=== PATIENT | female | born 1945 | race Caucasian/White ===

== ENCOUNTER → 2017-01-30 | Outpatient (CLI) | payer OTHER ==
[~2017-01-30] MED LIST: INDA1TAB3 PO; LORA-741 PO; NEBI10TA2 PO; OMEP40CA PO
[2017-01-30 12:04] LABS: BASO % 0.3 %; BASO ABS # 0.02 K/uL (0-0.2); COMPLETE YES; EOS % 1.8 %; HEMATOCRIT 43.8 % (37-47); IG% 0.2 %; LYMPH % 16.8 %; LYMPH ABS # 1.11 K/uL (1.2-3.4); MEAN CELL VOLUME 92.8 fL (80-100); MEAN CORPUSCULAR HEMOGLOBIN 29.2 pg (25-34); MEAN CORPUSCULAR HGB CONC 31.5 g/dl (32-36); MEAN PLATELET VOLUME 11.8 fL (7.4-10.4); MONO % 8.2 %; NEUT % 72.7 %; PLATELET COUNT 199 K/uL (130-400); RED BLOOD COUNT 4.72 M/uL (4.2-5.4); WHITE BLOOD COUNT 6.62 K/uL (4.8-10.8)
[2017-01-30 12:28] LABS: ALT/SGPT 25 U/L (12-78); AST/SGOT 22 U/L (15-37); BLOOD UREA NITROGEN 12 mg/dl (7-18); BUN/CREATININE RATIO 17.8 (10-20); CALCIUM 8.6 mg/dl (8.5-10.1); CARBON DIOXIDE 35 mmol/L (21-32); CHLORIDE 104 mmol/L (98-107); CREATININE 0.68 mg/dl (0.60-1.20); GLUCOSE 92 mg/dl (70-99); POTASSIUM 4.1 mmol/L (3.5-5.1); SODIUM 143 mmol/L (136-145)
[2017-01-30 12:39] LABS: ALB/GLOB RATIO 1.1 (0.9-2); ALKALINE PHOSPHATASE 61 U/L (45-117); CHOLESTEROL 151 mg/dl (0-200); HDL CHOLESTEROL 51 mg/dl; LDL CHOLESTEROL CALCULATED 85 mg/dl; TRIGLYCERIDES 74 mg/dl (0-150); VERY LOW DENSITY LIPOPROT CALC 15 mg/dl
== END | disposition home or self-care (01) ==
LOC: C.LABBFT 07:59
PROVIDERS: ATTEND Internal Medicine Pulmonary Disease
DX: I10 Essential (primary) hypertension (principal); M81.0 Age-related osteoporosis without current pathological fracture; R63.4 Abnormal weight loss

== ENCOUNTER → 2017-04-02 | Outpatient (CLI) | payer OTHER | END | disposition home or self-care (01) | LOC: C.PATHSPEC 12:55 | PROVIDERS: ATTEND Plastic Surgery | DX: L72.0 Epidermal cyst (principal) ==

== ENCOUNTER → 2017-08-10 | Outpatient (CLI) | payer OTHER ==
[2017-08-11 13:38] LABS: VARICELLA ZOS VIR IGG VALUE 262.8 INDEX
== END | disposition home or self-care (01) ==
LOC: C.LAB1850 11:20
PROVIDERS: ATTEND Internal Medicine Pulmonary Disease
DX: Z00.00 Encounter for general adult medical examination without abnormal findings (principal)

== ENCOUNTER → 2017-09-17 | Outpatient (CLI) | payer OTHER ==
--- NOTE | 2017-09-17 18:04 | DIAGNOSTIC IMAGING REPORT ---
R FOOT MIN 3 VIEWS ROUTINE CLINICAL HISTORY: 72 years-old Female presenting with FOOT/TOE INJURY, RIGHT. TECHNIQUE: Frontal, oblique, and lateral views the right foot were obtained. COMPARISON: None. FINDINGS: Minimal osteophytosis suggested at the first metatarsophalangeal joint. No joint space loss. No acute fracture or malalignment. Osteopenia suggested. No radiographic soft tissue abnormality. IMPRESSION: No acute osseous injury of the right foot. Please see separately dictated radiographs of the right toes. Electronically signed by: Brannon Mullins M.D. 09/17/2017 6:02 PM Dictated Date/Time: 09/17/2017 6:01 PM
--- NOTE | 2017-09-17 18:05 | DIAGNOSTIC IMAGING REPORT ---
R TOE(S) MIN 2 VIEWS CLINICAL HISTORY: 72 years-old Female presenting with TOE INJURY. TECHNIQUE: Frontal, oblique, and lateral views of the right fourth toe were obtained. COMPARISON: None. FINDINGS: Osteopenia may be present, which limits evaluation for nondisplaced fracture. Degenerative changes noted in the distal interphalangeal joint of the third toe and proximal interphalangeal joint of the fourth toe evidence by osteophytosis. No acute fracture or malalignment. No radiographic soft tissue abnormality. IMPRESSION: No acute osseous injury of the right fourth toe. Mild degenerative changes above. Electronically signed by: Brannon Mullins M.D. 09/17/2017 6:04 PM Dictated Date/Time: 09/17/2017 6:03 PM
== END | disposition home or self-care (01) ==
LOC: C.RAD 17:08
PROVIDERS: ATTEND Physician Assistant Surgical
DX: S99.921A Unspecified injury of right foot, initial encounter (principal); X58.XXXA Exposure to other specified factors, initial encounter; M79.671 Pain in right foot

== ENCOUNTER 2017-12-09 15:20 | Inpatient (IN) | payer OTHER ==
[~2017-12-09] VITALS: Ht 154.9 cm; Wt 42.8 kg
[~2017-12-09 15:20] MED LIST changes: -NEBI10TA2 PO
[2017-12-09] MEDS ORDERED: NEBI10TA2 PO (15:39)
[2017-12-09] MEDS ORDERED: ACETAMINOPHEN 500 MG TAB PO STA (15:46)
[2017-12-09] MEDS ORDERED: SODIUM CHLORIDE 0.9% 1000ML 1,000 ML IV STA (15:46)
[2017-12-09] MEDS ORDERED: ALBUT/IPRATROP 3MG/0.5MG NEB 3 ML VIAL INH ONE (16:00)
[2017-12-09 16:01] VITALS: PULSE 72; O2SAT 100
--- NOTE | 2017-12-09 16:24 | EMERGENCY ROOM VISIT NOTE ---
History First contact with patient: 15:37 Chief Complaint: FLU LIKE SX Stated Complaint: FLU History of Present Illness The patient is a 72 year old female who presents to the Emergency Room with complaints of flulike symptoms including cough, fevers/chills, body aches and headaches, and feeling very weak for the past 2 days. She has not taken any Tylenol or NSAIDs today for her symptoms. Patient went to see her primary care provider today, who sent her to the emergency department for further evaluation due to her oxygen level being 81% on room air. The patient does not use any oxygen at baseline. She denies any known lung disease and states she does not use any prescribed inhalers. She is an every day smoker. She denies any chest pain, shortness of breath, dizziness or syncope. She states that she has been having some loose stools, but denies any abdominal pain, nausea or vomiting, bloody or black stools, urinary symptoms. She denies any rash. Review of Systems A complete 10 point review of systems was reviewed with the patient with pertinent positives and negatives as per history of present illness. All else were negative. Past Medical/Surgical History Medical Problems: (1) Influenza A (2) PNA (pneumonia) Social History Smoking Status: Never Smoker Alcohol Use: none Drug Use: none Current/Historical Medications Scheduled Indapamide (Indapamide), 1.25 MG PO QAM Nebivolol Hcl (Bystolic), 20 MG PO QAM Omeprazole (Prilosec), 40 MG PO QAM Scheduled PRN Lorazepam (Lorazepam), 0.5 MG PO HS PRN for Sleep Omeprazole (Prilosec), 40 MG PO UD PRN for Acid Reflux Allergies Reviewed in chart Physical Exam Vital Signs Date Time Temp Pulse Resp B/P (MAP) Pulse Ox O2 Delivery O2 Flow Rate FiO2 12/09/17 16:32 87 12/09/17 16:22 80 26 121/68 100 Nebulizer 6.0 12/09/17 16:01 72 16 100 Nasal Cannula 2.0 12/09/17 15:59 100 Nasal Cannula 2.0 12/09/17 15:59 100 Nasal Cannula 2.0 12/09/17 15:31 38.3 74 20 164/46 87 Room Air Physical Exam CONSTITUTIONAL: Pleasant and cooperative. No acute distress, but appears uncomfortable and generally weak. Moderately dehydrated. HEENT: Normocephalic, atraumatic. PERRL, EOMI, normal conjunctiva bilaterally. TMs normal bilaterally. Pharynx with mild erythema, no edema or exudates. No uvular swelling or deviation, no trismus. Dry mucous membranes. NECK: Supple, full active range of motion without discomfort. No cervical adenopathy. RESPIRATORY: Diminished throughout with expiratory wheezes. No crackles, rhonchi or stridor. No accessory muscle use. Speaking in full sentences. Equal expansion bilaterally. CARDIOVASCULAR: Regular rate and rhythm, 3/6 systolic murmur, no rubs or gallops. Normal peripheral perfusion. No edema. GASTROINTESTINAL: Soft, nontender, nondistended. No palpable masses or HSM. Bowel sounds present in all quadrants. MUSCULOSKELETAL: Full range of motion of all joints without discomfort. INTEGUMENTARY: No rash or other significant dermatologic conditions noted. NEUROLOGIC: Alert and oriented X 4 with normal affect. Cranial nerves II-XII grossly intact. No focal neurologic deficits noted. Generalized weakness, equal strength and sensation in all 4 extremities. Normal speech. Normal gait observed. Medical Decision & Procedures ER Provider Diagnostic Interpretation: TWO VIEW CHEST CLINICAL HISTORY: Pneumonia. Cough. FINDINGS: PA and lateral chest radiographs are obtained. No prior studies are available for comparison at the time of dictation. The heart is enlarged and there is atherosclerotic calcification of the thoracic aorta. The pulmonary vasculature is noncongested. Emphysema is noted. Nonspecific interstitial thickening is observed. Airspace opacities are questioned at the posterior lung bases on the lateral projection. No pleural effusion is identified. There is no pneumothorax. The skeletal structures are osteopenic. Degenerative change and mild hyperkyphosis are noted in the thoracic spine. IMPRESSION: 1. Cardiomegaly and emphysema. 2. Airspace opacities are seen posteriorly at the lung bases on the lateral view. Correlate clinically for evidence of pneumonia/aspiration pneumonitis. Radiographic follow-up to resolution is recommended. Laboratory Results 12/09/17 16:15 Red Blood Count 4.43, Mean Corpuscular Volume 91.2, Mean Corpuscular Hemoglobin 29.6, Mean Corpuscular Hemoglobin Concent 32.4, Mean Platelet Volume 11.2, Neutrophils (%) (Auto) 79.1, Lymphocytes (%) (Auto) 10.0, Monocytes (%) (Auto) 10.5, Eosinophils (%) (Auto) 0.0, Basophils (%) (Auto) 0.2, Neutrophils # (Auto ) 4.83, Lymphocytes # (Auto) 0.61, Monocytes # (Auto) 0.64, Eosinophils # (Auto ) 0.00, Basophils # (Auto) 0.01 12/09/17 16:15 Test 12/09/17 15:57 12/09/17 16:15 Influenza Type A Antigen POS for Influ A (NEG) Influenza Type B Antigen Neg for Influ B (NEG) White Blood Count 6.10 K/uL (4.8-10.8) Red Blood Count 4.43 M/uL (4.2-5.4) Hemoglobin 13.1 g/dL (12.0-16.0) Hematocrit 40.4 % (37-47) Mean Corpuscular Volume 91.2 fL (80-100) Mean Corpuscular Hemoglobin 29.6 pg (25-34) Mean Corpuscular Hemoglobin Concent 32.4 g/dl (32-36) Platelet Count 102 K/uL (130-400) Mean Platelet Volume 11.2 fL (7.4-10.4) Neutrophils (%) (Auto) 79.1 % Lymphocytes (%) (Auto) 10.0 % Monocytes (%) (Auto) 10.5 % Eosinophils (%) (Auto) 0.0 % Basophils (%) (Auto) 0.2 % Neutrophils # (Auto) 4.83 K/uL (1.4-6.5) Lymphocytes # (Auto) 0.61 K/uL (1.2-3.4) Monocytes # (Auto) 0.64 K/uL (0.11-0.59) Eosinophils # (Auto) 0.00 K/uL (0-0.5) Basophils # (Auto) 0.01 K/uL (0-0.2) RDW Standard Deviation 49.8 fL (36.4-46.3) RDW Coefficient of Variation 14.8 % (11.5-14.5) Immature Granulocyte % (Auto) 0.2 % Immature Granulocyte # (Auto) 0.01 K/uL (0.00-0.02) Prothrombin Time 11.4 SECONDS (9.0-12.0) Prothromb Time International Ratio 1.1 (0.9-1.1) Activated Partial Thromboplast Time 34.1 SECONDS (21.0-31.0) Partial Thromboplastin Ratio 1.3 Anion Gap 8.0 mmol/L (3-11) Est Creatinine Clear Calc Drug Dose 50.1 ml/min Estimated GFR () 96.3 Estimated GFR (Non- 83.1 BUN/Creatinine Ratio 28.9 (10-20) Lactic Acid Level 1.0 mmol/L (0.4-2.0) Calcium Level 8.4 mg/dl (8.5-10.1) Total Bilirubin 0.5 mg/dl (0.2-1) Aspartate Amino Transf (AST/SGOT) 43 U/L (15-37) Alanine Aminotransferase (ALT/SGPT) 29 U/L (12-78) Alkaline Phosphatase 46 U/L (45-117) Total Protein 6.3 gm/dl (6.4-8.2) Albumin 3.1 gm/dl (3.4-5.0) Globulin 3.2 gm/dl (2.5-4.0) Albumin/Globulin Ratio 1.0 (0.9-2) Medications Administered Medications (Trade) Dose Ordered Sig/Nahomy Route Start Time Stop Time Status Last Admin Dose Admin Acetaminophen (Tylenol Tab) 1,000 mg NOW STAT PO 12/09/17 15:46 12/09/17 15:51 DC 12/09/17 16:00 1,000 MG Albuterol/ Ipratropium (Duoneb) 12 ml ONE ONCE INH 12/09/17 16:00 12/09/17 16:01 DC 12/09/17 16:01 12 ML Sodium Chloride 1,000 ml @ 999 mls/hr Q1H1M STAT IV 12/09/17 15:46 12/09/17 16:46 DC 12/09/17 16:26 999 MLS/HR Oseltamivir Phosphate (Tamiflu Cap) 75 mg NOW STAT PO 12/09/17 17:35 12/09/17 17:41 DC 12/09/17 18:10 75 MG Levofloxacin (Levaquin / D5W) 500 mg NOW ONCE IV 12/09/17 17:45 12/09/17 17:46 DC 12/09/17 18:10 500 MG ECG Indication: SOB/dyspnea Rate (beats per minute): 72 Rhythm: normal sinus Findings: ST depression (Infero-Lateral), no ectopy, other (LVH) Change: no significant change (when compared to EKG from 06/17/2016, ST abnormalities are unchanged.) Medical Decision CC: Patient presenting with complaint of flulike symptoms, hypoxia Interpretation of Labs: No leukocytosis, no anemia, no significant electrolyte abnormalities, normal renal function, normal liver enzymes. Lactic acid within normal limits. Coagulation factors within normal limits. Influenza A is POSITIVE. Blood cultures pending. UA appears consistent with contamination. Differential Diagnosis: Includes, but not limited to influenza, viral URI, bronchitis, pneumonia, dehydration, bacteremia/sepsis, ACS, CHF, COPD, among others. Medication Reconciliation: I attest that I have personally reviewed the patient' s current medication list. Initial vital signs review: I reviewed the patient's vital signs and interpret them as follows: T: Febrile; BP: Hypertensive; HR: Within normal limits; RR: Within normal limits; Pulse Ox: Hypoxic on room air, placed on nasal cannula. Blood pressure screening: The patient was found to have an elevated blood pressure, this was felt to be situational. Summary: Patient was evaluated at bedside, history and physical exam performed. Patient is alert and oriented, no acute distress but does appear uncomfortable and generally weak, sitting on the side of the stretcher. Patient's lungs are diminished throughout with expiratory wheezes. Patient was noted to be hypoxic at her doctor's office and again in triage, she is currently 97% on 4 L nasal cannula. Orders were placed at bedside for labs, UA, blood cultures 2, influenza test, IV fluids for hydration, Tylenol for fever, EKG, chest x-ray to evaluate for pneumonia. Patient discussed with Dr. Reyna, who agrees with my assessment and plan. Labs reviewed as above, positive for influenza type A. Labs otherwise appear unremarkable. EKG shows normal sinus rhythm, LVH and ST depression in the inferior and lateral leads, compared to previous this is unchanged by my interpretation. Chest x-ray concerning for possible basilar pneumonia. Patient did test positive for influenza type A. Tamiflu ordered, as well as IV Levaquin to cover for potential pneumonia. I spoke with Dr. Weinberg, hospitalist, who agrees to evaluate the patient for admission. Patient reassessed multiple times throughout ED stay, she reports mild improvement with the nebulizer treatments, and sats remain within normal limits on nasal cannula. The patient was updated on all results and plan for admission, she verbalized understanding and was agreeable to this plan. The patient was stable at time of admission. Impression Primary Impression: Influenza A Additional Impression: PNA (pneumonia) Departure Information Dispostion Admitted as an inpatient Condition FAIR Referrals Shadi Murrieta M.D. (PCP) Patient Instructions My [facility] Problem Qualifiers Additional Impression: PNA (pneumonia) Pneumonia type: due to unspecified organism Laterality: unspecified laterality Lung location: lower lobe of lung Qualified Codes: J18.1 - Lobar pneumonia, unspecified organism
[2017-12-09 16:39] LABS: BASO % 0.2 %; BASO ABS # 0.01 K/uL (0-0.2); HEMATOCRIT 40.4 % (37-47); HEMOGLOBIN 13.1 g/dL (12.0-16.0); IG# 0.01 K/uL (0.00-0.02); LYMPH ABS # 0.61 K/uL (1.2-3.4); MEAN CELL VOLUME 91.2 fL (80-100); MEAN CORPUSCULAR HEMOGLOBIN 29.6 pg (25-34); MEAN CORPUSCULAR HGB CONC 32.4 g/dl (32-36); MEAN PLATELET VOLUME 11.2 fL (7.4-10.4); MONO % 10.5 %; MONO ABS # 0.64 K/uL (0.11-0.59); NEUT % 79.1 %; NEUT ABS # 4.83 K/uL (1.4-6.5); PLATELET COUNT 102 K/uL (130-400); RED CELL DISTRIBUTION WIDTH CV 14.8 % (11.5-14.5); RED CELL DISTRIBUTION WIDTH SD 49.8 fL (36.4-46.3)
[2017-12-09 16:53] LABS: INFLUENZA B ANTIGEN Neg for Influ B (NEG)
[2017-12-09 16:56] LABS: ALBUMIN 3.1 gm/dl (3.4-5.0); CALCIUM 8.4 mg/dl (8.5-10.1); CREATININE 0.72 mg/dl (0.60-1.20); POTASSIUM 3.4 mmol/L (3.5-5.1)
[2017-12-09 16:59] LABS: TOTAL PROTEIN 6.3 gm/dl (6.4-8.2)
[2017-12-09] MEDS ORDERED: LZL125 PO (16:59)
[2017-12-09] MEDS ORDERED: OMEP40CA41 PO ×2 (16:59)
[2017-12-09] MEDS ORDERED: ATV5X PO (16:59)
--- NOTE | 2017-12-09 17:32 | DIAGNOSTIC IMAGING REPORT ---
TWO VIEW CHEST CLINICAL HISTORY: Pneumonia. Cough. FINDINGS: PA and lateral chest radiographs are obtained. No prior studies are available for comparison at the time of dictation. The heart is enlarged and there is atherosclerotic calcification of the thoracic aorta. The pulmonary vasculature is noncongested. Emphysema is noted. Nonspecific interstitial thickening is observed. Airspace opacities are questioned at the posterior lung bases on the lateral projection. No pleural effusion is identified. There is no pneumothorax. The skeletal structures are osteopenic. Degenerative change and mild hyperkyphosis are noted in the thoracic spine. IMPRESSION: 1. Cardiomegaly and emphysema. 2. Airspace opacities are seen posteriorly at the lung bases on the lateral view. Correlate clinically for evidence of pneumonia/aspiration pneumonitis. Radiographic follow-up to resolution is recommended. Electronically signed by: Fracisco Graham M.D. 12/09/2017 5:31 PM Dictated Date/Time: 12/09/2017 5:29 PM
[2017-12-09] MEDS ORDERED: OSELTAMIVIR PHOSPHATE 75 MG CAP PO STA (17:35)
[2017-12-09] MEDS ORDERED: LEVAQUIN 500MG / 100ML D5W IV ONE (17:45)
[2017-12-09] MEDS ORDERED: POLYETHYLENE (MIRALAX) 17 GM PACK PO PRN (18:15)
[2017-12-09] MEDS ORDERED: ACETAMINOPHEN 325 MG TAB PO PRN (18:15)
[2017-12-09] MEDS ORDERED: ONDANSETRON INJ 2 MG/ML 2 ML VIAL IV PRN (18:15)
[2017-12-09] MEDS ORDERED: MAGNESIUM HYDROXIDE SUSP 30 ML UDC PO PRN (18:15)
[2017-12-09] MEDS ORDERED: NITROGLYCERIN 0.4 MG SL PER TAB CHARGE SL PRN (18:15)
[2017-12-09] MEDS ORDERED: MoRPHine SULFATE 2 MG/ML CARP IV PRN (18:15)
[2017-12-09] MEDS ORDERED: ALBUT/IPRATROP 3MG/0.5MG NEB 3 ML VIAL INH PRN (18:15)
[2017-12-09] MEDS ORDERED: ALUMINUM/MAGNESIUM/SIMETH (MAALOX MAX) 30 ML UDC PO PRN (18:15)
--- NOTE | 2017-12-09 18:21 | History and Physical ---
History & Physical Date & Time of Service: Dec 09, 2017 at 18:09 Chief Complaint: FLU Primary Care Physician: Shadi Murrieta M.D. History of Present Illness Source: patient, family, clinic records, hospital records Patient is a pleasant 72 y/o female, with PMHx of anxiety, HTN, and GERD, who presented to the ED because of flu-like symptoms x3 days. Patient was seen by Dr. Murrieta today in the office for symptoms and was found to by hypoxic at 81% on RA. She does NOT have O2 supplement at home. She is an everyday smoker. Patient was found to be influenza A positive in ED. +fever/chills, body aches, loss of appetite. Patient also admits to productive cough w/ yellow sputum. CXR suggest bilateral lower lobe PNA. Patient did have a temp of 38.3 in ED. + diarrhea. Patient denies any sweats, lightheadedness, dizziness, vision changes , CP, palpitations, edema, SOB, wheezing, abdominal pain, nausea, vomiting, urinary symptoms, melena, numbness/tingling, weakness, muscle/joint pain, anxiety/depression, active bleeding, or new skin discoloration/changes. Past Medical/Surgical History Past Medical History: Anxiety HTN GERD tobacco abuse Family History Cancer, DM Social History Smoking Status: Current Every Day Smoker Marital Status: Housing status: lives with significant other Immunizations History of Influenza Vaccine: Yes History of Tetanus Vaccine?: Yes History of Pneumococcal: Yes History of Hepatitis B Vaccine: No Multi-Drug Resistant Organisms History of MDRO: No Allergies Coded Allergies: Prednisone (Verified Allergy, Unknown, MOOD CHANGES, 07/17/16) Sulfa Drugs (Verified Allergy, Unknown, Unknown Rxn, 07/17/16) Home Medications Scheduled Indapamide (Indapamide), 1.25 MG PO QAM Nebivolol Hcl (Bystolic), 20 MG PO QAM Omeprazole (Prilosec), 40 MG PO QAM Scheduled PRN Lorazepam (Lorazepam), 0.5 MG PO HS PRN for Sleep Omeprazole (Prilosec), 40 MG PO UD PRN for Acid Reflux Physical Exam Vital Signs Date Time Temp Pulse Resp B/P (MAP) Pulse Ox O2 Delivery O2 Flow Rate FiO2 12/09/17 16:32 87 1/31/18 16:22 80 26 121/68 100 Nebulizer 6.0 12/09/17 16:01 72 16 100 Nasal Cannula 2.0 12/09/17 15:59 100 Nasal Cannula 2.0 12/09/17 15:59 100 Nasal Cannula 2.0 12/09/17 15:31 38.3 74 20 164/46 87 Room Air General Appearance: no apparent distress, + thin Head: normocephalic, atraumatic Eyes: PERRL ENT: hearing grossly normal Neck: supple Respiratory/Chest: no respiratory distress, no accessory muscle use, + crackles (bilateral lung bases) Cardiovascular: + abnormal rhythm (irregular; rate controlled ) Abdomen/GI: normal bowel sounds, non tender, soft Back: normal inspection Extremities/Musculoskelatal: no calf tenderness, no pedal edema Neurologic/Psych: alert, normal mood/affect, oriented x 3 Skin: normal color, warm/dry, no rash Diagnostics Laboratory Results Results Past 24 Hours Test 12/09/17 15:57 12/09/17 16:15 Range/Units Influenza Type A Antigen POS for Influ A NEG Influenza Type B Antigen Neg for Influ B NEG White Blood Count 6.10 4.8-10.8 K/uL Red Blood Count 4.43 4.2-5.4 M/uL Hemoglobin 13.1 12.0-16.0 g/dL Hematocrit 40.4 37-47 % Mean Corpuscular Volume 91.2 80-100 fL Mean Corpuscular Hemoglobin 29.6 25-34 pg Mean Corpuscular Hemoglobin Concent 32.4 32-36 g/dl Platelet Count 102 130-400 K/uL Mean Platelet Volume 11.2 7.4-10.4 fL Neutrophils (%) (Auto) 79.1 % Lymphocytes (%) (Auto) 10.0 % Monocytes (%) (Auto) 10.5 % Eosinophils (%) (Auto) 0.0 % Basophils (%) (Auto) 0.2 % Neutrophils # (Auto) 4.83 1.4-6.5 K/uL Lymphocytes # (Auto) 0.61 1.2-3.4 K/uL Monocytes # (Auto) 0.64 0.11-0.59 K/uL Eosinophils # (Auto) 0.00 0-0.5 K/uL Basophils # (Auto) 0.01 0-0.2 K/uL RDW Standard Deviation 49.8 36.4-46.3 fL RDW Coefficient of Variation 14.8 11.5-14.5 % Immature Granulocyte % (Auto) 0.2 % Immature Granulocyte # (Auto) 0.01 0.00-0.02 K/uL Sodium Level 134 136-145 mmol/L Potassium Level 3.4 3.5-5.1 mmol/L Chloride Level 95 98-107 mmol/L Carbon Dioxide Level 31 21-32 mmol/L Anion Gap 8.0 3-11 mmol/L Blood Urea Nitrogen 21 7-18 mg/dl Creatinine 0.72 0.60-1.20 mg/dl Est Creatinine Clear Calc Drug Dose 50.1 ml/min Estimated GFR () 96.3 Estimated GFR (Non- 83.1 BUN/Creatinine Ratio 28.9 10-20 Random Glucose 98 70-99 mg/dl Lactic Acid Level 1.0 0.4-2.0 mmol/L Calcium Level 8.4 8.5-10.1 mg/dl Total Bilirubin 0.5 0.2-1 mg/dl Aspartate Amino Transf (AST/SGOT) 43 15-37 U/L Alanine Aminotransferase (ALT/SGPT) 29 12-78 U/L Alkaline Phosphatase 46 45-117 U/L Total Protein 6.3 6.4-8.2 gm/dl Albumin 3.1 3.4-5.0 gm/dl Globulin 3.2 2.5-4.0 gm/dl Albumin/Globulin Ratio 1.0 0.9-2 Microbiology Results 12/09/17 Blood Culture, Received Pending 12/09/17 Blood Culture, Received Pending Diagnostic Radiology TWO VIEW CHEST CLINICAL HISTORY: Pneumonia. Cough. FINDINGS: PA and lateral chest radiographs are obtained. No prior studies are available for comparison at the time of dictation. The heart is enlarged and there is atherosclerotic calcification of the thoracic aorta. The pulmonary vasculature is noncongested. Emphysema is noted. Nonspecific interstitial thickening is observed. Airspace opacities are questioned at the posterior lung bases on the lateral projection. No pleural effusion is identified. There is no pneumothorax. The skeletal structures are osteopenic. Degenerative change and mild hyperkyphosis are noted in the thoracic spine. IMPRESSION: 1. Cardiomegaly and emphysema. 2. Airspace opacities are seen posteriorly at the lung bases on the lateral view. Correlate clinically for evidence of pneumonia/aspiration pneumonitis. Radiographic follow-up to resolution is recommended. Electronically signed by: Fracisco Graham M.D. 12/09/2017 5:31 PM Dictated Date/Time: 12/09/2017 5:29 PM The status of this report is Signed. Draft = Not yet reviewed or approved by Radiologist. Signed = Reviewed and approved by Radiologist. EKG GRACIE LAW ID:[id number] 09-DEC-2017 15:55:16 [facility] Normal sinus rhythm Possible Left atrial enlargement Left ventricular hypertrophy Marked ST abnormality, possible inferolateral subendocardial injury Abnormal ECG When compared with ECG of 17-JUN-2016 07:31, No significant change was found 25mm/s 10mm/mV 150Hz 8.0 SP2 12SL 241 SHANE: 13 Referred by: Shadi Murrieta Unconfirmed Vent. rate 72 BPM FL interval 168 ms QRS duration 94 ms QT/QTc 416/455 ms P-R-T axes 76 76 5 1945 (72 yr) Female Room: Loc:15 [employer] Professional:LIZETT ULLOA Test ind: Impression Assessment and Plan Patient is a pleasant 72 y/o female, with PMHx of anxiety, HTN, and GERD, who presented to the ED because of flu-like symptoms x3 days. Acute hypoxic respiratory failure, +influenza A, PNA: - Admit to tele for cardiac monitoring - O2 protocol - Droplet precautions - Tamiflu BID x5 days - DuoNebs QID and PRN for SOB/wheezing - IV Levaquin - Sputum cultures, MRSA swab, and BCx pending - IVF + 20 mEq KCL supplement @ 100 ml/hr - Tylenol PRN for pain/fever Anxiety: Continue Ativan 0.5 mg HS PRN HTN- STABLE: Continue Indapamide 1.25 mg daily and Bystolic 20 mg daily Tobacco abuse: - Denies need for Nicotine patch - Smoking cessation counselling GERD: Protonix daily- resume Prilosec at discharge DVT prophylaxis: Heparin SQ BID Code status: LEVEL I, FULL Dispo: From home, lives w/ - PT/OT and CM consulted Level of Care Telemetry Resuscitation Status FULL RESUSCITATION VTE Prophylaxis VTE Risk Assessment Done? Y/N: Yes Risk Level: Moderate Given or contraindicated: Unfractionated heparin SQ, T.E.D. Stockings, SCD's Reviewed: Pt Seen/Exam by Me History Pt states she is feeling improved s/p IVF and abx. She has had no appetite the last few days and started to feel hungry. She did attempt PO but it was meatloaf which she does not care for so she did not eat much. She is tolerating what she did eat. No chest pain or SOB. Agree with HPI/ROS as noted by PA. General Appearance: no apparent distress, thin Eye Exam: bilateral eye normal inspection, bilateral eye other (normal sclera) Respiratory: normal breath sounds, no respiratory distress Cardiovascular: normal peripheral pulses, regular rate, rhythm Gastrointestinal: non tender, soft Extremities: non-tender, no pedal edema Neurologic/Psychiatric: alert, normal mood/affect, oriented x 3 Skin Characteristics: normal color, warm/dry Assessment/Plan Agree with plan as outlined above Flu like sx: Flu A + and possible PNA Tamiflu + levaquin Monitor with IVF
[2017-12-09] MEDS ORDERED: TAMIFLU PHARMACY CONSULT IN PROGRESS PRN (18:45)
[2017-12-09 19:44] LABS: INR 1.1 (0.9-1.1); PTT PATIENT 34.1 SECONDS (21.0-31.0)
[2017-12-09] MEDS: ALBUT/IPRATROP 3MG/0.5MG NEB 3 ML VIAL INH SCH (20:00)
[2017-12-09 20:25] VITALS: BP 115/51; PULSE 89; TEMP 36.8; O2SAT 92; Ht 154.9 cm; Wt 42.8 kg
[2017-12-09] MEDS: NSS + 20MEQ KCL 1000ML 1,000 ML IV SCH (21:27)
[2017-12-09] MEDS: HEPARIN SOD 5000 UNIT/0.5 ML CARP SQ SCH ×2 (21:31→21:37)
[2017-12-09 23:59] VITALS: BP 98/45; PULSE 66; TEMP 36.7; O2SAT 97
[2017-12-10] VITALS (11 sets, daily range): BP systolic 97–119; BP diastolic 51–73; PULSE 64–82; TEMP 36.6–37.2; O2SAT 91–98
[2017-12-10] MEDS: NSS + 20MEQ KCL 1000ML 1,000 ML IV SCH ×2 (06:00→19:07)
[2017-12-10] MEDS: OSELTAMIVIR PHOSPHATE SUSP 30 MG/5 ML UDP PO SCH ×2 (06:00→18:05)
[2017-12-10 06:23] LABS: HEMATOCRIT 37.7 % (37-47); HEMOGLOBIN 12.1 g/dL (12.0-16.0); MEAN CORPUSCULAR HEMOGLOBIN 29.5 pg (25-34); MEAN CORPUSCULAR HGB CONC 32.1 g/dl (32-36); RED CELL DISTRIBUTION WIDTH CV 14.7 % (11.5-14.5); RED CELL DISTRIBUTION WIDTH SD 49.4 fL (36.4-46.3); WHITE BLOOD COUNT 4.05 K/uL (4.8-10.8)
[2017-12-10 06:58] LABS: CALCIUM 7.5 mg/dl (8.5-10.1); CREATININE 0.62 mg/dl (0.60-1.20); POTASSIUM 3.7 mmol/L (3.5-5.1)
[2017-12-10] MEDS: ALBUT/IPRATROP 3MG/0.5MG NEB 3 ML VIAL INH SCH (07:05)
[2017-12-10] MEDS ORDERED: INFLUENZA VIRUS QUAD VACCINE 0.5 ML SYR IM. ONE (08:00)
[2017-12-10] MEDS ORDERED: INFLUENZA ADMINISTRATION CHARGE ONE (08:00)
[2017-12-10 08:06] LABS: MEAN PLATELET VOLUME 11.3 fL (7.4-10.4); PLATELET COUNT 87 K/uL (130-400)
[2017-12-10] MEDS: PANTOprazole SOD 40 MG TAB PO SCH (08:36)
[2017-12-10] MEDS: INDAPAMIDE 1.25 MG TAB PO SCH (08:36)
[2017-12-10] MEDS: NEBIVOLOL HCL 5 MG TAB PO SCH (08:36)
[2017-12-10] MEDS: HEPARIN SOD 5000 UNIT/0.5 ML CARP SQ SCH ×3 (08:37→20:06)
--- NOTE | 2017-12-10 14:15 | Hospitalist Progress Note ---
Hospitalist Progress Note Date of Service Dec 10, 2017. (Gabi Mendez, MARTHAC) Subjective Pt evaluation today including: conversation w/ patient, physical exam, chart review, lab review, review of studies, review of inpatient medication list Patient seen and evaluated. No acute events overnight. Still on supplemental O2 but ambulating in room. Feels a little bit better but continues to have a significant cough with intermittent thick yellow sputum. Does complain of fatigue. Tolerating diet without issue. Additional Comments: ROS: General/Constitutional: + fatigue; Denies fever/chills ENT: Denies nasal drainage, sore throat, trouble swallowing Cardiovascular: Denies chest pain, palpitations, edema Respiratory: + cough, + intermittent sputum, + CULLEN; Denies wheezing, orthopnea GI: Denies nausea, vomiting, abdominal pain, constipation, diarrhea : Denies dysuria Musculoskeletal: Denies joint/muscle aches, weakness, swelling Neurologic: Denies dizziness/lightheadedness, numbness/tingling Hematologic/Lymphatic: Denies bleeding/clotting abnormalities Skin: Denies rash (Gabi Mendez, MARTHAC) Medications Current Inpatient Medications Medications (Trade) Dose Ordered Sig/Nahomy Route Start Time Stop Time Status Last Admin Dose Admin Heparin Sodium (Porcine) (Heparin Sq 5000 Unit/0.5ml) 5,000 unit Q12 SQ 12/09/17 21:00 01/08/18 20:59 Potassium Chloride/Sodium Chloride 1,000 ml @ 100 mls/hr Q10H IV 12/09/17 21:00 01/08/18 20:59 12/10/17 06:00 100 MLS/HR Acetaminophen (Tylenol Tab) 650 mg Q4H PRN PO 12/09/17 18:15 01/08/18 18:14 Al Hydrox/Mg Hydrox/Simethicone (Maalox Max Susp) 15 ml Q4H PRN PO 12/09/17 18:15 01/08/18 18:14 Magnesium Hydroxide (Milk Of Magnesia Susp) 30 ml Q12H PRN PO 12/09/17 18:15 01/08/18 18:14 Ondansetron HCl (Zofran Inj) 4 mg Q6H PRN IV 12/09/17 18:15 01/08/18 18:14 Nitroglycerin (Nitrostat Tab) 0.4 mg UD PRN SL 12/09/17 18:15 01/08/18 18:14 Morphine Sulfate (MoRPHine SULFATE INJ) 2 mg Q30M PRN IV 12/09/17 18:15 12/23/17 18:14 Polyethylene (Miralax Powder Packet) 17 gm DAILY PRN PO 12/09/17 18:15 01/08/18 18:14 Oseltamivir Phosphate (Tamiflu Susp) 30 mg Q12H PO 12/10/17 06:00 12/14/17 06:01 12/10/17 06:00 30 MG Albuterol/ Ipratropium (Duoneb) 3 ml QIDR INH 12/09/17 20:00 01/08/18 19:59 12/10/17 07:05 3 ML Indapamide (Lozol Tab) 1.25 mg QAM PO 12/10/17 09:00 01/09/18 08:59 12/10/17 08:36 1.25 MG Lorazepam (Ativan Tab) 0.5 mg HS PRN PO 12/09/17 18:15 01/08/18 18:14 Nebivolol (Bystolic Tab) 20 mg QAM PO 12/10/17 09:00 01/09/18 08:59 12/10/17 08:36 20 MG Pantoprazole Sodium (Protonix Tab) 40 mg QAM PO 12/10/17 09:00 01/09/18 08:59 12/10/17 08:36 40 MG Levofloxacin 750 mg/Prmx 150 ml @ 100 mls/hr Q24H IV 12/10/17 18:00 12/16/17 17:59 Albuterol/ Ipratropium (Duoneb) 3 ml Q2H PRN INH 12/09/17 18:15 01/08/18 18:14 Miscellaneous Information 1 ea UD PRN N/A 12/09/17 18:45 01/08/18 18:44 (Gabi Mendez, MARTHAC) Objective Vital Signs Date Time Temp Pulse Resp B/P (MAP) Pulse Ox O2 Delivery O2 Flow Rate FiO2 12/10/17 12:00 91 Nasal Cannula 1.5 12/10/17 11:30 36.9 72 20 117/51 (73) 95 Room Air 12/10/17 08:00 92 Nasal Cannula 1.5 12/10/17 07:15 37.2 71 16 117/64 (81) 97 Nasal Cannula 1.5 12/10/17 07:05 67 16 97 Nasal Cannula 2.0 12/10/17 04:00 97 Nasal Cannula 1.5 12/10/17 03:29 36.8 71 15 119/56 (77) 98 Nasal Cannula 1.5 12/09/17 23:59 36.7 66 18 98/45 (62) 97 Nasal Cannula 1.5 12/09/17 23:59 97 Nasal Cannula 1.5 12/09/17 20:25 36.8 89 27 115/51 92 Nasal Cannula 1.5 12/09/17 20:09 88 24 98/40 93 12/09/17 18:57 88 24 98/40 93 Nasal Cannula 3.0 12/09/17 16:32 87 12/09/17 16:22 80 26 121/68 100 Nebulizer 6.0 12/09/17 16:01 72 16 100 Nasal Cannula 2.0 12/09/17 15:59 100 Nasal Cannula 2.0 12/09/17 15:59 100 Nasal Cannula 2.0 12/09/17 15:31 38.3 74 20 164/46 87 Room Air (Gabi Mendez PA-C) Physical Exam Notes: General Appearance: WDWN in NAD who is A&O x 3 HEENT: Head is normocephalic/atraumatic; Hearing grossly intact; Mucous membranes moist; Pharynx negative for exudate/lesions Neck: Supple; Trachea midline; Neg JVD Heart: RRR with III/ systolic murmur Lungs: Mostly CTA in all lung hdz bilaterally except for minimal crackles at bases b/l; Respirations unlabored; Neg accessory muscle use Abdomen: Soft, non-tender, non-distended; Positive BS x 4 quadrants Extremities: Neg cyanosis or edema Neurological: Speech clear; Neg focal neurologic deficits Psychiatric: Appropriate mood/affect Skin: Normal Color; Warm/Dry (Gabi Mendez PA-C) Laboratory Results Last 24 Hours Test 12/09/17 15:57 12/09/17 16:15 12/09/17 18:49 12/10/17 05:51 Influenza Type A Antigen POS for Influ A Influenza Type B Antigen Neg for Influ B White Blood Count 6.10 K/uL 4.05 K/uL Red Blood Count 4.43 M/uL 4.10 M/uL Hemoglobin 13.1 g/dL 12.1 g/dL Hematocrit 40.4 % 37.7 % Mean Corpuscular Volume 91.2 fL 92.0 fL Mean Corpuscular Hemoglobin 29.6 pg 29.5 pg Mean Corpuscular Hemoglobin Concent 32.4 g/dl 32.1 g/dl Platelet Count 102 K/uL 87 K/uL Mean Platelet Volume 11.2 fL 11.3 fL Neutrophils (%) (Auto) 79.1 % Lymphocytes (%) (Auto) 10.0 % Monocytes (%) (Auto) 10.5 % Eosinophils (%) (Auto) 0.0 % Basophils (%) (Auto) 0.2 % Neutrophils # (Auto) 4.83 K/uL Lymphocytes # (Auto) 0.61 K/uL Monocytes # (Auto) 0.64 K/uL Eosinophils # (Auto) 0.00 K/uL Basophils # (Auto) 0.01 K/uL RDW Standard Deviation 49.8 fL 49.4 fL RDW Coefficient of Variation 14.8 % 14.7 % Immature Granulocyte % (Auto) 0.2 % Immature Granulocyte # (Auto) 0.01 K/uL Prothrombin Time 11.4 SECONDS Prothromb Time International Ratio 1.1 Activated Partial Thromboplast Time 34.1 SECONDS Partial Thromboplastin Ratio 1.3 Sodium Level 134 mmol/L 138 mmol/L Potassium Level 3.4 mmol/L 3.7 mmol/L Chloride Level 95 mmol/L 103 mmol/L Carbon Dioxide Level 31 mmol/L 32 mmol/L Anion Gap 8.0 mmol/L 3.0 mmol/L Blood Urea Nitrogen 21 mg/dl 18 mg/dl Creatinine 0.72 mg/dl 0.62 mg/dl Est Creatinine Clear Calc Drug Dose 50.1 ml/min 55.8 ml/min Estimated GFR () 96.3 103.7 Estimated GFR (Non- 83.1 89.5 BUN/Creatinine Ratio 28.9 29.8 Random Glucose 98 mg/dl 83 mg/dl Lactic Acid Level 1.0 mmol/L Calcium Level 8.4 mg/dl 7.5 mg/dl Total Bilirubin 0.5 mg/dl Aspartate Amino Transf (AST/SGOT) 43 U/L Alanine Aminotransferase (ALT/SGPT) 29 U/L Alkaline Phosphatase 46 U/L Total Protein 6.3 gm/dl Albumin 3.1 gm/dl Globulin 3.2 gm/dl Albumin/Globulin Ratio 1.0 Urine Color YELLOW Urine Appearance CLOUDY Urine pH 5.0 Urine Specific [place] 1.022 Urine Protein 2+ Urine Glucose (UA) NEG Urine Ketones NEG Urine Occult Blood 1+ Urine Nitrite NEG Urine Bilirubin NEG Urine Urobilinogen NEG Urine Leukocyte Esterase TRACE Urine WBC (Auto) 10-30 /hpf Urine RBC (Auto) 0-4 /hpf Urine Hyaline Casts (Auto) >30 /lpf Urine Epithelial Cells (Auto) >30 /lpf Urine Bacteria (Auto) NEG Urine Renal Epithelial Cells /lpf Urine Pathogenic Casts See comments /lpf Urine Yeast (Auto) Platelet Estimate DECREASED (Gabi Mendez PA-C) Assessment and Plan Patient is a pleasant 72 y/o female, with PMHx of anxiety, HTN, and GERD, who presented to the ED because of flu-like symptoms x3 days. Acute Hypoxic Respiratory Failure 2/2 Influenza A and Community Acquired Pneumonia: IMPROVING - Still requiring supplemental O2 and wean as tolerated - Levaquin 750 mg daily and Tamiflu 30 mg BID - NSS + 20 mEq KCl at 100 mL/hr - Duonebs HTN: STABLE - Lozol 1.25 mg daily and Bystolic 20 mg daily Current Tobacco Use: - Continue Nicotine patch and encourage cessation DVT Prophylaxis: Heparin 5000 units Q12H Disposition: - Continue to wean O2 and possible D/C next 1-2 days Continued [facility] stay due to: multiple IV medications needed Discharge planning: home (Gabi Mendez PA-C) Reviewed: Pt Seen/Exam by Me (Nancy Weinberg DO) History Pt is still feeling under the weather, but better than yesterday. She was able to eat better today. Her breathing is better. She has been OOB walking and feels her strength is improving, but still weak. No chest pain or SOB. Agree with HPI/ROS as noted above. (Nancy Weinberg DO) All Other Systems: Reviewed and Negative (Nancy Weinberg DO) General Appearance: no apparent distress, thin Eye Exam: bilateral eye normal inspection, bilateral eye other (normal sclera) Respiratory: no respiratory distress, crackles (improving) Cardiovascular: normal peripheral pulses, regular rate, rhythm Gastrointestinal: non tender, soft Extremities: non-tender, no pedal edema Neurologic/Psychiatric: alert, normal mood/affect, oriented x 3 Skin Characteristics: normal color, warm/dry (Nancy Weinberg, DO) Assessment/Plan Agree with plan as outlined above Flu like sx: Flu A + and possible PNA Tamiflu + levaquin Monitor with IVF Stable for transfer to floor Wean O2 as able (Nancy Weinberg, DO)
[2017-12-10] MEDS ORDERED: LEVOFLOXACIN / D5W 750 MG in PREMIXED IN D5W 150 ML IV SCH (18:00)
[2017-12-10] MEDS: LORAZEPAM 0.5 MG TAB PO PRN (21:58)
[2017-12-11] VITALS (8 sets, daily range): BP systolic 144–186; BP diastolic 69–76; PULSE 68–91; TEMP 36.9; O2SAT 87–91
[2017-12-11] MEDS: NSS + 20MEQ KCL 1000ML 1,000 ML IV SCH ×2 (05:19→15:03)
[2017-12-11] MEDS: OSELTAMIVIR PHOSPHATE SUSP 30 MG/5 ML UDP PO SCH (05:40)
[2017-12-11 07:20] LABS: HEMATOCRIT 36.6 % (37-47); HEMOGLOBIN 11.9 g/dL (12.0-16.0); MEAN CORPUSCULAR HEMOGLOBIN 29.9 pg (25-34); MEAN CORPUSCULAR HGB CONC 32.5 g/dl (32-36); RED CELL DISTRIBUTION WIDTH CV 14.8 % (11.5-14.5); WHITE BLOOD COUNT 2.84 K/uL (4.8-10.8)
[2017-12-11 07:30] LABS: MEAN PLATELET VOLUME 10.8 fL (7.4-10.4); PLATELET COUNT 82 K/uL (130-400)
[2017-12-11] MEDS: HEPARIN SOD 5000 UNIT/0.5 ML CARP SQ SCH ×2 (07:34→20:16)
[2017-12-11] MEDS: ALBUT/IPRATROP 3MG/0.5MG NEB 3 ML VIAL INH SCH ×4 (07:34→19:29)
[2017-12-11] MEDS: PANTOprazole SOD 40 MG TAB PO SCH (07:35)
[2017-12-11] MEDS: NEBIVOLOL HCL 5 MG TAB PO SCH (07:36)
[2017-12-11] MEDS: INDAPAMIDE 1.25 MG TAB PO SCH ×2 (07:37→07:38)
[2017-12-11 07:43] LABS: CALCIUM 7.7 mg/dl (8.5-10.1); CREATININE 0.58 mg/dl (0.60-1.20); POTASSIUM 3.8 mmol/L (3.5-5.1)
--- NOTE | 2017-12-11 15:18 | Hospitalist Progress Note ---
Hospitalist Progress Note Date of Service Dec 11, 2017. (Gabi Mendez, PA-C) Subjective Pt evaluation today including: conversation w/ patient, conversation w/ family , physical exam, chart review, lab review, review of studies, review of inpatient medication list Patient seen and evaluated. No acute events overnight. Currently on RA. Reports feeling a little better today. Took a walk in the hallway and felt very fatigued and will keep another night. Appetite is improving and taking in fluids and will stop IVF. Continues to have a dry non-productive cough and will try Tessalon perles. She does not want anything with opiates in it. Encouraged her to continue to ambulate as tolerated but would keep her today and see if she feels more stronger tomorrow. Discussed with that he should call PCP and let them know that he has been exposed to the flu to see if they would want to give him Tamiflu. Additional Comments: General/Constitutional: + fatigue, + generalized weakness ENT: Denies nasal drainage, sore throat, trouble swallowing Cardiovascular: Denies chest pain, palpitations, edema Respiratory: + cough; Denies sputum, SOB, wheezing, orthopnea GI: Denies nausea, vomiting, abdominal pain, constipation, diarrhea, melena/ hematochezia : Denies dysuria Musculoskeletal: Denies joint/muscle aches Neurologic: Denies dizziness/lightheadedness Hematologic/Lymphatic: Denies bleeding/clotting abnormalities Skin: Denies rash (Gabi Mendez, PA-C) Medications Current Inpatient Medications Medications (Trade) Dose Ordered Sig/Nahomy Route Start Time Stop Time Status Last Admin Dose Admin Heparin Sodium (Porcine) (Heparin Sq 5000 Unit/0.5ml) 5,000 unit Q12 SQ 12/09/17 21:00 01/08/18 20:59 Potassium Chloride/Sodium Chloride 1,000 ml @ 100 mls/hr Q10H IV 12/09/17 21:00 01/08/18 20:59 12/11/17 15:03 100 MLS/HR Acetaminophen (Tylenol Tab) 650 mg Q4H PRN PO 12/09/17 18:15 01/08/18 18:14 Al Hydrox/Mg Hydrox/Simethicone (Maalox Max Susp) 15 ml Q4H PRN PO 12/09/17 18:15 01/08/18 18:14 Magnesium Hydroxide (Milk Of Magnesia Susp) 30 ml Q12H PRN PO 12/09/17 18:15 01/08/18 18:14 Ondansetron HCl (Zofran Inj) 4 mg Q6H PRN IV 12/09/17 18:15 01/08/18 18:14 Nitroglycerin (Nitrostat Tab) 0.4 mg UD PRN SL 12/09/17 18:15 01/08/18 18:14 Morphine Sulfate (MoRPHine SULFATE INJ) 2 mg Q30M PRN IV 12/09/17 18:15 12/23/17 18:14 Polyethylene (Miralax Powder Packet) 17 gm DAILY PRN PO 12/09/17 18:15 01/08/18 18:14 Albuterol/ Ipratropium (Duoneb) 3 ml QIDR INH 12/09/17 20:00 01/08/18 19:59 12/11/17 11:18 3 ML Indapamide (Lozol Tab) 1.25 mg QAM PO 12/10/17 09:00 01/09/18 08:59 12/10/17 08:36 1.25 MG Lorazepam (Ativan Tab) 0.5 mg HS PRN PO 12/09/17 18:15 01/08/18 18:14 12/10/17 21:58 0.5 MG Nebivolol (Bystolic Tab) 20 mg QAM PO 12/10/17 09:00 01/09/18 08:59 12/11/17 07:36 20 MG Pantoprazole Sodium (Protonix Tab) 40 mg QAM PO 12/10/17 09:00 01/09/18 08:59 12/11/17 07:35 40 MG Albuterol/ Ipratropium (Duoneb) 3 ml Q2H PRN INH 12/09/17 18:15 01/08/18 18:14 Miscellaneous Information 1 ea UD PRN N/A 12/09/17 18:45 01/08/18 18:44 Oseltamivir Phosphate (Tamiflu Cap) 75 mg BID PO 12/11/17 20:00 12/14/17 08:01 Levofloxacin (Levaquin Tab) 750 mg DAILY@1800 PO 12/11/17 18:00 12/16/17 17:59 (Gabi Mendez PA-C) Objective Vital Signs Date Time Temp Pulse Resp B/P (MAP) Pulse Ox O2 Delivery O2 Flow Rate FiO2 12/11/17 11:20 78 16 90 Room Air 12/11/17 07:40 78 16 87 Room Air 12/11/17 07:33 165/73 (103) 12/11/17 07:25 36.9 86 20 90 Room Air 12/11/17 00:00 Room Air 12/10/17 23:30 36.6 64 16 111/73 (86) 94 Room Air 12/10/17 19:36 70 16 92 Room Air 12/10/17 17:28 93 Room Air 12/10/17 16:28 36.8 82 16 97/55 (69) 93 Room Air (Gabi Mendez PA-C) Physical Exam Notes: General Appearance: WDWN in NAD who is alert; ill appearing but non-toxic HEENT: Head is normocephalic/atraumatic Neck: Supple; Trachea midline; Neg JVD Heart: RRR with systolic murmur Lungs: Rhonchi at L base otherwise clear; Respirations unlabored; Neg accessory muscle use Abdomen: Soft, non-tender, non-distended; Positive BS x 4 quadrants Neurological: Speech clear Psychiatric: Appropriate mood/affect Skin: Normal Color; Warm/Dry (Gabi Mendez PA-C) Laboratory Results Last 24 Hours Test 12/11/17 06:28 White Blood Count 2.84 K/uL Red Blood Count 3.98 M/uL Hemoglobin 11.9 g/dL Hematocrit 36.6 % Mean Corpuscular Volume 92.0 fL Mean Corpuscular Hemoglobin 29.9 pg Mean Corpuscular Hemoglobin Concent 32.5 g/dl RDW Standard Deviation 50.0 fL RDW Coefficient of Variation 14.8 % Platelet Count 82 K/uL Mean Platelet Volume 10.8 fL Sodium Level 139 mmol/L Potassium Level 3.8 mmol/L Chloride Level 105 mmol/L Carbon Dioxide Level 30 mmol/L Anion Gap 5.0 mmol/L Blood Urea Nitrogen 13 mg/dl Creatinine 0.58 mg/dl Est Creatinine Clear Calc Drug Dose 60.3 ml/min Estimated GFR () 106.0 Estimated GFR (Non- 91.4 BUN/Creatinine Ratio 22.8 Random Glucose 87 mg/dl Calcium Level 7.7 mg/dl (Gabi Mendez, PA-C) Assessment and Plan Patient is a pleasant 72 y/o female, with PMHx of anxiety, HTN, and GERD, who presented to the ED because of flu-like symptoms x3 days. Acute Hypoxic Respiratory Failure 2/2 Influenza A and Community Acquired Pneumonia: IMPROVING - Currently on room air - Levaquin 750 mg daily and Tamiflu 75 mg BID - Continue Duonebs HTN: STABLE - Lozol 1.25 mg daily and Bystolic 20 mg daily Current Tobacco Use: - Continue Nicotine patch and encourage cessation DVT Prophylaxis: Heparin 5000 units Q12H Disposition: - D/C based on clinical assessment; patient extremely fatigued with minimal ambulation but did encourage her to continue walking - Possible D/C tomorrow pending continued improvement Discharge planning: home (Gabi Mendez, BETTY-C) Reviewed: Pt Seen/Exam by Me (Nancy Weinberg DO) History Pt feels improved overall but still very fatigued with minimal exertion, which is not her usual. No SOB and tolerating off O2. Appetite is improving. No chest pain. Agree with HPI/ROS as noted by PA. (Nancy Weinberg DO) Comments General Appearance: no apparent distress, thin Eye Exam: bilateral eye normal inspection, bilateral eye other (normal sclera) Respiratory: no respiratory distress, crackles-resolved Cardiovascular: normal peripheral pulses, regular rate, rhythm Gastrointestinal: non tender, soft Extremities: non-tender, no pedal edema Neurologic/Psychiatric: alert, normal mood/affect, oriented x 3 Skin Characteristics: normal color, warm/dry (Nancy Weinberg DO) Assessment/Plan Agree with plan as outlined above Flu like sx: Flu A + and possible PNA Tamiflu + levaquin d/c IVF Wean O2 as able PT/OT recs for home (Nancy Weinberg DO)
[2017-12-11] MEDS: LEVOFLOXACIN 750 MG TAB PO SCH (18:07)
[2017-12-11] MEDS: OSELTAMIVIR PHOSPHATE 75 MG CAP PO SCH (20:16)
[2017-12-12] VITALS (9 sets, daily range): BP systolic 154–174; BP diastolic 74–77; PULSE 71–81; TEMP 36.7–36.8; O2SAT 90–94
[2017-12-12] MEDS: LORAZEPAM 0.5 MG TAB PO PRN ×2 (00:01→22:55)
[2017-12-12] MEDS ORDERED: SODIUM CHLORIDE 0.65% NA SOLN 45 ML (OCEAN) ONE (03:55)
[2017-12-12] MEDS ORDERED: NURSING DECISION MEDICATION ORDER SCH (04:00)
[2017-12-12] MEDS ORDERED: SODIUM CHLORIDE 0.65% NA SOLN 45 ML (OCEAN) PRN (05:00)
[2017-12-12 06:35] LABS: HEMOGLOBIN 11.5 g/dL (12.0-16.0); MEAN CORPUSCULAR HEMOGLOBIN 29.6 pg (25-34); MEAN CORPUSCULAR HGB CONC 32.9 g/dl (32-36); RED CELL DISTRIBUTION WIDTH CV 14.6 % (11.5-14.5); RED CELL DISTRIBUTION WIDTH SD 48.1 fL (36.4-46.3); WHITE BLOOD COUNT 3.25 K/uL (4.8-10.8)
[2017-12-12 06:37] LABS: MEAN PLATELET VOLUME 10.6 fL (7.4-10.4); PLATELET COUNT 84 K/uL (130-400)
[2017-12-12 07:07] LABS: CALCIUM 7.9 mg/dl (8.5-10.1); CREATININE 0.47 mg/dl (0.60-1.20); POTASSIUM 3.5 mmol/L (3.5-5.1)
[2017-12-12] MEDS: ALBUT/IPRATROP 3MG/0.5MG NEB 3 ML VIAL INH SCH ×4 (07:25→19:13)
[2017-12-12] MEDS: OSELTAMIVIR PHOSPHATE 75 MG CAP PO SCH ×2 (08:07→19:52)
[2017-12-12] MEDS: PANTOprazole SOD 40 MG TAB PO SCH (08:08)
[2017-12-12] MEDS: INDAPAMIDE 1.25 MG TAB PO SCH (08:08)
[2017-12-12] MEDS: NEBIVOLOL HCL 5 MG TAB PO SCH (08:08)
[2017-12-12] MEDS: HEPARIN SOD 5000 UNIT/0.5 ML CARP SQ SCH ×2 (08:09→19:53)
[2017-12-12] MEDS: LEVOFLOXACIN 750 MG TAB PO SCH (17:17)
--- NOTE | 2017-12-12 23:38 | Progress Note ---
Subjective Date of Service: Dec 12, 2017. Subjective Pt evaluation today including: conversation w/ patient, physical exam, chart review, review of studies Pain: no pain reported Voiding: no voiding problems Patient is seen and examined by me. Pt states he feels better but still some fatigue and weakness, but overall may require a day more to be ready for discharge. Pt denies cp, sob, dizziness, palpitation and LOC. Review of Systems General/Constitutional: + fatigue, + generalized weakness ENT: Denies nasal drainage, sore throat, trouble swallowing Cardiovascular: Denies chest pain, palpitations, edema Respiratory: + cough; Denies sputum, SOB, wheezing, orthopnea GI: Denies nausea, vomiting, abdominal pain, constipation, diarrhea, melena/ hematochezia : Denies dysuria Musculoskeletal: Denies joint/muscle aches Neurologic: Denies dizziness/lightheadedness Hematologic/Lymphatic: Denies bleeding/clotting abnormalities Skin: Denies rash Medications Medications (Trade) Dose Ordered Sig/Nahomy Route Start Time Stop Time Status Last Admin Dose Admin Sodium Chloride ([place] Nasal [place]) 225 sprays [employer] ONCE .ROUTE 12/12/17 03:55 12/12/17 03:56 DC 12/12/17 08:07 225 SPRAYS Objective Vital Signs Date Time Temp Pulse Resp B/P (MAP) Pulse Ox O2 Delivery O2 Flow Rate FiO2 12/12/17 19:15 76 20 90 Room Air 12/12/17 16:18 36.7 78 20 174/74 (107) 90 Room Air 12/12/17 16:00 93 Room Air 12/12/17 14:24 71 16 93 Room Air 12/12/17 11:28 77 16 94 Room Air 12/12/17 08:00 90 Room Air 12/12/17 07:25 81 16 90 Room Air 12/12/17 06:54 36.8 77 20 161/77 (105) 90 Room Air 12/12/17 00:01 80 154/74 (100) 90 Room Air 12/11/17 23:27 36.9 89 20 186/76 (112) 89 Room Air Physical Exam Comments: General Appearance: WD/WN in NAD who is alert; feeling much better HEENT: Head is normocephalic/atraumatic Neck: Supple; Trachea midline; Neg JVD Heart: RRR with systolic murmur Lungs: Rhonchi at L base otherwise clear; Respirations unlabored; Neg accessory muscle use Abdomen: Soft, non-tender, non-distended; Positive BS x 4 quadrants Neurological: Speech clear Psychiatric: Appropriate mood/affect Skin: Normal Color; Warm/Dry Laboratory Results Last 24 Hours Test 12/12/17 06:11 White Blood Count 3.25 K/uL Red Blood Count 3.89 M/uL Hemoglobin 11.5 g/dL Hematocrit 35.0 % Mean Corpuscular Volume 90.0 fL Mean Corpuscular Hemoglobin 29.6 pg Mean Corpuscular Hemoglobin Concent 32.9 g/dl RDW Standard Deviation 48.1 fL RDW Coefficient of Variation 14.6 % Platelet Count 84 K/uL Mean Platelet Volume 10.6 fL Sodium Level 136 mmol/L Potassium Level 3.5 mmol/L Chloride Level 101 mmol/L Carbon Dioxide Level 31 mmol/L Anion Gap 4.0 mmol/L Blood Urea Nitrogen 9 mg/dl Creatinine 0.47 mg/dl Est Creatinine Clear Calc Drug Dose 77.1 ml/min Estimated GFR () 113.6 Estimated GFR (Non- 98.0 BUN/Creatinine Ratio 18.4 Random Glucose 87 mg/dl Calcium Level 7.9 mg/dl Assessment and Plan Patient is a pleasant 72 y/o female, with PMHx of anxiety, HTN, and GERD, who presented to the ED because of flu-like symptoms x3 days. Acute Hypoxic Respiratory Failure 2/2 Influenza A and Community Acquired Pneumonia: IMPROVING - Currently on room air - Levaquin 750 mg daily and Tamiflu 75 mg BID - Continue Duonebs HTN: STABLE - Lozol 1.25 mg daily and Bystolic 20 mg daily Current Tobacco Use: - Continue Nicotine patch and encourage cessation DVT Prophylaxis: Heparin 5000 units Q12H Disposition: - D/C based on clinical assessment; patient extremely fatigued with minimal ambulation but did encourage her to continue walking - Possible D/C tomorrow pending continued improvement Discharge planning: home Continued [facility] stay due to: multiple IV medications needed Discharge planning: home
[2017-12-13] VITALS (13 sets, daily range): BP systolic 108–185; BP diastolic 60–79; PULSE 69–84; TEMP 36.5–36.7; O2SAT 85–98
[2017-12-13] MEDS: ALBUT/IPRATROP 3MG/0.5MG NEB 3 ML VIAL INH SCH ×4 (07:24→19:04)
[2017-12-13] MEDS: HEPARIN SOD 5000 UNIT/0.5 ML CARP SQ SCH ×2 (08:04→20:12)
[2017-12-13] MEDS: NEBIVOLOL HCL 5 MG TAB PO SCH (08:09)
[2017-12-13] MEDS: PANTOprazole SOD 40 MG TAB PO SCH (08:09)
[2017-12-13] MEDS: OSELTAMIVIR PHOSPHATE 75 MG CAP PO SCH ×2 (08:09→20:12)
[2017-12-13] MEDS: INDAPAMIDE 1.25 MG TAB PO SCH (08:09)
[2017-12-13] MEDS ORDERED: NURSING VERBAL MED ORDER ONE (11:30)
--- NOTE | 2017-12-13 11:39 | Progress Note ---
Subjective Date of Service: Dec 13, 2017. Subjective Pt evaluation today including: conversation w/ patient, conversation w/ family , physical exam, chart review, lab review Pain: none Voiding: no voiding problems, no incontinence Problem List Patient is seen and examined. Pt denies cp, dizziness, palpitation and loc. Pt denies nausea, vomiting and diarrhea. pt requiring o2 on Ra, wheezing is slightly worst. Review of Systems Constitutional: No fever, No sweats Respiratory: + cough, + wheezing, + problem reported (o2 desat to 86% on walkinging with in 1 min), No shortness of breath, No dyspnea on exertion Cardiac: No chest pain Abdomen: No pain, No nausea, No vomiting Neurologic: No memory loss, No weakness Endo: No fatigue Skin: No rash Objective Vital Signs Date Time Temp Pulse Resp B/P (MAP) Pulse Ox O2 Delivery O2 Flow Rate FiO2 12/13/17 08:10 91 Nasal Cannula 2.5 12/13/17 08:00 85 Room Air 12/13/17 07:46 36.7 71 20 174/72 (106) 94 Nasal Cannula 2.0 12/13/17 07:24 69 20 97 Nasal Cannula 2.0 12/13/17 01:05 72 169/79 (109) 94 Nasal Cannula 4.0 12/13/17 00:22 36.6 79 20 185/67 (106) 92 Nasal Cannula 2.0 12/13/17 00:00 Nasal Cannula 2.0 12/12/17 19:15 76 20 90 Room Air 12/12/17 16:18 36.7 78 20 174/74 (107) 90 Room Air 12/12/17 16:00 93 Room Air 12/12/17 14:24 71 16 93 Room Air Physical Exam General Appearance: no apparent distress Eyes: EOMI Neck: supple, no adenopathy Respiratory/Chest: lungs clear, no respiratory distress Cardiovascular: regular rate, rhythm, no edema, no gallop, no JVD Extremities: + pedal edema, + swelling Neurologic/Psychiatric: alert, normal mood/affect, oriented x 3 Skin: no rash Lymphatic: no adenopathy Assessment and Plan Patient is a pleasant 72 y/o female, with PMHx of anxiety, HTN, and GERD, who presented to the ED because of flu-like symptoms x3 days. Acute Hypoxic Respiratory Failure 2/2 Influenza A and Community Acquired Pneumonia: IMPROVING - Currently de saturate to 86% within 1 min of walking, b/l lower feet swelling , rule out fluid overload, chest exam is worst than yesterday - Levaquin 750 mg daily and Tamiflu 75 mg BID - Continue Duonebs - will do cxr - one time dose of lasix 40 mg iv HTN: STABLE - Lozol 1.25 mg daily and Bystolic 20 mg daily Current Tobacco Use: - Continue Nicotine patch and encourage cessation DVT Prophylaxis: Heparin 5000 units Q12H Disposition: - D/C based on clinical assessment; patient desat to 86%, may need home oxygen. - Possible D/C tomorrow pending continued improvement Discharge planning: home Continued [facility] stay due to: multiple IV medications needed Discharge planning: home
--- NOTE | 2017-12-13 11:51 | DIAGNOSTIC IMAGING REPORT ---
CHEST ONE VIEW PORTABLE CLINICAL HISTORY: 72 years-old Female presenting with PNA. TECHNIQUE: Portable upright AP view of the chest was obtained. COMPARISON: 12/09/2017. FINDINGS: Atherosclerosis of aortic arch. Cardiac silhouette enlarged. Retraction of the imtiaz superiorly. Suggestion of reticular opacities in the left comparison mediastinal upper lung, although there is an overlapping external tube in this region as well. Hyperinflation, unchanged. Heterogeneity of lung parenchyma unchanged. No large pleural effusion or pneumothorax. Osseous structures normal. Upper abdomen normal. IMPRESSION: 1. Mild cardiomegaly. 2. Emphysema suspected. 3. Possible reticular opacities in the paramediastinal left upper lung. Differential considerations include scarring, overlapping external tubing, or infiltrate. If there is clinical concern, PA and lateral radiographs could be obtained. Electronically signed by: Brannon Mullins M.D. 12/13/2017 11:49 AM Dictated Date/Time: 12/13/2017 11:47 AM
[2017-12-13] MEDS ORDERED: FUROSEMIDE INJ 40 MG in SYRINGE 0 ML IV ONE (12:00)
[2017-12-13] MEDS: LEVOFLOXACIN 750 MG TAB PO SCH (17:25)
[2017-12-13] MEDS: LORAZEPAM 0.5 MG TAB PO PRN (23:00)
[2017-12-14] VITALS (7 sets, daily range): BP systolic 130–146; BP diastolic 70–76; PULSE 79–93; TEMP 36.6–36.7; O2SAT 87–93
[2017-12-14] MEDS: ALBUT/IPRATROP 3MG/0.5MG NEB 3 ML VIAL INH SCH ×2 (06:55→11:07)
[2017-12-14] MEDS: PANTOprazole SOD 40 MG TAB PO SCH (08:29)
[2017-12-14] MEDS: INDAPAMIDE 1.25 MG TAB PO SCH (08:29)
[2017-12-14] MEDS: NEBIVOLOL HCL 5 MG TAB PO SCH (08:29)
[2017-12-14] MEDS: OSELTAMIVIR PHOSPHATE 75 MG CAP PO SCH (08:29)
[2017-12-14] MEDS: HEPARIN SOD 5000 UNIT/0.5 ML CARP SQ SCH (08:30)
[2017-12-14 10:19] LABS: BASO % 0.3 %; BASO ABS # 0.02 K/uL (0-0.2); EOS ABS # 0.06 K/uL (0-0.5); HEMOGLOBIN 12.9 g/dL (12.0-16.0); IG# 0.01 K/uL (0.00-0.02); LYMPH % 15.5 %; LYMPH ABS # 0.95 K/uL (1.2-3.4); MEAN CELL VOLUME 89.4 fL (80-100); MEAN CORPUSCULAR HEMOGLOBIN 29.6 pg (25-34); MEAN CORPUSCULAR HGB CONC 33.1 g/dl (32-36); MEAN PLATELET VOLUME 10.6 fL (7.4-10.4); MONO % 15.5 %; MONO ABS # 0.95 K/uL (0.11-0.59); NEUT % 67.5 %; NEUT ABS # 4.15 K/uL (1.4-6.5); PLATELET COUNT 119 K/uL (130-400); RED CELL DISTRIBUTION WIDTH CV 14.4 % (11.5-14.5); RED CELL DISTRIBUTION WIDTH SD 47.4 fL (36.4-46.3); WHITE BLOOD COUNT 6.14 K/uL (4.8-10.8)
[2017-12-14 10:59] LABS: CALCIUM 8.1 mg/dl (8.5-10.1); CREATININE 0.82 mg/dl (0.60-1.20); POTASSIUM 2.8 mmol/L (3.5-5.1)
[2017-12-14] MEDS ORDERED: POTASSIUM CHLORIDE 10 MEQ TABCR PO ONE ×2 (12:15→14:00)
[2017-12-14] MEDS ORDERED: PRVHFAIN INH (14:33)
[2017-12-14] MEDS ORDERED: LVQ750 PO (14:33)
--- NOTE | 2017-12-14 14:38 | Discharge Instructions ---
Discharge Instructions Date of Service Dec 14, 2017. Admission Reason for Admission: Influenza A; Pna (Pneumonia) Discharge Discharge Diagnosis / Problem: Influenza A, PNA Discharge Goals Goal(s): Improve disease control Activity Recommendations Activity Limitations: resume your previous activity Exercise/Sports Limitations: as tolerated . Instructions / Follow-Up Instructions / Follow-Up Please follow with Dr. Murrieta later this week. Please have your blood drawn tomorrow. Results will go to Dr. Murrieta Current Hospital Diet Patient's current hospital diet: Regular Diet Discharge Diet Recommended Diet: Regular Diet Procedures Procedures Performed: Chest Xray Pending Studies Studies pending at discharge: no Medical Emergencies . Who to Call and When: Medical Emergencies: If at any time you feel your situation is an emergency, please call 911 immediately. . Non-Emergent Contact Non-Emergency issues call your: Primary Care Provider Call Non-Emergent contact if: you have a fever, you have any medication questions . . "Provider Documentation" section prepared by Khushboo Carrington. . VTE Core Measure Inpt VTE Proph given/why not?: Unfractionated heparin DONTA, T.E.Luis. Chapo, SCD 's
--- NOTE | 2017-12-14 14:46 | Discharge Summary ---
Discharge Summary Date of Service Dec 14, 2017. Discharge Summary Admission Date: Dec 09, 2017 at 18:08 Discharge Date: Dec 14, 2017 Discharge Disposition: Home Principal Diagnosis: PNA, influenza A Problems/Secondary Diagnoses: current smoker Immunizations: Have You Had Influenza Vaccine: Yes History of Tetanus Vaccine?: Yes History of Pneumococcal: Yes History of Hepatitis B Vaccine: No Procedures: TWO VIEW CHEST CLINICAL HISTORY: Pneumonia. Cough. FINDINGS: PA and lateral chest radiographs are obtained. No prior studies are available for comparison at the time of dictation. The heart is enlarged and there is atherosclerotic calcification of the thoracic aorta. The pulmonary vasculature is noncongested. Emphysema is noted. Nonspecific interstitial thickening is observed. Airspace opacities are questioned at the posterior lung bases on the lateral projection. No pleural effusion is identified. There is no pneumothorax. The skeletal structures are osteopenic. Degenerative change and mild hyperkyphosis are noted in the thoracic spine. IMPRESSION: 1. Cardiomegaly and emphysema. 2. Airspace opacities are seen posteriorly at the lung bases on the lateral view. Correlate clinically for evidence of pneumonia/aspiration pneumonitis. Radiographic follow-up to resolution is recommended. CHEST ONE VIEW PORTABLE CLINICAL HISTORY: 72 years-old Female presenting with PNA. TECHNIQUE: Portable upright AP view of the chest was obtained. COMPARISON: 12/09/2017. FINDINGS: Atherosclerosis of aortic arch. Cardiac silhouette enlarged. Retraction of the imtiaz superiorly. Suggestion of reticular opacities in the left comparison mediastinal upper lung, although there is an overlapping external tube in this region as well. Hyperinflation, unchanged. Heterogeneity of lung parenchyma unchanged. No large pleural effusion or pneumothorax. Osseous structures normal. Upper abdomen normal. IMPRESSION: 1. Mild cardiomegaly. 2. Emphysema suspected. 3. Possible reticular opacities in the paramediastinal left upper lung. Differential considerations include scarring, overlapping external tubing, or infiltrate. If there is clinical concern, PA and lateral radiographs could be obtained. Electronically signed by: Brannon Mullins M.D. 12/13/2017 11:49 AM Dictated Date/Time: 12/13/2017 11:47 AM Medication Reconciliation New Medications: Albuterol (Ventolin Hfa) 60 Puffs/5400 Mcg Aers 2 PUFF INH Q4H for 14 Days, #1 INHALER Levofloxacin (Levofloxacin) 750 Mg Tab 750 MG PO DAILY@1800 for 3 Days, #3 TAB Continued Medications: Indapamide (Indapamide) 1.25 Mg Tab 1.25 MG PO QAM Lorazepam (Lorazepam) 0.5 Mg Tab 0.5 MG PO HS PRN for Sleep Nebivolol Hcl (Bystolic) 10 Mg Tab 20 MG PO QAM, TAB Omeprazole (Prilosec) 40 Mg Cap 40 MG PO QAM Omeprazole (Prilosec) 40 Mg Cap 40 MG PO UD PRN for Acid Reflux, CAP NEEDED IN ADDITION TO MORNING DOSE Discharge Exam ROS Constitutional: no chills, aches, sweats or fever Respiratory: some qiu, no cough, sputum, or wheezing Cardiac: no chest pain, palpitations, edema, orthopnea or lightheadedness GI: no abdominal pain, nausea, vomiting, diarrhea or constipation : no dysuria or hesitancy Extremities: no joint pain or weakness Skin: no rash All other systems reviewed and negative PE General: no distress Eyes: normal inspection, PERLL Respiratory: chest non tender, clear to auscultation, normal breath sounds, no respiratory distress, no accessory muscle use Cardiac: regular rate and rhythm, no rub or gallop, no murmur, no edema, no jvd GI/: active bowel sounds, no abd pain or tenderness, soft, non distended Extremities: normal range of motion, normal strength, non tender Neuro/Psych: alert and oriented x 3, normal mood and affect Skin: normal color, dry Hospital Course Patient is a pleasant 72 y/o female, with PMHx of anxiety, HTN, and GERD, who presented to the ED because of flu-like symptoms x3 days. Patient was seen by Dr. Murrieta day of admission in the office for symptoms and was found to by hypoxic at 81% on RA. She does NOT have O2 supplement at home. She is an everyday smoker. Patient was found to be influenza A positive in ED. +fever/ chills, body aches, loss of appetite. Patient also admitted to productive cough w/ yellow sputum. CXR suggested bilateral lower lobe PNA. Patient did have a temp of 38.3 in ED. +diarrhea. Acute Hypoxic Respiratory Failure 2/2 Influenza A and Community Acquired Pneumonia - Vital signs showed desaturations to 86% within 1 min of walking and patient did receive lasix x1. Sats today were difficult to read on fingers but per respiratory therapy, patient was sating 100% on after walking the halls and 2 step on Thursday did not demonstrate need for home O2 so she will be discharged with out it. - Levaquin 750 mg daily for 3 more days for a total fo 7 - Tamiflu 75 mg BID x 5 days finished 12/14 - Continue Duonebs - albuterol inhaler for home HTN: STABLE - Lozol 1.25 mg daily and Bystolic 20 mg daily Current Tobacco Use: - Given Nicotine patch and encourage cessation case d/w S Charissa CONTRERAS. chart reviewed. appearing stable for discharge as above. pt discharged prior to my seeing her, but agree w all of above Total Time Spent: Greater than 30 minutes This includes examination of the patient, discharge planning, medication reconciliation, and communication with other providers. Discharge Instructions Please refer to the electronic Patient Visit Report (Discharge Instructions) for additional information. Follow-Up Dr. Murrieta 12/18 Additional Copies To Shadi Murrieta M.D.
[2017-12-14] MEDS ORDERED: MAGNESIUM OXIDE 400 MG TAB PO SCH (20:00)
[2017-12-14] MEDS ORDERED: OSELTAMIVIR PHOSPHATE 75 MG CAP PO SCH (20:00)
== END 2017-12-14 15:32 | disposition home or self-care (01) | DRG 193 ==
LOC: C.EDB 15:21 → C.MSICU 18:08 → ENRESERV 19:46 → C.MS4W 12-10 16:18
PROVIDERS: ADMIT Family Medicine; ATTEND Family Medicine
DX: J10.00 Influenza due to other identified influenza virus with unspecified type of pneumonia (principal); J96.01 Acute respiratory failure with hypoxia; J18.9 Pneumonia, unspecified organism; Z88.2 Allergy status to sulfonamides; Z88.8 Allergy status to other drugs, medicaments and biological substances; I10 Essential (primary) hypertension; K21.9 Gastro-esophageal reflux disease without esophagitis; F17.200 Nicotine dependence, unspecified, uncomplicated

== ENCOUNTER → 2017-12-15 | Outpatient (CLI) | payer OTHER ==
[~2017-12-15] MED LIST changes: +ATV5X PO; -INDA1TAB3 PO; -LORA-741 PO; +LVQ750 PO; +LZL125 PO; +NEBI10TA2 PO; -OMEP40CA PO; +OMEP40CA41 PO; +PRVHFAIN INH
[2017-12-15 13:41] LABS: BLOOD UREA NITROGEN 13 mg/dl (7-18); CALCIUM 8.8 mg/dl (8.5-10.1); CARBON DIOXIDE 32 mmol/L (21-32); CREATININE 0.66 mg/dl (0.60-1.20); GLUCOSE 125 mg/dl (70-99); POTASSIUM 3.3 mmol/L (3.5-5.1); SODIUM 138 mmol/L (136-145)
== END | disposition home or self-care (01) ==
LOC: C.LAB1850 11:36
PROVIDERS: ATTEND Nurse Practitioner Family
DX: E87.6 Hypokalemia (principal); E83.42 Hypomagnesemia

== ENCOUNTER → 2017-12-24 | Outpatient (CLI) | payer OTHER ==
--- NOTE | 2017-12-24 09:54 | DIAGNOSTIC IMAGING REPORT ---
CHEST 2 VIEWS ROUTINE HISTORY: 72 years-old Female J18.9 [id number] COMPARISON: Chest radiograph 12/13/2017 and 12/09/2017 TECHNIQUE: PA and lateral views of the chest FINDINGS: Cardiac silhouette is again mildly enlarged. Lungs are hyperinflated and hyperlucent suggesting emphysema. Atherosclerosis of the aorta. Recent noted are mediastinal opacities have improved from prior study. Mild perihilar and medial upper lobe and to lesser extent left lower lobe reticular opacities are again seen suggesting areas of scarring/fibrosis. There is no pneumothorax, pleural effusion or focal airspace consolidation identified. The bones of the chest appear grossly intact. IMPRESSION: 1. Improved aeration of the left paramediastinal lung without evidence of focal airspace consolidation to suggest pneumonia. 2. Hyperinflation with probable emphysema. 3. Mild cardiomegaly. The above report was generated using voice recognition software. It may contain grammatical, syntax or spelling errors. Electronically signed by: Jadon Bryant M.D. 12/24/2017 9:53 AM Dictated Date/Time: 12/24/2017 9:50 AM
== END | disposition home or self-care (01) ==
LOC: C.RAD1850 09:37
PROVIDERS: ATTEND Nurse Practitioner
DX: J18.9 Pneumonia, unspecified organism (principal); R91.8 Other nonspecific abnormal finding of lung field

== ENCOUNTER → 2018-03-15 | Outpatient (CLI) | payer OTHER ==
--- NOTE | 2018-03-15 16:25 | DIAGNOSTIC IMAGING REPORT ---
CHEST 2 VIEWS ROUTINE HISTORY: 72 years-old Female R05 [id number] acute cough COMPARISON: Chest radiographs 12/24/2017, 12/13/2017 TECHNIQUE: PA and lateral views of the chest FINDINGS: 7 mm area of increased density about the lateral right midlung is noted. Cardiac silhouette is within normal limits. Atherosclerosis of the aorta. No pneumothorax, pleural effusion, overt pulmonary edema or lobar airspace consolidation. Hyperinflation with diaphragmatic flattening. Degenerative changes of the shoulders and spine. IMPRESSION: 1. Emphysema without acute process. 2. Ill-defined 7 mm nodular opacity of the lateral right midlung suggests area of scarring or pulmonary nodule. The above report was generated using voice recognition software. It may contain grammatical, syntax or spelling errors. Electronically signed by: Jadon Bryant M.D. 03/15/2018 4:24 PM Dictated Date/Time: 03/15/2018 4:21 PM
== END | disposition home or self-care (01) ==
LOC: C.RAD1850 16:09
PROVIDERS: ATTEND Physician Assistant Medical
DX: R05 Cough (principal); J43.9 Emphysema, unspecified; R91.1 Solitary pulmonary nodule

== ENCOUNTER 2025-08-23 11:00 | Observation (INO) ==
[2025-08-23] MEDS ORDERED: VANCOMYCIN CONSULT ACTIVE PRN (11:39)
--- NOTE | 2025-08-23 11:44 | Emergency Department Note ---
Impression & Plan Discitis, Back pain, Anemia ED Provider Note NAME: GRACIE LAW AGE: 80 SEX: F : 1945 ARRIVES VIA: Walk-In INFORMANT: Patient, the patient's family ED PROVIDER(S): Jose E Villanueva DO CHIEF COMPLAINT: Back infection HPI: The patient is an 80-year-old female who presented to the emergency department at the request of her orthopedic back specialist for an evaluation of back pain. The patient's had back pain for many weeks. She had an MRI done which reportedly showed an abnormality that was thought to be consistent with an infection. She was sent to the emergency department for admission and IV antibiotics. Patient states she has pain to go down her left leg. The patient did state that she had some sort of bug bite on her left ankle that lasted for a long period of time but this has since resolved. ROS: See above HPI for pertinent positives & negatives. A total of 10 systems reviewed and were otherwise negative. PAST MEDICAL HISTORY: See Below PAST SURGICAL HISTORY: See Below FAMILY HISTORY: See Below SOCIAL HISTORY: See Below HOME MEDICATIONS: See Below ALLERGIES: See Below VITALS: See Below PHYSICAL EXAMINATION: GENERAL: Patient is awake alert in no acute distress patient is resting comfortably and showing no signs of anxiety EYES: The conjunctivae are clear. The pupils are round and reactive. EARS, NOSE, MOUTH AND THROAT: The nose is without any evidence of any deformity. Mucous membranes are moist. Tongue is midline. NECK: The neck is nontender and supple. RESPIRATORY: Normal respiratory effort is noted there is no evidence of wheezing rhonchi or rales CARDIOVASCULAR: Regular rate and rhythm noted there no murmurs rubs or gallops normal S1 normal S2. GASTROINTESTINAL: The abdomen is soft. Abdomen is nontender. BACK: No midline back tenderness was noted. There is lower lumbar spine tenderness which was paravertebral bilaterally. Range of motion appears intact but painful. MUSCULOSKELETAL/EXTREMITIES: There is no evidence of gross deformity full range of motion is noted in the hips and shoulders. SKIN: There is no obvious evidence of any rash. There are no petechiae, pallor or cyanosis noted. NEUROLOGIC: Patient is awake alert and oriented x3 strength is symmetric patellar reflexes are 1+ bilaterally MEDICAL DECISION MAKING: The patient is an 80-year-old female who presented to the emergency department for back pain. The patient's history was initially somewhat confusing to me but after I talk to Dr. Christopher and got more history from the family it sounds that the patient's been having back pain for quite some time. She has had some radicular symptoms as well. She was initially unable to get an MRI but was eventually able to get an open MRI near [place]. The results of this MRI were suspicious for discitis. The patient was sent to the emergency department for inpatient management as well as further imaging to determine if there was true discitis or even possibly an early epidural abscess. The patient was treated with IV antibiotics in emergency department. The patient was reevaluated multiple times. I discussed the patient's laboratory results with the patient and her family. I discussed the patient's condition with the on-call [facility] hospitalist. They have agreed to evaluate the patient in the emergency department for further management and disposition. Triage Nursing notes reviewed. Prior medical records reviewed Vital Signs: reviewed and remarkable for elevated blood pressure. Differential diagnosis: Musculoskeletal, disc herniation, fracture, metastatic disease, cord compression, discitis, sciatica, cauda equina, infection, aortic disease, renal colic, gastrointestinal, as well as other pathologies. ER treatment provided: See below Diagnostics interpreted by me: ECG: EKG was obtained in the emergency department. My interpretation is sinus rhythm at 62 bpm. First-degree AV block is noted with a left bundle branch block. QTc was 493 ms. Cardiac Monitoring: An order was placed for continuous cardiac monitoring. The monitor shows a rate of 64 bpm with sinus rhythm. Laboratory studies: As stated above and show below. Imaging studies: See below. Radiographic imaging was reviewed by myself Consultation(s): I discussed this case with Dr. Christopher who is the patient's primary orthopedic back specialist. I discussed this case with who is on-call for the [facility] group. Past Med/Surg History Problem List (Updated 08/23/25 @ 15:51 by Jose E Villanueva DO) Anemia (Acute) Back pain (Acute) Discitis (Acute) Left hip pain Cognitive impairment Vitamin B12 deficiency anemia Hypochromic anemia Allergic reaction to sulfonamide Hyperglycemia Dyslipidemia Family history of colon cancer LVH (left ventricular hypertrophy) (Chronic) Diverticulosis (Chronic) Chronic rhinitis Chronic obstructive pulmonary disease Osteoporosis (Chronic) Mitral regurgitation (Chronic) PT STATES RESOLVED AFTER HEART SURGERY Hypertension Esophageal reflux (Chronic) CAD (coronary artery disease) (Chronic) Anxiety (Chronic) Hypertrophic cardiomyopathy LBBB (left bundle branch block) HX OF (RESOLVED AFTER HEART SURGERY) Medical History Edema Dyspnea on exertion History of anemia Spinal stenosis Hyperlipidemia Borderline diabetic Hx of gastric ulcer Chronic obstructive pulmonary disease History of basal cell carcinoma Surgical History History of anesthesia reaction SLOW TO WAKE UP H/O wrist surgery + CTR (HARDWARE INTACT) History of cholecystectomy History of tooth extraction History of cataract surgery RT/LEFT History of esophagogastroduodenoscopy (EGD) History of colonoscopy (~2015) S/P breast lumpectomy LEFT (BENIGN) S/P tonsillectomy H/O arthroscopic knee surgery RT H/O hernia repair S/P myomectomy 2 YEARS AGO AT [facility] Family History Mother Colorectal cancer Father Diabetes Stroke Family history of diabetes mellitus Brother Family history of diabetes mellitus Family/Other Breast cancer niece Other No family history of adverse response to anesthesia Denies family history of Ovarian cancer Prostate cancer Social History Smoking Status: Former smoker Tobacco Type: Cigarettes Age Started Using Tobacco: 16; Age Quit Using Tobacco: 72; packs per day: 0.5; Second Hand Exposure: No; Do You Dip or Chew Tobacco: No; Tobacco Cessation Education Requested by Patient: No Hx Alcohol Use: No Hx Substance Use: No Preferred Language: Setswana Communication Ability: Effective Printing Mechanist Required: No Beliefs That Will Affect Care: None marital status: Current Living Situation: Spouse, Family and Other Current Living Situation Comment: , DAUGHTER, GRANDAUGHTER current occupational status: retired Other Information That Helps Us Care for You: No Feels Safe at Home: Yes Safety Concerns: Feels Safe At This Time Childhood Exposure to Second-Hand Smoke: No Diet: regular caffeine: Yes Dental Care, Regularly: No Physical Activity Frequency: Daily Seatbelt Use: always Sunscreen Use: Yes Assistive Devices: Denture - Lower and Glasses Assistive Devices Comment: partial Allergies Allergies Allergy/AdvReac Type Severity Reaction Status Date / Time prednisone Allergy Intermediate MOOD Verified 07/26/25 15:24 CHANGES hydrochlorothiazide Allergy Mild Rash Verified 07/26/25 15:24 nickel Allergy Mild Rash Verified 07/26/25 15:24 Sulfa (Sulfonamide Allergy Mild Rash Verified 07/26/25 15:24 Antibiotics) Home Meds Home Medications Medication Instructions Recorded Confirmed cyanocobalamin (vitamin B-12) 1,000 mcg PO DAILY 03/01/25 08/23/25 1,000 mcg capsule Previous Rx's Medication Instructions Recorded aspirin 81 mg tablet,delayed 81 mg PO DAILY #30 tabs 02/15/19 release lisinopril 40 mg tablet 40 mg PO DAILY #90 tabs 09/12/24 doxazosin 4 mg tablet 4 mg PO HS #90 tabs 10/29/24 albuterol sulfate 90 mcg/actuation See Rx Instructions .Route 01/03/25 aerosol inhaler .COMPLEX #18 grams fluticasone fur. 200 mcg-umeclid See Rx Instructions .Route 01/03/25 62.5 mcg-vilant 25 mcg .COMPLEX #180 ea inhalat.powder (Trelegy Ellipta) loratadine 10 mg tablet 10 mg PO DAILY PRN runny nose #90 01/04/25 tabs carvedilol 25 mg tablet 25 mg PO BID #180 tabs 01/24/25 rosuvastatin 10 mg tablet 10 mg PO HS #90 tabs 07/11/25 omeprazole 20 mg capsule,delayed See Rx Instructions .Route 07/17/25 release .COMPLEX #90 caps lorazepam 0.5 mg tablet 0.5 mg PO DAILY #30 tabs 07/21/25 Results & Data (ED) Vital Signs Vital Signs - 24 hr 08/23/25 11:11 08/23/25 12:00 08/23/25 12:04 Temperature 36.6 C Temperature Source Temporal Artery Scan Pulse Rate 62 63 Respiratory Rate 18 Respiratory Effort / Characteristics Non-Labored Respiratory Depth Normal Respiratory Pattern Regular Blood Pressure 159/67 H 171/63 H Blood Pressure Mean 97 125 Pulse Oximetry 95 Oxygen Delivery Method Room Air Sepsis Recent Fever Within 48 Hours No Sepsis New/Unexplained Change in Mental Status N/A Sepsis Action Taken by Nursing No Action Required 08/23/25 12:06 Temperature Temperature Source Pulse Rate 62 Respiratory Rate 18 Respiratory Effort / Characteristics Respiratory Depth Respiratory Pattern Blood Pressure Blood Pressure Mean Pulse Oximetry Oxygen Delivery Method Sepsis Recent Fever Within 48 Hours Sepsis New/Unexplained Change in Mental Status Sepsis Action Taken by Half-Way Medications Current Medication List: was personally reviewed by me Laboratory Data Attestation: I reviewed the patient's lab results. 08/23/25 11:29 08/23/25 11:29 Lab Results 08/23/25 08/23/25 Range/Units 11:29 11:42 WBC 6.26 (4.8-10.8) K/ul RBC 3.83 L (4.20-5.40) M/uL Hgb 10.2 L (12.0-16.0) g/dl Hct 33.9 L (37.0-47.0) % MCV 88.5 (80.0-100.0) fL MCH 26.6 (25.0-34.0) pg MCHC 30.1 L (32.0-36.0) g/dL RDW Std Deviation 47.0 H (36.4-46.3) fL RDW Coeff of [place] 14.8 H (11.5-14.5) % Plt Count 208 (130-400) K/uL MPV 10.4 (9.4-12.4) fL Immature Gran % (Auto) 0.2 % Neut % (Auto) 74.0 % Lymph % (Auto) 10.1 % Coke % (Auto) 10.2 % Eos % (Auto) 5.3 % Baso % (Auto) 0.2 % Neut # (Auto) 4.64 (1.40-6.50) K/uL Lymph # (Auto) 0.63 L (1.20-3.40) K/uL Coke # (Auto) 0.64 H (0.11-0.59) K/uL Eos # (Auto) 0.33 (0.00-0.50) K/uL Baso # (Auto) 0.01 (0.00-0.20) K/uL Immature Gran # (Auto) 0.01 (0.01-0.20) K/uL ESR 37 H (0-30) mm/hr PT 11.8 (9.0-12.0) Seconds INR 1.1 (0.9-1.1) APTT 29 (21-31) Seconds PTT Ratio 1.1 Sodium 142 (136-145) mmol/L Potassium 4.1 (3.5-5.1) mmol/L Chloride 105 (98-107) mmol/L Carbon Dioxide 33 H (21-32) mmol/L Anion Gap 4 (3-11) BUN 13 (6-23) mg/dl Creatinine 0.57 L (0.6-1.2) mg/dl Est Cr Clr Drug Dosing 55.6 ml/min eGFR 91.24 BUN/Creatinine Ratio 22.8 H (10-20) Glucose 102 H (70-99(Fasting)) mg/dl Lactate 0.9 (0.4-2.0) mmol/L Calcium 9.1 (8.6-10.3) mg/dl Magnesium 2.1 (1.7-2.4) mg/dl Total Bilirubin 0.6 (0.2-1.0) mg/dl Direct Bilirubin 0.1 (0-0.2) mg/dl AST 18 (13-39) U/L ALT 8 (7-52) U/L Alkaline Phosphatase 64 (34-104) U/L Troponin I High Sens 21.9 H (0-14) pg/ml C-Reactive Protein 2.16 H (0-0.5) mg/dl Total Protein 7.0 (6.0-8.3) gm/dl Albumin 3.9 (3.4-5.0) gm/dl Globulin 3.1 (2.5-4.0) gm/dl Albumin/Globulin Ratio 1.3 (0.9-2) Procalcitonin < 0.02 (0-0.5) ng/ml Administered Medications Discontinued Medications Ceftriaxone Sodium (Rocephin) 2,000 mg in 50 mls @ 100 mls/hr IV NOW STA Stop: 08/23/25 12:08 Last Infusion: 08/23/25 12:32 Dose: Infused Documented By: Admin: 08/23/25 11:55 Dose: 100 mls/hr Documented By: CEF Vancomycin HCl 1,250 mg/ (Sodium Chloride) 525 mls @ 200 mls/hr IV NOW ONE Stop: 08/23/25 14:16 Last Admin: 08/23/25 12:32 Dose: 200 mls/hr Documented By: CEF Discharge Plan Visit Data Chief Complaint: Referred by Doctor Stated Complaint: INFECTION, REF BY DOC ED Provider: Jose E Villanueva Discharge Problem: Discitis, Back pain, Anemia Patient Disposition: Admitted As Inpatient Condition: Fair Discharge Instructions Interventions: ED Discharge Assessment Last Done: 08/23/25 14:32
[2025-08-23] MEDS: cefTRIAXone SODIUM 2,000 MG/50 ML BAG IV STA (11:55)
[2025-08-23 12:01] LABS: Hematocrit (blood only) 33.9 % (37.0-47.0); Hemoglobin 10.2 g/dl (12.0-16.0); Immature Granulocytes # (auto) 0.01 K/uL (0.01-0.20); Immature Granulocytes % (auto) 0.2 %; Mean Corpuscular Hemoglobin 26.6 pg (25.0-34.0); Mean Corpuscular Volume 88.5 fL (80.0-100.0); Platelet Count 208 K/uL (130-400); RDW Standard Deviation 47.0 fL (36.4-46.3); Red Blood Count 3.83 M/uL (4.20-5.40); White Blood Count 6.26 K/ul (4.8-10.8)
[2025-08-23 12:16] LABS: Alanine Aminotransferase 8.0 U/L (7-52); Albumin Globulin Ratio 1.3 (0.9-2); Albumin Level 3.9 gm/dl (3.4-5.0); Alkaline Phosphatase 64.0 U/L (34-104); Anion Gap 4.0 (3-11); Bilirubin,Total 0.6 mg/dl (0.2-1.0); Blood Urea Nitrogen 13.0 mg/dl (6-23); Calcium 9.1 mg/dl (8.6-10.3); Carbon Dioxide 33.0 mmol/L (21-32); Chloride 105.0 mmol/L (98-107); Creatinine Clr Calc Pharmacy 55.6 ml/min; Globulin 3.1 gm/dl (2.5-4.0); Glucose 102.0 mg/dl (70-99(Fasting)); Magnesium 2.1 mg/dl (1.7-2.4); Potassium 4.1 mmol/L (3.5-5.1); Sodium 142.0 mmol/L (136-145); Total Protein 7.0 gm/dl (6.0-8.3)
[2025-08-23 12:29] LABS: INR 1.1 (0.9-1.1); Partial Thromboplastin Time 29 Seconds (21-31); Prothrombin Time 11.8 Seconds (9.0-12.0)
[2025-08-23] MEDS: VANCOMYCIN HCL 1,250 MG in SODIUM CHLORIDE 0.9% 500 ML IV ONE (12:32)
--- NOTE | 2025-08-23 12:33 | History & Physical Report ---
Date of Service August 23, 2025 Assessment & Plan (1) Lumbar radiculopathy: (2) Anemia: (3) Back pain: (4) Abnormal MRI, lumbar spine: (5) Family history of colon cancer: (6) Chronic obstructive pulmonary disease: (7) LBBB (left bundle branch block): Plan Abnormal Lumbar spine MRI / lumbar radicular pain Suspected to be discitis as an outpatient however multiple areas of concern for metastatic disease on lumbar spine MRI with and without contrast here - family and patient informed Will discontinue intravenous antibiotics Discussed with patient and weight loss of 15lb over last year also concerning Mammograms normal, undergone regular colonoscopies Previous smoker but unclear history of CT lung screening CT Chest/abdo/pelvis with IV contrast ordered Left bundle branch block (new compared to 2018 EKG in [facility] but present on scanned EKG from 2019) / elevated troponin / hypertrophic cardiomyopathy s/p septal myomectomy Do not suspect ACS given lack of chest pain but if planning on undergoing surgery will get repeat echocardiogram as last performed February 2024 Hyperlipidemia Continue rosuvastatin Hypertension Continue lisinopril and doxazosin COPD No acute exacerbation suspected Continue Trelegy or hospital formulary equivalent GERD Switch omeprazole for pantoprazole per hospital formulary Anxiety Continue lorazepam 0.25mg PO x2 HS VTE Prophylaxis - low risk depending on ambulation, will defer prior to ortho spine assessment in addition Disposition - admit to med/tele Admission and Anticipated Discharge Date Admission Date: August 23, 2025 History of Present Illness Primary Care Provider: Jessee Joiner DO Reanna Hanna is an 80 year old female who presents to the ER due to back pain with outpatient lumbar spine MRI concerning for discitis and sent in by her orthopedic spine surgeon for further evaluation. She reports no fever or chills. Back pain radiates down her anterior lateral thigh. Pain is severity 10/10 on any movement especially on lying on her back. Currently severity 8-9/10 while sitting in the chair but feels like she needs to get up to relieve the pain. No leg weakness, loss of bladder/bowel control or perianal numbness. Taking acetaminophen only for the pain. Onset in June and progressively worse since that time. She has noticed 15lb weight loss over the last year. Lifelong smoker, quit aged 72 years old, 28 pack-year history. Allergies Allergy/AdvReac Type Severity Reaction Status Date / Time prednisone Allergy Intermediate MOOD Verified 07/26/25 15:24 CHANGES hydrochlorothiazide Allergy Mild Rash Verified 07/26/25 15:24 nickel Allergy Mild Rash Verified 07/26/25 15:24 Sulfa (Sulfonamide Allergy Mild Rash Verified 07/26/25 15:24 Antibiotics) Home Medications Medication Instructions Recorded Confirmed Type aspirin 81 mg tablet,delayed 81 mg PO DAILY #30 tabs 02/15/19 08/23/25 Rx release lisinopril 40 mg tablet 40 mg PO DAILY #90 tabs 09/12/24 08/23/25 Rx doxazosin 4 mg tablet 4 mg PO HS #90 tabs 10/29/24 08/23/25 Rx albuterol sulfate 90 mcg/actuation See Rx Instructions .Route 01/03/25 08/23/25 Rx aerosol inhaler .COMPLEX #18 grams fluticasone fur. 200 mcg-umeclid See Rx Instructions .Route 01/03/25 08/23/25 Rx 62.5 mcg-vilant 25 mcg .COMPLEX #180 ea inhalat.powder (Trelegy Ellipta) loratadine 10 mg tablet 10 mg PO DAILY PRN runny nose #90 01/04/25 08/23/25 Rx tabs carvedilol 25 mg tablet 25 mg PO BID #180 tabs 01/24/25 08/23/25 Rx cyanocobalamin (vitamin B-12) 1,000 mcg PO DAILY 03/01/25 08/23/25 History 1,000 mcg capsule rosuvastatin 10 mg tablet 10 mg PO HS #90 tabs 07/11/25 08/23/25 Rx omeprazole 20 mg capsule,delayed See Rx Instructions .Route 07/17/25 08/23/25 Rx release .COMPLEX #90 caps lorazepam 0.5 mg tablet 0.5 mg PO DAILY #30 tabs 07/21/25 08/23/25 Rx Past Med/Surg History Problem List (Updated 08/24/25 @ 07:03 by Justin Ashley MD) Abnormal MRI, lumbar spine Lumbar radiculopathy Anemia (Acute) Back pain (Acute) Discitis (Acute) Left hip pain Cognitive impairment Vitamin B12 deficiency anemia Hypochromic anemia Allergic reaction to sulfonamide Hyperglycemia Dyslipidemia Family history of colon cancer LVH (left ventricular hypertrophy) (Chronic) Diverticulosis (Chronic) Chronic rhinitis Chronic obstructive pulmonary disease Osteoporosis (Chronic) Mitral regurgitation (Chronic) PT STATES RESOLVED AFTER HEART SURGERY Hypertension Esophageal reflux (Chronic) CAD (coronary artery disease) (Chronic) Anxiety (Chronic) Hypertrophic cardiomyopathy LBBB (left bundle branch block) HX OF (RESOLVED AFTER HEART SURGERY) Medical History Edema Dyspnea on exertion History of anemia Spinal stenosis Hyperlipidemia Borderline diabetic Hx of gastric ulcer Chronic obstructive pulmonary disease History of basal cell carcinoma Surgical History History of anesthesia reaction SLOW TO WAKE UP H/O wrist surgery + CTR (HARDWARE INTACT) History of cholecystectomy History of tooth extraction History of cataract surgery RT/LEFT History of esophagogastroduodenoscopy (EGD) History of colonoscopy (~2015) S/P breast lumpectomy LEFT (BENIGN) S/P tonsillectomy H/O arthroscopic knee surgery RT H/O hernia repair S/P myomectomy 2 YEARS AGO AT [facility] Family History Mother Colorectal cancer Father Diabetes Stroke Family history of diabetes mellitus Brother Family history of diabetes mellitus Family/Other Breast cancer niece Other No family history of adverse response to anesthesia Denies family history of Ovarian cancer Prostate cancer Social History Smoking Status: Former smoker Tobacco Type: Cigarettes Age Started Using Tobacco: 16; Age Quit Using Tobacco: 72; packs per day: 0.5; Second Hand Exposure: No; Do You Dip or Chew Tobacco: No; Tobacco Cessation Education Requested by Patient: No Hx Alcohol Use: No Hx Substance Use: No Preferred Language: Croatian Communication Ability: Effective Maintenance Services Dispatcher Required: No Beliefs That Will Affect Care: None marital status: Current Living Situation: Spouse, Family and Other Current Living Situation Comment: , DAUGHTER, GRANDAUGHTER current occupational status: retired Other Information That Helps Us Care for You: No Feels Safe at Home: Yes Safety Concerns: Feels Safe At This Time Childhood Exposure to Second-Hand Smoke: No Diet: regular caffeine: Yes Dental Care, Regularly: No Physical Activity Frequency: Daily Seatbelt Use: always Sunscreen Use: Yes Assistive Devices: Denture - Lower and Glasses Assistive Devices Comment: partial Review of Systems Review of Systems: All systems reviewed & are unremarkable except as noted in HPI & below Physical Exam Constitutional: WD/WN, vitals as above ENMT: external ear and nose normal, oropharynx normal Respiratory: normal respiratory effort, lungs clear to auscultation Cardiovascular: RRR, no murmur, no edema Gastrointestinal (Abdomen): normal bowel sounds, soft, nontender, no hepatosplenomegaly Musculoskeletal: no cyanosis or clubbing, extremities motor strength 5/5 Skin: no rashes, warm and dry Neurologic: moves all extremities and awake; not confused Motor/Sensory: + sensory deficit (left L2/3 distribution numbness/pain) Psychiatric: A+Ox3, euthymic affect Results & Data Results & Data Vital Signs (Past 12 Hours) Vital Signs Temp Pulse Resp BP Pulse Ox O2 Del Method 08/23/25 12:04 63 08/23/25 11:11 36.6 C 62 18 159/67 H 95 Room Air Laboratory Results Abnormal lab results 08/23/25 Range/Units 11:29 RBC 3.83 L (4.20-5.40) M/uL Hgb 10.2 L (12.0-16.0) g/dl Hct 33.9 L (37.0-47.0) % MCHC 30.1 L (32.0-36.0) g/dL RDW Std Deviation 47.0 H (36.4-46.3) fL RDW Coeff of [place] 14.8 H (11.5-14.5) % Lymph # (Auto) 0.63 L (1.20-3.40) K/uL [place] # (Auto) 0.64 H (0.11-0.59) K/uL Carbon Dioxide 33 H (21-32) mmol/L Creatinine 0.57 L (0.6-1.2) mg/dl BUN/Creatinine Ratio 22.8 H (10-20) Glucose 102 H (70-99(Fasting)) mg/dl Troponin I High Sens 21.9 H (0-14) pg/ml C-Reactive Protein 2.16 H (0-0.5) mg/dl Diagnostic Findings MRI LUMBAR SPINE WITH and WITHOUT CONTRAST TECHNIQUE: An MRI examination of the lumbar spine was performed. The examination consists of sagittal T1-weighted, inversion recovery and T2 weighted images as well as axial T1-weighted, T2-weighted and gradient echo images. Postcontrast T1-weighted images were also obtained in axial and sagittal planes. IV CONTRAST: 5 mL of Gadavist was intravenously administered. INDICATION: Back pain COMPARISON: None listed. FINDINGS: There were multiple marrow enhancing lesions in the lumbar spine especially involving the anterior and posterior osseous elements of L3-5 most compatible with metastases. These metastatic masses encroach into the spinal canal and the neural foramina bilaterally, resulting in severe tricompartmental spinal canal and bilateral neural foraminal narrowing where the traversing and exiting nerves are impinged. No significant vertebral body height loss or spondylolisthesis is identified at this time. The conus terminates at L1-2. Tarlov cysts in the sacrum Infrarenal abdominal aortic aneurysm measuring up to 3.2 cm. IMPRESSION: Multiple enhancing lesions in the lumbar spine involving both the anterior and posterior elements of the spine that are most compatible with metastases. These masses encroach into the spinal canal and the neural formanina biaterally, resulting in severe tricompartmental spinal canal stenoses and bilateral neuroforaminal narrowing at L3-L5 where the traversing and exiting nerves are impinged Infrarenal abdominal aortic aneurysm measuring up to 3.2 cm. Medications Administered ER Medications Given: Ceftriaxone 2g IV Vancomycin 1250mg IV ECG Rate (beats per minute): 62 Rhythm: normal sinus Findings: + 1st degree AV block and + LBBB Comparison ECG Date: from (Dec 11, 2017) Change: the following changes noted (LBBB is now present) Code Status & VTE Plan Code Status Full VTE Prophylaxis Plan VTE Prophylaxis will be ordered: Yes PG Care Time/CCT Total # of Minutes Spent Total Time Spent with Patient: Total time spent is greater than 50% in coordination of care (as documented) at patient's floor/unit and/or counseling patient: Coding Level of Care Code 03511 INT INP/OBS CARE 3/75MIN Diagnoses Lumbar radiculopathy M54.16 Anemia D64.9 Back pain M54.9 Abnormal MRI, lumbar spine R93.7 Family history of colon cancer Z80.0 Chronic obstructive pulmonary disease J44.9 LBBB (left bundle branch block) I44.7
[2025-08-23 13:13] LABS: Appearance Urine Clear (Clear); Bacteria Urine Automated None Seen (None Seen); Cast Urine Automated 0-2 /lpf (0-2); Glucose Urine UA Negative (Negative); RBC Urine Automated 0-2 /hpf (0-2); WBC Urine Automated 0-5 /hpf (0-5)
[2025-08-23 15:33] VITALS: RESP 16
[2025-08-23] MEDS ORDERED: INFLUENZA VACC TS2025-26(65y+)/PF (IIV3) 0.5mL Syr IM ONE (15:50)
--- NOTE | 2025-08-23 16:10 | Pharmacy Report ---
Pharmacy PK ABX Note - Date of Service August 23, 2025 - Assessment and Plan Assessment 80 year old F receiving Vancomycin and Ceftriaxone for empiric treatment of possible spinal infection. * Day #1 of antimicrobial therapy. * Afebrile. No leukocytosis. Inflammatory markers mildly elevated. Procal and lactate are normal. SCr appears near baseline. * Blood cultures pending. Plan Vancomycin * Loading dose: 1250 mg IV x 1 * Maintenance dose: 1000 mg IV every 18 hours * Regimen is predicted to achieve target AUC/MATT of 400-600 mg/L.hr * Level will be ordered if therapy extends beyond 48 hours Pharmacy will continue to follow and will adjust dose/frequency as necessary. Thank you. Pharmacy has transitioned to AUC monitoring for vancomycin. AUC/MATT is the preferred PK/PD target and is associated with decreased risk of nephrotoxicity compared to traditional trough targets.
[2025-08-23] MEDS: ACETAMINOPHEN 500 MG TAB PO STA (16:23)
[2025-08-23] MEDS: LORazepam 0.5 MG TAB PO PRN (16:24)
[2025-08-23] MEDS: KETOROLAC TROMETHAMINE 15 MG/ML VIAL IV STA (16:24)
[2025-08-23] MEDS: GADOBUTROL 65ML VIAL IV ONE (18:24)
--- NOTE | 2025-08-23 19:27 | Magnetic Resonance Report ---
MRI LUMBAR SPINE WITH and WITHOUT CONTRAST TECHNIQUE: An MRI examination of the lumbar spine was performed. The examination consists of sagittal T1-weighted, inversion recovery and T2 weighted images as well as axial T1-weighted, T2-weighted and gradient echo images. Postcontrast T1-weighted images were also obtained in axial and sagittal planes. IV CONTRAST: 5 mL of Gadavist was intravenously administered. INDICATION: Back pain COMPARISON: None listed. FINDINGS: There were multiple marrow enhancing lesions in the lumbar spine especially involving the anterior and posterior osseous elements of L3-5 most compatible with metastases. These metastatic masses encroach into the spinal canal and the neural foramina bilaterally, resulting in severe tricompartmental spinal canal and bilateral neural foraminal narrowing where the traversing and exiting nerves are impinged. No significant vertebral body height loss or spondylolisthesis is identified at this time. The conus terminates at L1-2. Tarlov cysts in the sacrum Infrarenal abdominal aortic aneurysm measuring up to 3.2 cm. IMPRESSION: Multiple enhancing lesions in the lumbar spine involving both the anterior and posterior elements of the spine that are most compatible with metastases. These masses encroach into the spinal canal and the neural formanina biaterally, resulting in severe tricompartmental spinal canal stenoses and bilateral neuroforaminal narrowing at L3-L5 where the traversing and exiting nerves are impinged Infrarenal abdominal aortic aneurysm measuring up to 3.2 cm. Electronically signed by Emil Zee 08-23-2025 7:26 PM
[2025-08-23] MEDS ORDERED: NON-FORMULARY MEDICATION (Fluticasone-Umeclidin-Vilanter [Trelegy Ellipta] 200-62.5-25 mcg SCH (19:30)
[2025-08-23] MEDS ORDERED: MoRPHine SULFATE 4 MG/ML 1 ML CARP\\VIAL IV PRN (19:56)
[2025-08-23] MEDS ORDERED: ONDANSETRON INJ 2 MG/ML 2 ML VIAL IV PRN (19:56)
[2025-08-23] MEDS: UMECLIDINIUM/VILANTEROL 62.5/25MCG 7 PUFFS/INHALER INH SCH (20:23)
[2025-08-23] MEDS: FLUTICASONE FUROATE 200MCG 14 PUFFS/INHALER INH SCH (20:24)
[2025-08-23] MEDS: ASPIRIN 81 MG ECTAB PO SCH (20:24)
[2025-08-23] MEDS: ROSUVASTATIN CALCIUM 10 MG TAB PO SCH (20:26)
[2025-08-23] MEDS: ACETAMINOPHEN 500 MG TAB PO SCH (20:31)
[2025-08-23] MEDS: LORazepam 0.5 MG TAB PO SCH (21:23)
[2025-08-23] MEDS: OPTIRAY 320 100ml IV ONE (22:56)
[2025-08-23] MEDS ORDERED: LORazepam 0.5 MG TAB PO SCH (23:00)
--- NOTE | 2025-08-24 00:18 | CT Scan Report ---
Exam(s): CT CHEST With Contrast IV Amt: 93 cc [id number] EXAM: CT Chest With Intravenous Contrast CLINICAL HISTORY: Reason for exam: metastatic cancer on lumbar spine MRI ?primary. TECHNIQUE: Axial computed tomography images of the chest with intravenous contrast. CTDI is 14.16 mGy and DLP is 923.74 mGy-cm. Automated exposure control was utilized for the study. A dose lowering technique was utilized adhering to the principles of ALARA. CONTRAST: Patient received 93 cc [id number] of IV contrast COMPARISON: No relevant prior studies available. FINDINGS: Lungs: 4 x 3.2 cm right middle lobe pulmonary mass consistent with primary lung neoplasm. Multiple pulmonary nodules scattered throughout the lungs bilaterally likely metastatic in nature. Diffuse changes COPD. No consolidation. Pleural space: Unremarkable. No significant effusion. No pneumothorax. Heart: Cardiomegaly. No significant pericardial effusion. No significant coronary artery calcifications. Bones/joints: Postop changes median sternotomy. No acute fracture. Soft tissues: Unremarkable. Vasculature: Unremarkable. No thoracic aortic aneurysm. Lymph nodes: Unremarkable. No enlarged lymph nodes. Liver: 4 x 2.6 cm right hepatic lobe hypodensity likely representing a metastatic disease. Tubes, lines and devices: Epicardial pacing leads present. IMPRESSION: 4 cm right middle lobe pulmonary mass consistent with primary lung neoplasm with numerous bilateral metastatic nodules scattered throughout lungs. This may be further evaluated with PET scan. Alternatively the lesion would be amenable to percutaneous sampling 4 cm right hepatic lobe hypodensity likely representing metastatic disease. Electronically signed by: Amos Hurtado MD 08/24/25 00:17 AM
--- NOTE | 2025-08-24 00:27 | CT Scan Report ---
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 TECHNIQUE: Axial computed tomography images of the abdomen and pelvis with intravenous contrast. CTDI is 14.16 mGy and DLP is 923.74 mGy-cm. Automated exposure control was utilized for the study. A dose lowering technique was utilized adhering to the principles of ALARA. CONTRAST: Patient received 93 cc opti 320 of IV contrast COMPARISON: No relevant prior studies available. FINDINGS: Lung bases: Unremarkable. No mass. No consolidation. ABDOMEN: Liver: 4.5 x 3.5 cm right hepatic lobe hypodensity likely representing metastatic disease. Gallbladder and bile ducts: Unremarkable. No calcified stones. No ductal dilation. Pancreas: Unremarkable. No mass. No ductal dilation. Spleen: Unremarkable. No splenomegaly. Adrenals: Unremarkable. No mass. Kidneys and ureters: Unremarkable. No solid mass. No hydronephrosis. Stomach and bowel: Unremarkable. No obstruction. No mucosal thickening. PELVIS: Appendix: No findings to suggest acute appendicitis. Bladder: Unremarkable. No mass. Reproductive: 4.3 x 4.8 cm right ovarian cyst. 2.6 x 3.1 cm right ovarian cyst. Calcified fibroid uterus. ABDOMEN and PELVIS: Intraperitoneal space: Unremarkable. No free air. No significant fluid collection. Bones/joints: Expansile lytic lesion projecting beyond the cortex involving the anterior aspects of the L3 and L4 vertebral bodies consistent with osseous metastatic disease.. No dislocation. Soft tissues: Unremarkable. Vasculature: Asymmetric wall thickening and inflammatory changes about the anus. 3.7 cm infrarenal abdominal aortic aneurysm. Lymph nodes: Unremarkable. No enlarged lymph nodes. IMPRESSION: Right hepatic lobe metastatic lesion Asymmetric soft tissue swelling of the anus. Underlying mass can not be excluded in further evaluation with direct visual inspection is recommended. Right ovarian cysts measuring up to 4.8 cm. 3.7 cm infrarenal abdominal aortic aneurysm Electronically signed by: Amos Hurtado MD 08/24/25 00:26 AM
[2025-08-24 02:24] VITALS: TEMP 98.2; O2SAT 95
[2025-08-24] MEDS: KETOROLAC TROMETHAMINE 15 MG/ML VIAL IV PRN (04:15)
[2025-08-24] MEDS ORDERED: VANCOMYCIN HCL / NSS 1,000 MG/270 ML BAG IV SCH (06:00)
[2025-08-24 08:05] VITALS: BP 190/69
[2025-08-24] MEDS: CYANOCOBALAMIN (B-12) 500 MCG TABLET PO SCH (08:21)
--- NOTE | 2025-08-24 08:55 | Consultation ---
Date of Consultation August 24, 2025 Assessment & Plan (1) Lumbar radiculopathy: This is been reviewed with Dr. Christopher. There is no evidence of discitis in her lumbar spine as initially thought. Unfortunately it shows evidence of metastatic disease of which she is currently undergoing a workup for the primary source right now. We do not perform any type of surgical intervention for tumors. Should this be something she wants to pursue in the future, this is recommended that she is have this evaluated at a tertiary care center. Might consider a consult for pain management/medication management recommendations for her pain History of Present Illness Attending Physician: Justin Ashley MD History of Present Illness Reanna is a pleasant 80-year-old female who was initially seen in our office recently by one of our midlevel's who had concern of discitis. Stat MRI was ordered and was unable to be performed within a timely manner therefore she was sent to the emergency room for further workup. Lumbar MRI was performed yesterday which did NOT reveal discitis but did reveal evidence of metastatic disease. She is currently undergoing workup for primary source which includes biopsy of a lung nodule today. She states she has had left leg pain ongoing for several months. She is Amling independently at home. She lives with her . She has had a 15 pound weight loss recently. Allergies Allergy/AdvReac Type Severity Reaction Status Date / Time prednisone Allergy Intermediate MOOD Verified 07/26/25 15:24 CHANGES hydrochlorothiazide Allergy Mild Rash Verified 07/26/25 15:24 nickel Allergy Mild Rash Verified 07/26/25 15:24 Sulfa (Sulfonamide Allergy Mild Rash Verified 07/26/25 15:24 Antibiotics) Home Medications Medication Instructions Recorded Confirmed Type aspirin 81 mg tablet,delayed 81 mg PO DAILY #30 tabs 02/15/19 08/23/25 Rx release lisinopril 40 mg tablet 40 mg PO DAILY #90 tabs 09/12/24 08/23/25 Rx doxazosin 4 mg tablet 4 mg PO HS #90 tabs 10/29/24 08/23/25 Rx albuterol sulfate 90 mcg/actuation See Rx Instructions .Route 01/03/25 08/23/25 Rx aerosol inhaler .COMPLEX #18 grams fluticasone fur. 200 mcg-umeclid See Rx Instructions .Route 01/03/25 08/23/25 Rx 62.5 mcg-vilant 25 mcg .COMPLEX #180 ea inhalat.powder (Trelegy Ellipta) loratadine 10 mg tablet 10 mg PO DAILY PRN runny nose #90 01/04/25 08/23/25 Rx tabs carvedilol 25 mg tablet 25 mg PO BID #180 tabs 01/24/25 08/23/25 Rx cyanocobalamin (vitamin B-12) 1,000 mcg PO DAILY 03/01/25 08/23/25 History 1,000 mcg capsule rosuvastatin 10 mg tablet 10 mg PO HS #90 tabs 07/11/25 08/23/25 Rx omeprazole 20 mg capsule,delayed See Rx Instructions .Route 07/17/25 08/23/25 Rx release .COMPLEX #90 caps acetaminophen 500 mg tablet 1,000 mg (2 x 500 mg) PO TID PRN 08/24/25 Rx pain #90 tabs gabapentin 100 mg tablet 100 mg PO TID PRN back/leg pain 08/24/25 Rx #30 tabs lorazepam 0.5 mg tablet 0.5 mg PO HS #30 tabs 08/24/25 08/23/25 Rx Patient History Medical History Edema Dyspnea on exertion History of anemia Spinal stenosis Hyperlipidemia Borderline diabetic Hx of gastric ulcer Chronic obstructive pulmonary disease History of basal cell carcinoma Surgical History History of anesthesia reaction SLOW TO WAKE UP H/O wrist surgery + CTR (HARDWARE INTACT) History of cholecystectomy History of tooth extraction History of cataract surgery RT/LEFT History of esophagogastroduodenoscopy (EGD) History of colonoscopy (~2015) S/P breast lumpectomy LEFT (BENIGN) S/P tonsillectomy H/O arthroscopic knee surgery RT H/O hernia repair S/P myomectomy 2 YEARS AGO AT [place] Family History Mother Colorectal cancer Father Diabetes Stroke Family history of diabetes mellitus Brother Family history of diabetes mellitus Family/Other Breast cancer niece Other No family history of adverse response to anesthesia Denies family history of Ovarian cancer Prostate cancer Social History Smoking Status: Former smoker Tobacco Type: Cigarettes Age Started Using Tobacco: 16; Age Quit Using Tobacco: 72; packs per day: 0.5; Second Hand Exposure: No; Do You Dip or Chew Tobacco: No; Hx Alcohol Use: No Hx Substance Use: No Preferred Language: Angolan Communication Ability: Effective Hogshead Hooper Required: No Beliefs That Will Affect Care: None marital status: Current Living Situation: Spouse, Family and Other Current Living Situation Comment: , DAUGHTER, GRANDAUGHTER current occupational status: retired Feels Safe at Home: Yes Childhood Exposure to Second-Hand Smoke: No Diet: regular caffeine: Yes Dental Care, Regularly: No Physical Activity Frequency: Daily Seatbelt Use: always Sunscreen Use: Yes Assistive Devices: None Review of Systems Review of Systems: All systems reviewed & are unremarkable except as noted in HPI & below Physical Exam Physical Exam: She is seen in conjunction with her Tearful throughout exam but cooperative Strength unchanged bilateral lower extremities Results & Data Vital Signs (Past 12 Hours) Vital Signs Temp Pulse Pulse Resp BP Pulse Ox O2 Del Method 08/24/25 08:04 36.8 C 65 16 190/69 H 95 Room Air 08/24/25 02:21 36.8 C 65 16 186/68 H 95 Room Air 08/23/25 23:53 Room Air 08/23/25 22:22 36.5 C 64 16 186/64 H 94 Room Air 08/23/25 21:58 67 08/23/25 21:18 64 198/62 H Diagnostic Findings [place] [phone] Magnetic Resonance Report Patient: REANNA LAW Admit Date: 08/23/25 MR#: [id number] Address1: [address] [facility] Acct ID:[id number] Address2: Date: 1945 [facility] Zip: [place] [address] Age: 80 Location: 2N Sex: F Room/Bed: N281-1 Att Phy: Justin Ashley MD Diagnosis: DISCITIS Haley Phy: Jessee Joiner DO Service Date: 08/23/25 Fam Phy: Interpreting Phy: Emil Zee MDAdmit Phy: Justin Ashley MD Ordering Phy: Justin Ashley MD cc: ~ MRI LUMBAR SPINE WITH and WITHOUT CONTRAST TECHNIQUE: An MRI examination of the lumbar spine was performed. The examination consists of sagittal T1-weighted, inversion recovery and T2 weighted images as well as axial T1-weighted, T2-weighted and gradient echo images. Postcontrast T1-weighted images were also obtained in axial and sagittal planes. IV CONTRAST: 5 mL of Gadavist was intravenously administered. INDICATION: Back pain COMPARISON: None listed. FINDINGS: There were multiple marrow enhancing lesions in the lumbar spine especially involving the anterior and posterior osseous elements of L3-5 most compatible with metastases. These metastatic masses encroach into the spinal canal and the neural foramina bilaterally, resulting in severe tricompartmental spinal canal and bilateral neural foraminal narrowing where the traversing and exiting nerves are impinged. No significant vertebral body height loss or spondylolisthesis is identified at this time. The conus terminates at L1-2. Tarlov cysts in the sacrum Infrarenal abdominal aortic aneurysm measuring up to 3.2 cm. IMPRESSION: Multiple enhancing lesions in the lumbar spine involving both the anterior and posterior elements of the spine that are most compatible with metastases. These masses encroach into the spinal canal and the neural formanina biaterally, resulting in severe tricompartmental spinal canal stenoses and bilateral neuroforaminal narrowing at L3-L5 where the traversing and exiting nerves are impinged Infrarenal abdominal aortic aneurysm measuring up to 3.2 cm. Electronically signed by Emil Zee 08-23-2025 7:26 PM Dictated: 08/23/25 1801 Transcribed: [facility] [phone] CT Scan Report Patient: REANNA LAW Admit Date: 08/23/25 MR#: [id number] Address1: [address] [facility] Acct ID:[id number] Address2: Date: 1945 [facility] Zip: [place] [address] Age: 80 Location: 2N Sex: F Room/Bed: [facility] Att Phy: Justin Ashley MD Diagnosis: DISCITIS Haley Phy: Jessee Joiner DO Service Date: 08/23/25 Fam Phy: Interpreting Phy: Amos Hurtado MDAdmit Phy: Justin Ashley MD Ordering Phy: Justin Ashley MD cc: ~ 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 TECHNIQUE: Axial computed tomography images of the abdomen and pelvis with intravenous contrast. CTDI is 14.16 mGy and DLP is 923.74 mGy-cm. Automated exposure control was utilized for the study. A dose lowering technique was utilized adhering to the principles of ALARA. CONTRAST: Patient received 93 cc opti 320 of IV contrast COMPARISON: No relevant prior studies available. FINDINGS: Lung bases: Unremarkable. No mass. No consolidation. ABDOMEN: Liver: 4.5 x 3.5 cm right hepatic lobe hypodensity likely representing metastatic disease. Gallbladder and bile ducts: Unremarkable. No calcified stones. No ductal dilation. Pancreas: Unremarkable. No mass. No ductal dilation. Spleen: Unremarkable. No splenomegaly. Adrenals: Unremarkable. No mass. Kidneys and ureters: Unremarkable. No solid mass. No hydronephrosis. Stomach and bowel: Unremarkable. No obstruction. No mucosal thickening. PELVIS: Appendix: No findings to suggest acute appendicitis. Bladder: Unremarkable. No mass. Reproductive: 4.3 x 4.8 cm right ovarian cyst. 2.6 x 3.1 cm right ovarian cyst. Calcified fibroid uterus. ABDOMEN and PELVIS: Intraperitoneal space: Unremarkable. No free air. No significant fluid collection. Bones/joints: Expansile lytic lesion projecting beyond the cortex involving the anterior aspects of the L3 and L4 vertebral bodies consistent with osseous metastatic disease.. No dislocation. Soft tissues: Unremarkable. Vasculature: Asymmetric wall thickening and inflammatory changes about the anus. 3.7 cm infrarenal abdominal aortic aneurysm. Lymph nodes: Unremarkable. No enlarged lymph nodes. IMPRESSION: Right hepatic lobe metastatic lesion Asymmetric soft tissue swelling of the anus. Underlying mass can not be excluded in further evaluation with direct visual inspection is recommended. Right ovarian cysts measuring up to 4.8 cm. 3.7 cm infrarenal abdominal aortic aneurysm Electronically signed by: Amos Hurtado MD 08/24/25 00:26 AM Dictated: 08/24/25 0026 Transcribed: 08/24/2525 [place] [phone] CT Scan Report Patient: REANNA LAW Admit Date: 08/23/25 MR#: [id number] Address1: [address] Acct ID:[id number] Address2: Date: 1945 [facility] Zip: [place] [address] Age: 80 Location: 2N Sex: F [facility] Att Phy: Justin Ashley MD Diagnosis: DISCITIS Haley Phy: Jessee Joiner DO Service Date: 08/23/25 Fam Phy: Interpreting Phy: Amos Hurtado [facility] Phy: Justin Ashley MD Ordering Phy: Justin Ashley MD cc: ~ Exam(s): CT CHEST With Contrast IV Amt: 93 cc [id number] EXAM: CT Chest With Intravenous Contrast CLINICAL HISTORY: Reason for exam: metastatic cancer on lumbar spine MRI ?primary. TECHNIQUE: Axial computed tomography images of the chest with intravenous contrast. CTDI is 14.16 mGy and DLP is 923.74 mGy-cm. Automated exposure control was utilized for the study. A dose lowering technique was utilized adhering to the principles of ALARA. CONTRAST: Patient received 93 cc [id number] of IV contrast COMPARISON: No relevant prior studies available. FINDINGS: Lungs: 4 x 3.2 cm right middle lobe pulmonary mass consistent with primary lung neoplasm. Multiple pulmonary nodules scattered throughout the lungs bilaterally likely metastatic in nature. Diffuse changes COPD. No consolidation. Pleural space: Unremarkable. No significant effusion. No pneumothorax. Heart: Cardiomegaly. No significant pericardial effusion. No significant coronary artery calcifications. Bones/joints: Postop changes median sternotomy. No acute fracture. Soft tissues: Unremarkable. Vasculature: Unremarkable. No thoracic aortic aneurysm. Lymph nodes: Unremarkable. No enlarged lymph nodes. Liver: 4 x 2.6 cm right hepatic lobe hypodensity likely representing a metastatic disease. Tubes, lines and devices: Epicardial pacing leads present. IMPRESSION: 4 cm right middle lobe pulmonary mass consistent with primary lung neoplasm with numerous bilateral metastatic nodules scattered throughout lungs. This may be further evaluated with PET scan. Alternatively the lesion would be amenable to percutaneous sampling 4 cm right hepatic lobe hypodensity likely representing metastatic disease. Electronically signed by: Amos Hurtado MD 08/24/25 00:17 AM Dictated: 08/24/2516 Transcribed: 08/24/2516 Document Auto-Saved
[2025-08-24] MEDS: LACTATED RINGER'S 1,000 ML IV SCH (12:13)
--- NOTE | 2025-08-24 12:33 | Pulmonary Consultation ---
Date of Consultation August 24, 2025 Assessment & Plan (1) Lung mass: (2) Metastatic cancer: (3) Emphysema lung: Plan CT imaging was reviewed independently myself. History and CT findings are very concerning for metastatic malignancy, may be lung primary or 2 separate neoplasms. I have discussed the case with the primary physician. He was in contact with oncology. At this time they would recommend biopsying the liver lesion and postponing a bronchoscopy. Radiation oncology and oncology have been consulted. If bronchoscopy is needed in the future we will be happy to assist. Right middle lobe lesion would be easily biopsied, air bronco sign is present. Thank you for this consult. I will sign off at this time. Please call me back if I am needed. History of Present Illness Reason for Consultation: Possible lung cancer Requesting Physician: Justin Ashley MD Attending Physician: Justin Ashley MD History of Present Illness Patient is an 80-year-old female who presented to the emergency department for evaluation of hip pain. The patient had endorsed back pain that radiated down her lateral thigh. She had also endorsed some weight loss of 15 pounds over the past year that was unintentional. Was not having cough or hemoptysis. She does have a history of tobacco use, she stopped smoking at 72 years of age but has about a 44-[id number]-mpin history. The patient had imaging performed with CT chest and CT abdomen and pelvis, CT c hest showed a 4 cm right middle lobe mass consistent with primary lung neoplasm and numerous bilateral nodules scattered throughout the lungs. CT abdomen and pelvis showed expansile lytic lesions of L3 and L4 vertebral bodies consistent with osseous metastatic disease, a 4.5 x 3.5 cm hepatic lobe density concerning for metastatic disease, bilateral ovarian cyst, and asymmetric wall thickening and inflammatory changes about the anus. The patient was admitted to the hospital service and pulmonary has been consulted for possible lung cancer. When I examined the patient today she was very tearful sitting at the edge of the bed. Family is at bedside. The patient says she is overwhelmed with the information of the likely metastatic disease as she had not even presented for any of the symptoms and was unaware of it. She does endorse the unintentional weight loss and she also states that she has been having some night sweats. Not having hemoptysis. She has not smoked in over 10 years. She says that she did get outpatient CT scans in the past for lung cancer screening but was never aware of any pulmonary nodules. Has had mammograms done in the past. Allergies Allergy/AdvReac Type Severity Reaction Status Date / Time prednisone Allergy Intermediate MOOD Verified 07/26/25 15:24 CHANGES hydrochlorothiazide Allergy Mild Rash Verified 07/26/25 15:24 nickel Allergy Mild Rash Verified 07/26/25 15:24 Sulfa (Sulfonamide Allergy Mild Rash Verified 07/26/25 15:24 Antibiotics) Home Medications Medication Instructions Recorded Confirmed Type aspirin 81 mg tablet,delayed 81 mg PO DAILY #30 tabs 02/15/19 08/23/25 Rx release lisinopril 40 mg tablet 40 mg PO DAILY #90 tabs 09/12/24 08/23/25 Rx doxazosin 4 mg tablet 4 mg PO HS #90 tabs 10/29/24 08/23/25 Rx albuterol sulfate 90 mcg/actuation See Rx Instructions .Route 01/03/25 08/23/25 Rx aerosol inhaler .COMPLEX #18 grams fluticasone fur. 200 mcg-umeclid See Rx Instructions .Route 01/03/25 08/23/25 Rx 62.5 mcg-vilant 25 mcg .COMPLEX #180 ea inhalat.powder (Trelegy Ellipta) loratadine 10 mg tablet 10 mg PO DAILY PRN runny nose #90 01/04/25 08/23/25 Rx tabs carvedilol 25 mg tablet 25 mg PO BID #180 tabs 01/24/25 08/23/25 Rx cyanocobalamin (vitamin B-12) 1,000 mcg PO DAILY 03/01/25 08/23/25 History 1,000 mcg capsule rosuvastatin 10 mg tablet 10 mg PO HS #90 tabs 07/11/25 08/23/25 Rx omeprazole 20 mg capsule,delayed See Rx Instructions .Route 07/17/25 08/23/25 Rx release .COMPLEX #90 caps acetaminophen 500 mg tablet 1,000 mg (2 x 500 mg) PO TID PRN 08/24/25 Rx pain #90 tabs gabapentin 100 mg tablet 100 mg PO TID PRN back/leg pain 08/24/25 Rx #30 tabs lorazepam 0.5 mg tablet 0.5 mg PO HS #30 tabs 08/24/25 08/23/25 Rx Patient History Medical History Edema Dyspnea on exertion History of anemia Spinal stenosis Hyperlipidemia Borderline diabetic Hx of gastric ulcer Chronic obstructive pulmonary disease History of basal cell carcinoma Surgical History History of anesthesia reaction SLOW TO WAKE UP H/O wrist surgery + CTR (HARDWARE INTACT) History of cholecystectomy History of tooth extraction History of cataract surgery RT/LEFT History of esophagogastroduodenoscopy (EGD) History of colonoscopy (~2015) S/P breast lumpectomy LEFT (BENIGN) S/P tonsillectomy H/O arthroscopic knee surgery RT H/O hernia repair S/P myomectomy 2 YEARS AGO AT [place] Family History Mother Colorectal cancer Father Diabetes Stroke Family history of diabetes mellitus Brother Family history of diabetes mellitus Family/Other Breast cancer niece Other No family history of adverse response to anesthesia Denies family history of Ovarian cancer Prostate cancer Social History Smoking Status: Former smoker Tobacco Type: Cigarettes Age Started Using Tobacco: 16; Age Quit Using Tobacco: 72; packs per day: 0.5; Second Hand Exposure: No; Do You Dip or Chew Tobacco: No; Hx Alcohol Use: No Hx Substance Use: No Preferred Language: Namibian Communication Ability: Effective [employer]er Required: No Beliefs That Will Affect Care: None marital status: Current Living Situation: Spouse, Family and Other Current Living Situation Comment: , DAUGHTER, GRANDAUGHTER current occupational status: retired Feels Safe at Home: Yes Childhood Exposure to Second-Hand Smoke: No Diet: regular caffeine: Yes Dental Care, Regularly: No Physical Activity Frequency: Daily Seatbelt Use: always Sunscreen Use: Yes Assistive Devices: Denture - Lower and Glasses Review of Systems Review of Systems: A 12 point review of systems was obtained in detail. Negative except as noted in HPI. Physical Exam Physical Exam: Physical examination: General: Well-appearing, well-nourished and not in acute distress. HEENT: Normocephalic, atraumatic. Extraocular movements intact. Sclera are nonicteric. No JVD appreciated. Skin: Warm and dry. No rashes appreciated. No jaundice appreciated. Cardiovascular: Heart is a regular rate and rhythm, no murmurs appreciated on my exam. No significant lower extremity edema. Lungs: Clear bilaterally, no wheezing appreciated. No crackles. Nontachypneic. Resting comfortably on room air. Abdomen: Nondistended, nontender to palpation. No masses appreciated. Musculoskeletal: Normal muscle mass and tone. No gross joint deformity abnormalities. No effusions appreciated. Neurologic: Awake and alert, oriented. CN II through XII are grossly intact. Speech is fluent. Nonfocal exam. Psychiatric: Tearful during my examination. Results & Data Results & Data Vital Signs (Past 12 Hours) Vital Signs Temp Pulse Resp BP Pulse Ox O2 Del Method 08/24/25 08:04 36.8 C 65 16 190/69 H 95 Room Air 08/24/25 02:21 36.8 C 65 16 186/68 H 95 Room Air Diagnostic Findings CT imaging was independently reviewed by myself. Extensive emphysema is present. Multiple bilateral nodules concerning for metastatic process. Right middle lobe mass appreciated with a bronchus sign. PG Care Time/CCT Total # of Minutes Spent Total Time Spent with Patient: Total time spent is greater than 50% in coordination of care (as documented) at patient's floor/unit and/or counseling patient: [place] [address] IN/OBS CONSULT LVL 4,60M Patient Type New History Comprehensive Exam Comprehensive Medical Decision Making Moderate Complexity Diagnoses Lung mass R91.8 Metastatic cancer C79.9 Emphysema lung J43.9
[2025-08-24 12:40] VITALS: PULSE 59
--- NOTE | 2025-08-24 12:48 | Radiation OncologyConsultation ---
Date of Consultation August 24, 2025 Assessment & Plan (1) Abnormal MRI, lumbar spine: Assessment: Ms. Hanna is an 80-year-old female with a smoking history who quit 10 years ago. She has a history of cysts COPD and other medical complaints and recently developed pain in the left hip and back. CT scans x-rays and MRI showed evidence of metastatic disease involving the lumbar spine with some spinal canal stenosis, liver metastasis and a lung mass likely primary. She was taking Tylenol for her pain with minimal improvement and was admitted through the emergency department. The patient is scheduled for pulmonary evaluation to obtain histologic verification of primary and medical oncology referral. Radiation oncology was asked to see her for consideration of initiation of palliative radiation to the lumbar spine. Treatment Options: 1. Obtain histologic diagnosis of primary. 2. Proceed with a course of palliative radiation to the lumbar spine. 3. Medical oncology referral for consideration of systemic treatment. Recommendations: I have recommended we proceed with a course of palliative radiation to encompass the L3-L5 vertebral body sites of metastatic disease on CT scan and MRI. Plan: 1. Patient is scheduled for discharge this afternoon. 2. We will arrange for a outpatient simulation tomorrow if possible. 3. We will plan to start a course of palliative radiation next week. 4. We plan to treat her with a course of palliative radiation consisting of 10 fractions of 300 cGy per fraction. 5. Patient will be scheduled as an outpatient for evaluation by pulmonary to obtain tissue diagnosis. 6. Patient will be scheduled to see medical oncology as an outpatient for evaluation of the role of palliative systemic therapy. Rationale/Explanation of Treatment: Ms. Hanna has a smoking history but quit [address] scan shows a 4.5 cm mass in the right lung consistent with a lung primary. Further scanning shows evidence of metastatic disease involving the liver and bone. Histologic verification is pending. She is having moderate to severe back pain that radiates down the thigh consistent with disease at L3- L5 as noted on MRI. I met with the patient and her entire family who are present into her hospital room and discussed the role of palliative radiation to be delivered for pain relief. I told them that although a definite diagnosis is not yet available that the x-ray and scan findings are certainly compatible with metastatic disease from a probable lung primary. They were agreeable to initiate a course of palliative radiation. The plan was to discharge the patient today and have her return as early as tomorrow for CT simulation. We will fuse her CT simulation scan with the recent CT and MRI scans to help define target volume. Treatment plan will be created and when available we will arrange for the patient to initiate a course of palliative radiation. Typical palliative course is run from 5-10 fractions. Given the location and the time needed to obtain a diagnosis and referral to medical oncology I feel the patient would best be served by a slightly more extended course of palliative radiation consisting of 10 fractions. I reviewed with the patient and family the course of palliative radiation role of the discussion of potential risks and side effects. They were agreeable to proceeding. A formal consent form will be obtained prior to the CT simulation with treatment to begin as soon as possible next week. The patient, her and children had multiple questions which were answered to their full satisfaction. Thank you for allowing us to participate in the care of this patient. This chart was completed in part utilizing [employer] Speech Voice Recognition software. Grammatical errors, random word insertions, pronoun errors and incomplete sentences are occasional consequence of this system due to software limitations, ambient noise and hardware issues. Any formal questions or conc erns about the content, text or information contained within the body of this dictation should be directly addressed to the provider for clarification. Oni Kline MD Department of Radiation Oncology [facility] and [facility] History of Present Illness Reason for Consultation: Severe low back pain consistent with metastatic disease probable lung primary. Attending Physician: Justin Ashley MD History of Present Illness 07/07/2025. Ms. Hanna is an 80-year-old female who was seen for Medicare wellness visit on . At that time multiple medical issues were evaluated with evidence of severe chronic obstructive pulmonary disease. Patient is noted to have a smoking history quit 10 years ago after smoking half a pack a day or more but no complaint of pain at that time. 07/26/2025. Patient is seen by Dr. Jessee Joiner (PCP) with complaint of left hip pain. She was using Tylenol for pain relief and an x-ray was ordered. 08/07/2025. Patient seen by orthopedics. Patient has been under their care for 3 years and recently presented to them with complaint of left-sided low back buttock and lateral thigh plain. The pain increased with sitting for long period of time with difficulty getting up and pain across the lower portion of her back. With movement the pain did improve somewhat. Riding in the car was very difficult. X-ray of the lumbar spine were performed. This revealed mild thoracolumbar scoliosis to the right with a grade 1 spondylolithiasis at L4-L5 and possibly ankylosing at L3-L4. MRI of the lumbar spine was ordered with and without contrast. 08/23/2025. Patient presents to the emergency department at the request of her product specialist for evaluation of back pain. Scans and MRIs were performed as noted below. 08/23/2025. Patient undergoes MRI lumbar spine with and without contrast. This showed multiple marrow enhancing lesions of the lumbar spine especially involving the anterior and posterior osseous elements of L3-L5 most compatible with metastatic disease. These metastatic masses encroached into the spinal canal and the neural foramen bilaterally resulting in severe tricompartmental spinal cord and bilateral neuroforaminal narrowing where the trazodone for seeing and exiting nerves are impinged. There was no significant vertebral body height loss with the conus terminating at L1-L2. 08/23/2025. Patient undergoes CT of the abdomen and pelvis and chest. This revealed a 4.0 x 3.2 cm right middle lobe pulmonary mass consistent with a primary lung neoplasm. Multiple pulmonary nodules are scattered throughout the lungs bilaterally likely metastatic in nature. There was diffuse changes from COPD. There were no enlarged lymph nodes appreciated. In the liver a 4.0 x 2.6 cm right hepatic lobe hypodensity was identified likely representing metastatic disease. CT of the abdomen pelvis confirmed a 4.5 x 3.5 cm right hepatic lobe hypodensity likely representing metastatic disease. There was a 4.3 x 4.8 cm right ovarian cyst and a 2.6 x 3.1 cm left ovarian cyst. There was asymmetric wall thickening and inflammatory changes about the anus and 3.7 cm infrarenal abdominal aortic aneurysm. 08/24/2025. Patient seen in referral by Paola Cheek. She was noted to have lumbar radiculopathy with MRI findings and x-ray findings consistent with metastatic disease likely lung primary. Her pain was at times severe up to a 10 out of 10 exacerbated by weightbearing but also present while sitting or lying down. Radiation oncology was asked to see her in referral for consideration of palliative radiation. Patient was seen prior to discharge today. Allergies Allergy/AdvReac Type Severity Reaction Status Date / Time prednisone Allergy Intermediate MOOD Verified 07/26/25 15:24 CHANGES hydrochlorothiazide Allergy Mild Rash Verified 07/26/25 15:24 nickel Allergy Mild Rash Verified 07/26/25 15:24 Sulfa (Sulfonamide Allergy Mild Rash Verified 07/26/25 15:24 Antibiotics) Home Medications Medication Instructions Recorded Confirmed Type aspirin 81 mg tablet,delayed 81 mg PO DAILY #30 tabs 02/15/19 08/23/25 Rx release lisinopril 40 mg tablet 40 mg PO DAILY #90 tabs 09/12/24 08/23/25 Rx doxazosin 4 mg tablet 4 mg PO HS #90 tabs 10/29/24 08/23/25 Rx albuterol sulfate 90 mcg/actuation See Rx Instructions .Route 01/03/25 08/23/25 Rx aerosol inhaler .COMPLEX #18 grams fluticasone fur. 200 mcg-umeclid See Rx Instructions .Route 01/03/25 08/23/25 Rx 62.5 mcg-vilant 25 mcg .COMPLEX #180 ea inhalat.powder (Trelegy Ellipta) loratadine 10 mg tablet 10 mg PO DAILY PRN runny nose #90 01/04/25 08/23/25 Rx tabs carvedilol 25 mg tablet 25 mg PO BID #180 tabs 01/24/25 08/23/25 Rx cyanocobalamin (vitamin B-12) 1,000 mcg PO DAILY 03/01/25 08/23/25 History 1,000 mcg capsule rosuvastatin 10 mg tablet 10 mg PO HS #90 tabs 07/11/25 08/23/25 Rx omeprazole 20 mg capsule,delayed See Rx Instructions .Route 07/17/25 08/23/25 Rx release .COMPLEX #90 caps acetaminophen 500 mg tablet 1,000 mg (2 x 500 mg) PO TID PRN 08/24/25 Rx pain #90 tabs gabapentin 100 mg tablet 100 mg PO TID PRN back/leg pain 08/24/25 Rx #30 tabs lorazepam 0.5 mg tablet 0.5 mg PO HS #30 tabs 08/24/25 08/23/25 Rx Patient History Medical History Edema Dyspnea on exertion History of anemia Spinal stenosis Hyperlipidemia Borderline diabetic Hx of gastric ulcer Chronic obstructive pulmonary disease History of basal cell carcinoma Surgical History History of anesthesia reaction SLOW TO WAKE UP H/O wrist surgery + CTR (HARDWARE INTACT) History of cholecystectomy History of tooth extraction History of cataract surgery RT/LEFT History of esophagogastroduodenoscopy (EGD) History of colonoscopy (~2015) S/P breast lumpectomy LEFT (BENIGN) S/P tonsillectomy H/O arthroscopic knee surgery RT H/O hernia repair S/P myomectomy 2 YEARS AGO AT [facility] Family History Mother Colorectal cancer Father Diabetes Stroke Family history of diabetes mellitus Brother Family history of diabetes mellitus Family/Other Breast cancer niece Other No family history of adverse response to anesthesia Denies family history of Ovarian cancer Prostate cancer Social History Smoking Status: Former smoker Tobacco Type: Cigarettes Age Started Using Tobacco: 16; Age Quit Using Tobacco: 72; packs per day: 0.5; Second Hand Exposure: No; Do You Dip or Chew Tobacco: No; Hx Alcohol Use: No Hx Substance Use: No Preferred Language: Indonesian Communication Ability: Effective Sat Math Tutor Required: No Beliefs That Will Affect Care: None marital status: Current Living Situation: Spouse, Family and Other Current Living Situation Comment: , DAUGHTER, GRANDAUGHTER current occupational status: retired Feels Safe at Home: Yes Childhood Exposure to Second-Hand Smoke: No Diet: regular caffeine: Yes Dental Care, Regularly: No Physical Activity Frequency: Daily Seatbelt Use: always Sunscreen Use: Yes Assistive Devices: Denture - Lower and Glasses Results (Rad Onc) Laboratory Results: were reviewed and pertinent findings noted in HPI pathology results are pending scheduling of probable bronchoscopy. Imaging Studies: were reviewed and pertinent findings noted in HPI Time Spent Attending This documentation has been prepared in full by Dr. Kline. I have personally reviewed the services described and have reviewed the documentation to ensure its accuracy. I spent 20 minutes with direct face to face interaction with the patient which included obtaining clinical information, recommending a plan of action and answering questions. I spent 25 minutes reviewing her chart her scans and com pletion of this document. BRISEYDA
--- NOTE | 2025-08-24 14:17 | Communication Note ---
Date of Service: August 24, 2025 By CMS guidelines, a determination that the admission or continued stay is not medically necessary has been made by a member of the UR committee and a ph ysician for this hospital stay, therefore a Code 44 will be completed and the Inpatient admission will be changed to outpatient.
--- NOTE | 2025-08-24 14:23 | Discharge Summary ---
Discharge Summary Date of Service August 24, 2025 Principal Dx & Hospital Course #1 = Principal Diagnosis (1) Lumbar radiculopathy: (2) Anemia: (3) Back pain: (4) Abnormal MRI, lumbar spine: (5) Family history of colon cancer: (6) Chronic obstructive pulmonary disease: (7) LBBB (left bundle branch block): Carlos Eduardo Reanna Hanna is an 80 year old female admitted to [facility] from August 23 - 2024 due to left leg radicular pain and concerning imaging for discitis on outpatient MRI. Repeat imaging with intravenous contrast unfortunately showed what appears to be metastatic cancer. Follow up CT showed lesions on her lung and liver and asymmetric soft tissue swelling of the anus. Rectal examination was normal. CEA was elevated although this can also be elevated in lung cancers. AFP pending on discharge. On discussion with oncology recommended US guided liver biopsy which can be performed after holding her aspirin for 5 days and will be arranged as an outpatient. We will also arrange an outpatient PET/CT and follow up with oncology for all of these results to discuss treatment options going forward. She was seen by radiation oncology and will be followed up for palliative radiation to her back. On discussion about her pain control she reports managing to move around the house with acetaminophen alone. Gabapentin was also prescribed as needed but advised on side effects of this. She was advised to lift no more than 5lbs. after her biopsy she may wish to use NSAIDS as needed. Notes For Next Care Provider Follow up interventional radiology for US guided biopsy liver (needs to hold aspirin for 5 days prior to this procedure Follow up radiation oncology for palliative radiation Follow up oncology following biopsy and PET/CT Follow up PCP to co-ordinate care and hypertension Medication Changes From Visit Acetaminophen PRN for back pain Gabapentin PRN for back pain Aspirin held for biopsy Lorazepam switched to how she has been taking it at night to avoid confusion if she returns to hospital Admission HPI Per Admitting Provider Reanna Hanna is an 80 year old female who presents to the ER due to back pain with outpatient lumbar spine MRI concerning for discitis and sent in by her orthopedic spine surgeon for further evaluation. She reports no fever or chills. Back pain radiates down her anterior lateral thigh. Pain is severity 10/10 on any movement especially on lying on her back. Currently severity 8-9/10 while sitting in the chair but feels like she needs to get up to relieve the pain. No leg weakness, loss of bladder/bowel control or perianal numbness. Taking acetaminophen only for the pain. Onset in June and progressively worse since that time. She has noticed 15lb weight loss over the last year. Lifelong smoker, quit aged 72 years old, 28 pack-year history. Discharge Exam Constitutional WD/WN, vitals as above ENMT external ear and nose normal, oropharynx normal Respiratory normal respiratory effort, lungs clear to auscultation Cardiovascular RRR, no murmur, no edema Gastrointestinal (Abdomen) normal bowel sounds, soft, nontender, no hepatosplenomegaly Rectal Exam: normal sphincter tone and no rectal mass Musculoskeletal no cyanosis or clubbing, extremities motor strength 5/5 Skin no rashes, warm and dry Neurologic moves all extremities and awake; not confused Motor/Sensory: + sensory deficit (left L2/3 distribution numbness/pain) Psychiatric A+Ox3, euthymic affect Discharge Plan Discharge Items Patient Disposition: Home - Self-Care Reason For Visit: DISCITIS Discharge Diagnosis: Metastatic cancer - 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 You will need to hold your aspirin for 5 days prior to the biopsy. ) Jessee Joiner DO [Primary Care Provider] - 08/28/25 1:00 pm (Hospital and hypertension follow up) Jayna Singleton MD [Physician] - (Follow up metastatic cancer with PET/CT and US guided liver biopsy to be organized as outpatient) Diet: Regular Addtl Attending Provider Instructions: You were admitted to [facility] from August 23 - 2024 due to left leg radicular pain and concerning imaging for discitis on outpatient MRI. Repeat imaging with intravenous contrast unfortunately showed what appears to be metastatic cancer. Follow up CT showed lesions on your lung and liver. On discussion with oncology recommended US guided liver biopsy which can be performed after holding your aspirin for 5 days and will be arranged as an outpatient. We will also arrange an outpatient PET/CT and follow up with oncology for all of these results to discuss treatment options going forward. You will also be followed up by radiation oncology to discuss radiation to your back. If your pain is controlled enough on acetaminophen recommend taking this alone. We will also prescribe gabapentin to help with your pain. You may also use naproxen after your liver biopsy to help with pain as long as this does not cause stomach pain or black stool. Pending Studies at Discharge: Yes (AFP tumor marker) Stand-Alone Forms: [facility], Smoking Cessation Medications and DC Order Prescriptions: New gabapentin 100 mg tablet 100 mg PO TID PRN (Reason: back/leg pain) Qty: 30 0RF acetaminophen 500 mg tablet 1,000 mg PO TID PRN (Reason: pain) Qty: 90 0RF Continued lisinopril 40 mg tablet 40 mg PO DAILY Qty: 90 3RF Patient Comments: QAM doxazosin 4 mg tablet 4 mg PO HS Qty: 90 3RF carvedilol 25 mg tablet 25 mg PO BID Qty: 180 3RF cyanocobalamin (vitamin B-12) 1,000 mcg capsule 1,000 mcg PO DAILY rosuvastatin 10 mg tablet 10 mg PO HS Qty: 90 3RF omeprazole 20 mg capsule,delayed release(DR/EC) See Rx Instructions .ROUTE .COMPLEX Qty: 90 3RF Dose Instruction: TAKE 1 CAPSULE BY MOUTH TWICE DAILY Rx Instructions: TAKE 1 CAPSULE BY MOUTH TWICE DAILY Trelegy Ellipta 200-62.5-25 mcg blister with device See Rx Instructions .ROUTE .COMPLEX Qty: 180 3RF Dose Instruction: INHALE 1 PUFF BY MOUTH ONCE DAILY Rx Instructions: INHALE 1 PUFF BY MOUTH ONCE DAILY albuterol sulfate 90 mcg/actuation HFA aerosol inhaler See Rx Instructions .ROUTE .COMPLEX Qty: 18 3RF Dose Instruction: INHALE TWO PUFFS BY MOUTH EVERY FOUR HOURS NEEDED FOR SHORNESS OF BREATH OR WHEEZING Rx Instructions: INHALE TWO PUFFS BY MOUTH EVERY FOUR HOURS NEEDED FOR SHORNESS OF BREATH OR WHEEZING loratadine 10 mg tablet 10 mg PO DAILY PRN (Reason: runny nose) Qty: 90 3RF Changed lorazepam 0.5 mg tablet 0.5 mg PO HS Qty: 30 2RF Held aspirin 81 mg tablet,delayed release (DR/EC) 81 mg PO DAILY Qty: 30 0RF Hold Instructions: Resume on 09/04/25. Hold until after US guided liver biopsy Patient Comments: QPM Discharge Orders: Discharge Order (Routine); Ordered 08/24/25 Ordered By: Justin Perera/Other Patient Handouts: Gabapentin Oral Tablet Admission Data Admit Date/Time: 08/23/25 12:37 Attending Provider: Justin Ashley Admit Provider: Justin Ashley Primary Care Provider: Jessee Joiner Other Providers: Riley Christopher; Mago Manzo; Primo Kline Other Interventions: Discharge Summary Assessment (RN) Last Done: 08/24/25 15:16 Hospital Stay Data Consultations 08/23/25 12:39 Consult Orthopedic Spine Surgery Routine 08/23/25 13:16 ED Decision to Admit Stat 08/24/25 06:44 Consult Pulmonology Routine 08/24/25 09:26 Consult Radiation Oncology Routine Procedures Performed Operation Date: 08/25/25 12:00 <No data on this case meets the specified criteria> Diagnostic Imagining Performed 08/23/25 13:58 MRI Lumbar Spine [MR lumbar spine wo/w con] Stat 08/23/25 19:49 CT Abd and Pelvis [CT abd pelvis IV con only] Routine CT chest diagnostic w con Routine Pending Results Patient Have Any Pending Studies at Discharge: Yes (AFP tumor marker) Discharge Instructions Given to Patient (Per Discharging Provider) You were admitted to [facility] from August 23 - 2024 due to left leg radicular pain and concerning imaging for discitis on outpatient MRI. Repeat imaging with intravenous contrast unfortunately showed what appears to be metastatic cancer. Follow up CT showed lesions on your lung and liver. On discussion with oncology recommended US guided liver biopsy which can be performed after holding your aspirin for 5 days and will be arranged as an out patient. We will also arrange an outpatient PET/CT and follow up with oncology for all of these results to discuss treatment options going forward. You will also be followed up by radiation oncology to discuss radiation to your back. If your pain is controlled enough on acetaminophen recommend taking this alone. We will also prescribe gabapentin to help with your pain. You may also use naproxen after your liver biopsy to help with pain as long as this does not cause stomach pain or black stool. Total Time Total Time Spent Total Time Spent (In Minutes): 70 Coding Level of Care Code 93498 INP/OBS DISCH >30 MIN Diagnoses Lumbar radiculopathy M54.16 Anemia D64.9 Back pain M54.9 Abnormal MRI, lumbar spine R93.7 Family history of colon cancer Z80.0 Chronic obstructive pulmonary disease J44.9 LBBB (left bundle branch block) I44.7
--- NOTE | 2025-08-25 10:39 | Coding Query ---
CODING QUERY To promote full compliance with coding requirements relating to patient care, provider participation is requested in all cases of photographic equipment assembler uncertainty. Please assist us with the question(s) below: Coding Question(s): Please specify below, in your clinical opinion, the most likely etiology of the Lumbar Radiculitis that was evaluated/treated during this admission: (X ) Lumbar Radiculopathy was most likely due to specified possible etiology of metastatic cancer ( ) Lumbar Radiculitis with unknown likely source Physician's Response(s): Thank you Joana Finn Principal Diagnosis: "that condition established after study, to be chiefly responsible for occasioning the admission of the patient to the hospital for care." Co-Existing Principal Diagnosis: "when two or more diagnoses equally meet the criteria for principal diagnosis as determined by the circumstances of admission, diagnostic work up, and/or therapy provided, and the Alphabetic Index, Tabular List, or another coding guideline does not provide sequencing direction, any one of the diagnoses may be sequenced first." "When the physician has documented what appears to be a current diagnosis in the body of the record, but has not included the diagnosis in the final diagnostic statement, the physician should be asked whether the diagnosis should be added." (Source Coding Clinic 2 QTR90. p3-4) JUAN
--- NOTE | 2025-08-25 11:13 | XCELERA ---
[id number] \\[id number]
--- NOTE | 2025-08-28 05:53 | Electrocardiogram Report ---
Test Reason : Blood Pressure : */* mmHG Vent. Rate : 62 BPM Atrial Rate : 62 BPM P-R Int : 210 ms QRS Dur : 164 ms QT Int : 486 ms P-R-T Axes : 92 26 140 degrees QTcB Int : 493 ms Sinus rhythm with 1st degree A-V block Left bundle branch block Abnormal ECG When compared with ECG of 11-Dec-2017 10:33, [place] interval has increased Left bundle branch block is now Present Confirmed by Romain Marrufo ([id number]) on 08/28/2025 5:53:29 AM Referred By: Confirmed By: Romain Marrufo
== END 2025-08-24 15:48 | disposition home or self-care (01) | DRG 948 ==
LOC: ED 11:00 → INTOOBSV 12:37 → 2N 12:37

== ENCOUNTER 2025-08-31 10:56 | Observation (INO) ==
--- NOTE | 2025-08-31 11:21 | Emergency Department Note ---
Impression & Plan Cancer related pain, Hypoxia, Nausea and vomiting, Acute dehydration ED Provider Note Name: GRACIE LAW Age: 80 Sex: Female Arrives Via: Walk-In Informant: Patient ED Provider: Gwyn Guerra MD Chief Complaint: Illness Impression: As per impressions above Medical Decision Making: Pleasant 80-year-old female with metastatic cancer arrives from cancer center following initial radiation treatment for mets to the spine. She has severe nausea and dry heaving and diffuse pain. Initially she wanted to avoid pain medications thus was given just fluids and Zofran for nausea and dehydration. Fortunately this did resolve the nausea and she was feeling much better after fluids. However she does note diffuse pain gradually worsening. We attempted some IV Tylenol without much improvement. After further discussion she very much wishes to avoid narcotics though she clearly looks quite uncomfortable. On top of this patient's oxygen is dropped into the 70s shortly after arrival. I do not feel this is consistent with pulmonary edema and chest x-ray really does not show the degree of fluid that I expect if she was truly fluid overloaded. She responded well to nasal cannula O2. Laboratory workup is somewhat reassuring. I do not see any clear evidence of sepsis. I am somewhat suspicious that the combination of not eating since yesterday, dehydration, acute radiation treatment and possibly some other contributing factors severely exacerbated her cancer related pain. I am somewhat suspicious she is going to require further pain medication such as narcotics however will try to avoid them at patient's request. Given the degree of hypoxia hospitalization is indicated. She is not tachycardic she is not significantly short of breath and she is not hypotensive. While she does have cancer my gestalt for PE is relatively low. Of note initial troponin is slightly elevated, however it was modestly elevated just a few days ago as well. Her EKG is abnormal but it is essentially similar to the one from a week ago. Given this I think ACS is unlikely but continue monitoring with be beneficial to patient as well All patient did have dry heaving and vomiting she does not report any acute aspiration like event and her examination does not have any clear evidence of congestion on lungs. Triage/Nursing Notes reviewed by Me External Chart Review by me: I did review a recent PCP note from 08/28/2025 getting past medical history. Differential:Infection, dehydration, metabolic abnormality, hypo/hyperglycemia, electrolyte disturbance, anemia, hypoxia, cardiac sources, intracerebral event, toxicologic, neurologic, as well as other pathologies. Vital Signs: reviewed and remarkable for significantly hypertensive on arrival, hypoxic on arrival Interventions: Saline IV, Tylenol IV, Zofran IV Labs:ED labs Reviewed by me and remarkable for elevated troponin Imagin view chest x-ray as per my interpretation moderate sized mass in the right midlung field with questionable other areas of metastasis. No overt pulmonary edema or significant effusion appreciated. EKG:As per my interpretation. Indication hypoxia and vomiting. Normal sinus rhythm at 63 bpm with a left bundle branch block and a QTc of 505. There is no ectopy nor overt ischemia. Compared to EKG of August 23, 2025 no significant change. Cardiac/Tele Monitoring: Cardiac Monitoring: An Order was placed for continuous cardiac monitoring. The monitor shows a rate of 60 with a normal sinus rhythm. Consults:I discussed case with Dr. Barry who after reviewing requested that I obtain CT PE and they would come evaluate the patient further. Plan: Disposition:Hospitalization. Condition: Fair History of Present Illness: 80-year-old female arrives for evaluation of illness. Patient states that she has metastatic cancer to spine, lungs, liver amongst others. She states that she had her first round of radiation therapy this morning with a planned liver biopsy directly following that. Following the radiation she developed severe nausea and dry heaves. States she feels severely weak with diffuse pain. Denies any specific abdominal pain, chest pain, difficulty breathing. Her back pain is essentially at baseline. She denies any falls, trauma, injuries. No medications prior to arrival other than her typical daily medicines taken this morning. She does admit that she has not eaten anything since yesterday as she was going to have the liver biopsy. She was advised to come to the ER by cancer center staff for further evaluation. Past Medical History:See Below Home Medications:See Below Allergies:See Below Vitals:Blood Pressure: 195/57, Pulse 66, RR 22, T 36.8C, O2 90% on 4L Physical Exam: GENERAL: Patient is very uncomfortable/nauseous appearing and in moderate distress. RESPIRATORY: No dyspnea. Clear to auscultation and equal bilaterally. CARDIOVASCULAR: Regular rate and rhythm.No murmur appreciated. GASTROINTESTINAL: Abdomen soft, non-tender, no peritonitis. BACK: No midline tenderness, no CVA tenderness EXTREMITIES: Normal motion all extremities, no cyanosis, no edema. NEUROLOGIC: Alert and oriented. No focal neurologic deficits appreciated SKIN: No rash, no jaundice, no diaphoresis. PSYCH: Appropriate GCS: 15 ED Course: Times/Reassessments: Repeat evaluations patient seems more comfortable is better color. Continues to have diffuse pain and is agreeable to trying some IV Tylenol though continues relating she wishes to avoid narcotics. Her oxygenation though continues to be quite low requiring 4 L nasal cannula to maintain O2 sats. Agreeable to hospitalization at this point. Gwyn Guerra MD Past Med/Surg History Problem List (Updated 09/01/25 @ 07:52 by Gwyn Guerra MD) Acute dehydration (Acute) Nausea and vomiting (Acute) Hypoxia (Acute) Cancer related pain (Acute) Lumbago Demand ischemia Nausea Emphysema lung Metastatic cancer Lung mass Abnormal MRI, lumbar spine Lumbar radiculopathy Anemia (Acute) Back pain (Acute) Left hip pain Cognitive impairment Vitamin B12 deficiency anemia Hypochromic anemia Allergic reaction to sulfonamide Hyperglycemia Dyslipidemia Family history of colon cancer LVH (left ventricular hypertrophy) (Chronic) Diverticulosis (Chronic) Chronic rhinitis Chronic obstructive pulmonary disease Osteoporosis (Chronic) Mitral regurgitation (Chronic) PT STATES RESOLVED AFTER HEART SURGERY Hypertension Esophageal reflux (Chronic) CAD (coronary artery disease) (Chronic) Anxiety (Chronic) Hypertrophic cardiomyopathy LBBB (left bundle branch block) HX OF (RESOLVED AFTER HEART SURGERY) Medical History Edema Dyspnea on exertion History of anemia Spinal stenosis Hyperlipidemia Borderline diabetic Hx of gastric ulcer Chronic obstructive pulmonary disease History of basal cell carcinoma Surgical History History of anesthesia reaction SLOW TO WAKE UP H/O wrist surgery + CTR (HARDWARE INTACT) History of cholecystectomy History of tooth extraction History of cataract surgery RT/LEFT History of esophagogastroduodenoscopy (EGD) History of colonoscopy (~2015) S/P breast lumpectomy LEFT (BENIGN) S/P tonsillectomy H/O arthroscopic knee surgery RT H/O hernia repair S/P myomectomy 2 YEARS AGO AT [facility] Family History (Updated 08/31/25 @ 18:49 by Gwyn Barry MD, PhD) Mother Colorectal cancer Father , at 78 years of age from acute CT in the setting of DM. Diabetes Stroke Family history of diabetes mellitus Brother Family history of diabetes mellitus Family/Other Breast cancer niece Mother , at 62 years of age from colon CA. No problems noted. 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 Feels Safe at Home: Yes Childhood Exposure to Second-Hand Smoke: No Diet: regular caffeine: Yes Dental Care, Regularly: No Physical Activity Frequency: Daily Seatbelt Use: always Sunscreen Use: Yes Assistive Devices: None Allergies Allergies Allergy/AdvReac Type Severity Reaction Status Date / Time prednisone Allergy Intermediate MOOD Verified 08/28/25 13:11 CHANGES hydrochlorothiazide Allergy Mild Rash Verified 08/28/25 13:11 nickel Allergy Mild Rash Verified 08/28/25 13:11 Sulfa (Sulfonamide Allergy Mild Rash Verified 08/28/25 13:11 Antibiotics) Home Meds Home Medications Medication Instructions Recorded Confirmed cyanocobalamin (vitamin B-12) 1,000 mcg PO DAILY 03/01/25 08/31/25 1,000 mcg capsule Previous Rx's Medication Instructions Recorded aspirin 81 mg tablet,delayed 81 mg PO DAILY #30 tabs 02/15/19 release doxazosin 4 mg tablet 4 mg PO HS #90 tabs 10/29/24 albuterol sulfate 90 mcg/actuation See Rx Instructions .Route 01/03/25 aerosol inhaler .COMPLEX #18 grams fluticasone fur. 200 mcg-umeclid See Rx Instructions .Route 01/03/25 62.5 mcg-vilant 25 mcg .COMPLEX #180 ea inhalat.powder (Trelegy Ellipta) loratadine 10 mg tablet 10 mg PO DAILY PRN runny nose #90 01/04/25 tabs carvedilol 25 mg tablet 25 mg PO BID #180 tabs 01/24/25 rosuvastatin 10 mg tablet 10 mg PO HS #90 tabs 07/11/25 omeprazole 20 mg capsule,delayed See Rx Instructions .Route 07/17/25 release .COMPLEX #90 caps acetaminophen 500 mg tablet 1,000 mg (2 x 500 mg) PO TID PRN 08/24/25 pain #90 tabs gabapentin 100 mg tablet 100 mg PO TID PRN back/leg pain 08/24/25 #30 tabs lisinopril 40 mg tablet See Rx Instructions .Route 08/28/25 .COMPLEX #90 tabs lorazepam 1 mg tablet 1 mg PO HS PRN anxiety #30 tabs 08/28/25 naproxen sodium 220 mg tablet 220 mg PO Q12H PRN pain 90 days 08/28/25 #180 tabs Results & Data (ED) Vital Signs Vital Signs - 24 hr 08/31/25 11:08 08/31/25 11:25 08/31/25 12:00 Temperature 36.8 C Temperature Source Oral Pulse Rate 66 67 65 Pulse Rate from SpO2 Sensor Respiratory Rate 22 16 Blood Pressure 195/57 H 174/67 H Blood Pressure Mean 103 108 Pulse Oximetry 90 100 Oxygen Delivery Method Room Air Nasal Cannula Oxygen Flow Rate 4 Sepsis Recent Fever Within 48 Hours No Sepsis New/Unexplained Change in Mental Status N/A Sepsis Action Taken by Nursing No Action Required 08/31/25 12:38 08/31/25 13:02 08/31/25 14:00 Temperature Temperature Source Pulse Rate 62 68 63 Pulse Rate from SpO2 Sensor 63 Respiratory Rate 20 22 Blood Pressure 175/108 H 183/82 H 167/64 H Blood Pressure Mean 147 131 102 Pulse Oximetry 100 100 99 Oxygen Delivery Method Nasal Cannula Nasal Cannula Nasal Cannula Oxygen Flow Rate 4 4 2 Sepsis Recent Fever Within 48 Hours Sepsis New/Unexplained Change in Mental Status Sepsis Action Taken by Nursing Laboratory Data 09/01/25 05:44 09/01/25 05:44 Lab Results 08/31/25 08/31/25 08/31/25 Range/Units 11:13 12:35 13:40 WBC 8.50 (4.8-10.8) K/ul RBC 3.64 L (4.20-5.40) M/uL Hgb 10.0 L (12.0-16.0) g/dl Hct 31.9 L (37.0-47.0) % MCV 87.6 (80.0-100.0) fL MCH 27.5 (25.0-34.0) pg MCHC 31.3 L (32.0-36.0) g/dL RDW Std Deviation 47.8 H (36.4-46.3) fL RDW Coeff of [place] 15.0 H (11.5-14.5) % Plt Count 236 (130-400) K/uL MPV 10.7 (9.4-12.4) fL Immature Gran % (Auto) 0.4 % Neut % (Auto) 81.9 % Lymph % (Auto) 6.2 % Webb % (Auto) 7.2 % Eos % (Auto) 4.1 % Baso % (Auto) 0.2 % Neut # (Auto) 6.96 H (1.40-6.50) K/uL Lymph # (Auto) 0.53 L (1.20-3.40) K/uL Webb # (Auto) 0.61 H (0.11-0.59) K/uL Eos # (Auto) 0.35 (0.00-0.50) K/uL Baso # (Auto) 0.02 (0.00-0.20) K/uL Immature Gran # (Auto) 0.03 (0.01-0.20) K/uL Sodium 141 (136-145) mmol/L Potassium 4.1 (3.5-5.1) mmol/L Chloride 103 (98-107) mmol/L Carbon Dioxide 31 (21-32) mmol/L Anion Gap 7 (3-11) BUN 21 (6-23) mg/dl Creatinine 0.66 (0.6-1.2) mg/dl Est Cr Clr Drug Dosing 48.0 ml/min eGFR 88.07 BUN/Creatinine Ratio 31.8 H (10-20) Glucose 116 H (70-99(Fasting)) mg/dl Calcium 9.1 (8.6-10.3) mg/dl Magnesium 2.2 (1.7-2.4) mg/dl Total Bilirubin 0.5 (0.2-1.0) mg/dl Direct Bilirubin 0.1 (0-0.2) mg/dl AST 23 (13-39) U/L ALT 11 (7-52) U/L Alkaline Phosphatase 64 (34-104) U/L Total Creatine Kinase 74 65 (26-192) U/L Troponin I High Sens 20.6 H 22.9 H (0-14) pg/ml Total Protein 6.7 (6.0-8.3) gm/dl Albumin 3.8 (3.4-5.0) gm/dl Lipase 51 (11-82) U/L Procalcitonin 0.03 (0-0.5) ng/ml Urine Color Yellow Urine Appearance Clear (Clear) Urine pH 8.5 H (4.5-7.5) Ur Specific [place] 1.012 (1.000-1.030) Urine Protein Negative (Negative) Urine Glucose (UA) Negative (Negative) Urine Ketones Negative (Negative) Urine Blood Negative (Negative) Urine Nitrite Negative (Negative) Urine Bilirubin Negative (Negative) Urine Urobilinogen Negative (Negative) Ur Leukocyte Esterase Negative (Negative) Urine Comment Administered Medications Acetaminophen (Acetaminophen 325 Mg Tab) 650 mg PO Q6 PRN PRN Reason: pain 1 to 3;RICHARD;T>100.4 degrees F Stop: 09/30/25 18:04 Last Admin: 09/01/25 04:29 Dose: 650 mg Documented By: ALVAREZ Carvedilol (Carvedilol 25 Mg Tab) 25 mg PO BID [facility] Stop: 09/30/25 20:59 Last Admin: 08/31/25 21:51 Dose: Not Given Documented By: CHITRA Doxazosin Mesylate (Doxazosin Mesylate 4 Mg Tab) 4 mg PO HS [facility] Stop: 09/30/25 20:59 Last Admin: 08/31/25 21:49 Dose: 4 mg Documented By: CHITRA Hydromorphone HCl (Hydromorphone Inj 0.5 Mg/0.5 Ml Syr) 0.5 mg IV Q2H PRN PRN Reason: Pain 4 to 10 Stop: 09/14/25 21:04 Last Admin: 08/31/25 21:49 Dose: 0.5 mg Documented By: CHITRA Lorazepam (Lorazepam 1 Mg Tab) 1 mg PO HS PRN PRN Reason: anxiety Stop: 09/30/25 15:01 Last Admin: 08/31/25 21:49 Dose: 1 mg Documented By: CHITRA Pantoprazole Sodium (Pantoprazole 40 Mg Tab) 40 mg PO BID [facility] Stop: 09/30/25 20:59 Last Admin: 08/31/25 21:50 Dose: 40 mg Documented By: CHITRA Discontinued Medications Aspirin (Aspirin 81 Mg Ectab) 81 mg PO DAILY [facility] Stop: 08/31/25 16:30 Last Admin: 08/31/25 15:58 Dose: 81 mg Documented By: Fentanyl (Fentanyl 25 Mcg/Hr Tdsy) 1 patch TD Q3D CARLOS Stop: 09/14/25 21:04 Last Admin: 08/31/25 21:56 Dose: Not Given Documented By: CHITRA Sodium Chloride (Nss) 1,000 mls @ 999 mls/hr IV .Q1H1M ONE Stop: 08/31/25 12:10 Last Infusion: 08/31/25 13:58 Dose: Infused Documented By: Admin: 08/31/25 11:33 Dose: 999 mls/hr Documented By: ARNOLD Sodium Chloride (Nss) 500 mls @ 999 mls/hr IV .Q31M ONE Stop: 08/31/25 13:25 Last Infusion: 08/31/25 18:10 Dose: Infused Documented By: Admin: 08/31/25 13:44 Dose: 999 mls/hr Documented By: ARNOLD Acetaminophen (Ofirmev) 1,000 mg in 100 mls @ 400 mls/hr IV NOW STA Stop: 08/31/25 13:09 Last Infusion: 08/31/25 15:49 Dose: Infused Documented By: Admin: 08/31/25 13:44 Dose: 400 mls/hr Documented By: ARNOLD Ioversol (Optiray 320 125ml) 119 ml IV ONCE ONE Stop: 08/31/25 15:21 Last Admin: 08/31/25 15:20 Dose: 119 ml Documented By: QUIQUE Ketorolac Tromethamine (Ketorolac Tromethamine 15 Mg/Ml Vial) 15 mg IV NOW ONE Stop: 08/31/25 15:51 Last Admin: 08/31/25 17:10 Dose: 15 mg Documented By: KIT Ketorolac Tromethamine (Ketorolac 30 Mg/Ml Vial) 30 mg IV NOW ONE Stop: 08/31/25 18:59 Last Admin: 08/31/25 19:13 Dose: 30 mg Documented By: CHITRA Miscellaneous (Fentanyl Patch Remove & Waste) 1 each N/A Q3D CARLOS Stop: 09/30/25 21:14 Last Admin: 08/31/25 21:56 Dose: Not Given Documented By: CHITRA Ondansetron HCl (Ondansetron Inj 2 Mg/Ml 2 Ml Vial) 4 mg IV NOW STA Stop: 08/31/25 11:11 Last Admin: 08/31/25 11:33 Dose: 4 mg Documented By: ARNOLD Discharge Plan Visit Data Chief Complaint: Illness ED Provider: Gwyn Guerra Discharge Problem: Cancer related pain, Hypoxia, Nausea and vomiting, Acute dehydration Patient Disposition: Admitted As Inpatient Condition: Fair Discharge Instructions Interventions: ED Discharge Assessment Last Done: 08/31/25 20:44 Discharge Problem: Nausea and vomiting Qualifiers: Vomiting type: unspecified Qualified Code(s): R11.2 - Nausea with vomiting, unspecified
[2025-08-31 11:33] LABS: Hematocrit (blood only) 31.9 % (37.0-47.0); Hemoglobin 10.0 g/dl (12.0-16.0); Immature Granulocytes # (auto) 0.03 K/uL (0.01-0.20); Immature Granulocytes % (auto) 0.4 %; Mean Corpuscular Hemoglobin 27.5 pg (25.0-34.0); Mean Corpuscular Volume 87.6 fL (80.0-100.0); Platelet Count 236 K/uL (130-400); RDW Standard Deviation 47.8 fL (36.4-46.3); Red Blood Count 3.64 M/uL (4.20-5.40); White Blood Count 8.50 K/ul (4.8-10.8)
[2025-08-31] MEDS: SODIUM CHLORIDE 0.9% 1,000 ML IV ONE (11:33)
[2025-08-31] MEDS: ONDANSETRON INJ 2 MG/ML 2 ML VIAL IV STA (11:33)
[2025-08-31 11:53] LABS: Alanine Aminotransferase 11.0 U/L (7-52); Albumin Level 3.8 gm/dl (3.4-5.0); Alkaline Phosphatase 64.0 U/L (34-104); Anion Gap 7.0 (3-11); Bilirubin,Total 0.5 mg/dl (0.2-1.0); Blood Urea Nitrogen 21.0 mg/dl (6-23); Calcium 9.1 mg/dl (8.6-10.3); Carbon Dioxide 31.0 mmol/L (21-32); Chloride 103.0 mmol/L (98-107); Creatine Kinase 74.0 U/L (26-192); Creatinine Clr Calc Pharmacy 48.0 ml/min; Glucose 116.0 mg/dl (70-99(Fasting)); Lipase 51.0 U/L (11-82); Magnesium 2.2 mg/dl (1.7-2.4); Potassium 4.1 mmol/L (3.5-5.1); Sodium 141.0 mmol/L (136-145); Total Protein 6.7 gm/dl (6.0-8.3)
[2025-08-31 13:18] LABS: Appearance Urine Clear (Clear); Glucose Urine UA Negative (Negative)
--- NOTE | 2025-08-31 13:26 | XRay Report ---
XR chest 1V portable HISTORY: 80 years-old Female hypoxia COMPARISON: Chest CT 08/23/2025 TECHNIQUE: AP view of the chest FINDINGS: Cardiomegaly. Spiculated mass of the right middle lobe projected over the right hilum redemonstrated which previously measured approximately 4 cm. Median sternotomy. No overt pulmonary edema. Severe emp hysema with chronic interstitial coarsening. Numerous pleural-based nodules are again noted throughou t the right hemithorax. The left lung is generally clear. The bones of the chest appear grossly intac t. IMPRESSION: 1. 4 cm right middle lobe mass suggestive of primary bronchogenic carcinoma redemonstrated. 2. Numerous pleural-based nodules throughout the right lung suggestive of metastatic disease also aga in noted, better evaluated on the prior chest CT. 3. Cardiomegaly without pulmonary edema. 4. Emphysema. ACT 112: Negative or not required by law. The above report was generated using voice recognition software. It may contain grammatical, syntax o r spelling errors. Electronically signed by: Melo Bryant M.D. 08/31/2025 1:24 PM
[2025-08-31] MEDS: ACETAMINOPHEN 1,000 MG/100 ML VIAL IV STA (13:44)
[2025-08-31] MEDS: SODIUM CHLORIDE 0.9% 500 ML IV ONE (13:44)
[2025-08-31] MEDS ORDERED: ACETAMINOPHEN 325 MG TAB PO PRN (14:56)
[2025-08-31] MEDS ORDERED: NON-FORMULARY MEDICATION (Fluticasone-Umeclidin-Vilanter [Trelegy Ellipta] 200-62.5-25 mcg SCH (15:15)
[2025-08-31 15:20] LABS: Creatine Kinase 65.0 U/L (26-192)
[2025-08-31] MEDS: OPTIRAY 320 125ml IV ONE (15:20)
--- NOTE | 2025-08-31 15:37 | CT Scan Report ---
CT angio chest PE protocol CT DOSE: 473.27 mGy.cm HISTORY: 80 years-old Female with PE - cancer, hypoxia. Acute shortness of breath TECHNIQUE: Multiple CTA images of the chest were obtained after the intravenous administration of 119 ml Optiray. Coronal and sagittal MIPS were obtained from the axial data set and were submitted for review. All measurements were obtained according to NASCET criteria. A dose lowering technique was u tilized adhering to the principles of ALARA. COMPARISON: CT chest, abdomen and pelvis 08/23/2025 FINDINGS: CTA: Moderate cardiomegaly. Moderate coronary artery calcifications. Prior median sternotomy with probable CABG. Atherosclerosis of the aorta without aneurysm. No pulmonary emboli are seen. CT CHEST: No thyroid nodule. 11 mm subcarinal lymph node is unchanged. Stable right hilar lymph nodes measuring up to 9 mm. No new or progressive lymphadenopathy. Trace right pleural effusion has increased in siz e from prior. Right middle lobe mass on image 103 redemonstrated measuring 4.5 x 2.7 cm with spiculat ed irregular margins, unchanged in size. This lesion likely demonstrates invasion into the epicardial fat where there is abutment of the right atrium, loss of the normal PA spinal fat plane. Numerous pl eural-based and fissural nodules of the right hemithorax appear stable with index 2.8 cm nodule withi n the right lung base on image 93 series 4. Severe emphysema with chronic fibrotic changes. Mild bron chial wall thickening. Subpleural nodules within the right middle lobe demonstrates some central cavi tation on image 133 series 4, unchanged. Stable spiculated 11 mm nodule within the superior segment l eft lower lobe with additional tiny subcentimeter nodular foci. No evidence of pneumonia. Partially imaged 5.7 cm mass in the right hepatic lobe on image 1 series 4 again noted. No acute uppe r abdominal abnormality is seen. No acute fracture or destructive bone lesion. IMPRESSION: 1. Cardiomegaly without pulmonary emboli. 2. Unchanged right middle lobe mass suggestive of primary bronchogenic carcinoma. 3. Numerous fissural/subpleural nodules in the right hemithorax redemonstrated suggestive of metastas is. 4. There is a new trace right-sided pleural effusion, likely malignant. 5. Unchanged borderline enlarged subcarinal and right hilar lymph nodes. 6. Stable nodules of the superior segment left lower lobe. 7. Probable hepatic metastasis redemonstrated ACT 112: Negative or not required by law. The above report was generated using voice recognition software. It may contain grammatical, syntax o r spelling errors. Electronically signed by: Melo Bryant M.D. 08/31/2025 3:35 PM
[2025-08-31] MEDS: ASPIRIN 81 MG ECTAB PO SCH (15:58)
[2025-08-31] MEDS: KETOROLAC TROMETHAMINE 15 MG/ML VIAL IV ONE (17:10)
[2025-08-31] MEDS ORDERED: KETOROLAC TROMETHAMINE 15 MG/ML VIAL IV PRN (18:04)
--- NOTE | 2025-08-31 18:33 | History & Physical Report ---
Date of Service August 31, 2025 Assessment & Plan (1) Nausea: Plan: As above in the History of Present Illness. (2) Demand ischemia: Plan: As above in the History of Present Illness. (3) Lumbago: Plan: As above in the History of Present Illness. History of Present Illness Chief Complaint: "I came to [facility] this morning (08/31/2025, 8:00am) to get my first radiation treatment for my lung cancer. Right after I finished the radiation treatment, I felt weak and nauseated and I was dry heaving, but no vomit came up. My belly did not hurt at all. I was not burping or farting. My last bowel movement was on Thursday evening (08/29/2025, 9:00pm); my last meal was on Thursday evening (08/30/2025, 6:00pm) where I cooked some roast beef, mashed potatoes, and gravy, and I ate it all with my and I felt ok. I don't normally have a bowel movement every day. Anyways, I had no problems at all until after getting my first radiation treatment for my lung cancer this morning (08/31/2025, 8:00am). So, the radiation doctor sent me to the ER @ [facility] to get checked out. Right now, the only complaint I have is my lower back; it hurts, and its constant and not new because there is cancer in my lower spine. The pain is sharp and stabbing and it's like a 12 (out of 10 point intensity scale). The ER doctor gave me a shot of tylenol 1000mg IV x 1 dose (08/31/2025, 1:44pm), but it didn't do anything. Is there anything else I can take? I don't want to take any narcotics." Primary Care Provider: Jessee Joiner, DO 80 years old female with PMH of FULL CODE @ home, allergic rhinitis on loratadine 10mg PO daily prn allergic rhinitis, PAD with "Infrarenal abdominal aortic aneurysm measuring up to 3.2 cm." (as noted on 08/23/2025, 1:58pm lumbar spine MRI with/without IV contrast), hyperlipidemia on rosuvastatin 10mg PO qhs, HTN on carvedilol 25mg PO bid and doxazosin 4mg PO qhs, 1st degree AV block and LBBB (as noted on 08/23/2025, 11:32am EKG with AL 210ms, QTC 493 ms) with nominal troponin-I elevation (cf., troponin-I 21.9 pg/mL (08/23/2025, 11:29am); troponin-I 16.2 pg/mL (08/23/2025, 3:24pm)), anxiety disorder on lorazepam 1mg PO qhs prn anxiety, GERD on omeprazole 20mg PO daily, former tobacco abuse with no subsequent diagnosis of COPD, not on home O2 or home steroids, and stage IV right lung CA with liver, right lung nodular, right pleural fluid, and lumbar metastases (described as "multiple marrow enhancing lesions in the lumbar spine especially involving the anterior and posterior osseous elements of L3-5 most compatible with metastases. These metastatic masses encroach into the spinal canal and the neural foramina bilaterally, resulting in severe tricompartmental spinal canal and bilateral neural foraminal narrowing where the traversing and exiting nerves are impinged." (as noted on08/23/2025, 1:58pm lumbar spine MRI with/without IV contrast)), who received her first palliative XRT @ [facility] with RAD ONC Dr. Primo Kline. Patient reports: "I came to [facility] this morning (08/31/2025, 8:00am) to get my first radiation treatment for my lung cancer. Right after I finished the radiation treatment, I felt weak and nauseated and I was dry heaving, but no vomit came up. My belly did not hurt at all. I was not burping or farting. My last bowel movement was on Thursday evening (08/29/2025, 9:00pm); my last meal was on Thursday evening (08/30/2025, 6:00pm) where I cooked some roast beef, mashed potatoes, and gravy, and I ate it all with my and I felt ok. I don't normally have a bowel movement every day. Anyways, I had no problems at all until after getting my first radiation treatment for my lung cancer this morning (08/31/2025, 8:00am). So, the radiation doctor sent me to the ER @ [facility] to get checked out. Right now, the only complaint I have is my lower back; it hurts, and its constant and not new because there is cancer in my lower spine. The pain is sharp and stabbing and it's like a 12 (out of 10 point intensity scale). The ER doctor gave me a shot of tylenol 1000mg IV x 1 dose (08/31/2025, 1:44pm), but it didn't do anything. Is there anything else I can take? I don't want to take any narcotics." Patient denies antecedent/coincident fevers, chills, diaphoresis, cough, wheeze, sore throat, hemoptysis, chest pains, palpitations, pleurisy, diarrhea, abdominal pain, pelvic pain, hematemesis, hematochezia, melena, hematuria, dysuria, frequency, urgency, flank pain, headaches, dizziness, lightheadedness, visual changes, hearing changes, weakness, falls, syncope, trauma, travel history, sick contacts, or food/drug ingestions novel or new. All other review of systems are reported as negative by the patient on o bservation date 08/31/2025. In [facility] ER bed #B6, patient was afebrile @ 36.8 degrees Celsius, HR 67, RR 22, O2 sat 90% on room air, and BP 195/57 (08/31/2025, 11:25am). Exam was noted for chronic lumbar spinal tenderness without underlying erythema, edema, induration, warmth, tenderness, crepitus, fluctuance, discharge, ulceration, malodor, lymphangitic streaking, petechiae, ecchymosis, or hematoma. In addition, the abdomen was soft and non-distended, non-tender, without rebound, guarding, Corona's sign, or organomegaly. Labs in [facility] ER bed #B6 included: WBC 8.5, N82 L6 M7 E4, Hb 10.0, MCV 87.6, MCHC 31.3, platelet 236 (08/31/2025, 11:13am). Na 141, K 4.1, BUN 21, creatinine 0.66, glucose 116, Ca 9.1, Mg 2.2, LACHELLE 23, ALT 11, ALK PHOS 64, total bili 0.5, albumin 3.8 (08/31/2025, 11:13am). Lipase 51 U/L (08/31/2025, 11:13am). CK #1 74 U/L (08/31/2025, 11:13am). CK #2 65 U/L (08/31/2025, 1:40pm). Troponin-I old 21.9 pg/mL (08/23/2025, 11:29am). Troponin-I old 16.2 pg/mL (08/23/2025, 3:24pm). Troponin-I #1 20.6 pg/mL (08/31/2025, 11:13am). Troponin-I #2 22.9 pg/mL (08/31/2025, 1:40pm). Troponin-I #3 (08/31/2025, 6:33pm). Lactic acid #1 1.2 mmol/L (08/31/2025, 4:00pm). Lactic acid #2 (08/31/2025, 8:00pm). Procalcitonin #1 0.03 ng/mL (08/31/2025, 11:13am). U/A (08/31/2025, 12:35pm): clear yellow, LE-, nitrite- MRSA nares (08/31/2025, 4:00pm) negative Additional testing in [facility] ER bed #B6 included: Portable CXR (08/31/2025, 12:55pm): 1. 4 cm right middle lobe mass suggestive of primary bronchogenic carcinoma redemonstrated. 2. Numerous pleural-based nodules throughout the right lung suggestive of metastatic disease also again noted, better evaluated on the prior chest CT. 3. Cardiomegaly without pulmonary edema. 4. Emphysema. CTA chest (08/31/2025, 2:57pm): 1. Cardiomegaly without pulmonary emboli. 2. Unchanged right middle lobe mass suggestive of primary bronchogenic carcinoma. 3. Numerous fissural/subpleural nodules in the right hemithorax redemonstrated suggestive of metastasis. 4. There is a new trace right-sided pleural effusion, likely malignant. 5. Unchanged borderline enlarged subcarinal and right hilar lymph nodes. 6. Stable nodules of the superior segment left lower lobe. 7. Probable hepatic metastasis redemonstrated. EKG (08/31/2025, 11:17am): NSR @ 63, AL 204, QTC 505, LBBB (by my review). Historical testing in [facility] includes: EKG (08/23/2025, 11:32am): NSR @ 62, AL 210, QTC 493, LBBB (by my review). TTE (08/23/2025, 10:18am): 1. LVEF 50-55%. Severe concentric LVH. Not consistent with LV outflow obstruction. Thin proximal interventricular septum compared to remainder of ventricle, consistent with prior myomectomy. Akinesis of basal anteroseptum and the basal to mid inferoseptum consistent with prior myomectomy. 2. RV normal size and normal systolic function. 3. LA severely dilated. RA size normal. 4. Trace AR. No . 5. Mild AL. 6. Mild-moderate MR. No MS. 7. Mild TR. RVSP normal. 8. Aortic root normal size. Normal IVC size and collapsibility indicates normal RAP 3mm Hg. 9. No pericardial effusion. (as per CARDS Dr. Miko Cast). Patient was subsequently placed in OBSERVATION on the hospitalist service @ [facility] ER on 08/31/2025 with the following diagnoses: 1. Nausea with dry heaves, no vomiting per se, immediately after undergoing her first palliative XRT @ [facility] with RAD ONC Dr. Primo Kline on 08/31/2025, 8:00am. 2. Nominal troponin-I elevation with troponin-I #1 20.6 pg/mL (08/31/2025, 11:13am), troponin-I #2 22.9 pg/mL (08/31/2025, 1:40pm), attributed to demand ischemia (aka, type II NSTEMI). 3. Chronic 12 (out of 10 point intensity scale) lumbar pain, due to lumbar spinal metastases (described as "multiple marrow enhancing lesions in the lumbar spine especially involving the anterior and posterior osseous elements of L3-5 most compatible with metastases. These metastatic masses encroach into the spinal canal and the neural foramina bilaterally, resulting in severe tricompartmental spinal canal and bilateral neural foraminal narrowing where the traversing and exiting nerves are impinged." (as noted on08/23/2025, 1:58pm lumbar spine MRI with/without IV contrast)). To address #1, patient received zofran 4mg IV x 1 dose (08/31/2025, 11:33am) and protonix 40mg PO bid (08/31/2025, 6:45pm). To address #2, patient awaits troponin-I #3 (08/31/2025, 6:33pm). Given the low index of suspicion for acute NSTEMI / ACS, patient was not started on telemetry, heparin infusion, lovenox 1mg/kg SQ q12, morphine prn (which the patient refuses to take anyway as patient does not want to take any narcotics at all), O2, or NTG prn. Instead, patient was continued on her home-scheduled ASA 81mg PO daily, carvedilol 25mg PO bid, and lisinopril 40mg PO daily. Of final note, patient was held OFF her home-scheduled rosuvastatin 10mg PO qhs given potential for this medication to exacerbate patient's admitting complaints of nausea with dry heaves and no vomiting per se. To address #3, patient received tylenol 1000mg IV x 1 dose (08/31/2025, 1:44pm) in [facility] ER bed #B6, and reported no relief at all. Patient subsequently received toradol 15mg IV x 1 dose (08/31/2025, 5:10pm), followed by toradol 15mg IV q6 prn pain 4-10 (ordered on 08/31/2025, 6:04pm). Allergies Allergy/AdvReac Type Severity Reaction Status Date / Time prednisone Allergy Intermediate MOOD Verified 08/28/25 13:11 CHANGES hydrochlorothiazide Allergy Mild Rash Verified 08/28/25 13:11 nickel Allergy Mild Rash Verified 08/28/25 13:11 Sulfa (Sulfonamide Allergy Mild Rash Verified 08/28/25 13:11 Antibiotics) Home Medications Medication Instructions Recorded Confirmed Type aspirin 81 mg tablet,delayed 81 mg PO DAILY #30 tabs 02/15/19 08/31/25 Rx release doxazosin 4 mg tablet 4 mg PO HS #90 tabs 10/29/24 08/31/25 Rx albuterol sulfate 90 mcg/actuation See Rx Instructions .Route 01/03/25 08/31/25 Rx aerosol inhaler .COMPLEX #18 grams fluticasone fur. 200 mcg-umeclid See Rx Instructions .Route 01/03/25 08/31/25 Rx 62.5 mcg-vilant 25 mcg .COMPLEX #180 ea inhalat.powder (Trelegy Ellipta) loratadine 10 mg tablet 10 mg PO DAILY PRN runny nose #90 01/04/25 08/31/25 Rx tabs carvedilol 25 mg tablet 25 mg PO BID #180 tabs 01/24/25 08/31/25 Rx cyanocobalamin (vitamin B-12) 1,000 mcg PO DAILY 03/01/25 08/31/25 History 1,000 mcg capsule rosuvastatin 10 mg tablet 10 mg PO HS #90 tabs 07/11/25 08/31/25 Rx omeprazole 20 mg capsule,delayed See Rx Instructions .Route 07/17/25 08/31/25 Rx release .COMPLEX #90 caps acetaminophen 500 mg tablet 1,000 mg (2 x 500 mg) PO TID PRN 08/24/25 08/31/25 Rx pain #90 tabs gabapentin 100 mg tablet 100 mg PO TID PRN back/leg pain 08/24/25 08/31/25 Rx #30 tabs lisinopril 40 mg tablet See Rx Instructions .Route 08/28/25 08/31/25 Rx .COMPLEX #90 tabs lorazepam 1 mg tablet 1 mg PO HS PRN anxiety #30 tabs 08/28/25 08/31/25 Rx naproxen sodium 220 mg tablet 220 mg PO Q12H PRN pain 90 days 08/28/25 08/31/25 Rx #180 tabs Past Med/Surg History Problem List (Updated 08/31/25 @ 18:53 by Gwyn Barry MD, PhD) Lumbago Demand ischemia Nausea Emphysema lung Metastatic cancer Lung mass Abnormal MRI, lumbar spine Lumbar radiculopathy Anemia (Acute) Back pain (Acute) Left hip pain Cognitive impairment Vitamin B12 deficiency anemia Hypochromic anemia Allergic reaction to sulfonamide Hyperglycemia Dyslipidemia Family history of colon cancer LVH (left ventricular hypertrophy) (Chronic) Diverticulosis (Chronic) Chronic rhinitis Chronic obstructive pulmonary disease Osteoporosis (Chronic) Mitral regurgitation (Chronic) PT STATES RESOLVED AFTER HEART SURGERY Hypertension Esophageal reflux (Chronic) CAD (coronary artery disease) (Chronic) Anxiety (Chronic) Hypertrophic cardiomyopathy LBBB (left bundle branch block) HX OF (RESOLVED AFTER HEART SURGERY) Medical History Edema Dyspnea on exertion History of anemia Spinal stenosis Hyperlipidemia Borderline diabetic Hx of gastric ulcer Chronic obstructive pulmonary disease History of basal cell carcinoma Surgical History History of anesthesia reaction SLOW TO WAKE UP H/O wrist surgery + CTR (HARDWARE INTACT) History of cholecystectomy History of tooth extraction History of cataract surgery RT/LEFT History of esophagogastroduodenoscopy (EGD) History of colonoscopy (~2015) S/P breast lumpectomy LEFT (BENIGN) S/P tonsillectomy H/O arthroscopic knee surgery RT H/O hernia repair S/P myomectomy 2 YEARS AGO AT [facility] Family History (Updated 08/31/25 @ 18:49 by Gwyn Barry MD, PhD) Mother Colorectal cancer Father , at 78 years of age from acute NM in the setting of DM. Diabetes Stroke Family history of diabetes mellitus Brother Family history of diabetes mellitus Family/Other Breast cancer niece Mother , at 62 years of age from colon CA. No problems noted. Other No family history of adverse response to anesthesia Denies family history of Ovarian cancer Prostate cancer Social History (Updated 08/31/25 @ 18:51 by Gwyn Barry MD, PhD) Smoking Status: Former smoker Tobacco Type: Cigarettes Age Started Using Tobacco: 16; Age Quit Using Tobacco: 72; packs per day: 0.5; Second Hand Exposure: No; Do You Dip or Chew Tobacco: No; Hx Alcohol Use: No Hx Substance Use: No Preferred Language: Fijian Communication Ability: Effective Fans Clerk Required: No Beliefs That Will Affect Care: None marital status: marital status details: 63 yrs Current Living Situation: Spouse, Family and Other Current Living Situation Comment: , DAUGHTER, GRANDAUGHTER current occupational status: retired How many Children do You have: 2 How many Children do You have Comment: 2 sons(53y,,drug O/D;59y,alive/well);1 daughter(53y,alive/well). Feels Safe at Home: Yes Childhood Exposure to Second-Hand Smoke: No Diet: regular caffeine: Yes Dental Care, Regularly: No Physical Activity Frequency: Daily Seatbelt Use: always Sunscreen Use: Yes Assistive Devices: None Review of Systems Constitutional: As above in the History of Present Illness. Physical Exam Constitutional: General: Comfortable, cooperative and coherent. Wide awake and alert. Not confused, lethargic, or obtunded. Speaks in complete, fluent, and articulate sentences without pause, interruption, cough, or wheeze. HEENT: NC/AT. PERRL. No nystagmus, gaze paresis, anisocoria, miosis, mydriasis, chemosis, hyphema, scleral injection, conjunctivitis, or pterygium. No otorrhea. No rhinorrhea. Neck: Supple, no stridor, bruit, or goiter. Jugular venous pressure 5cm above the sternal angle of Owen, which is typically 5 cm above the right atrium. Lymph: No anterior/posterior cervical lymphadenopathy, supraclavicular/infraclavicular lymphadenopathy, axilla/epitrochlear/inguinal lymphadenopathy. Chest: Symmetric rise and fall with respirations. Non-tender to palpation. Heart: RRR, S1 and S2. No S3 or S4 summation gallop. No tripartite friction rub. Grade II/ early systolic murmur @ LLSB without radiation to the carotids, axilla, or back, and which remains invariant in regards to the respiratory cycle. No audible expiratory wheeze, egophony, pectoriloquy, increase in tactile fremitus, or flatness/dullness to percussion at the bases. Abd: Soft, non-tender, non-distended. Bowel sounds auscultated in all 4 quadrants. No rebound, guarding, Corona's sign, or organomegaly. Ext: No clubbing, cyanosis, or edema. 2+ pedal pulses bilaterally. Skin: No decubitus ulcer, enanthem, or exanthem. Neuro: No tremors, tics, or myoclonus. DTR+. 5/5 motor strength in all 4 extremities, both proximally and distally. No myoclonus, tremors, or tics. Chronic lumbar spinal tenderness without underlying erythema, edema, induration, warmth, tenderness, crepitus, fluctuance, discharge, ulceration, malodor, lympha ngitic streaking, petechiae, ecchymosis, or hematoma (due to lumbar spinal metastases (described as "multiple marrow enhancing lesions in the lumbar spine especially involving the anterior and posterior osseous elements of L3-5 most compatible with metastases. These metastatic masses encroach into the spinal canal and the neural foramina bilaterally, resulting in severe tricompartmental spinal canal and bilateral neural foraminal narrowing where the traversing and exiting nerves are impinged." (as noted on08/23/2025, 1:58pm lumbar spine MRI with/without IV contrast)). Urology: No toledo catheter. No purewick. No urethral discharge. Psych: No suicidal ideation. No flat affect. Smiles appropriately. Normal marquis of speech. Results & Data Results & Data Vital Signs (Past 12 Hours) Vital Signs Temp Pulse Resp BP Pulse Ox O2 Del Method O2 Flow Rate 08/31/25 17:33 60 16 183/73 H 100 2 08/31/25 17:00 56 L 16 212/77 H 100 08/31/25 16:30 61 20 187/54 H 99 08/31/25 16:25 58 L 08/31/25 16:06 67 20 163/72 H 100 08/31/25 15:36 65 20 224/86 H 99 08/31/25 14:00 63 22 167/64 H 99 Nasal Cannula 2 08/31/25 13:02 68 20 183/82 H 100 Nasal Cannula 4 08/31/25 12:38 62 175/108 H 100 Nasal Cannula 4 08/31/25 12:00 65 16 174/67 H 100 Nasal Cannula 4 08/31/25 11:25 36.8 C 67 22 195/57 H 90 Room Air 08/31/25 11:08 66 Laboratory Results As above in the History of Present Illness. Diagnostic Findings As above in the History of Present Illness. Medications Administered As above in the History of Present Illness. Code Status & VTE Plan VTE Prophylaxis Plan VTE Prophylaxis will be ordered: Yes PG Care Time/CCT Total # of Minutes Spent Total Time Spent with Patient: Total time spent is greater than 50% in coordination of care (as documented) at patient's floor/unit and/or counseling patient: Coding Level of Care Code 72352 INT INP/OBS CARE MIN Diagnoses Nausea R11.0 Demand ischemia I24.89 Chronic bilateral low back pain without sciatica M54.50; G89.29 Chronicity: chronic Back pain laterality: bilateral Sciatica presence: without sciatica (3) Lumbago Chronicity: chronic Back pain laterality: bilateral Sciatica presence: without sciatica Qualified Code(s): M54.50 - Low back pain, unspecified; G89.29 - Other chronic pain
[2025-08-31] MEDS: KETOROLAC 30 MG/ML VIAL IV ONE (19:13)
[2025-08-31] MEDS: LORazepam 1 MG TAB PO PRN (21:49)
[2025-08-31] MEDS: HYDROmorphone INJ 0.5 MG/0.5 ML SYR IV PRN (21:49)
[2025-09-01] MEDS: ACETAMINOPHEN 325 MG TAB PO PRN (04:29)
[2025-09-01 06:05] LABS: Hematocrit (blood only) 28.2 % (37.0-47.0); Hemoglobin 8.5 g/dl (12.0-16.0); Immature Granulocytes # (auto) 0.02 K/uL (0.01-0.20); Immature Granulocytes % (auto) 0.3 %; Mean Corpuscular Hemoglobin 27.0 pg (25.0-34.0); Mean Corpuscular Volume 89.5 fL (80.0-100.0); Platelet Count 193 K/uL (130-400); RDW Standard Deviation 47.9 fL (36.4-46.3); Red Blood Count 3.15 M/uL (4.20-5.40); White Blood Count 5.80 K/ul (4.8-10.8)
[2025-09-01 06:21] LABS: Anion Gap 4.0 (3-11); Blood Urea Nitrogen 20.0 mg/dl (6-23); Calcium 8.6 mg/dl (8.6-10.3); Carbon Dioxide 31.0 mmol/L (21-32); Chloride 108.0 mmol/L (98-107); Creatinine Clr Calc Pharmacy 46.6 ml/min; Glucose 91.0 mg/dl (70-99(Fasting)); Potassium 4.4 mmol/L (3.5-5.1); Sodium 143.0 mmol/L (136-145)
[2025-09-01] MEDS: FLUTICASONE FUROATE 200MCG 14 PUFFS/INHALER INH SCH (08:04)
[2025-09-01] MEDS: UMECLIDINIUM/VILANTEROL 62.5/25MCG 7 PUFFS/INHALER INH SCH (08:05)
[2025-09-01] MEDS: ASPIRIN 81 MG CHEW ONE (08:15)
[2025-09-01] MEDS: ASPIRIN 81 MG ECTAB PO SCH (08:36)
--- NOTE | 2025-09-01 11:14 | Hospitalist Progress Note ---
Date of Service September 01, 2025 Assessment & Plan (1) Nausea: Plan: As above in the History of Present Illness. (2) Demand ischemia: Plan: As above in the History of Present Illness. (3) Lumbago: Plan: As above in the History of Present Illness. Plan Reanna Hanna is a 80 yo woman with PMH of lung cancer with metastasis, COPD, AAA, PAD, 1st degree heart block and LBBB, GERD she's quitted smoking 10 years ago, she's was found to has stage 4 right lung cancer with liver, metastasis, lumbar metastasis. she's came to our hospital on 08/31 with radiation treatment for lung cancer. however, she was having intractable 10/10 back pain, nausea and vomiting, and inability to passed bowel movement and under ED observation for IV pain control. she is opioid naive, she's has Dilaudid overnight on 08/31 and has somnolence on 09/01, started on hydrocodone 10mg 1. lung cancer with spine metastasis. 2.intractable cancer related pain 3. COPD 4. lung cancer 5. liver lesion 6. 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 CAD, mitral regurgitation, LBBB 1. lung cancer with spine metastasis she's was seen by pulmonary on 08/24/2025 noted several lesion, liver metastasis was plan for liver biopsy 2. intractable cancer related pain located at the right lumbar region hydrocodone, she's was having sedation with low dose Dilaudid 3. liver lesion, she's will need biopsy on the liver lesion 3. COPD, she's quitted smoking 10 years ago 4. she has asymmetric soft tissue swelling of anus will involved GI evaluation prior to discharge 5. ovarian cysts, right ovarian cyst measure up to 4.8cm may benefit from transvaginal ultrasound and assembler camper f/u 6. GERD, she's on PPI 7. hypertrophic cardiomyopathy s/p myectomy and LBBB no chest pain. she's on coreg 25 BID, she's on crestor 10mg daily family update; son and updated at bedside Admission and Anticipated Discharge Date Admission Date: August 31, 2025 Subjective she's has lung cancer and following with Dr. Bower (medical oncology) and radiation oncology she's been having 10/10 pain on the right lumabr region has dilaudid 0.5mg last night and has sedation lung cancer, she's quitted smoking 10 years ago plan for hydrocodone for pain control miralax started as she's has no BM for 48 hours her son and as bedside Review of Systems Constitutional: As above in the History of Present Illness. Physical Exam Physical Exam: VITALS: Reviewed. WEIGHT/BMI reviewed. GEN: Healthy appearing, well-developed, NAD. -Head: NC/AT; -Mouth and throat: MMM. Normal gums, muc elpidio, palate,. Good dentition. NECK: Supple, with no masses. CV: RRR, no m/r/g. LUNGS: CTAB, no w/r/c. on 4 liter oxygen; no acccessory muscle usage ABD: Soft, NT/ND, NBS, no masses or organomegaly. SKIN: Warm, well perfused. No skin rashes or abnormal lesions. MSK: No deformities, Normal gait. EXT: No clubbing, cyanosis, or edema. NEURO: AAox3 Results & Data Results & Data Vital Signs (Past 12 Hours) Vital Signs Pulse Resp BP Pulse Ox O2 Del Method O2 Flow Rate 09/01/25 05:07 51 L 09/01/25 05:00 48 L 15 162/60 H 100 09/01/25 04:00 53 L 14 180/54 H 100 09/01/25 03:00 53 L 16 170/62 H 100 Nasal Cannula 4 09/01/25 02:00 56 L 157/58 H 96 Nasal Cannula 2 09/01/25 01:00 62 15 163/59 H 96 Nasal Cannula 2 09/01/25 00:09 60 16 191/54 H 96 Nasal Cannula 2 08/31/25 23:30 64 16 148/54 H 98 Nasal Cannula 2 Laboratory Results Laboratory Results - last 72 hr 08/31/25 08/31/25 08/31/25 11:13 12:35 13:40 WBC 8.50 RBC 3.64 L Hgb 10.0 L Hct 31.9 L MCV 87.6 MCH 27.5 MCHC 31.3 L RDW Std Deviation 47.8 H RDW Coeff of [place] 15.0 H Plt Count 236 MPV 10.7 Immature Gran % (Auto) 0.4 Neut % (Auto) 81.9 Lymph % (Auto) 6.2 [place] % (Auto) 7.2 Eos % (Auto) 4.1 Baso % (Auto) 0.2 Neut # (Auto) 6.96 H Lymph # (Auto) 0.53 L [place] # (Auto) 0.61 H Eos # (Auto) 0.35 Baso # (Auto) 0.02 Immature Gran # (Auto) 0.03 D-Dimer Sodium 141 Potassium 4.1 Chloride 103 Carbon Dioxide 31 Anion Gap 7 BUN 21 Creatinine 0.66 Est Cr Clr Drug Dosing 48.0 eGFR 88.07 BUN/Creatinine Ratio 31.8 H Glucose 116 H Lactate Calcium 9.1 Magnesium 2.2 Total Bilirubin 0.5 Direct Bilirubin 0.1 AST 23 ALT 11 Alkaline Phosphatase 64 Total Creatine Kinase 74 65 Troponin I High Sens 20.6 H 22.9 H Total Protein 6.7 Albumin 3.8 Lipase 51 Procalcitonin 0.03 Urine Color Yellow Urine Appearance Clear Urine pH 8.5 H Ur Specific [place] 1.012 Urine Protein Negative Urine Glucose (UA) Negative Urine Ketones Negative Urine Blood Negative Urine Nitrite Negative Urine Bilirubin Negative Urine Urobilinogen Negative Ur Leukocyte Esterase Negative Urine Comment Nasal Screen MRSA (PCR) 08/31/25 08/31/25 09/01/25 16:00 18:39 05:44 WBC 5.80 RBC 3.15 L Hgb 8.5 L Hct 28.2 L MCV 89.5 MCH 27.0 MCHC 30.1 L RDW Std Deviation 47.9 H RDW Coeff of [place] 15.0 H Plt Count 193 MPV 10.6 Immature Gran % (Auto) 0.3 Neut % (Auto) 71.6 Lymph % (Auto) 10.0 [place] % (Auto) 10.7 Eos % (Auto) 6.9 Baso % (Auto) 0.5 Neut # (Auto) 4.15 Lymph # (Auto) 0.58 L [place] # (Auto) 0.62 H Eos # (Auto) 0.40 Baso # (Auto) 0.03 Immature Gran # (Auto) 0.02 D-Dimer Cancelled Sodium 143 Potassium 4.4 Chloride 108 H Carbon Dioxide 31 Anion Gap 4 BUN 20 Creatinine 0.68 Est Cr Clr Drug Dosing 46.6 eGFR 87.44 BUN/Creatinine Ratio 29.4 H Glucose 91 Lactate 1.2 0.6 Calcium 8.6 Magnesium Total Bilirubin Direct Bilirubin AST ALT Alkaline Phosphatase Total Creatine Kinase Troponin I High Sens 27.5 H Total Protein Albumin Lipase Procalcitonin 0.06 Urine Color Urine Appearance Urine pH Ur Specific [place] Urine Protein Urine Glucose (UA) Urine Ketones Urine Blood Urine Nitrite Urine Bilirubin Urine Urobilinogen Ur Leukocyte Esterase Urine Comment Nasal Screen MRSA (PCR) Negative Medications Administered Current Inpatient Medications Acetaminophen (Acetaminophen 325 Mg Tab) 650 mg PO Q6 PRN PRN Reason: pain 1 to 3;RICHARD;T>100.4 degrees F Stop: 09/30/25 18:04 Last Admin: 09/01/25 04:29 Dose: 650 mg Hydrocodone Bitart/Acetaminophen (Hydrocodone/Acetaminophen 10/325 Tab) 1 tab PO TID PRN PRN Reason: Pain Stop: 09/15/25 13:59 Aspirin (Aspirin 81 Mg Ectab) 81 mg PO DAILY CARLOS Stop: 10/01/25 08:59 Last Admin: 09/01/25 08:36 Dose: 81 mg Carvedilol (Carvedilol 25 Mg Tab) 25 mg PO BID CARLOS Stop: 09/30/25 20:59 Last Admin: 09/01/25 08:04 Dose: 25 mg Doxazosin Mesylate (Doxazosin Mesylate 4 Mg Tab) 4 mg PO HS CARLOS Stop: 09/30/25 20:59 Last Admin: 08/31/25 21:49 Dose: 4 mg Fluticasone Furoate (Fluticasone Furoate 200mcg 14 Puffs/Inhaler) 1 puffs INH DAILY CARLOS Stop: 10/01/25 08:59 Last Admin: 09/01/25 08:04 Dose: 1 puffs Hydromorphone HCl (Hydromorphone Inj 0.5 Mg/0.5 Ml Syr) 0.5 mg IV Q2H PRN PRN Reason: Pain 4 to 10 Stop: 09/14/25 21:04 Last Admin: 08/31/25 21:49 Dose: 0.5 mg Lisinopril (Lisinopril 40 Mg Tab) 40 mg PO DAILY CARLOS Stop: 10/01/25 08:59 Last Admin: 09/01/25 08:07 Dose: 40 mg Lorazepam (Lorazepam 1 Mg Tab) 1 mg PO HS PRN PRN Reason: anxiety Stop: 09/30/25 15:01 Last Admin: 08/31/25 21:49 Dose: 1 mg Pantoprazole Sodium (Pantoprazole 40 Mg Tab) 40 mg PO BID CARLOS Stop: 09/30/25 20:59 Last Admin: 09/01/25 08:08 Dose: 40 mg Polyethylene Glycol (Polyethylene (Miralax) 17 Gm Pack) 17 gm PO DAILY CARLOS Stop: 10/01/25 10:29 Tizanidine HCl (Tizanidine Hcl 4 Mg Tablet) 2 mg PO TID CARLOS Stop: 10/01/25 13:59 Umeclidinium/Vilanterol (Umeclidinium/Vilanterol 62.5/25mcg 7 Puffs/Inhaler) 1 puffs INH DAILY CARLOS Stop: 10/01/25 08:59 Last Admin: 09/01/25 08:05 Dose: 1 puffs PG Care Time/CCT Total # of Minutes Spent Total Time Spent with Patient: Total time spent is greater than 50% in coordination of care (as documented) at patient's floor/unit and/or counseling patient: Coding Level of Care Code 47473 SUB INP/OBS CARE 2/35MIN Diagnoses Nausea R11.0 Demand ischemia I24.89 Chronic bilateral low back pain without sciatica M54.50; G89.29 Chronicity: chronic Back pain laterality: bilateral Sciatica presence: without sciatica Time Spent (min) 35 (3) Lumbago Chronicity: chronic Back pain laterality: bilateral Sciatica presence: without sciatica Qualified Code(s): M54.50 - Low back pain, unspecified; G89.29 - Other chronic pain
[2025-09-01] MEDS: POLYETHYLENE (MIRALAX) 17 GM PACK PO SCH (11:31)
--- NOTE | 2025-09-01 12:56 | Gastrointestinal Consultation ---
Date of Consultation September 01, 2025 Assessment & Plan (1) Abnormal CT of the abdomen: Plan 80yowf with h/o COPD and tobacco use presents to ER with lung, liver, spinal and rectal lesions and elevated CEA consistent with metastatic cancer of unknown primary. We were consulted today to evaluate rectal thickening noted on CT and liver lesion. CEA elevated at 397. AFP normal - 3.9. No previous colonoscopy available for review. However she reports this was normal 4-5 years ago. (1) Abnormal CT scan of Abdomen with Liver, Lung, Spine and rectal thickening. - Rectal examination is unremarkable. - Patient does not wish to proceed with any endoscopic evaluation. - Continue to follow up with primary team for supportive care, pain management, oncology and radiation oncology. - Thank you for allowing us to participate in the care of this patient. Please call with any acute changes, questions or concerns. - Please see addendum below with additional recommendation from my supervising physician. Supervising Physician Co-Signing Physician Notes I personally saw and examined the patient. I have reviewed the chart and agree with the documentation provided by the LOGISTICS ANALYTICS MANAGER including discussion about the assessment, treatment and plan. Briefly, 80yowf with h/o COPD and tobacco use presents to ER with lung, liver, spinal and rectal lesions and elevated CEA consistent with metastatic cancer of unknown primary. We were consulted today to evaluate anal thickening noted on CT and liver lesion. CEA elevated at 397. AFP normal - 3.9. No previous colonoscopy available for review. However she reports this was normal 4-5 years. I did a rectal exam today with the nurse present. There is no evidence of a mass on her anus. She does have hemorrhoid present without a fissure. There is no evidence of a compromise rectal tone. Did not feel anything inside the rectum. He is not a great candidate for a colonoscopy and she was mortified with just a rectal exam and did not want anything more done. My suspicion is that her anal pain is from hemorrhoids and more likely sacral nerve compression from her metastatic disease. I would treat her supportively as you guys are doing. GI has no further recommendations we will sign off History of Present Illness Reason for Consultation: Anal and Liver Lesion Attending Physician: Tom Weems DO History of Present Illness 80yowf with h/o COPD, tobacco use, CAD, GERD, Anxiety, Hypertrophic cardiomyopathy is seen today on GI rounds for inpatient evaluation of rectal lesion and liver lesion. (1) Metastatic cancer of unknown primary. Patient has an unfortunate history of back pain which lead to work up of MRI of spine revealing findings concerning for infection. She was referred to ER where she had additional imaging of CT CAP which revealed lung, liver and rectal lesions. - CEA 397 - AFP 3.9 - She was seen by pulmonology who recommended IR biopsy and oncology f/u. She was seen by Radiation oncology who started patient on palliative radiation for back pain. - She was scheduled for medical oncology for palliative systemic therapy. - Returned to hospital for ongoing abdominal pain, N/V. She was re-admitted for supportive care where we were consulted for rectal lesion. Pertinent Diagnostics CT abd/pelvis - 08/23/25 IMPRESSION: Right hepatic lobe metastatic lesion Asymmetric soft tissue swelling of the anus. Underlying mass can not be excluded in further evaluation with direct visual inspection is recommended. Right ovarian cysts measuring up to 4.8 cm. 3.7 cm infrarenal abdominal aortic aneurysm CT Chest IMPRESSION: 4 cm right middle lobe pulmonary mass consistent with primary lung neoplasm with numerous bilateral metastatic nodules scattered throughout lungs. This may be further evaluated with PET scan. Alternatively the lesion would be amenable to percutaneous sampling 4 cm right hepatic lobe hypodensity likely representing metastatic 09/01/25 09/01/25 08/31/25 10:52 05:44 18:39 WBC 5.80 RBC 3.15 L Hgb 8.5 L Hct 28.2 L MCV 89.5 MCH 27.0 MCHC 30.1 L RDW Std Deviation 47.9 H RDW Coeff of [place] 15.0 H Plt Count 193 MPV 10.6 Immature Gran % (Auto) 0.3 Neut % (Auto) 71.6 Lymph % (Auto) 10.0 [place] % (Auto) 10.7 Eos % (Auto) 6.9 Baso % (Auto) 0.5 Neut # (Auto) 4.15 Lymph # (Auto) 0.58 L [place] # (Auto) 0.62 H Eos # (Auto) 0.40 Baso # (Auto) 0.03 Immature Gran # (Auto) 0.02 D-Dimer Sodium 143 Potassium 4.4 Chloride 108 H Carbon Dioxide 31 Anion Gap 4 BUN 20 Creatinine 0.68 Est Cr Clr Drug Dosing 46.6 eGFR 87.44 BUN/Creatinine Ratio 29.4 H Glucose 91 Lactate 0.6 Calcium 8.6 Total Creatine Kinase Troponin I High Sens 22.4 H 27.5 H Procalcitonin 0.06 Urine Color Urine Appearance Urine pH Ur Specific [place] Urine Protein Urine Glucose (UA) Urine Ketones Urine Blood Urine Nitrite Urine Bilirubin Urine Urobilinogen Ur Leukocyte Esterase Urine Comment Nasal Screen MRSA (PCR) 08/31/25 08/31/25 08/31/25 16:00 13:40 12:35 WBC RBC Hgb Hct MCV MCH MCHC RDW Std Deviation RDW Coeff of [place] Plt Count MPV Immature Gran % (Auto) Neut % (Auto) Lymph % (Auto) [place] % (Auto) Eos % (Auto) Baso % (Auto) Neut # (Auto) Lymph # (Auto) [place] # (Auto) Eos # (Auto) Baso # (Auto) Immature Gran # (Auto) D-Dimer Cancelled Sodium Potassium Chloride Carbon Dioxide Anion Gap BUN Creatinine Est Cr Clr Drug Dosing eGFR BUN/Creatinine Ratio Glucose Lactate 1.2 Calcium Total Creatine Kinase 65 Troponin I High Sens 22.9 H Procalcitonin Urine Color Yellow Urine Appearance Clear Urine pH 8.5 H Ur Specific [place] 1.012 Urine Protein Negative Urine Glucose (UA) Negative Urine Ketones Negative Urine Blood Negative Urine Nitrite Negative Urine Bilirubin Negative Urine Urobilinogen Negative Ur Leukocyte Esterase Negative Urine Comment Nasal Screen MRSA (PCR) Negative 08/31/25 11:13 WBC RBC Hgb Hct MCV MCH MCHC RDW Std Deviation RDW Coeff of [place] Plt Count MPV Immature Gran % (Auto) Neut % (Auto) Lymph % (Auto) [place] % (Auto) Eos % (Auto) Baso % (Auto) Neut # (Auto) Lymph # (Auto) [place] # (Auto) Eos # (Auto) Baso # (Auto) Immature Gran # (Auto) D-Dimer Sodium Potassium Chloride Carbon Dioxide Anion Gap BUN Creatinine Est Cr Clr Drug Dosing eGFR BUN/Creatinine Ratio Glucose Lactate Calcium Total Creatine Kinase Troponin I High Sens Procalcitonin 0.03 Urine Color Urine Appearance Urine pH Ur Specific [place] Urine Protein Urine Glucose (UA) Urine Ketones Urine Blood Urine Nitrite Urine Bilirubin Urine Urobilinogen Ur Leukocyte Esterase Urine Comment Nasal Screen MRSA (PCR) disease. Allergies Allergy/AdvReac Type Severity Reaction Status Date / Time prednisone Allergy Intermediate MOOD Verified 08/28/25 13:11 CHANGES hydrochlorothiazide Allergy Mild Rash Verified 08/28/25 13:11 nickel Allergy Mild Rash Verified 08/28/25 13:11 Sulfa (Sulfonamide Allergy Mild Rash Verified 08/28/25 13:11 Antibiotics) Home Medications Medication Instructions Recorded Confirmed Type aspirin 81 mg tablet,delayed 81 mg PO DAILY #30 tabs 02/15/19 08/31/25 Rx release doxazosin 4 mg tablet 4 mg PO HS #90 tabs 10/29/24 08/31/25 Rx albuterol sulfate 90 mcg/actuation See Rx Instructions .Route 01/03/25 08/31/25 Rx aerosol inhaler .COMPLEX #18 grams fluticasone fur. 200 mcg-umeclid See Rx Instructions .Route 01/03/25 08/31/25 Rx 62.5 mcg-vilant 25 mcg .COMPLEX #180 ea inhalat.powder (Trelegy Ellipta) loratadine 10 mg tablet 10 mg PO DAILY PRN runny nose #90 01/04/25 08/31/25 Rx tabs carvedilol 25 mg tablet 25 mg PO BID #180 tabs 01/24/25 08/31/25 Rx cyanocobalamin (vitamin B-12) 1,000 mcg PO DAILY 03/01/25 08/31/25 History 1,000 mcg capsule rosuvastatin 10 mg tablet 10 mg PO HS #90 tabs 07/11/25 08/31/25 Rx omeprazole 20 mg capsule,delayed See Rx Instructions .Route 07/17/25 08/31/25 Rx release .COMPLEX #90 caps acetaminophen 500 mg tablet 1,000 mg (2 x 500 mg) PO TID PRN 08/24/25 08/31/25 Rx pain #90 tabs gabapentin 100 mg tablet 100 mg PO TID PRN back/leg pain 08/24/25 08/31/25 Rx #30 tabs lisinopril 40 mg tablet See Rx Instructions .Route 08/28/25 08/31/25 Rx .COMPLEX #90 tabs lorazepam 1 mg tablet 1 mg PO HS PRN anxiety #30 tabs 08/28/25 08/31/25 Rx naproxen sodium 220 mg tablet 220 mg PO Q12H PRN pain 90 days 08/28/25 08/31/25 Rx #180 tabs Patient History Medical History Edema Dyspnea on exertion History of anemia Spinal stenosis Hyperlipidemia Borderline diabetic Hx of gastric ulcer Chronic obstructive pulmonary disease History of basal cell carcinoma Surgical History History of anesthesia reaction SLOW TO WAKE UP H/O wrist surgery + CTR (HARDWARE INTACT) History of cholecystectomy History of tooth extraction History of cataract surgery RT/LEFT History of esophagogastroduodenoscopy (EGD) History of colonoscopy (~2015) S/P breast lumpectomy LEFT (BENIGN) S/P tonsillectomy H/O arthroscopic knee surgery RT H/O hernia repair S/P myomectomy 2 YEARS AGO AT [facility] Family History (Updated 08/31/25 @ 18:49 by Gwyn Barry MD, PhD) Mother Colorectal cancer Father , at 78 years of age from acute PR in the setting of DM. Diabetes Stroke Family history of diabetes mellitus Brother Family history of diabetes mellitus Family/Other Breast cancer niece Mother , at 62 years of age from colon CA. No problems noted. Other No family history of adverse response to anesthesia Denies family history of Ovarian cancer Prostate cancer Social History (Updated 08/31/25 @ 18:51 by Gwyn Barry MD, PhD) Smoking Status: Never smoker Tobacco Type: Cigarettes Age Started Using Tobacco: 16; Age Quit Using Tobacco: 72; packs per day: 0.5; Second Hand Exposure: No; Do You Dip or Chew Tobacco: No; Hx Alcohol Use: No Hx Substance Use: No Preferred Language: Grenadian Communication Ability: Effective Store Manager Required: No Beliefs That Will Affect Care: None marital status: marital status details: 63 yrs Current Living Situation: Spouse Current Living Situation Comment: , DAUGHTER, GRANDAUGHTER current occupational status: retired How many Children do You have: 2 How many Children do You have Comment: 2 sons(53y,,drug O/D;59y,alive/well);1 daughter(53y,alive/well). Feels Safe at Home: Yes Safety Concerns: Feels Safe At This Time Childhood Exposure to Second-Hand Smoke: No Diet: regular caffeine: Yes Dental Care, Regularly: No Physical Activity Frequency: Daily Seatbelt Use: always Sunscreen Use: Yes Assistive Devices: Cane Review of Systems Review of Systems: See HPI Physical Exam Physical Exam: Exam completed with Dr. Mao and female nurse digital content specialist. Rectal exam completed revealing a hemorrhoid. Rectal tone intact. No suspicious lesion appreciated on internal rectal examination. Results & Data Vital Signs (Past 12 Hours) Vital Signs Pulse Resp BP Pulse Ox O2 Del Method O2 Flow Rate 09/01/25 12:00 20 178/47 H 100 Nasal Cannula 2 09/01/25 11:00 22 163/47 H 100 Nasal Cannula 2 09/01/25 09:15 59 L 22 151/58 H 95 Nasal Cannula 2 09/01/25 07:48 59 L 14 183/62 H 100 Nasal Cannula 2 09/01/25 07:00 57 L 17 163/59 H 99 Nasal Cannula 2 09/01/25 05:07 51 L 09/01/25 05:00 48 L 15 162/60 H 100 09/01/25 04:00 53 L 14 180/54 H 100 09/01/25 03:00 53 L 16 170/62 H 100 Nasal Cannula 4 09/01/25 02:00 56 L 157/58 H 96 Nasal Cannula 2 09/01/25 01:00 62 15 163/59 H 96 Nasal Cannula 2 PG Care Time/CCT Total # of Minutes Spent Total Time Spent with Patient: Total time spent is greater than 50% in coordination of care (as documented) at patient's floor/unit and/or counseling patient: Coding Level of Care Code 67505 IN/OBS CONSULT LVL 3,45M Diagnoses Abnormal CT of the abdomen R93.5
--- NOTE | 2025-09-01 13:40 | Hospitalist Progress Note ---
Date of Service September 01, 2025 Assessment & Plan (1) Nausea: Plan: As above in the History of Present Illness. (2) Demand ischemia: Plan: As above in the History of Present Illness. (3) Lumbago: Plan: As above in the History of Present Illness. Plan Reanna Hanna is a 80 yo woman with PMH of lung cancer with metastasis, COPD, AAA, PAD, 1st degree heart block and LBBB, GERD she's quitted smoking 10 years ago, she's was found to has stage 4 right lung cancer with liver, metastasis, lumbar metastasis. she's came to our hospital on 08/31 with radiation treatment for lung cancer. however, she was having intractable 10/10 back pain, nausea and vomiting, and inability to passed bowel movement and under ED observation for IV pain control. she is opioid naive, she's has Dilaudid overnight on 08/31 and has somnolence on 09/01, started on hydrocodone 10mg 1. lung cancer with spine metastasis. 2.intractable cancer related pain 3. COPD 4. lung cancer 5. liver lesion 6. 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 CAD, mitral regurgitation, LBBB 1. lung cancer with spine metastasis she's was seen by pulmonary on 08/24/2025 noted several lesion, liver metastasis was plan for liver biopsy 2. intractable cancer related pain located at the right lumbar region hydrocodone, she's was having sedation with low dose Dilaudid 3. liver lesion, she's will need biopsy on the liver lesion 3. COPD, she's quitted smoking 10 years ago 4. she has asymmetric soft tissue swelling of anus will involved GI evaluation prior to discharge 5. ovarian cysts, right ovarian cyst measure up to 4.8cm may benefit from transvaginal ultrasound and financial professional f/u 6. GERD, she's on PPI 7. hypertrophic cardiomyopathy s/p myectomy and LBBB no chest pain. she's on coreg 25 BID, she's on crestor 10mg daily family update; son and updated at bedside Admission and Anticipated Discharge Date Admission Date: August 31, 2025 Subjective she's has lung cancer and following with Dr. Bower (medical oncology) and radiation oncology she's been having 10/10 pain on the right lumabr region has dilaudid 0.5mg last night and has sedation lung cancer, she's quitted smoking 10 years ago plan for hydrocodone for pain control miralax started as she's has no BM for 48 hours her son and as bedside Results & Data Results & Data Vital Signs (Past 12 Hours) Vital Signs Pulse Resp BP Pulse Ox O2 Del Method O2 Flow Rate 09/01/25 12:00 20 178/47 H 100 Nasal Cannula 2 09/01/25 11:00 22 163/47 H 100 Nasal Cannula 2 09/01/25 09:15 59 L 22 151/58 H 95 Nasal Cannula 2 09/01/25 07:48 59 L 14 183/62 H 100 Nasal Cannula 2 09/01/25 07:00 57 L 17 163/59 H 99 Nasal Cannula 2 09/01/25 05:07 51 L 09/01/25 05:00 48 L 15 162/60 H 100 09/01/25 04:00 53 L 14 180/54 H 100 09/01/25 03:00 53 L 16 170/62 H 100 Nasal Cannula 4 09/01/25 02:00 56 L 157/58 H 96 Nasal Cannula 2 PG Care Time/CCT Total # of Minutes Spent Total Time Spent with Patient: Total time spent is greater than 50% in coordination of care (as documented) at patient's floor/unit and/or counseling patient: Coding Diagnoses Nausea R11.0 Demand ischemia I24.89 Chronic bilateral low back pain without sciatica M54.50; G89.29 Chronicity: chronic Back pain laterality: bilateral Sciatica presence: without sciatica (3) Lumbago Chronicity: chronic Back pain laterality: bilateral Sciatica presence: without sciatica Qualified Code(s): M54.50 - Low back pain, unspecified; G89.29 - Other chronic pain
--- NOTE | 2025-09-01 19:44 | Electrocardiogram Report ---
Test Reason : Blood Pressure : */* mmHG Vent. Rate : 63 BPM Atrial Rate : 63 BPM P-R Int : 208 ms QRS Dur : 164 ms QT Int : 494 ms P-R-T Axes : 96 -15 127 degrees QTcB Int : 505 ms Sinus rhythm with 1st degree A-V block Left bundle branch block Abnormal ECG When compared with ECG of 23-Aug-2025 11:32, No significant change was found Confirmed by Jaspreet Massey ([id number]) on 09/01/2025 7:44:07 PM Referred By: REFERRED SELF Confirmed By: Jaspreet Massey
[2025-09-02 08:16] VITALS: PULSE 60; RESP 18; TEMP 98.1; O2SAT 98
[2025-09-02 12:31] VITALS: BP 195/50
--- NOTE | 2025-09-02 15:06 | Discharge Summary ---
Discharge Summary Date of Service September 02, 2025 Principal Dx & Hospital Course #1 = Principal Diagnosis (1) Nausea: Artur Hanna is a 80 yo woman with PMH Of lung cancer with GERD, liver and spine metastasis; AAA, COPD (room air), PAD, LBBB she's quitted smoking 10 years ago, and on last admission, she presented with left leg pain but found to has metastatic cancer, lung liver and found soft tissue swelling of her anus area. her CEA was elevated. she was seen by pulmonary and recommended CT guide liver biopsy and she's need to hold aspirin for 5 days. seen by radiation oncology and plan for palliative radiation to her back on 08/31, she's has her first palliative radiation to her back, but developed intractable nausea and vomiting, hypoxia on 4 liter oxygen her CTA negative for PE but found cardiomyopathy; unchanged right middle lobe mass in concern for bronchogenic cancer. subpleural nodules concernf or metatasis stable nodules of the superior segment of left lower lobe. and hepatic metastasis she's developed severe sedation on dilaudid and hydrocodone she was started on tramadol 50mg but still has some sedation. she was started on zanaflex 2mg she has 2 step done and found she's need 1-2 liter oxygen she was provided with tramadol 25mg and zanaflex for pain control she will has her radiation on Thursday she will need to work set up her liver biopsy her daughter was updated discussed that if she's has ongoing increased in oxygen requirement, she need to return to our ED for evaluation return to ED for evaluation if worsening respiratory symptoms daughter does smoke, but understand that she will smoke outside her home while patient is using oxygen therapy at home (2) Demand ischemia: As above in the History of Present Illness. (3) Lumbago: As above in the History of Present Illness. Carlos Eduardo Hanna is a 80 yo woman with PMH of lung cancer with metastasis, COPD, AAA, PAD, 1st degree heart block and LBBB, GERD she's quitted smoking 10 years ago, she's was found to has stage 4 right lung cancer with liver, metastasis, lumbar metastasis. she's came to our hospital on 08/31 with radiation treatment for lung cancer. however, she was having intractable 10/10 back pain, nausea and vomiting, and inability to passed bowel movement and under ED observation for IV pain control. she is opioid naive, she's has Dilaudid overnight on 08/31 and has somnolence on 09/01, started on hydrocodone 10mg 1. lung cancer with spine metastasis. 2.intractable cancer related pain 3. COPD 4. lung cancer 5. liver lesion 6. 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 CAD, mitral regurgitation, LBBB 1. lung cancer with spine metastasis she's was seen by pulmonary on 08/24/2025 noted several lesion, liver metastasis was plan for liver biopsy 2. intractable cancer related pain located at the right lumbar region hydrocodone, she's was having sedation with low dose Dilaudid 3. liver lesion, she's will need biopsy on the liver lesion 3. COPD, she's quitted smoking 10 years ago 4. she has asymmetric soft tissue swelling of anus will involved GI evaluation prior to discharge 5. 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 GERD, she's on PPI 7. hypertrophic cardiomyopathy s/p myectomy and LBBB no chest pain. she's on coreg 25 BID, she's on crestor 10mg daily family update; son and updated at bedside Admission HPI Per Admitting Provider 80 years old female with PMH of FULL CODE @ home, allergic rhinitis on loratadine 10mg PO daily prn allergic rhinitis, PAD with "Infrarenal abdominal aortic aneurysm measuring up to 3.2 cm." (as noted on 08/23/2025, 1:58pm lumbar spine MRI with/without IV contrast), hyperlipidemia on rosuvastatin 10mg PO qhs, HTN on carvedilol 25mg PO bid and doxazosin 4mg PO qhs, 1st degree AV block and LBBB (as noted on 08/23/2025, 11:32am EKG with TX 210ms, QTC 493 ms) with nominal troponin-I elevation (cf., troponin-I 21.9 pg/mL (08/23/2025, 11:29am); troponin-I 16.2 pg/mL (08/23/2025, 3:24pm)), anxiety disorder on lorazepam 1mg PO qhs prn anxiety, GERD on omeprazole 20mg PO daily, former tobacco abuse with no subsequent diagnosis of COPD, not on home O2 or home steroids, and stage IV right lung CA with liver, right lung nodular, right pleural fluid, and lumbar metastases (described as "multiple marrow enhancing lesions in the lumbar spine especially involving the anterior and posterior osseous elements of L3-5 most compatible with metastases. These metastatic masses encroach into the spinal canal and the neural foramina bilaterally, resulting in severe tricompartmental spinal canal and bilateral neural foraminal narrowing where the traversing and exiting nerves are impinged." (as noted on08/23/2025, 1:58pm lumbar spine MRI with/without IV contrast)), who received her first palliative XRT @ [facility] with RAD ONC Dr. Primo Kline. Patient reports: "I came to [facility] this morning (08/31/2025, 8:00am) to get my first radiation treatment for my lung cancer. Right after I finished the radiation treatment, I felt weak and nauseated and I was dry heaving, but no vomit came up. My belly did not hurt at all. I was not burping or farting. My last bowel movement was on Thursday evening (08/29/2025, 9:00pm); my last meal was on Thursday evening (08/30/2025, 6:00pm) where I cooked some roast beef, mashed potatoes, and gravy, and I ate it all with my and I felt ok. I don't normally have a bowel movement every day. Anyways, I had no problems at all until after getting my first radiation treatment for my lung cancer this morning (08/31/2025, 8:00am). So, the radiation doctor sent me to the ER @ [facility] to get checked out. Right now, the only complaint I have is my lower back; it hurts, and its constant and not new because there is cancer in my lower spine. The pain is sharp and stabbing and it's like a 12 (out of 10 point intensity scale). The ER doctor gave me a shot of tylenol 1000mg IV x 1 dose (08/31/2025, 1:44pm), but it didn't do anything. Is there anything else I can take? I don't want to take any narcotics." Patient denies antecedent/coincident fevers, chills, diaphoresis, cough, wheeze, sore throat, hemoptysis, chest pains, palpitations, pleurisy, diarrhea, abdominal pain, pelvic pain, hematemesis, hematochezia, melena, hematuria, dysuria, frequency, urgency, flank pain, headaches, dizziness, lightheadedness, visual changes, hearing changes, weakness, falls, syncope, trauma, travel history, sick contacts, or food/drug ingestions novel or new. All other review of systems are reported as negative by the patient on observation date 08/31/2025. In [facility] ER bed #B6, patient was afebrile @ 36.8 degrees Celsius, HR 67, RR 22, O2 sat 90% on room air, and BP 195/57 (08/31/2025, 11:25am). Exam was noted for chronic lumbar spinal tenderness without underlying erythema, edema, induration, warmth, tenderness, crepitus, fluctuance, discharge, ulceration, malodor, lymphangitic streaking, petechiae, ecchymosis, or hematoma. In addition, the abdomen was soft and non-distended, non-tender, without rebound, guarding, Corona's sign, or organomegaly. Labs in [facility] ER bed #B6 included: WBC 8.5, N82 L6 M7 E4, Hb 10.0, MCV 87.6, MCHC 31.3, platelet 236 (08/31/2025, 11:13am). Na 141, K 4.1, BUN 21, creatinine 0.66, glucose 116, Ca 9.1, Mg 2.2, LACHELLE 23, ALT 11, ALK PHOS 64, total bili 0.5, albumin 3.8 (08/31/2025, 11:13am). Lipase 51 U/L (08/31/2025, 11:13am). CK #1 74 U/L (08/31/2025, 11:13am). CK #2 65 U/L (08/31/2025, 1:40pm). Troponin-I old 21.9 pg/mL (08/23/2025, 11:29am). Troponin-I old 16.2 pg/mL (08/23/2025, 3:24pm). Troponin-I #1 20.6 pg/mL (08/31/2025, 11:13am). Troponin-I #2 22.9 pg/mL (08/31/2025, 1:40pm). Troponin-I #3 (08/31/2025, 6:33pm). Lactic acid #1 1.2 mmol/L (08/31/2025, 4:00pm). Lactic acid #2 (08/31/2025, 8:00pm). Procalcitonin #1 0.03 ng/mL (08/31/2025, 11:13am). U/A (08/31/2025, 12:35pm): clear yellow, LE-, nitrite- MRSA nares (08/31/2025, 4:00pm) negative Additional testing in [facility] ER bed #B6 included: Portable CXR (08/31/2025, 12:55pm): 1. 4 cm right middle lobe mass suggestive of primary bronchogenic carcinoma redemonstrated. 2. Numerous pleural-based nodules throughout the right lung suggestive of metastatic disease also again noted, better evaluated on the prior chest CT. 3. Cardiomegaly without pulmonary edema. 4. Emphysema. CTA chest (08/31/2025, 2:57pm): 1. Cardiomegaly without pulmonary emboli. 2. Unchanged right middle lobe mass suggestive of primary bronchogenic carcinoma. 3. Numerous fissural/subpleural nodules in the right hemithorax redemonstrated suggestive of metastasis. 4. There is a new trace right-sided pleural effusion, likely malignant. 5. Unchanged borderline enlarged subcarinal and right hilar lymph nodes. 6. Stable nodules of the superior segment left lower lobe. 7. Probable hepatic metastasis redemonstrated. EKG (08/31/2025, 11:17am): NSR @ 63, TX 204, QTC 505, LBBB (by my review). Historical testing in [facility] includes: EKG (08/23/2025, 11:32am): NSR @ 62, TX 210, QTC 493, LBBB (by my review). TTE (08/23/2025, 10:18am): 1. LVEF 50-55%. Severe concentric LVH. Not consistent with LV outflow obstruction. Thin proximal interventricular septum compared to remainder of ventricle, consistent with prior myomectomy. Akinesis of basal anteroseptum and the basal to mid inferoseptum consistent with prior myomectomy. 2. RV normal size and normal systolic function. 3. LA severely dilated. RA size normal. 4. Trace AR. No . 5. Mild TX. 6. Mild-moderate MR. No MS. 7. Mild TR. RVSP normal. 8. Aortic root normal size. Normal IVC size and collapsibility indicates normal RAP 3mm Hg. 9. No pericardial effusion. (as per CARDS Dr. Miko Cast). Patient was subsequently placed in OBSERVATION on the hospitalist service @ [facility] ER on 08/31/2025 with the following diagnoses: 1. Nausea with dry heaves, no vomiting per se, immediately after undergoing her first palliative XRT @ [facility] with RAD ONC Dr. Primo Kline on 08/31/2025, 8:00am. 2. Nominal troponin-I elevation with troponin-I #1 20.6 pg/mL (08/31/2025, 11:13am), troponin-I #2 22.9 pg/mL (08/31/2025, 1:40pm), attributed to demand ischemia (aka, type II NSTEMI). 3. Chronic 12 (out of 10 point intensity scale) lumbar pain, due to lumbar spinal metastases (described as "multiple marrow enhancing lesions in the lumbar spine especially involving the anterior and posterior osseous elements of L3-5 most compatible with metastases. These metastatic masses encroach into the spinal canal and the neural foramina bilaterally, resulting in severe tricompartmental spinal canal and bilateral neural foraminal narrowing where the traversing and exiting nerves are impinged." (as noted on08/23/2025, 1:58pm lumbar spine MRI with/without IV contrast)). To address #1, patient received zofran 4mg IV x 1 dose (08/31/2025, 11:33am) and protonix 40mg PO bid (08/31/2025, 6:45pm). To address #2, patient awaits troponin-I #3 (08/31/2025, 6:33pm). Given the low index of suspicion for acute NSTEMI / ACS, patient was not started on telemetry, heparin infusion, lovenox 1mg/kg SQ q12, morphine prn (which the patient refuses to take anyway as patient does not want to take any narcotics at all), O2, or NTG prn. Instead, patient was continued on her home-scheduled ASA 81mg PO daily, carvedilol 25mg PO bid, and lisinopril 40mg PO daily. Of final note, bret mcnally was held OFF her home-scheduled rosuvastatin 10mg PO qhs given potential for this medication to exacerbate patient's admitting complaints of nausea with dry heaves and no vomiting per se. To address #3, patient received tylenol 1000mg IV x 1 dose (08/31/2025, 1:44pm) in [facility] ER bed #B6, and reported no relief at all. Patient subsequently received toradol 15mg IV x 1 dose (08/31/2025, 5:10pm), followed by toradol 15mg IV q6 prn pain 4-10 (ordered on 08/31/2025, 6:04pm). Discharge Exam VITALS: Reviewed. WEIGHT/BMI reviewed. GEN: Healthy appearing, well-developed, NAD. PSYCH: Good Judgment. AOx3. Normal memory, mood, and affect. HEENT -Head: NC/AT; NECK: Supple, with no masses. CV: RRR, no m/r/g. LUNGS: CTAB, no w/r/c. on wheezing; on 1 liter oxygen ABD: Soft, NT/ND, NBS, no masses or organomegaly. SKIN: Warm, well perfused. No skin rashes or abnormal lesions. MSK: tender to palpation in the lumbar region EXT: No clubbing, cyanosis, or edema. NEURO: AAo x3 Discharge Plan Discharge Items Patient Disposition: Home - Self-Care Reason For Visit: WEAKNESS, NAUSEA/VOMIT AFTER 08/30/25 PALLIATIVE X Discharge Diagnosis: intractable back pain nausea and vomiting after radiation therapy metastatic cancer, liver metastasis lung cancer anal lesion Condition on Discharge: Fair Activity: Per Instructions section Non-emergency contact: Primary Care Provider and Oncologist Call non-emergency contact if: your symptoms worsen, you have a fever and your rectal temperature is above 100.4 Follow-up/Referrals: Jessee Joiner DO [Primary Care Provider] - 09/15/25 1:00 pm Diet: Regular Addtl Attending Provider Instructions: no driving follow up with oncology about liver biopsy Pending Studies at Discharge: Yes Studies:: liver biopsy, GI evaluate for anal lesion Stand-Alone Forms: My [facility] [employer], Smoking Cessation Medications and DC Order Prescriptions: New tizanidine 4 mg Tablet 2 mg PO BID 14 Days Qty: 14 0RF pantoprazole 40 mg Tablet,Delayed Release (Dr/Ec) 40 mg PO BID 30 Days Qty: 60 1RF tramadol 25 mg tablet 25 mg PO Q6H PRN (Reason: pain) 7 Days Qty: 20 0RF ondansetron 4 mg tablet,disintegrating 4 mg PO Q8H PRN (Reason: nausea and vomiting) 5 Days Qty: 14 0RF Rx Instructions: take NEEDED for nausea and vomiting, monitor your EKG for QTc interval sucralfate [Carafate] 1 gram tablet 1 g PO BID 28 Days Qty: 56 0RF Continued doxazosin 4 mg tablet 4 mg PO HS Qty: 90 3RF carvedilol 25 mg tablet 25 mg PO BID Qty: 180 3RF cyanocobalamin (vitamin B-12) 1,000 mcg capsule 1,000 mcg PO DAILY rosuvastatin 10 mg tablet 10 mg PO HS Qty: 90 3RF lisinopril 40 mg tablet See Rx Instructions .ROUTE .COMPLEX Qty: 90 3RF Dose Instruction: TAKE 1 TABLET BY MOUTH ONCE DAILY Rx Instructions: TAKE 1 TABLET BY MOUTH ONCE DAILY Trelegy Ellipta 200-62.5-25 mcg blister with device See Rx Instructions .ROUTE .COMPLEX Qty: 180 3RF Dose Instruction: INHALE 1 PUFF BY MOUTH ONCE DAILY Rx Instructions: INHALE 1 PUFF BY MOUTH ONCE DAILY albuterol sulfate 90 mcg/actuation HFA aerosol inhaler See Rx Instructions .ROUTE .COMPLEX Qty: 18 3RF Dose Instruction: INHALE TWO PUFFS BY MOUTH EVERY FOUR HOURS NEEDED FOR SHORNESS OF BREATH OR WHEEZING Rx Instructions: INHALE TWO PUFFS BY MOUTH EVERY FOUR HOURS NEEDED FOR SHORNESS OF BREATH OR WHEEZING loratadine 10 mg tablet 10 mg PO DAILY PRN (Reason: runny nose) Qty: 90 3RF lorazepam 1 mg tablet 1 mg PO HS PRN (Reason: anxiety) Qty: 30 3RF naproxen sodium 220 mg tablet 220 mg PO Q12H PRN (Reason: pain) 90 Days Qty: 180 3RF aspirin 81 mg tablet,delayed release (DR/EC) 81 mg PO DAILY Qty: 30 0RF Hold Instructions: Resume on 09/04/25. Hold until after US guided liver biopsy Patient Comments: QPM gabapentin 100 mg tablet 100 mg PO TID PRN (Reason: back/leg pain) Qty: 30 0RF acetaminophen 500 mg tablet 1,000 mg PO TID PRN (Reason: pain) Qty: 90 0RF Discontinued omeprazole 20 mg capsule,delayed release(DR/EC) See Rx Instructions .ROUTE .COMPLEX Qty: 90 3RF Dose Instruction: TAKE 1 CAPSULE BY MOUTH TWICE DAILY Rx Instructions: TAKE 1 CAPSULE BY MOUTH TWICE DAILY Discharge Orders: Discharge Order (Routine); Ordered 09/02/25 Ordered By: Tom Perera/Other Patient Handouts: Communicating About Pain, ED Vomiting (Adult) Admission Data Admit Date/Time: 08/31/25 14:56 Attending Provider: Tom Weems Admit Provider: Gwyn Barry Primary Care Provider: Jessee Joiner Other Providers: Gywn Barry; Aidan Mao Other Interventions: Discharge Summary Assessment (RN) Last Done: 09/02/25 12:30 Hospital Stay Data Consultations 08/31/25 14:30 ED Decision to Admit Stat 09/01/25 11:24 Consult Gastroenterology Routine Diagnostic Imagining Performed 08/31/25 14:57 CT angio chest PE protocol Stat Pending Results Patient Have Any Pending Studies at Discharge: Yes Discharge Instructions Given to Patient (Per Discharging Provider) no driving follow up with oncology about liver biopsy Total Time Total Time Spent Total Time Spent (In Minutes): 35 Coding Level of Care Code 02190 INP/OBS DISCH >30 MIN Diagnoses Nausea R11.0 Demand ischemia I24.89 Chronic bilateral low back pain without sciatica M54.50; G89.29 Chronicity: chronic Back pain laterality: bilateral Sciatica presence: without sciatica Time Spent (min) 35
== END 2025-09-02 13:42 | disposition home or self-care (01) ==
LOC: ED 10:56 → EDINP 10:56 → SUATTDRO 14:56 → 2W 20:44

== ENCOUNTER 2025-10-04 12:09 | Inpatient (IN) ==
[2025-10-04] MEDS: MoRPHine SULFATE 2 MG/ML CARP IV STA (12:22)
[2025-10-04] MEDS: ALBUT/IPRATROP 3MG/0.5MG NEB 3 ML VIAL NEB STA ×2 (12:22→17:41)
[2025-10-04] MEDS: LORazepam 1 MG/1 ML SYR ED Inj Use IV STA (12:37)
[2025-10-04 12:45] LABS: Base Excess VBG 6.4 mEq/L; HCO3 VBG 35 mmol/L; Oxygen Saturation VBG < 60.0 %; PCO2 VBG 72 mmHg (38-50); PO2 VBG 36 mmHg; pH VBG 7.30 (7.36-7.41)
[2025-10-04 12:49] LABS: Hematocrit (blood only) 28.4 % (37.0-47.0); Hemoglobin 8.7 g/dL (12.0-16.0); Mean Corpuscular Hemoglobin 28.0 pg (25.0-34.0); Mean Corpuscular Volume 91.3 fL (80.0-100.0); Platelet Count 334 K/uL (130-400); RDW Standard Deviation 51.0 fL (36.4-46.3); Red Blood Count 3.11 M/uL (4.20-5.40); White Blood Count 8.78 K/ul (4.8-10.8)
[2025-10-04 13:08] LABS: Alanine Aminotransferase 25.0 U/L (7-52); Albumin Globulin Ratio 1.1 (0.9-2); Albumin Level 3.3 gm/dl (3.4-5.0); Alkaline Phosphatase 56.0 U/L (34-104); Anion Gap 5.0 (3-11); Bilirubin,Total 0.4 mg/dl (0.2-1.0); Blood Urea Nitrogen 32.0 mg/dl (6-23); Calcium 8.3 mg/dl (8.6-10.3); Carbon Dioxide 35.0 mmol/L (21-32); Chloride 105.0 mmol/L (98-107); Creatinine Clr Calc Pharmacy 59.7 ml/min; Globulin 3.0 gm/dl (2.5-4.0); Glucose 173.0 mg/dl (70-99(Fasting)); Magnesium 2.2 mg/dl (1.7-2.4); Potassium 4.4 mmol/L (3.5-5.1); Sodium 145.0 mmol/L (136-145); Total Protein 6.3 gm/dl (6.0-8.3)
--- NOTE | 2025-10-04 13:09 | XRay Report ---
XR chest 1V portable CLINICAL HISTORY: Dyspnea COMPARISON STUDY: 09/29/2025 FINDINGS: Stable CABG. Stable cardiomegaly with increased pulmonary vascular congestion. There is a s mall right pleural effusion and consolidation at the right lung base. There is a trace left pleural e ffusion. There is stable reticular nodular opacity at the right midlung. No pneumothorax. IMPRESSION: CHF with small right pleural effusion. ACT 112: Negative or not required by law. Electronically signed by: Albino Lloyd M.D. 10/04/2025 1:08 PM
--- NOTE | 2025-10-04 13:11 | Emergency Department Note ---
Impression & Plan Acute on chronic respiratory failure with hypoxia and hypercapnia, Pneumothorax, Acute exacerbation of chronic obstructive pulmonary disease, CHF exacerbation, Metastatic cancer, Pleural effusion ED Provider Note NAME: REANNA LAW AGE: 80 SEX: F : 1945 ARRIVES VIA: Ambulance INFORMANT: Patient, EMS, ED PROVIDER(S): Ozzy Hendricks DO CHIEF COMPLAINT: SOB HPI: This is an 80-year-old female with the PMHx of NSCLC on Keytruda, HTN, HLD, HFpEF, COPD with chronic hypoxemic respiratory failure on 3L LFNC at baseline, and anxiety/depression presenting to [facility] for further evaluation of SOB. Patient is accompanied by EMS who provide additional history. EMS notes that her SpO2 was in the 60s despite increasing oxygen. She reports this have been worsening over the past few days. Recently diagnosed with malignant effusion. She had a thoracentesis by Dr. Manzo 1 week ago. Some congestion and cough, but nothing productive. She has ongoing atraumatic R hip pain. She does feel chest tightness secondary to work of breathing. They deny abdominal pain, nausea and vomiting. No urinary complaints. No recent changes in bowel movements. Patient denies recent changes in medications or OTC supplements. Patient offers no other complaints, today. ADDITIONAL HISTORY OBTAINED: Per HPI Chronic Medical/Social Conditions Affecting Care: Per HPI PAST MEDICAL HISTORY: See Below PAST SURGICAL HISTORY: See Below FAMILY HISTORY: See Below SOCIAL HISTORY: See Below HOME MEDICATIONS: See Below ALLERGIES: See Below VITALS: See Below PHYSICAL EXAMINATION: GENERAL: Sitting up in bed, alert, well appearing, well nourished, no distress, non-toxic EYE EXAM: normal conjunctiva. OROPHARYNX: no exudate, no erythema, lips, buccal mucosa, and tongue normal and mucous membranes are moist NECK: supple, no nuchal rigidity, no adenopathy, non-tender LUNGS: Tachypnea. Poor air movement globally with slight expiratory wheezing. Normal chest wall mechanics HEART: no murmurs, regular rate, regular rhythm ABDOMEN: abdomen soft, non-tender, no masses, no rebound or guarding. BACK: Back is symmetrical on inspection and there is no deformity, no midline tenderness, no CVA tenderness. SKIN: no rashes and no bruising UPPER EXTREMITIES: upper extremities are grossly normal. LOWER EXTREMITIES: No pitting edema. NEURO EXAM: Normal sensorium, GCS 15, normal speech, no gross weakness of arms, no gross weakness of legs. MEDICAL DECISION MAKING: Differential diagnoses includes but not limited to ACS, unstable angina, dysrhythmia, PNA, hypervolemia/pulmonary edema, CHF exacerbation, COPD exacerbation, PE, pneumothorax, pericardial effusion, cardiac tamponade, anxiety/psychogenic, viral URI In summary, this is a 80 year old female who presented with worsening SOB. Differential as above. Nursing notes and pertinent past medical records reviewed. Vital signs reviewed and the patient is severely tachypneic. History and presentation revealed as above. Physical examination revealed as above. As a result of my initial evaluation, IV access was established and the patient was placed on CCRM. Therapeutics ordered include IV Morphine and Ativan for pain control, air hunger and anxiety. Patient's low-flow nasal cannula was increased but still had ongoing tachypnea and significant hypoxia. Given the patient's work of breathing and physical exam that is consistent with possible CHF versus COPD, We will plan for a chest x-ray and will likely lead to BiPAP support. Chest x-ray was independently interpreted by me as interstitial edema and a right sided pleural effusion that appears new. I do not suspect pneumonia as the patient's cause at this time. Patient was placed on BPAP. She is tolerating NIV. BPAP 10/5 FiO2 30% currently. I-STAT chemistries obtained on arrival reveal minimal hyperglycemia and a slight anion gap. Otherwise normal electrolytes and kidney function. Diagnostics interpreted by me include EKG and cardiac monitoring as listed below: -Cardiac Monitoring: An order was placed for continuous cardiac monitoring. The monitor shows a rate of 60-80s with regular rhythm. -ECG: EKG independently interpreted by me reveals normal sinus rhythm at a ventricular rate of 74 bpm. There is a left bundle branch block present. There is 5 mm of discordant elevation in lead V4 but this is isolated. EKG is very similar to prior. Patient completed laboratory studies and imaging. CXR shows cardiomegaly and R pleural effusion. Results independently interpreted by me are no significant leukocytosis. Anemia is stable. VBG shows acute hypercapnic respiratory acidosis. The patient was managed with COPD treatments and respiratory support. While the patient does have a presentation that is consistent with possible COPD exacerbation versus CHF, she has profound risk factors for pulmonary embolism and we will proceed with CT PE study. Patient did have brief hypoxia while on BPAP. Patient's FiO2 was adjusted by me with improvement. Patient's CT PE study was independently interpreted by me as moderate-sized pneumothorax and lung collapse with a small pleural effusion on the right. Do feel this is likely iatrogenic from recent thoracentesis. Will transition the patient to high flow nose nasal cannula versus low-flow nasal cannula as she is improving on BPAP. Plan to repeat VBG. Patient was transition to low-flow nasal cannula and remained hemodynamically stable besides hypertension. Patient has asymptomatic hypertension and feel this is likely a pain response. Patient will need further pain control. Anemia CCM/pulmonology was consulted and I discussed with Dr. Granda. He did not recommend chest tube or pigtail catheter placement at this time. He recommends further goals of care discussion. He did recommend diuresis. There is a potential for Keytruda toxicity. Ultimately, the decision was made to admit the patient for acute on chronic hypoxemic hypercapnic respiratory failure 2/2 COPD and CHF and severe cancer related pain and elevated troponin. I discussed the case with the hospitalist service via telephone/Tiger[employer] and they are agreeable to admit the patient to their services. Based on the above, including the patient's age, coexisting illnesses, labs, imaging, and exam findings the decision to treat as an inpatient. I discussed the patient with the hospitalist team who recommended admission to their services. They received the medications, treatments, interventions indicated above and their condition remained guarded. I discussed my findings with the patient and their family and they understand and agree with the treatment plan. All patient / family questions were answered to their satisfaction. A prolonged conversation regarding CODE status was accomplished with nursing, patient, her and me at the bedside. I discussed my concerns and progression of her malignancy and poor functional reserve. I discussed my concerns that she made need further intervention and possible intubation. I discussed with Reanna and her that I felt she may not survive this or be able to be weaned from mechanical ventilation. Risks and benefits of life sustaining interventions discussed. Patient would like to remain FULL code and all interventions should be discussed. Consults/Care Managements Discussions: Per MDM ER treatment provided: See above Procedures: None Critical Care: I have personally spent 45 minutes of critical care time in direct management of this patient. This includes bedside care, interpretation of diagnostic studies, and testing, discussion with consultants, patient, and family members, and other require inpatient management activities. This 45 minutes is in excess of all separately billable procedures. The chart was completed utilizing [employer] Speech voice recognition software. Grammatical errors, random word insertions, pronoun errors, and incomplete sentences are an occasional consequence of this system due to software limitations, ambient noise, and hardware issues. Any formal questions or concerns about the content, text, or information contained within the body of this dictation should be directly addressed to the physician for clarification. Past Med/Surg History Problem List (Updated 10/07/25 @ 16:27 by Ozzy Hendricks DO) Pleural effusion (Acute) Metastatic cancer (Acute) CHF exacerbation (Acute) Acute exacerbation of chronic obstructive pulmonary disease (Acute) Pneumothorax (Acute) Acute on chronic respiratory failure with hypoxia and hypercapnia (Acute) Mitral regurgitation Pneumothorax Acute and chronic respiratory failure with hypercapnia Malignant pleural effusion Hypertensive urgency (HFpEF) heart failure with preserved ejection fraction COPD with emphysema Dyspnea and respiratory abnormalities Palliative care by specialist Lumbar vertebral fracture, pathologic (Acute ~09/18/25) Largest lesions at the L3 and L4 levels with redemonstration of an L4 pathologic fracture. Hypoxia (Acute) Cancer related pain (Acute) Lung mass Abnormal MRI, lumbar spine Lumbar radiculopathy Anemia (Acute) Back pain (Acute) Left hip pain Cognitive impairment Vitamin B12 deficiency anemia Allergic reaction to sulfonamide Hyperglycemia Dyslipidemia Family history of colon cancer LVH (left ventricular hypertrophy) (Chronic) Diverticulosis (Chronic) Chronic rhinitis Chronic obstructive pulmonary disease Osteoporosis (Chronic) Hypertension Esophageal reflux (Chronic) Anxiety (Chronic) Medical History Abnormal CT of the abdomen Acute dehydration Nausea and vomiting Lumbago Demand ischemia Nausea CAD (coronary artery disease) Nonobstructive Hypochromic anemia Metastatic cancer LBBB (left bundle branch block) since myectomy Hypertrophic cardiomyopathy s/p myectomy with no outflow obstruction or MR on echo after surgery Mitral regurgitation PT STATES RESOLVED AFTER HEART SURGERY Edema Dyspnea on exertion History of anemia Spinal stenosis Hyperlipidemia Borderline diabetic Hx of gastric ulcer Chronic obstructive pulmonary disease History of basal cell carcinoma Surgical History History of anesthesia reaction SLOW TO WAKE UP H/O wrist surgery + CTR (HARDWARE INTACT) History of cholecystectomy History of tooth extraction History of cataract surgery RT/LEFT History of esophagogastroduodenoscopy (EGD) History of colonoscopy (~2015) S/P breast lumpectomy LEFT (BENIGN) S/P tonsillectomy H/O arthroscopic knee surgery RT H/O hernia repair S/P myomectomy 2 YEARS AGO AT [facility] Family History Mother Colorectal cancer Father , at 78 years of age from acute AR in the setting of DM. Diabetes Stroke Family history of diabetes mellitus Brother Family history of diabetes mellitus Family/Other Breast cancer niece Mother , at 62 years of age from colon CA. No problems noted. 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 Feels Safe at Home: Yes Childhood Exposure to Second-Hand Smoke: No Diet: regular caffeine: Yes Dental Care, Regularly: No Physical Activity Frequency: Daily Seatbelt Use: always Sunscreen Use: Yes Assistive Devices: Oxygen - Continuous Allergies Allergies Allergy/AdvReac Type Severity Reaction Status Date / Time hydrochlorothiazide Allergy Mild Rash Verified 10/04/25 14:55 nickel Allergy Mild Rash Verified 10/04/25 14:55 Sulfa (Sulfonamide Allergy Mild Rash Verified 10/04/25 14:55 Antibiotics) prednisone AdvReac Intermediate MOOD Verified 10/04/25 14:55 CHANGES Home Meds Home Medications Medication Instructions Recorded Confirmed folic acid 1 mg tablet 1 mg PO DAILY 09/27/25 10/04/25 ondansetron HCl 4 mg tablet 4 mg PO Q8H 09/27/25 10/04/25 albuterol sulfate 90 mcg/actuation 2 puff inhalation Q4H PRN 10/04/25 10/04/25 aerosol inhaler Shortness Of Breath Or Wheezing fluticasone fur. 200 mcg-umeclid 1 inh inhalation DAILY 10/04/25 10/04/25 62.5 mcg-vilant 25 mcg inhalat.powder (Trelegy Ellipta) lisinopril 40 mg tablet 40 mg PO DAILY 10/04/25 10/04/25 morphine 15 mg immediate release 15 mg PO Q8H PRN Pain 10/04/25 10/04/25 tablet Previous Rx's Medication Instructions Recorded doxazosin 4 mg tablet 4 mg PO HS #90 tabs 10/29/24 loratadine 10 mg tablet 10 mg PO DAILY PRN runny nose #90 01/04/25 tabs carvedilol 25 mg tablet 25 mg PO BID #180 tabs 01/24/25 rosuvastatin 10 mg tablet 10 mg PO HS #90 tabs 07/11/25 acetaminophen 500 mg tablet 1,000 mg (2 x 500 mg) PO TID PRN 08/24/25 pain #90 tabs gabapentin 100 mg tablet 100 mg PO TID PRN back/leg pain 08/24/25 #30 tabs lorazepam 1 mg tablet 1 mg PO HS PRN anxiety #30 tabs 08/28/25 pantoprazole 40 mg tablet,delayed 40 mg PO BID 30 days #60 tabs 09/02/25 release furosemide 20 mg tablet (Lasix) 20 mg PO DAILY PRN weight gain, 09/21/25 edema, shortness of breath #30 tabs azithromycin 250 mg tablet 250 mg PO QAM #3 tabs 10/06/25 prednisone 10 mg tablet 10 mg PO DIRECTED #20 tabs 10/06/25 spironolactone 25 mg tablet 30 mg (1.2 x 25 mg) PO QAM #25 tabs 10/06/25 Results & Data (ED) Vital Signs Vital Signs - 24 hr 10/04/25 12:18 10/04/25 12:20 10/04/25 12:23 Pulse Rate 77 77 78 Pulse Rhythm Regular Respiratory Rate 31 H 26 H Respiratory Effort / Characteristics Non-Labored Spontaneous Respiratory Depth Normal Respiratory Pattern Regular Blood Pressure 218/73 H 218/73 H Blood Pressure Mean 98 121 Pulse Oximetry 95 92 Oxygen Delivery Method Nasal Cannula Nasal Cannula Oxygen Flow Rate 5 5 Fraction of Inspired Oxygen Sepsis Recent Fever Within 48 Hours No Sepsis New/Unexplained Change in Mental Status No Sepsis Action Taken by Nursing No Action Required Oxygen Flow Rate - Titration Pulse Oximetry Post Tiitration 10/04/25 12:30 10/04/25 12:31 10/04/25 12:46 Pulse Rate 80 71 Pulse Rhythm Respiratory Rate 29 H 28 H Respiratory Effort / Characteristics Non-Labored Spontaneous Spontaneous Labored Short of Breath Respiratory Depth Normal Respiratory Pattern Regular Tachypnea Blood Pressure 222/78 H Blood Pressure Mean 104 Pulse Oximetry 94 95 Oxygen Delivery Method Nasal Cannula Nasal Cannula Oxygen Flow Rate 5 5 Fraction of Inspired Oxygen 30 Sepsis Recent Fever Within 48 Hours Sepsis New/Unexplained Change in Mental Status Sepsis Action Taken by Nursing Oxygen Flow Rate - Titration Pulse Oximetry Post Tiitration 10/04/25 13:00 10/04/25 13:02 10/04/25 13:48 Pulse Rate 61 60 62 Pulse Rhythm Regular Respiratory Rate 21 21 20 Respiratory Effort / Characteristics Respiratory Depth Respiratory Pattern Blood Pressure 163/83 H 183/58 H Blood Pressure Mean 88 78 Pulse Oximetry 91 91 93 Oxygen Delivery Method BiPAP BiPAP BiPAP Oxygen Flow Rate Fraction of Inspired Oxygen Sepsis Recent Fever Within 48 Hours Sepsis New/Unexplained Change in Mental Status Sepsis Action Taken by Nursing Oxygen Flow Rate - Titration Pulse Oximetry Post Tiitration 10/04/25 14:00 10/04/25 14:11 10/04/25 14:30 Pulse Rate 61 71 Pulse Rhythm Respiratory Rate 21 23 Respiratory Effort / Characteristics Respiratory Depth Respiratory Pattern Blood Pressure 176/103 H 205/69 H Blood Pressure Mean 114 132 Pulse Oximetry 93 96 94 Oxygen Delivery Method BiPAP Nasal Cannula BiPAP Nasal Cannula Oxygen Flow Rate 4 Fraction of Inspired Oxygen Sepsis Recent Fever Within 48 Hours Sepsis New/Unexplained Change in Mental Status Sepsis Action Taken by Nursing Oxygen Flow Rate - Titration 4 Pulse Oximetry Post Tiitration 96 10/04/25 15:00 10/04/25 15:00 Pulse Rate 73 73 Pulse Rhythm Respiratory Rate 23 21 Respiratory Effort / Characteristics Respiratory Depth Respiratory Pattern Blood Pressure 205/96 H 205/96 H Blood Pressure Mean 135 135 Pulse Oximetry 97 97 Oxygen Delivery Method Nasal Cannula Nasal Cannula Oxygen Flow Rate 4 4 Fraction of Inspired Oxygen Sepsis Recent Fever Within 48 Hours Sepsis New/Unexplained Change in Mental Status Sepsis Action Taken by Nursing Oxygen Flow Rate - Titration Pulse Oximetry Post Tiitration Laboratory Data 10/07/25 06:10 10/07/25 06:07 Lab Results 10/04/25 10/04/25 10/04/25 Range/Units 12:24 12:34 13:29 WBC 8.78 (4.8-10.8) K/ul RBC 3.11 L (4.20-5.40) M/uL Hgb 8.7 L (12.0-16.0) g/dL POC Hgb 8.8 L (12.0-16.0) g/dl Hct 28.4 L (37.0-47.0) % POC Hct 26 L (37-47) % MCV 91.3 (80.0-100.0) fL MCH 28.0 (25.0-34.0) pg MCHC 30.6 L (32.0-36.0) g/dL RDW Std Deviation 51.0 H (36.4-46.3) fL RDW Coeff of [place] 15.4 H (11.5-14.5) % Plt Count 334 (130-400) K/uL MPV 9.8 (9.4-12.4) fL Immature Gran % (Auto) 0.5 % Neut % (Auto) 90.7 % Lymph % (Auto) 2.1 % [place] % (Auto) 6.7 % Eos % (Auto) 0.0 % Baso % (Auto) 0.0 % Neut # (Auto) 7.97 H (1.40-6.50) K/uL Lymph # (Auto) 0.18 L (1.20-3.40) K/uL [place] # (Auto) 0.59 (0.11-0.59) K/uL Eos # (Auto) 0.00 (0.00-0.50) K/uL Baso # (Auto) 0.00 (0.00-0.20) K/uL Immature Gran # (Auto) 0.04 (0.01-0.20) K/uL PT 12.4 H (9.0-12.0) Seconds INR 1.2 H (0.9-1.1) APTT 24 (21-31) Seconds PTT Ratio 0.9 VBG pH 7.30 L (7.36-7.41) VBG pCO2 72 H (38-50) mmHg VBG pO2 36 mmHg VBG HCO3 35 mmol/L VBG O2 Saturation < 60.0 % VBG Base Excess 6.4 mEq/L POC Sodium 144 (135-144) mmol/L Sodium 145 (136-145) mmol/L POC Potassium 4.4 (3.3-5.0) mmol/L Potassium 4.4 (3.5-5.1) mmol/L POC Chloride 101 (101-112) mmol/L Chloride 105 (98-107) mmol/L Carbon Dioxide 35 H (21-32) mmol/L POC Total CO2 31 (24-31) mmol/L Anion Gap 5 (3-11) POC Anion Gap 17.0 (16-25) mmol/L POC BUN 33 H (7-18) mg/dl BUN 32 H (6-23) mg/dl Creatinine 0.58 L (0.6-1.2) mg/dl POC Creatinine 0.8 (0.6-1.3) mg/dl Est Cr Clr Drug Dosing 59.7 ml/min eGFR 90.86 BUN/Creatinine Ratio 55.2 H (10-20) Glucose 173 H (70-99(Fasting)) mg/dl POC Glucose (other) 164 H (70-99) mg/dl Calcium 8.3 L (8.6-10.3) mg/dl POC Ioniz Calcium Jamal 1.06 L (1.12-1.32) mmol/l Magnesium 2.2 (1.7-2.4) mg/dl Total Bilirubin 0.4 (0.2-1.0) mg/dl AST 26 (13-39) U/L ALT 25 (7-52) U/L Alkaline Phosphatase 56 (34-104) U/L Troponin I High Sens 38.4 H (0-14) pg/ml B-Natriuretic Peptide 1720 H (0-100) pg/ml Total Protein 6.3 (6.0-8.3) gm/dl Albumin 3.3 L (3.4-5.0) gm/dl Globulin 3.0 (2.5-4.0) gm/dl Albumin/Globulin Ratio 1.1 (0.9-2) Procalcitonin 0.02 (0-0.5) ng/ml Adenovirus (PCR) Not Detected (NotDetected) B. pertussis DNA (PCR) Not Detected (NotDetected) B.parapertussis DNA PCR Not Detected (NotDetected) C. pneumoniae DNA (PCR) Not Detected (NotDetected) Coronavirus OC43 (PCR) Not Detected (NotDetected) Coronavirus HKU1 (PCR) Not Detected (NotDetected) Coronavirus 229E (PCR) Not Detected (NotDetected) SARS-CoV-2 (PCR) Not Detected (NotDetected) Coronavirus NL63 (PCR) Not Detected (NotDetected) Human Metapneumovir PCR Not Detected (NotDetected) Influenza Type A (PCR) Not Detected (NotDetected) Influenza Type B (PCR) Not Detected (NotDetected) M. pneumoniae (PCR) Not Detected (NotDetected) Parainfluenza 1 (PCR) Not Detected (NotDetected) Parainfluenza 2 (PCR) Not Detected (NotDetected) Parainfluenza 3 (PCR) Not Detected (NotDetected) Parainfluenza 4 (PCR) Not Detected (NotDetected) RSV (PCR) Not Detected (NotDetected) Entero/Rhino (PCR) Not Detected (NotDetected) Administered Medications Azithromycin (Azithromycin 250 Mg Tab) 250 mg PO QAM [facility] Stop: 10/10/25 10:44 Last Admin: 10/07/25 08:26 Dose: 250 mg Documented By: Admin: 10/06/25 09:36 Dose: 250 mg Documented By: Admin: 10/05/25 11:54 Dose: 250 mg Documented By: AM Carvedilol (Carvedilol 25 Mg Tab) 25 mg PO BID [facility] Stop: 11/03/25 20:59 Last Admin: 10/07/25 08:25 Dose: 25 mg Documented By: Admin: 10/06/25 22:02 Dose: 25 mg Documented By: Admin: 10/06/25 11:00 Dose: 25 mg Documented By: Admin: 10/05/25 20:46 Dose: 25 mg Documented By: Admin: 10/05/25 08:54 Dose: 25 mg Documented By: Admin: 10/04/25 21:39 Dose: 25 mg Documented By: SELAM Doxazosin Mesylate (Doxazosin Mesylate 4 Mg Tab) 4 mg PO HS [facility] Stop: 11/03/25 20:59 Last Admin: 10/06/25 22:01 Dose: 4 mg Documented By: Admin: 10/05/25 20:46 Dose: 4 mg Documented By: Admin: 10/04/25 21:40 Dose: 4 mg Documented By: NRS Enoxaparin Sodium (Enoxaparin Inj 40 Mg/0.4 Ml Syr) 40 mg SQ Q24H [facility] Stop: 11/03/25 20:59 Last Admin: 10/06/25 22:02 Dose: 40 mg Documented By: Admin: 10/05/25 20:47 Dose: 40 mg Documented By: Admin: 10/04/25 21:40 Dose: 40 mg Documented By: SELAM Fluticasone Furoate (Fluticasone Furoate 200mcg 14 Puffs/Inhaler) 1 puffs INH DAILY [facility] Stop: 11/04/25 08:59 Last Admin: 10/07/25 08:24 Dose: 1 puffs Documented By: Admin: 10/06/25 09:39 Dose: 1 puffs Documented By: Admin: 10/05/25 08:53 Dose: 1 puffs Documented By: AM Folic Acid (Folic Acid 1 Mg Tab) 1 mg PO DAILY [facility] Stop: 11/04/25 08:59 Last Admin: 10/07/25 08:25 Dose: 1 mg Documented By: Admin: 10/06/25 09:36 Dose: 1 mg Documented By: Admin: 10/05/25 08:54 Dose: 1 mg Documented By: AM Furosemide (Furosemide Inj 20 Mg/2 Ml Vial) 20 mg IV BID17 [facility] Stop: 11/04/25 10:14 Last Admin: 10/07/25 08:24 Dose: 20 mg Documented By: Admin: 10/06/25 17:50 Dose: 20 mg Documented By: Admin: 10/06/25 09:37 Dose: 20 mg Documented By: Admin: 10/05/25 18:01 Dose: 20 mg Documented By: Admin: 10/05/25 11:53 Dose: 20 mg Documented By: AM Insulin Aspart (Insulin Aspart Per Unit Charge) 0 units SC ACHS [facility] Stop: 11/03/25 20:59 Last Admin: 10/07/25 12:54 Dose: 3 units Documented By: OS Co-signed By: Admin: 10/07/25 08:46 Dose: Not Given Documented By: Admin: 10/06/25 20:25 Dose: Not Given Documented By: Admin: 10/06/25 17:49 Dose: Not Given Documented By: Admin: 10/06/25 12:37 Dose: Not Given Documented By: Admin: 10/06/25 09:30 Dose: Not Given Documented By: Admin: 10/05/25 20:45 Dose: 3 units Documented By: NRS Co-signed By: ALISON Admin: 10/05/25 17:20 Dose: Not Given Documented By: Admin: 10/05/25 12:46 Dose: 7 units Documented By: AM Co-signed By: ANISHA Admin: 10/05/25 08:50 Dose: 3 units Documented By: AM Co-signed By: ANISHA Admin: 10/04/25 21:35 Dose: Not Given Documented By: NRS Lisinopril (Lisinopril 40 Mg Tab) 40 mg PO DAILY [facility] Stop: 11/04/25 08:59 Last Admin: 10/07/25 08:25 Dose: 40 mg Documented By: Admin: 10/06/25 09:43 Dose: 40 mg Documented By: Admin: 10/05/25 08:53 Dose: 40 mg Documented By: AM Lorazepam (Lorazepam 1 Mg Tab) 1 mg PO HS PRN PRN Reason: anxiety Stop: 11/03/25 17:14 Last Admin: 10/06/25 22:01 Dose: 1 mg Documented By: Admin: 10/04/25 21:27 Dose: 1 mg Documented By: NRS Lorazepam (Lorazepam 0.5 Mg Tab) 0.5 mg PO Q6H PRN PRN Reason: Anxiety Stop: 11/05/25 14:46 Last Admin: 10/06/25 15:32 Dose: 0.5 mg Documented By: AM Nitroglycerin (Nitroglycerin 2% Ointment 30gm Tube) 1 inch EXT Q6H PRN PRN Reason: SBP>180 or DBP>90 Stop: 11/03/25 15:59 Last Admin: 10/04/25 22:04 Dose: 1 inch Documented By: Admin: 10/04/25 16:04 Dose: 1 inch Documented By: LYLE Ondansetron HCl (Ondansetron 4 Mg Od Tab) 4 mg PO Q8H [facility] Stop: 11/03/25 17:29 Last Admin: 10/07/25 08:47 Dose: Not Given Documented By: Admin: 10/07/25 01:42 Dose: Not Given Documented By: Admin: 10/06/25 17:56 Dose: 4 mg Documented By: Admin: 10/06/25 09:57 Dose: 4 mg Documented By: Admin: 10/06/25 02:41 Dose: Not Given Documented By: Admin: 10/05/25 18:07 Dose: 4 mg Documented By: Admin: 10/05/25 08:55 Dose: 4 mg Documented By: Admin: 10/05/25 00:56 Dose: Not Given Documented By: Admin: 10/04/25 19:52 Dose: Not Given Documented By: SELAM Pantoprazole Sodium (Pantoprazole 40 Mg Tab) 40 mg PO BID [facility] Stop: 11/03/25 20:59 Last Admin: 10/07/25 08:24 Dose: 40 mg Documented By: Admin: 10/06/25 22:02 Dose: 40 mg Documented By: Admin: 10/06/25 09:43 Dose: 40 mg Documented By: Admin: 10/05/25 20:47 Dose: 40 mg Documented By: Admin: 10/05/25 08:54 Dose: 40 mg Documented By: Admin: 10/04/25 21:41 Dose: 40 mg Documented By: SELAM Prednisone (Prednisone 20 Mg Tab) 20 mg PO DAILY CARLOS Stop: 10/09/25 10:44 Last Admin: 10/07/25 08:26 Dose: 20 mg Documented By: Admin: 10/06/25 09:36 Dose: 20 mg Documented By: Admin: 10/05/25 11:54 Dose: 20 mg Documented By: AM Rosuvastatin Calcium (Rosuvastatin Calcium 10 Mg Tab) 10 mg PO HS CARLOS Stop: 11/03/25 20:59 Last Admin: 10/06/25 22:07 Dose: 10 mg Documented By: Admin: 10/05/25 20:47 Dose: 10 mg Documented By: Admin: 10/04/25 21:41 Dose: 10 mg Documented By: SELAM Spironolactone (Spironolactone 25 Mg Tab) 25 mg PO QAM CARLOS Stop: 11/05/25 08:59 Last Admin: 10/07/25 08:26 Dose: 25 mg Documented By: Admin: 10/06/25 09:44 Dose: 25 mg Documented By: AM Umeclidinium/Vilanterol (Umeclidinium/Vilanterol 62.5/25mcg 7 Puffs/Inhaler) 1 puffs INH DAILY CARLOS Stop: 11/04/25 08:59 Last Admin: 10/07/25 08:26 Dose: 1 puffs Documented By: Admin: 10/06/25 09:45 Dose: 1 puffs Documented By: Admin: 10/05/25 08:55 Dose: 1 puffs Documented By: AM Discontinued Medications Albuterol (Albut/Ipratrop 3mg/0.5mg Neb 3 Ml Vial) 3 ml NEB NOW STA; Protocol Stop: 10/04/25 12:17 Last Admin: 10/04/25 12:22 Dose: 3 ml Documented By: FG Albuterol (Albut/Ipratrop 3mg/0.5mg Neb 3 Ml Vial) Confirm Administered Dose 3 ml .ROUTE .STK-MED ONE Stop: 10/04/25 15:52 Last Admin: 10/04/25 15:53 Dose: 3 ml Documented By: Admin: 10/04/25 15:52 Dose: Not Given Documented By: FG Albuterol (Albut/Ipratrop 3mg/0.5mg Neb 3 Ml Vial) 3 ml NEB NOW STA; Protocol Stop: 10/04/25 15:52 Last Admin: 10/04/25 17:41 Dose: Not Given Documented By: OS Albuterol (Albut/Ipratrop 3mg/0.5mg Neb 3 Ml Vial) 3 ml NEB QIDR CARLOS; Protocol Stop: 11/03/25 18:59 Last Admin: 10/05/25 15:19 Dose: 3 ml Documented By: Admin: 10/05/25 11:21 Dose: 3 ml Documented By: Admin: 10/05/25 07:14 Dose: 3 ml Documented By: Admin: 10/04/25 17:55 Dose: 3 ml Documented By: YOANA Furosemide (Furosemide Inj 20 Mg/2 Ml Vial) 20 mg IV ONE ONE Stop: 10/04/25 15:12 Last Admin: 10/04/25 15:46 Dose: 20 mg Documented By: FG Furosemide (Furosemide 40 Mg/4 Ml Vial) 40 mg IV ONE ONE Stop: 10/04/25 18:11 Last Admin: 10/04/25 18:18 Dose: 40 mg Documented By: OS Methylprednisolone 60 mg/ (Syringe) 0.96 mls @ 1.5 mls/min IV Q6H CARLOS Stop: 11/03/25 18:59 Last Admin: 10/05/25 06:42 Dose: 1.5 mls/min Documented By: Admin: 10/05/25 00:56 Dose: 1.5 mls/min Documented By: Admin: 10/04/25 19:53 Dose: 1.5 mls/min Documented By: NRS Potassium Chloride (K Ruben / Wtr) 10 meq in 100 mls @ 100 mls/hr IV Q1H CARLOS Stop: 10/06/25 11:44 Last Infusion: 10/06/25 13:01 Dose: Infused Documented By: Admin: 10/06/25 12:01 Dose: 100 mls/hr Documented By: Infusion: 10/06/25 12:00 Dose: Infused Documented By: Admin: 10/06/25 11:00 Dose: 100 mls/hr Documented By: AM Ioversol (Optiray 320 125ml) 118 ml IV ONCE ONE Stop: 10/04/25 13:35 Last Admin: 10/04/25 13:34 Dose: 118 ml Documented By: ALEE Lorazepam (Lorazepam 1 Mg/1 Ml Syr Ed Inj Use) 0.5 mg IV ONE STA Stop: 10/04/25 12:34 Last Admin: 10/04/25 12:37 Dose: 0.5 mg Documented By: LYLE Methylprednisolone (Methylprednisolone 125 Mg/2 Ml Vial) 60 mg IV NOW STA Stop: 10/04/25 13:12 Last Admin: 10/04/25 13:24 Dose: 60 mg Documented By: FG Morphine Sulfate (Morphine Sulfate 2 Mg/Ml Carp) 2 mg IV NOW STA Stop: 10/04/25 12:18 Last Admin: 10/04/25 12:22 Dose: 2 mg Documented By: FG Morphine Sulfate (Morphine Sulfate Cr 15 Mg Tabcr) 15 mg PO Q8H [facility] Stop: 10/18/25 17:14 Last Admin: 10/04/25 17:42 Dose: Not Given Documented By: OS Nitroglycerin (Nitroglycerin 2% Ointment 30gm Tube) Confirm Administered Dose 18 inch EXT .STK-MED ONE Stop: 10/04/25 15:59 Last Admin: 10/04/25 15:58 Dose: Not Given Documented By: FG Imaging Data Radiologist's Impression: Chest CTA 10/04/25 12:16 CT ANGIOGRAM OF THE CHEST CLINICAL HISTORY: Dyspnea COMPARISON STUDY: Prior chest CT scans, most recently dated 09/20/2025. Chest x-ray dated 10/04/2025. PET/CT dated 09/28/2025. TECHNIQUE: Following the IV administration of 118 cc of Optiray 320, CT angiogram of the chest was performed from the upper abdomen to the thoracic inlet utilizing the pulmonary embolus protocol. Images are reviewed in the axial, sagittal, and coronal planes. 3-D MIPS images are created and assessed. IV contrast was administered without complication. A dose lowering technique was utilized adhering to the principles of ALARA. The examination is degraded by motion artifact. CT DOSE: 405.08 mGy.cm FINDINGS: Thyroid: Imaged portions of the thyroid gland are normal in size and attenuation. Thoracic aorta: There is atherosclerotic calcification of the thoracic aorta, which is normal in caliber and demonstrates bovine variant arch anatomy. No dissection is seen. Pulmonary vasculature: The main pulmonary arteries are dilated suggesting pulmonary artery hypertension. There are no filling defects identified in main, lobar, or segmental pulmonary branches to suggest pulmonary embolus. Heart: The patient is status post midline sternotomy. The heart is enlarged and without pericardial effusion. The coronary arteries and mitral annulus are densely calcified. Lungs and pleural spaces: Evaluation of the lung parenchyma is degraded by motion artifact. There is moderate to advanced emphysema. The trachea and central airways are clear. There is a small to moderate pneumothorax at the anterior right lung base. This is new from previous. There are small to moderate right and small left pleural effusions with dependent consolidation. These have increased in size from 09/10/2025, an the right right pleural effusion is at least partially loculated. A 3.7 x 4.7 x 2.7 cm spiculated mass is again seen in the paramediastinal right middle lobe on image #95. Pleural-based thickening and nodularity is again seen throughout the right lung with a rind of abnormal soft tissue at the apex. This likely represents pleural-based metastatic disease. A 3.1 cm irregular lesion seen peripherally in the right upper lobe on image #142 and a suspicious 12 mm nodule in the left lower lobe on image #134 are unchanged. Mediastinum: There is a 1.6 cm mildly enlarged subcarinal node seen on image #122. This was FDG avid by PET. Xin: Clear. Axillae: There is no axillary lymphadenopathy. Upper abdomen: Partially visualized upper abdominal viscera is within normal limits. Skeletal structures: The skeletal structures are osteopenic. Degenerative change and kyphoscoliosis is noted in the thoracic spine. No lytic or blastic bony lesions are seen. IMPRESSION: 1. There is a small to moderate pneumothorax at the anterior right lung base. This is new from 09/20/2025. 2. There is no evidence of pulmonary embolus in the main, lobar, or segmental pulmonary arteries. 3. Cardiomegaly and emphysema. 4. Right larger than left pleural effusions with dependent consolidation. Correlate clinically for evidence of pneumonia/aspiration pneumonitis. The right pleural effusion is at least partially loculated, and the effusions have increased in size from 09/20/2025. 6. 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 7. Additional nodular foci in both lungs are similar to previous. 8. Additional findings as above. ACT 112: Negative or not required by law. Electronically signed by: Fracisco Graham M.D. 10/04/2025 2:01 PM Chest X-Ray 10/04/25 12:16 XR chest 1V portable CLINICAL HISTORY: Dyspnea COMPARISON STUDY: 09/29/2025 FINDINGS: Stable CABG. Stable cardiomegaly with increased pulmonary vascular congestion. There is a small right pleural effusion and consolidation at the right lung base. There is a trace left pleural effusion. There is stable reticular nodular opacity at the right midlung. No pneumothorax. IMPRESSION: CHF with small right pleural effusion. ACT 112: Negative or not required by law. Electronically signed by: Albino Lloyd M.D. 10/04/2025 1:08 PM Discharge Plan Visit Data Chief Complaint: Shortness of Breath/Dyspnea Stated Complaint: SOB ED Provider: Ozzy Hendricks Discharge Problem: Acute on chronic respiratory failure with hypoxia and hypercapnia, Pneumothorax, Acute exacerbation of chronic obstructive pulmonary disease, CHF exacerbation, Metastatic cancer, Pleural effusion Patient Disposition: Admitted As Inpatient Condition: Critical Discharge Instructions Interventions: ED Discharge Assessment Last Done: 10/04/25 16:50
[2025-10-04 13:13] LABS: Immature Granulocytes # (auto) 0.04 K/uL (0.01-0.20); Immature Granulocytes % (auto) 0.5 %
[2025-10-04 13:21] LABS: INR 1.2 (0.9-1.1); Partial Thromboplastin Time 24 Seconds (21-31); Prothrombin Time 12.4 Seconds (9.0-12.0)
[2025-10-04] MEDS: OPTIRAY 320 125ml IV ONE (13:34)
--- NOTE | 2025-10-04 14:03 | CT Scan Report ---
CT ANGIOGRAM OF THE CHEST CLINICAL HISTORY: Dyspnea COMPARISON STUDY: Prior chest CT scans, most recently dated 09/20/2025. Chest x-ray dated 10/04/2025 . PET/CT dated 09/28/2025. TECHNIQUE: Following the IV administration of 118 cc of Optiray 320, CT angiogram of the chest was pe rformed from the upper abdomen to the thoracic inlet utilizing the pulmonary embolus protocol. Images are reviewed in the axial, sagittal, and coronal planes. 3-D MIPS images are created and assessed. I V contrast was administered without complication. A dose lowering technique was utilized adhering to the principles of ALARA. The examination is degraded by motion artifact. CT DOSE: 405.08 mGy.cm FINDINGS: Thyroid: Imaged portions of the thyroid gland are normal in size and attenuation. Thoracic aorta: There is atherosclerotic calcification of the thoracic aorta, which is normal in jul[place] and demonstrates bovine variant arch anatomy. No dissection is seen. Pulmonary vasculature: The main pulmonary arteries are dilated suggesting pulmonary artery hypertensi on. There are no filling defects identified in main, lobar, or segmental pulmonary branches to sugges t pulmonary embolus. Heart: The patient is status post midline sternotomy. The heart is enlarged and without pericardial e ffusion. The coronary arteries and mitral annulus are densely calcified. Lungs and pleural spaces: Evaluation of the lung parenchyma is degraded by motion artifact. There is moderate to advanced emphysema. The trachea and central airways are clear. There is a small to modera te pneumothorax at the anterior right lung base. This is new from previous. There are small to modera te right and small left pleural effusions with dependent consolidation. These have increased in size from 09/10/2025, an the right right pleural effusion is at least partially loculated. A 3.7 x 4.7 x 2. 7 cm spiculated mass is again seen in the paramediastinal right middle lobe on image #95. Pleural-bas ed thickening and nodularity is again seen throughout the right lung with a rind of abnormal soft tis sylvie at the apex. This likely represents pleural-based metastatic disease. A 3.1 cm irregular lesion s een peripherally in the right upper lobe on image #142 and a suspicious 12 mm nodule in the left lowe r lobe on image #134 are unchanged. Mediastinum: There is a 1.6 cm mildly enlarged subcarinal node seen on image #122. This was FDG avid by PET. Xin: Clear. Axillae: There is no axillary lymphadenopathy. Upper abdomen: Partially visualized upper abdominal viscera is within normal limits. Skeletal structures: The skeletal structures are osteopenic. Degenerative change and kyphoscoliosis i s noted in the thoracic spine. No lytic or blastic bony lesions are seen. IMPRESSION: 1. There is a small to moderate pneumothorax at the anterior right lung base. This is new from 2024. 2. There is no evidence of pulmonary embolus in the main, lobar, or segmental pulmonary arteries. 3. Cardiomegaly and emphysema. 4. Right larger than left pleural effusions with dependent consolidation. Correlate clinically for ev idence of pneumonia/aspiration pneumonitis. The right pleural effusion is at least partially loculate d, and the effusions have increased in size from 09/20/2025. 6. A right middle lobe paramediastinal mass and metastatic pleural disease is again noted on the righ t. 7. Additional nodular foci in both lungs are similar to previous. 8. Additional findings as above. ACT 112: Negative or not required by law. Electronically signed by: Fracisco Graham M.D. 10/04/2025 2:01 PM
[2025-10-04 14:20] LABS: Base Excess VBG 5.2 mEq/L; HCO3 VBG 34 mmol/L; Oxygen Saturation VBG < 60.0 %; PCO2 VBG 67 mmHg (38-50); PO2 VBG 31 mmHg; pH VBG 7.31 (7.36-7.41)
[2025-10-04 14:28] LABS: Chlamydia pneumoniae PCR Not Detected (NotDetected); Coronavirus 229E PCR Not Detected (NotDetected); Coronavirus CoV-2 (COVID19)PCR Not Detected (NotDetected); Coronavirus HKU1 PCR Not Detected (NotDetected); Coronavirus NL63 PCR Not Detected (NotDetected); Coronavirus OC43PCR Not Detected (NotDetected); Human Metapneumovirus PCR Not Detected (NotDetected); Parainfluenza Virus 1 PCR Not Detected (NotDetected); Parainfluenza Virus 2 PCR Not Detected (NotDetected); Parainfluenza Virus 3 PCR Not Detected (NotDetected); Parainfluenza Virus 4 PCR Not Detected (NotDetected); Respiratory Syncytial VirusPCR Not Detected (NotDetected); Rhinovirus/Enterovirus PCR Not Detected (NotDetected)
--- NOTE | 2025-10-04 15:37 | History & Physical Report ---
Date of Service October 04, 2025 Assessment & Plan (1) Pneumothorax after biopsy: (2) Dyspnea and respiratory abnormalities: (3) COPD with emphysema: (4) (HFpEF) heart failure with preserved ejection fraction: (5) Pleural effusion: (6) Lumbar vertebral fracture, pathologic: (7) Cancer related pain: Plan Reanna is an 80-year-old woman with COPD and HFpEF, hypertrophic cardiomyopathy who is admitted with acute on chronic hypoxic and hypercarbic respiratory failure there are several respiratory abnormalities to explain her dyspnea. I think primarily it is not the pneumothorax which is small. The ED provider was has consulted with Dr. Granda who thinks it is mainly COPD and heart failure exacerbation. Will continue to treat with steroids, bronchodilators, and gentle diuresis. Will monitor the pneumothorax carefully Dr. Granda does not feel the chest tube is indicated at this time # acute exacerbation of COPD - received IV Solu-Medrol in the ED, no longer wheezing at this moment, continue prednisone 40 mg daily treat with scheduled and as needed bronchodilators, continue her control inhaler avoid over oxygenation, because of her hypercarbia Target O2 sat 88-92% she does have home O2 continuous 2.5 L # acute on chronic HFpEF - she does have increased pleural effusions from previously as well as increased lower extremity edema and distended EJ's indicative of volume overload - ordered Lasix 20 mg IV x 1 we will assess her response to this. Usually she only takes 20 mg p.o. as needed - continue carvedilol, lisinopril # hypertensive urgency - she did have BP up to 222/78 in the ED I think a lot of this was anxiety and acute dyspnea and has improved, Also there may be a pulm component of acute pulmonary edema and we will diurese, we will continue to monitor her blood pressure. if it is asymptomatic prefer to avoid any IV medications. Nitropatch may be helpful if necessary # right-sided postprocedural pneumothorax - continue supplemental oxygen, avoid positive pressure ventilation, ordered chest x-ray for tomorrow morning and the following day, low threshold for as needed chest x-ray - consulted pulmonary # Metastatic NSCLC - recently started keytruda. consider keytruda-related lung toxicity if hypoxia, dyspnea not improving with above measures - follow up with Dr. Singleton # pathologic lumbar compression fractures, cancer related pain - continue MS IR 15 mg p.o. q. 3 times daily cautiously, oxycodone as needed for breakthrough pain - naloxone as needed overdose/respiratory depression - high risk situation because she is pain control but also having hypercarbia and PPV contradindicated by pneumothorax - PCU admission she states she would prefer to be DNR/DNI, which is corroborated by her at the bedside she is followed by the palliative care clinic History of Present Illness Chief Complaint: Shortness of breath Primary Care Provider: Jessee Joiner DO Reanna is an 80-year-old woman with metastatic non-small cell lung cancer and COPD who became acutely more short of breath than usual this morning. Her noticed that she was hypoxic on pulse oximeter and brought her into the ED. She had a thoracentesis 5 days ago by pulmonary for symptomatic right pleural effusion. She also recently started Keytruda. In the ED she was severely hypertensive with blood pressure up to 222/78 and respiratory rate of 28 however both of these markedly improved with treatment of pain and anxiety. She has chronic right hip/back pain related to her modest bony metastases and she recently completed a course of palliative radiation for this. She was initially placed on BiPAP and was more comfortable however CT pulmonary angiogram was obtained. There was no pulmonary embolism however she did have a small right pneumothorax so BiPAP was discontinued she was placed back on nasal cannula and continued to have good O2 sats on 4-6 liters oxygen. she did have VBG and pH was 7.3 with CO2 of 67 some of which is chronic. Care was discussed with the developmental psychologist on-call who recommended holding off on any chest tube for now and repeat chest x-ray as needed, treating COPD and heart failure. She was given nebulizers and Solu-Medrol in the ED. For me she is a little bit sleepy after Ativan and morphine her is at the bedside and provides some additional history. Currently she is feeling much better with respect to shortness of breath as compared when she first came to the ED. She is more short of breath than usual. She is not having any chest pain. No palpitations. No nausea vomiting abdominal pain or diarrhea. No suprapubic pain or dysuria. She is having right hip and right low back pain as described. She has noticed increased lower extremity edema recently she has not had any changes in any of her heart related medications. She was seen in palliative care clinic fairly recently and pain control changed to MS IR which she says has been more effective. Allergies Allergy/AdvReac Type Severity Reaction Status Date / Time hydrochlorothiazide Allergy Mild Rash Verified 10/04/25 14:55 nickel Allergy Mild Rash Verified 10/04/25 14:55 Sulfa (Sulfonamide Allergy Mild Rash Verified 10/04/25 14:55 Antibiotics) prednisone AdvReac Intermediate MOOD Verified 10/04/25 14:55 CHANGES Home Medications Medication Instructions Recorded Confirmed Type doxazosin 4 mg tablet 4 mg PO HS #90 tabs 10/29/24 10/04/25 Rx loratadine 10 mg tablet 10 mg PO DAILY PRN runny nose #90 01/04/25 10/04/25 Rx tabs carvedilol 25 mg tablet 25 mg PO BID #180 tabs 01/24/25 10/04/25 Rx rosuvastatin 10 mg tablet 10 mg PO HS #90 tabs 07/11/25 10/04/25 Rx acetaminophen 500 mg tablet 1,000 mg (2 x 500 mg) PO TID PRN 08/24/25 10/04/25 Rx pain #90 tabs gabapentin 100 mg tablet 100 mg PO TID PRN back/leg pain 08/24/25 10/04/25 Rx #30 tabs lorazepam 1 mg tablet 1 mg PO HS PRN anxiety #30 tabs 08/28/25 10/04/25 Rx pantoprazole 40 mg tablet,delayed 40 mg PO BID 30 days #60 tabs 09/02/25 10/04/25 Rx release furosemide 20 mg tablet (Lasix) 20 mg PO DAILY PRN weight gain, 09/21/25 10/04/25 Rx edema, shortness of breath #30 tabs folic acid 1 mg tablet 1 mg PO DAILY 09/27/25 10/04/25 History morphine 15 mg tablet,extended 15 mg PO Q8H 09/27/25 10/04/25 History release (MS Contin) ondansetron HCl 4 mg tablet 4 mg PO Q8H 09/27/25 10/04/25 History albuterol sulfate 90 mcg/actuation 2 puff inhalation Q4H PRN 10/04/25 10/04/25 History aerosol inhaler Shortness Of Breath Or Wheezing fluticasone fur. 200 mcg-umeclid 1 inh inhalation DAILY 10/04/25 10/04/25 History 62.5 mcg-vilant 25 mcg inhalat.powder (Trelegy Ellipta) lisinopril 40 mg tablet 40 mg PO DAILY 10/04/25 10/04/25 History Past Med/Surg History Problem List (Updated 10/04/25 @ 15:30 by Khushboo Michael MD) (HFpEF) heart failure with preserved ejection fraction Pneumothorax after biopsy COPD with emphysema Pleural effusion Dyspnea and respiratory abnormalities Palliative care by specialist Lumbar vertebral fracture, pathologic (Acute ~09/18/25) Largest lesions at the L3 and L4 levels with redemonstration of an L4 pathologic fracture. Hypoxia (Acute) Cancer related pain (Acute) Emphysema lung Lung mass Abnormal MRI, lumbar spine Lumbar radiculopathy Anemia (Acute) Back pain (Acute) Left hip pain Cognitive impairment Vitamin B12 deficiency anemia Allergic reaction to sulfonamide Hyperglycemia Dyslipidemia Family history of colon cancer LVH (left ventricular hypertrophy) (Chronic) Diverticulosis (Chronic) Chronic rhinitis Chronic obstructive pulmonary disease Osteoporosis (Chronic) Hypertension Esophageal reflux (Chronic) Anxiety (Chronic) Medical History Abnormal CT of the abdomen Acute dehydration Nausea and vomiting Lumbago Demand ischemia Nausea CAD (coronary artery disease) Nonobstructive Hypochromic anemia Metastatic cancer LBBB (left bundle branch block) since myectomy Hypertrophic cardiomyopathy s/p myectomy with no outflow obstruction or MR on echo after surgery Mitral regurgitation PT STATES RESOLVED AFTER HEART SURGERY Edema Dyspnea on exertion History of anemia Spinal stenosis Hyperlipidemia Borderline diabetic Hx of gastric ulcer Chronic obstructive pulmonary disease History of basal cell carcinoma Surgical History History of anesthesia reaction SLOW TO WAKE UP H/O wrist surgery + CTR (HARDWARE INTACT) History of cholecystectomy History of tooth extraction History of cataract surgery RT/LEFT History of esophagogastroduodenoscopy (EGD) History of colonoscopy (~2015) S/P breast lumpectomy LEFT (BENIGN) S/P tonsillectomy H/O arthroscopic knee surgery RT H/O hernia repair S/P myomectomy 2 YEARS AGO AT [facility] Family History Mother Colorectal cancer Father , at 78 years of age from acute NV in the setting of DM. Diabetes Stroke Family history of diabetes mellitus Brother Family history of diabetes mellitus Family/Other Breast cancer niece Mother , at 62 years of age from colon CA. No problems noted. Other No family history of adverse response to anesthesia Denies family history of Ovarian cancer Prostate cancer Social History Smoking Status: Former smoker Tobacco Type: Cigarettes Age Started Using Tobacco: 16; Age Quit Using Tobacco: 72; packs per day: 0.5; Second Hand Exposure: No; Do You Dip or Chew Tobacco: No; Hx Alcohol Use: No Hx Substance Use: No Preferred Language: Taiwanese Communication Ability: Effective Assistant Refinery Operator Required: No Beliefs That Will Affect Care: None marital status: marital status details: 63 yrs Current Living Situation: Spouse Current Living Situation Comment: , DAUGHTER, GRANDAUGHTER current occupational status: retired How many Children do You have: 2 How many Children do You have Comment: 2 sons(53y,,drug O/D;59y,alive/well);1 daughter(53y,alive/well). Feels Safe at Home: Yes Childhood Exposure to Second-Hand Smoke: No Diet: regular caffeine: Yes Dental Care, Regularly: No Physical Activity Frequency: Daily Seatbelt Use: always Sunscreen Use: Yes Assistive Devices: Oxygen - Continuous Review of Systems Review of Systems: All systems reviewed & are unremarkable except as noted in HPI & below Physical Exam Physical Exam: PHYSICAL EXAMINATION Last 24h vital signs reviewed, see documentation in flowsheet General: frail lady lying on her right side on ED [facility] keeping her eyes closed mostly HEENT: Normocephalic, atraumatic, pupils round and equal, sclerae anicteric, no conjunctival injection, moist mucus membranes Lungs: mildly increased work of breathing. breath sounds diminished the entire right lung hdz, clear on left not currently wheezing Heart: Regular rate and rhythm, no murmurs. significant distention of EJ's Abdomen: Soft, nontender, nondistended. Bowel sounds present. Extremities: Warm, dry, well-perfused. 1-2+ lower extremity edema. Neuro: Sleepy but arouses easily to voice oriented x 4, face symmetric, moves 4 extremities symmetrically Psych: Normal affect and behavior Results & Data Results & Data Vital Signs (Past 12 Hours) Vital Signs Pulse Resp BP Pulse Ox O2 Del Method O2 Flow Rate FiO2 10/04/25 15:00 73 23 205/96 H 97 Nasal Cannula 4 10/04/25 14:30 71 23 205/69 H 94 Nasal Cannula 4 10/04/25 14:11 96 Nasal Cannula, BiPAP 10/04/25 14:00 61 21 176/103 H 93 BiPAP 10/04/25 13:48 62 20 183/58 H 93 BiPAP 10/04/25 13:02 60 21 91 BiPAP 10/04/25 13:00 61 21 163/83 H 91 BiPAP 10/04/25 12:46 71 28 H 95 30 10/04/25 12:31 80 29 H 222/78 H 94 Nasal Cannula 5 10/04/25 12:30 Nasal Cannula 5 10/04/25 12:23 78 10/04/25 12:20 77 26 H 218/73 H 92 Nasal Cannula 5 10/04/25 12:18 77 31 H 218/73 H 95 Nasal Cannula 5 Laboratory Results white blood count is 8, hemoglobin 8.7, platelets are normal INR 1.2 VBG pH 7.31/CO2 of 67 Sodium and potassium are normal, BUN 32 and creatinine 0.58 which is baseline and his calcium is 1.06 high-sensitivity troponin is 38.4, 39.5. on 08/2425 it was 22 I do not see any normal troponins in her record BNP is 1720 LFTs are normal Respiratory BioFire panel is negative I personally reviewed the chest x-ray film it is clear I cannot see a pneumothorax there is a moderate right pleural effusion and small left pleural effusion, there is a right midlung mass unchanged chest CTA notable for small to moderate pneumothorax in the anterior right lung base which is new, no PE, cardiomegaly and emphysema, right rather than left pleural effusions with dependent consolidation. Partial loculation of right pleural effusion. effusions are increased from 09/20/2025. There is a right middle lobe paramediastinal mass and metastatic pleural disease, additional nodular foci in both lungs Code Status & VTE Plan VTE Prophylaxis Plan VTE Prophylaxis will be ordered: Yes PG Care Time/CCT Total # of Minutes Spent Total Time Spent with Patient: Total time spent is greater than 50% in coordination of care (as documented) at patient's floor/unit and/or counseling patient: Coding Level of Care Code 51604 INT INP/OBS CARE 3/75MIN Diagnoses Pneumothorax after biopsy J95.811 Dyspnea and respiratory abnormalities R06.00; R06.89 COPD with emphysema J43.9 (HFpEF) heart failure with preserved ejection fraction I50.30 Pleural effusion J90 Lumbar vertebral fracture, pathologic M84.48XA Cancer related pain G89.3
[2025-10-04] MEDS: FUROSEMIDE INJ 20 MG/2 ML VIAL IV ONE (15:46)
[2025-10-04] MEDS: ALBUT/IPRATROP 3MG/0.5MG NEB 3 ML VIAL ONE (15:52)
[2025-10-04] MEDS: NITROGLYCERIN 2% OINTMENT 30GM TUBE EXT ONE (15:58)
--- NOTE | 2025-10-04 16:00 | Communication Note ---
Date of Service: October 04, 2025 Called to bedside for code sukhwinder, shortly after I left the room she was found severely hypoxic and lethargic without her supp O2 on, appears she may have been trying to get OOB. Acute encephalopathy improved with supp O2. Had been placed on bipap which we changed to HFO2, neb administered, lasix IV, paged pulmonary/licensed retail supervisor, CXR reviewed film - no obvious PTX, bilateral pulmonary edema. Sats now 100%, SBP 200, ordered nitro paste. Discussed with ED provider at bedside and her .
[2025-10-04] MEDS: NITROGLYCERIN 2% OINTMENT 30GM TUBE EXT PRN (16:04)
--- NOTE | 2025-10-04 16:07 | XRay Report ---
XR chest 1V portable CLINICAL HISTORY: Change in status COMPARISON STUDY: 10/04/2025 x-ray and CT FINDINGS: Stable CABG. Stable cardiomegaly with pulmonary vascular congestion. Stable small right ple ural effusion. Stable small right pneumothorax. The medial right lower lung mass is better seen on th e CT scan earlier today. There is stable patchy opacity at the left lung base. Stable severe emphysem a. IMPRESSION: 1. Stable small right pneumothorax. 2. Otherwise as described. ACT 112: Negative or not required by law. Electronically signed by: Albino Lloyd M.D. 10/04/2025 4:05 PM
[2025-10-04] MEDS ORDERED: MELATONIN 3 MG TAB PO PRN (17:15)
[2025-10-04] MEDS ORDERED: MAGNESIUM HYDROXIDE SUSP 30 ML UDC PO PRN (17:15)
[2025-10-04] MEDS ORDERED: ALBUTEROL 0.083% NEBU SOLN 3 ML VIAL NEB PRN (17:15)
[2025-10-04] MEDS ORDERED: ALBUTEROL HFA 8 GM INHALER INH PRN (17:15)
[2025-10-04] MEDS ORDERED: NALOXONE HCL 0.4 MG/1 ML VIAL/CARP IV PRN (17:15)
[2025-10-04] MEDS ORDERED: ACETAMINOPHEN 500 MG TAB PO PRN (17:15)
[2025-10-04] MEDS ORDERED: POLYETHYLENE (MIRALAX) 17 GM PACK PO PRN (17:15)
[2025-10-04] MEDS ORDERED: ONDANSETRON INJ 2 MG/ML 2 ML VIAL IV PRN (17:15)
[2025-10-04] MEDS ORDERED: ALUMINUM/MAGNESIUM SUSP 30 ML UDC PO PRN (17:15)
[2025-10-04] MEDS ORDERED: GABAPENTIN 100 MG CAP PO PRN (17:19)
[2025-10-04] MEDS ORDERED: MoRPHine SULFATE IR 15 MG TAB (IMMEDIATE RELEASE) PO PRN (17:32)
[2025-10-04] MEDS: MoRPHine SULFATE CR 15 MG TABCR PO SCH (17:42)
[2025-10-04] MEDS: ALBUT/IPRATROP 3MG/0.5MG NEB 3 ML VIAL NEB SCH (17:55)
[2025-10-04] MEDS: FUROSEMIDE 40 MG/4 ML VIAL IV ONE (18:18)
[2025-10-04] MEDS ORDERED: CARBOHYDRATES FOR HYPOGLYCEMIA PO PRN (18:57)
[2025-10-04] MEDS ORDERED: GLUCOSE 40% GEL 15 GM TUBE PO PRN (18:57)
[2025-10-04] MEDS ORDERED: DEXTROSE 50% 50 ML SYRINGE IV PRN (18:57)
[2025-10-04] MEDS ORDERED: GLUCOSE 10 TAB/TUBE PO PRN (18:57)
[2025-10-04] MEDS ORDERED: GLUCAGON FOR INJ 1 MG VIAL SQ PRN (18:57)
--- NOTE | 2025-10-04 18:58 | Electrocardiogram Report ---
Test Reason : Blood Pressure : */* mmHG Vent. Rate : 74 BPM Atrial Rate : 74 BPM P-R Int : 176 ms QRS Dur : 164 ms QT Int : 454 ms P-R-T Axes : 80 53 -11 degrees QTcB Int : 503 ms Normal sinus rhythm Left bundle branch block Abnormal ECG When compared with ECG of 31-Aug-2025 11:17, T wave inversion now evident in Inferior leads Confirmed by Chintan Bello ([id number]) on 10/04/2025 6:58:13 PM Referred By: REFERRED SELF Confirmed By: Chintan Bello
[2025-10-04] MEDS: ONDANSETRON 4 MG OD TAB PO SCH (19:52)
[2025-10-04] MEDS: LABETALOL HCL IV 5 MG/ML 20ML IV PRN (21:26)
[2025-10-04] MEDS: LORazepam 1 MG TAB PO PRN (21:27)
[2025-10-04] MEDS: INSULIN ASPART PER UNIT CHARGE SC SCH (21:35)
[2025-10-04] MEDS: ENOXAPARIN INJ 40 MG/0.4 ML SYR SQ SCH (21:40)
[2025-10-04] MEDS: ROSUVASTATIN CALCIUM 10 MG TAB PO SCH (21:41)
[2025-10-05 06:09] LABS: Hematocrit (blood only) 26.6 % (37.0-47.0); Hemoglobin 8.3 g/dL (12.0-16.0); Mean Corpuscular Hemoglobin 27.4 pg (25.0-34.0); Mean Corpuscular Volume 87.8 fL (80.0-100.0); Platelet Count 268 K/uL (130-400); RDW Standard Deviation 49.2 fL (36.4-46.3); Red Blood Count 3.03 M/uL (4.20-5.40); White Blood Count 5.84 K/ul (4.8-10.8)
[2025-10-05 06:33] LABS: Anion Gap 7.0 (3-11); Blood Urea Nitrogen 36.0 mg/dl (6-23); Calcium 8.2 mg/dl (8.6-10.3); Carbon Dioxide 38.0 mmol/L (21-32); Chloride 98.0 mmol/L (98-107); Creatinine Clr Calc Pharmacy 56.3 ml/min; Glucose 145.0 mg/dl (70-99(Fasting)); Magnesium 2.0 mg/dl (1.7-2.4); Potassium 4.1 mmol/L (3.5-5.1); Sodium 143.0 mmol/L (136-145)
[2025-10-05 07:19] LABS: Hemoglobin A1C 5.7 % (4.5-5.6)
--- NOTE | 2025-10-05 08:21 | XRay Report ---
EXAM: XR chest 1V portable CLINICAL HISTORY: Pneumothorax TECHNIQUE: An X-ray image of the chest is obtained in AP portable projection. COMPARISON: 09/29/2025 chest x ray FINDINGS: Pulmonary Parenchyma: Newly seen right lower zone opacity is seen Progression of the right basal pleural effusion Stable right mid-zone reticulo nodular opacities Stable left costophrenic angle haziness No X-ray evidence of pneumothorax Heart and Mediastinum: Stable Cardiomeglay. No mediastinal widening or masses. No hilar or mediastinal lymphadenopathy. Bony Thorax: Sternotomy wire sutures are seen. The bony thorax appears intact without fractures or deformities. Soft Tissues: Soft tissues overlying the chest wall are unremarkable. IMPRESSION: 1. No X-ray evidence of pneumothorax, if clinical suspicion is high CT is recommended 2. Newly seen right lower zone opacity, can be related to consolidation 3. Progression of the right basal pleural effusion 4. Stable right mid zone reticulo nodular opacities 5. Stable left costophrenic angle haziness , pleural effusion/thickening. 6. Stable cardiomegaly Electronically signed by Jimenez Joiner 10-05-2025 08:21 AM
[2025-10-05] MEDS: FLUTICASONE FUROATE 200MCG 14 PUFFS/INHALER INH SCH (08:53)
[2025-10-05] MEDS: FOLIC ACID 1 MG TAB PO SCH (08:54)
[2025-10-05] MEDS: UMECLIDINIUM/VILANTEROL 62.5/25MCG 7 PUFFS/INHALER INH SCH (08:55)
[2025-10-05] MEDS ORDERED: NON-FORMULARY MEDICATION (Fluticasone-Umeclidin-Vilanter [Trelegy Ellipta] 200-62.5-25 mcg INH SCH (09:00)
--- NOTE | 2025-10-05 10:04 | Hospitalist Progress Note ---
Date of Service October 05, 2025 Assessment & Plan (1) Pneumothorax after biopsy: Plan: -continue supplemental oxygen, - consulted pulmonary, no chest tube at this time -f/u repeat-CXR (2) COPD with emphysema: Plan: - received IV Solu-Medrol in the ED, no longer wheezing at this moment, continue prednisone 40 mg daily treat with scheduled and as needed bronchodilators, continue her control inhaler avoid over oxygenation, because of her hypercarbia Target O2 sat 88-92% she does have home O2 continuous 2.5 L (3) (HFpEF) heart failure with preserved ejection fraction: Plan: - lasix 20mg IV BID - continue carvedilol, lisinopril - cardiology consulted (4) Lumbar vertebral fracture, pathologic: Plan: pathologic lumbar compression fractures, cancer related pain - continue MS IR 15 mg p.o. q. 3 times daily cautiously, oxycodone as needed for breakthrough pain - naloxone as needed overdose/respiratory depression - high risk situation because she is pain control but also having hypercarbia and PPV contradindicated by pneumothorax (5) Cancer related pain: Plan: - recently started keytruda. consider keytruda-related lung toxicity if hypoxia, dyspnea not improving with above measures - follow up with Dr. Singleton (6) Hypertensive urgency: Plan: -labetalol prn -con't home BP meds (7) Metastatic cancer: Plan: - Metastatic NSCLC - recently started keytruda. consider keytruda-related lung toxicity if hypoxia, dyspnea not improving with above measures - follow up with Dr. Mani Thibodeaux Reanna is an 80-year-old woman with COPD and HFpEF, hypertrophic cardiomyopathy who is admitted with acute on chronic hypoxic and hypercarbic respiratory failure there are several respiratory abnormalities to explain her dyspnea. I think primarily it is not the pneumothorax which is small. The ED provider was has consulted with Dr. Granda who thinks it is mainly COPD and heart failure exacerbation. Will continue to treat with steroids, bronchodilators, and gentle diuresis. Will monitor the pneumothorax carefully Dr. Granda does not feel the chest tube is indicated at this time Admission and Anticipated Discharge Date Admission Date: October 04, 2025 Subjective No events overnight. Pt resting on high crystal 02. Review of Systems Review of Systems: CONST: Negative for fever, body aches and chills. HENT: Negative for neck pain/stiffness, headache, congestion, sore throat, swelling. EYES: Negative for discharge/pain or vision changes. RESP: Negative for cough/hemoptysis and shortness of breath. CV: Negative chest pain, difficulty breathing, palpitations. ABD: Negative pain, nausea, vomiting. : Negative increase frequency, dysuria, blood in urine or stool. MUSC: Negative for muscle aches, edema. SKIN: Negative rash, lesions/sores. NEURO: Negative headache, dizziness, weakness. Physical Exam Physical Exam: GENERAL APPEARANCE NAD, activity normal for age, well developed/ well nourished, no cyanosis, pallor, or diaphoresis. EYES lids/conjunctiva normal. EARS/NOSE/THROAT Mucous membranes moist, nares normal, lips/teeth normal uvula midline without oral pharyngeal erythema, exudate or swelling TMs normal bilaterally. No lymphangitis/lymphedema. HEAD/NECK normocephalic atraumatic, no facial trauma, neck is supple. RESPIRATORY respiratory effort normal, speaks in full sentences, no tripod position, no accessory muscle use. Lungs clear to auscultation without rhonchi, wheezes, rales CARDIAC Regular rate and rhythm, no edema. ABDOMINAL Soft, ND/NT. No evidence of fluid wave. No pulsatile masses on exam, rebound tenderness, Corona sign or pain over Mcburney's point. MUSCLES/EXTREMITIES No abnormal range of motion, no swelling. SKIN Warm, pink and dry. No rashes, dermatoses, petechiae or lesions. NEUROLOGICAL Speech is clear and appropriate. Normal level of consciousness. Gait and coordination are normal. 5/5 strength in all extremities. PSYCH Normal mood and affect. Judgement/competence is appropriate Results & Data Results & Data Vital Signs (Past 12 Hours) Vital Signs Temp Pulse Pulse Resp BP BP Pulse Ox 10/05/25 07:56 66 10/05/25 07:46 36.6 C 64 16 196/77 H 95 10/05/25 07:15 71 18 96 10/05/25 02:37 36.5 C 60 19 189/68 H 96 10/05/25 02:17 56 L 18 97 10/04/25 23:10 36.7 C 64 17 194/78 H 197/75 H 97 10/04/25 22:11 73 20 95 10/04/25 22:06 64 191/72 H O2 Del Method O2 Flow Rate FiO2 10/05/25 07:56 10/05/25 07:46 High Flow Nasal Cannula 30 46 10/05/25 07:15 High Flow Nasal Cannula 30 50 10/05/25 02:37 High Flow Nasal Cannula 10/05/25 02:17 High Flow Nasal Cannula 30 50 10/04/25 23:10 High Flow Nasal Cannula 30 51 10/04/25 22:11 High Flow Nasal Cannula 30 50 10/04/25 22:06 PG Care Time/CCT Total # of Minutes Spent Total Time Spent with Patient: Total time spent is greater than 50% in coordination of care (as documented) at patient's floor/unit and/or counseling patient: Coding Level of Care Code 75124 SUB INP/OBS CARE 235MIN Diagnoses Pneumothorax after biopsy J95.811 COPD with emphysema J43.9 (HFpEF) heart failure with preserved ejection fraction I50.30 Lumbar vertebral fracture, pathologic M84.48XA Cancer related pain G89.3 Hypertensive urgency I16.0 Metastatic cancer C79.9
--- NOTE | 2025-10-05 10:33 | Pulmonary Consultation ---
Date of Consultation October 05, 2025 Assessment & Plan (1) COPD with emphysema: (2) Malignant pleural effusion: (3) Acute and chronic respiratory failure with hypercapnia: (4) Metastatic cancer: (5) Pneumothorax: Plan Impression: 80-year-old female with advanced COPD and chronic hypoxemic respiratory failure now with advanced non-small cell lung cancer with malignant pleural effusion admitted with COPD exacerbation, hypercarbia, and hydropneumothorax. She is improved with treatment for COPD. Recommendation: 1. Acute exacerbation of COPD: Okay to transition off parenteral steroids to oral steroids. Continue Anoro and Flovent (can resume Trelegy at discharge). As needed albuterol. Given the severity of her symptoms, concomitant treatment with azithromycin for 5 days is recommended. 2. Acute on chronic hypoxemic and hypercarbic respiratory failure: Clinically improved this morning. Weaned high flow oxygen down to 15 L/min at 30% and if the patient does well can likely transition to conventional oxygen therapy. Out of bed to chair as tolerated. Incentive spirometry. Avoid positive airway pressure if possible. 3. Malignant pleural effusion: Stable on films. No intervention required currently. Can follow-up in the outpatient setting Will continue to follow with you. Thanks for the opportunity participating the care of this patient. Feel free to contact us with questions or concerns. Above recommendations were discussed with the patient as well as with her at bedside. They are in agreement with the plan as outlined History of Present Illness Attending Physician: Rome Cochran MD History of Present Illness Asked by hospitalist to assist in evaluation management of this patient with advanced non-small cell lung cancer, COPD (last PFTs June 2021 showed an FEV1 of 0.59 L or 33% predicted with an FVC of 1.04 L or 44% predicted. Total lung capacity was 82% predicted with an FRC of 105% predicted and an RV of 120% predicted and diffusion capacity severely reduced at 35% predicted), chronic hypoxemic respiratory failure and malignant pleural effusion admitted with pneumothorax, COPD exacerbation, and hypercarbic respiratory failure. History is obtained from discussion with the patient as well as with her significant other at bedside and review of the electronic medical record. The patient is an 80-year-old female who is followed by Dr. Manzo in the outpatient pulmonary clinic. She underwent thoracentesis 09/29/2025 with removal of 500 cc of fluid. This unfortunately demonstrated metastatic adenocarcinoma consistent with lung primary. She has received palliative radiation therapy for spinal metastases. She follows with Dr. Singleton in hematology oncology and has undergone 1 round of chemotherapy (carboplatin, pemetrexed, pembrolizumab). Her next round of chemotherapy is scheduled for October 23. From an outpatient perspective the patient uses oxygen, Trelegy, and as needed albuterol. Patient presented to the emergency room yesterday with increasing shortness of breath. She was experiencing an increasing oxygen requirement. She was profoundly hypertensive in the emergency room and treated for pain and anxiety. She was slightly hypercarbic and was placed on BiPAP. A CT scan demonstrated an pneumothorax and BiPAP was discontinued. She received nebulizer and Solu-Medrol in the emergency room and was admitted to the hospitalist service. This morning the patient is awake alert and conversant. She is on high flow nasal cannula at 30 L/min and 40%. I turned her down to 15 L/min and 30% and she maintained oxygen saturations above 92%. She is not coughing, wheezing, or expectorating phlegm. Allergies Allergy/AdvReac Type Severity Reaction Status Date / Time hydrochlorothiazide Allergy Mild Rash Verified 10/04/25 14:55 nickel Allergy Mild Rash Verified 10/04/25 14:55 Sulfa (Sulfonamide Allergy Mild Rash Verified 10/04/25 14:55 Antibiotics) prednisone AdvReac Intermediate MOOD Verified 10/04/25 14:55 CHANGES Home Medications Medication Instructions Recorded Confirmed Type doxazosin 4 mg tablet 4 mg PO HS #90 tabs 10/29/24 10/04/25 Rx loratadine 10 mg tablet 10 mg PO DAILY PRN runny nose #90 01/04/25 10/04/25 Rx tabs carvedilol 25 mg tablet 25 mg PO BID #180 tabs 01/24/25 10/04/25 Rx rosuvastatin 10 mg tablet 10 mg PO HS #90 tabs 07/11/25 10/04/25 Rx acetaminophen 500 mg tablet 1,000 mg (2 x 500 mg) PO TID PRN 08/24/25 10/04/25 Rx pain #90 tabs gabapentin 100 mg tablet 100 mg PO TID PRN back/leg pain 08/24/25 10/04/25 Rx #30 tabs lorazepam 1 mg tablet 1 mg PO HS PRN anxiety #30 tabs 08/28/25 10/04/25 Rx pantoprazole 40 mg tablet,delayed 40 mg PO BID 30 days #60 tabs 09/02/25 10/04/25 Rx release furosemide 20 mg tablet (Lasix) 20 mg PO DAILY PRN weight gain, 09/21/25 10/04/25 Rx edema, shortness of breath #30 tabs folic acid 1 mg tablet 1 mg PO DAILY 09/27/25 10/04/25 History ondansetron HCl 4 mg tablet 4 mg PO Q8H 09/27/25 10/04/25 History albuterol sulfate 90 mcg/actuation 2 puff inhalation Q4H PRN 10/04/25 10/04/25 History aerosol inhaler Shortness Of Breath Or Wheezing fluticasone fur. 200 mcg-umeclid 1 inh inhalation DAILY 10/04/25 10/04/25 History 62.5 mcg-vilant 25 mcg inhalat.powder (Trelegy Ellipta) lisinopril 40 mg tablet 40 mg PO DAILY 10/04/25 10/04/25 History morphine 15 mg immediate release 15 mg PO Q8H PRN Pain 10/04/25 10/04/25 History tablet Patient History Medical History Abnormal CT of the abdomen Acute dehydration Nausea and vomiting Lumbago Demand ischemia Nausea CAD (coronary artery disease) Nonobstructive Hypochromic anemia Metastatic cancer LBBB (left bundle branch block) since myectomy Hypertrophic cardiomyopathy s/p myectomy with no outflow obstruction or MR on echo after surgery Mitral regurgitation PT STATES RESOLVED AFTER HEART SURGERY Edema Dyspnea on exertion History of anemia Spinal stenosis Hyperlipidemia Borderline diabetic Hx of gastric ulcer Chronic obstructive pulmonary disease History of basal cell carcinoma Surgical History History of anesthesia reaction SLOW TO WAKE UP H/O wrist surgery + CTR (HARDWARE INTACT) History of cholecystectomy History of tooth extraction History of cataract surgery RT/LEFT History of esophagogastroduodenoscopy (EGD) History of colonoscopy (~2015) S/P breast lumpectomy LEFT (BENIGN) S/P tonsillectomy H/O arthroscopic knee surgery RT H/O hernia repair S/P myomectomy 2 YEARS AGO AT [place] Family History Mother Colorectal cancer Father , at 78 years of age from acute AL in the setting of DM. Diabetes Stroke Family history of diabetes mellitus Brother Family history of diabetes mellitus Family/Other Breast cancer niece Mother , at 62 years of age from colon CA. No problems noted. Other No family history of adverse response to anesthesia Denies family history of Ovarian cancer Prostate cancer Social History Smoking Status: Former smoker Tobacco Type: Cigarettes Age Started Using Tobacco: 16; Age Quit Using Tobacco: 72; packs per day: 0.5; Second Hand Exposure: No; Do You Dip or Chew Tobacco: No; Hx Alcohol Use: No Hx Substance Use: No Preferred Language: Russian Communication Ability: Effective Band Salvager Required: No Beliefs That Will Affect Care: None marital status: marital status details: 63 yrs Current Living Situation: Spouse and Family Current Living Situation Comment: Daughter and Grandaughter current occupational status: retired How many Children do You have: 2 How many Children do You have Comment: 2 sons(53y,,drug O/D;59y,alive/well);1 daughter(53y,alive/well). Feels Safe at Home: Yes Childhood Exposure to Second-Hand Smoke: No Diet: regular caffeine: Yes Dental Care, Regularly: No Physical Activity Frequency: Daily Seatbelt Use: always Sunscreen Use: Yes Assistive Devices: Oxygen - Continuous Review of Systems Review of Systems: Please refer to admission H&P. No additions or deletions Physical Exam Constitutional: WD/WN, vitals as above Neck: trachea midline, no thyromegaly Respiratory: no respiratory distress, no labored breathing, no cough and not tachypneic Auscultation: + diminished lung sounds; no wheezes Cardiovascular: RRR, no murmur, no edema Gastrointestinal (Abdomen): normal bowel sounds, soft, nontender, no hepatosplenomegaly Musculoskeletal: Extremities: extremities normal to inspection Skin: no rashes, warm and dry Neurologic: Nonfocal exam Lymphatic: no cervical lymphadenopathy Results & Data Results & Data Vital Signs (Past 12 Hours) Vital Signs Temp Pulse Pulse Resp BP BP Pulse Ox 10/05/25 07:56 66 10/05/25 07:46 36.6 C 64 16 196/77 H 95 10/05/25 07:15 71 18 96 10/05/25 02:37 36.5 C 60 19 189/68 H 96 10/05/25 02:17 56 L 18 97 10/04/25 23:10 36.7 C 64 17 194/78 H 197/75 H 97 O2 Del Method O2 Flow Rate FiO2 10/05/25 07:56 10/05/25 07:46 High Flow Nasal Cannula 30 46 10/05/25 07:15 High Flow Nasal Cannula 30 50 10/05/25 02:37 High Flow Nasal Cannula 10/05/25 02:17 High Flow Nasal Cannula 30 50 10/04/25 23:10 High Flow Nasal Cannula 30 51 Critical Care Results & Data Vital Signs (Past 12 Hours) Vital Signs Temp Pulse Pulse Resp BP BP Pulse Ox 10/05/25 07:56 66 10/05/25 07:46 36.6 C 64 16 196/77 H 95 10/05/25 07:15 71 18 96 10/05/25 02:37 36.5 C 60 19 189/68 H 96 10/05/25 02:17 56 L 18 97 10/04/25 23:10 36.7 C 64 17 194/78 H 197/75 H 97 O2 Del Method O2 Flow Rate FiO2 10/05/25 07:56 10/05/25 07:46 High Flow Nasal Cannula 30 46 10/05/25 07:15 High Flow Nasal Cannula 30 50 10/05/25 02:37 High Flow Nasal Cannula 10/05/25 02:17 High Flow Nasal Cannula 30 50 10/04/25 23:10 High Flow Nasal Cannula 30 51 Lab & Micro Results (Past 24 Hours) RBC 3.03 M/uL (4.20-5.40) L 10/05/25 WBC 5.84 K/ul (4.8-10.8) 10/05/25 Hgb 8.3 g/dL (12.0-16.0) L 10/05/25 Hct 26.6 % (37.0-47.0) L 10/05/25 MCV 87.8 fL (80.0-100.0) 10/05/25 MCH 27.4 pg (25.0-34.0) 10/05/25 MCHC 31.2 g/dL (32.0-36.0) L 10/05/25 RDW Standard Deviation 49.2 fL (36.4-46.3) H 10/05/25 RDW Coefficient of Variation 15.4 % (11.5-14.5) H 10/05/25 Plt Count 268 K/uL (130-400) 10/05/25 MPV 9.7 fL (9.4-12.4) 10/05/25 Neutrophils (%) (Auto) 90.7 % 10/04/25 Lymphocytes (%) (Auto) 2.1 % 10/04/25 Monocytes # (Auto) 0.59 K/uL (0.11-0.59) 10/04/25 Eosinophils # (Auto) 0.00 K/uL (0.00-0.50) 10/04/25 Immature Granulocyte % (Auto) 0.5 % 10/04/25 Neutrophils # (Auto) 7.97 K/uL (1.40-6.50) H 10/04/25 Lymphocytes # (Auto) 0.18 K/uL (1.20-3.40) L 10/04/25 Monocytes # (Auto) 0.59 K/uL (0.11-0.59) 10/04/25 Eosinophils # (Auto) 0.00 K/uL (0.00-0.50) 10/04/25 Basophils # (Auto) 0.00 K/uL (0.00-0.20) 10/04/25 Immature Granulocyte # (Auto) 0.04 K/uL (0.01-0.20) 5 Na 143 mmol/L (136-145) 10/05/25 K 4.1 mmol/L (3.5-5.1) 10/05/25 Cl 98 mmol/L (98-107) 10/05/25 CO2 38 mmol/L (21-32) H 10/05/25 Anion Gap 7 (3-11) 10/05/25 BUN 36 mg/dl (6-23) H 10/05/25 Creatinine 0.61 mg/dl (0.6-1.2) 10/05/25 BUN/Creatinine Ratio 59.0 (10-20) H 10/05/25 Glu 145 mg/dl (70-99(Fasting)) H 10/05/25 Ca 8.2 mg/dl (8.6-10.3) L 10/05/25 Total Bilirubin 0.4 mg/dl (0.2-1.0) 10/04/25 AST 26 U/L (13-39) 10/04/25 ALT 25 U/L (7-52) 10/04/25 Alkaline Phosphatase 56 U/L (34-104) 10/04/25 TP 6.3 gm/dl (6.0-8.3) 10/04/25 Albumin 3.3 gm/dl (3.4-5.0) L 10/04/25 Globulin 3.0 gm/dl (2.5-4.0) 10/04/25 Albumin/Globulin Ratio 1.1 (0.9-2) 10/04/25 Mg 2.0 mg/dl (1.7-2.4) 10/05/25 05:56 Calcium Level 8.2 mg/dl (8.6-10.3) L 10/05/25 05:56 Prothromb Time International Ratio 1.2 (0.9-1.1) H 10/04/25 12 :24 Venous Blood pH 7.31 (7.36-7.41) L 10/04/25 23:59 Venous Blood Partial Pressure CO2 67 mmHg (38-50) H 10/04/25 23 :59 Venous Blood Partial Pressure O2 31 mmHg 10/04/25 23:59 Venous Blood HCO3 34 mmol/L 10/04/25 23:59 Venous Blood Base Excess 5.2 mEq/L 10/04/25 23:59 Venous Blood Oxygen Saturation < 60.0 % 10/04/25 23:59 Diagnostic Findings (Past 24 Hours) Chest CTA 10/04/25 12:16 CT ANGIOGRAM OF THE CHEST CLINICAL HISTORY: Dyspnea COMPARISON STUDY: Prior chest CT scans, most recently dated 09/20/2025. Chest x-ray dated 10/04/2025. PET/CT dated 09/28/2025. TECHNIQUE: Following the IV administration of 118 cc of Optiray 320, CT angiogram of the chest was performed from the upper abdomen to the thoracic inlet utilizing the pulmonary embolus protocol. Images are reviewed in the axial, sagittal, and coronal planes. 3-D MIPS images are created and assessed. IV contrast was administered without complication. A dose lowering technique was utilized adhering to the principles of ALARA. The examination is degraded by motion artifact. CT DOSE: 405.08 mGy.cm FINDINGS: Thyroid: Imaged portions of the thyroid gland are normal in size and attenua tion. Thoracic aorta: There is atherosclerotic calcification of the thoracic aorta, which is normal in caliber and demonstrates bovine variant arch anatomy. No dissection is seen. Pulmonary vasculature: The main pulmonary arteries are dilated suggesting pulmonary artery hypertension. There are no filling defects identified in main, lobar, or segmental pulmonary branches to suggest pulmonary embolus. Heart: The patient is status post midline sternotomy. The heart is enlarged and without pericardial effusion. The coronary arteries and mitral annulus are densely calcified. Lungs and pleural spaces: Evaluation of the lung parenchyma is degraded by motion artifact. There is moderate to advanced emphysema. The trachea and central airways are clear. There is a small to moderate pneumothorax at the anterior right lung base. This is new from previous. There are small to moderate right and small left pleural effusions with dependent consolidation. These have increased in size from 09/10/2025, an the right right pleural effusion is at least partially loculated. A 3.7 x 4.7 x 2.7 cm spiculated mass is again seen in the paramediastinal right middle lobe on image #95. Pleural-based thickening and nodularity is again seen throughout the right lung with a rind of abnormal soft tissue at the apex. This likely represents pleural-based metastatic disease. A 3.1 cm irregular lesion seen peripherally in the right upper lobe on image #142 and a suspicious 12 mm nodule in the left lower lobe on image #134 are unchanged. Mediastinum: There is a 1.6 cm mildly enlarged subcarinal node seen on image #122. This was FDG avid by PET. Xin: Clear. Axillae: There is no axillary lymphadenopathy. Upper abdomen: Partially visualized upper abdominal viscera is within normal limits. Skeletal structures: The skeletal structures are osteopenic. Degenerative change and kyphoscoliosis is noted in the thoracic spine. No lytic or blastic bony lesions are seen. IMPRESSION: 1. There is a small to moderate pneumothorax at the anterior right lung base. This is new from 09/20/2025. 2. There is no evidence of pulmonary embolus in the main, lobar, or segmental pulmonary arteries. 3. Cardiomegaly and emphysema. 4. Right larger than left pleural effusions with dependent consolidation. Correlate clinically for evidence of pneumonia/aspiration pneumonitis. The right pleural effusion is at least partially loculated, and the effusions have increased in size from 09/20/2025. 6. 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 7. Additional nodular foci in both lungs are similar to previous. 8. Additional findings as above. ACT 112: Negative or not required by law. Electronically signed by: Fracisco Graham M.D. 10/04/2025 2:01 PM Chest X-Ray 10/04/25 12:16 XR chest 1V portable CLINICAL HISTORY: Dyspnea COMPARISON STUDY: 09/29/2025 FINDINGS: Stable CABG. Stable cardiomegaly with increased pulmonary vascular congestion. There is a small right pleural effusion and consolidation at the right lung base. There is a trace left pleural effusion. There is stable reticular nodular opacity at the right midlung. No pneumothorax. IMPRESSION: CHF with small right pleural effusion. ACT 112: Negative or not required by law. Electronically signed by: Albino Lloyd M.D. 10/04/2025 1:08 PM Chest X-Ray 10/04/25 15:42 XR chest 1V portable CLINICAL HISTORY: Change in status COMPARISON STUDY: 10/04/2025 x-ray and CT FINDINGS: Stable CABG. Stable cardiomegaly with pulmonary vascular congestion. Stable small right pleural effusion. Stable small right pneumothorax. The medial right lower lung mass is better seen on the CT scan earlier today. There is stable patchy opacity at the left lung base. Stable severe emphysema. IMPRESSION: 1. Stable small right pneumothorax. 2. Otherwise as described. ACT 112: Negative or not required by law. Electronically signed by: Albino Lloyd M.D. 10/04/2025 4:05 PM Chest X-Ray 10/05/25 08:00 EXAM: XR chest 1V portable CLINICAL HISTORY: Pneumothorax TECHNIQUE: An X-ray image of the chest is obtained in AP portable projection. COMPARISON: 09/29/2025 chest x ray FINDINGS: Pulmonary Parenchyma: Newly seen right lower zone opacity is seen Progression of the right basal pleural effusion Stable right mid-zone reticulo nodular opacities Stable left costophrenic angle haziness No X-ray evidence of pneumothorax Heart and Mediastinum: Stable Cardiomeglay. No mediastinal widening or masses. No hilar or mediastinal lymphadenopathy. Bony Thorax: Sternotomy wire sutures are seen. The bony thorax appears intact without fractures or deformities. Soft Tissues: Soft tissues overlying the chest wall are unremarkable. IMPRESSION: 1. No X-ray evidence of pneumothorax, if clinical suspicion is high CT is recommended 2. Newly seen right lower zone opacity, can be related to consolidation 3. Progression of the right basal pleural effusion 4. Stable right mid zone reticulo nodular opacities 5. Stable left costophrenic angle haziness , pleural effusion/thickening. 6. Stable cardiomegaly Electronically signed by Jimenez Joiner 10-05-2025 08:21 AM I & O Totals 24 Hours 10/04/25 10/05/25 10/06/25 06:59 06:59 06:59 Output Total 2725 / 2725 Balance -2725 / -2725 Cumulative 10/04/25 11:59 thru 10/05/25 05:05 Output Total 2725 Balance -2725 RT Ventilator Mngmt (Last Documented) Ventilator Ordered Settings Respiratory Rate 16 10/05/25 07:46 Fraction of Inspired Oxygen 46 10/05/25 07:46 Ventilator - PT Measurements Respiratory Rate 16 PG Care Time/CCT Total # of Minutes Spent Total Time Spent with Patient: Total time spent is greater than 50% in coordination of care (as documented) at patient's floor/unit and/or counseling patient: Coding Level of Care Code 76703 INT INP/OBS CARE 3/75MIN Diagnoses COPD with emphysema J43.9 Malignant pleural effusion J91.0 Acute and chronic respiratory failure with hypercapnia J96.22 Metastatic cancer C79.9 Pneumothorax J93.9
--- NOTE | 2025-10-05 11:50 | Cardiology Consultation ---
Date of Consultation October 05, 2025 Assessment & Plan (1) (HFpEF) heart failure with preserved ejection fraction: (2) Hypertension: (3) Mitral regurgitation: (4) Hypertrophic cardiomyopathy: (5) LBBB (left bundle branch block): (6) CAD (coronary artery disease): Plan 1. Decompensated heart failure with preserved ejection fraction: Likely due to severe hypertension. Overall LV systolic function appears normal. She seems to have had an element of pulmonary vascular congestion but did affect a good diuresis. I would be cautious about more aggressive diuresis given her progressing elevation in BUN. Fortunately no obstructive cardiomyopathy at this point. We could feel comfortable giving additional diuresis if necessary, controlling high blood pressure may also be of benefit. Also currently on steroids which may have worsened volume retention. 2. Dyspnea: Likely multifactorial. Diuresis resulted in significant improvement in her oxygenation. Pulmonary edema likely resolved. Pneumothorax also appears to have resolved on her most recent x-ray. Hypercapnia would also suggest an alternative etiology such as primary pulmonary process. There are some suspicion that she has a COPD exacerbation which is currently being treated as well. 3. Coronary disease: Nonobstructive. 4. Mitral regurgitation: Not severe. Not likely to be a clinical concern in the course of her lifetime. 5. Hypertrophic cardiomyopathy: Status post septal myectomy. No obstruction on her recent echocardiogram. 6. Hypertension: Longstanding and severe. Currently on carvedilol, doxazosin and lisinopril. She may benefit from a daily diuretic. Will add spironolacton e. History of Present Illness Reason for Consultation: Hypertension, congestive heart failure Requesting Physician: Sammie Attending Physician: Rome Cochran MD History of Present Illness The patient is a 80-year-old woman with a history of hypertrophic cardiomyopathy status post septal reduction surgery, nonobstructive coronary artery disease mitral regurgitation, left bundle branch block and severe hypertension who was admitted to the hospital due to worsening shortness of breath and discovery of a right pneumothorax. The patient recently had a diagnosis of metastatic lung cancer and has started therapy with Keytruda. Currently she reports being comfortable. She did not endorse symptoms of breathing difficulty. No current pain. Minimal ambulation however. No sense of palpitation. She states that at home she was not short of breath. She has not believe that breathing difficulty was a prominent factor preventing her from doing things recently. Previously limited by significant pain, but no current complaints of back or chest discomfort. Allergies Allergy/AdvReac Type Severity Reaction Status Date / Time hydrochlorothiazide Allergy Mild Rash Verified 10/04/25 14:55 nickel Allergy Mild Rash Verified 10/04/25 14:55 Sulfa (Sulfonamide Allergy Mild Rash Verified 10/04/25 14:55 Antibiotics) prednisone AdvReac Intermediate MOOD Verified 10/04/25 14:55 CHANGES Home Medications Medication Instructions Recorded Confirmed Type doxazosin 4 mg tablet 4 mg PO HS #90 tabs 10/29/24 10/04/25 Rx loratadine 10 mg tablet 10 mg PO DAILY PRN runny nose #90 01/04/25 10/04/25 Rx tabs carvedilol 25 mg tablet 25 mg PO BID #180 tabs 01/24/25 10/04/25 Rx rosuvastatin 10 mg tablet 10 mg PO HS #90 tabs 07/11/25 10/04/25 Rx acetaminophen 500 mg tablet 1,000 mg (2 x 500 mg) PO TID PRN 08/24/25 10/04/25 Rx pain #90 tabs gabapentin 100 mg tablet 100 mg PO TID PRN back/leg pain 08/24/25 10/04/25 Rx #30 tabs lorazepam 1 mg tablet 1 mg PO HS PRN anxiety #30 tabs 08/28/25 10/04/25 Rx pantoprazole 40 mg tablet,delayed 40 mg PO BID 30 days #60 tabs 09/02/25 10/04/25 Rx release furosemide 20 mg tablet (Lasix) 20 mg PO DAILY PRN weight gain, 09/21/25 10/04/25 Rx edema, shortness of breath #30 tabs folic acid 1 mg tablet 1 mg PO DAILY 09/27/25 10/04/25 History ondansetron HCl 4 mg tablet 4 mg PO Q8H 09/27/25 10/04/25 History albuterol sulfate 90 mcg/actuation 2 puff inhalation Q4H PRN 10/04/25 10/04/25 History aerosol inhaler Shortness Of Breath Or Wheezing fluticasone fur. 200 mcg-umeclid 1 inh inhalation DAILY 10/04/25 10/04/25 History 62.5 mcg-vilant 25 mcg inhalat.powder (Trelegy Ellipta) lisinopril 40 mg tablet 40 mg PO DAILY 10/04/25 10/04/25 History morphine 15 mg immediate release 15 mg PO Q8H PRN Pain 10/04/25 10/04/25 History tablet azithromycin 250 mg tablet 250 mg PO QAM #3 tabs 10/06/25 Rx prednisone 10 mg tablet 10 mg PO DIRECTED #20 tabs 10/06/25 Rx spironolactone 25 mg tablet 30 mg (1.2 x 25 mg) PO QAM #25 tabs 10/06/25 Rx Patient History Medical History Abnormal CT of the abdomen Acute dehydration Nausea and vomiting Lumbago Demand ischemia Nausea CAD (coronary artery disease) Nonobstructive Hypochromic anemia Metastatic cancer LBBB (left bundle branch block) since myectomy Hypertrophic cardiomyopathy s/p myectomy with no outflow obstruction or MR on echo after surgery Mitral regurgitation PT STATES RESOLVED AFTER HEART SURGERY Edema Dyspnea on exertion History of anemia Spinal stenosis Hyperlipidemia Borderline diabetic Hx of gastric ulcer Chronic obstructive pulmonary disease History of basal cell carcinoma Surgical History History of anesthesia reaction SLOW TO WAKE UP H/O wrist surgery + CTR (HARDWARE INTACT) History of cholecystectomy History of tooth extraction History of cataract surgery RT/LEFT History of esophagogastroduodenoscopy (EGD) History of colonoscopy (~2015) S/P breast lumpectomy LEFT (BENIGN) S/P tonsillectomy H/O arthroscopic knee surgery RT H/O hernia repair S/P myomectomy 2 YEARS AGO AT [facility] Family History Mother Colorectal cancer Father , at 78 years of age from acute [place] in the setting of DM. Diabetes Stroke Family history of diabetes mellitus Brother Family history of diabetes mellitus Family/Other Breast cancer niece Mother , at 62 years of age from colon CA. No problems noted. Other No family history of adverse response to anesthesia Denies family history of Ovarian cancer Prostate cancer Social History Smoking Status: Former smoker Tobacco Type: Cigarettes Age Started Using Tobacco: 16; Age Quit Using Tobacco: 72; packs per day: 0.5; Second Hand Exposure: No; Do You Dip or Chew Tobacco: No; Hx Alcohol Use: No Hx Substance Use: No Preferred Language: Slovak Communication Ability: Effective Head Of Digital Advertising & Integration Required: No Beliefs That Will Affect Care: None marital status: marital status details: 63 yrs Current Living Situation: Spouse and Family Current Living Situation Comment: Daughter and Grandaughter current occupational status: retired How many Children do You have: 2 How many Children do You have Comment: 2 sons(53y,,drug O/D;59y,alive/well);1 daughter(53y,alive/well). Feels Safe at Home: Yes Childhood Exposure to Second-Hand Smoke: No Diet: regular caffeine: Yes Dental Care, Regularly: No Physical Activity Frequency: Daily Seatbelt Use: always Sunscreen Use: Yes Assistive Devices: Oxygen - Continuous Review of Systems Review of Systems: Per HPI Physical Exam Physical Exam: She is alert and oriented x3. Mood affect appear normal. She answered all questions appropriately. Using supplemental oxygen with high flow nasal cannula. HEENT: Sclerae are anicteric. Pupils are equal and reactive to light and accommodation. Extraocular movements were intact. Neuro: Cranial nerves intact Lungs: Crackles in the mid to basilar lung hdz bilaterally. No expiratory wheezing. Normal respiratory effort. Cardiac: The rhythm was regular. S1 and S2 were normal. There are no murmurs on examination. The PMI was not markedly displaced on palpation. Extremities: Patient has bilateral radial pulses that are equal in intensity. There is no evidence cyanosis or clubbing. Minimal lower extremity edema Skin: There are no rashes noted on examination today. Results & Data Vital Signs (Past 12 Hours) Vital Signs Temp Pulse Pulse Resp BP BP Pulse Ox 10/05/25 11:30 84 16 96 10/05/25 11:18 36.7 C 69 16 188/68 H 89 L 10/05/25 07:56 66 10/05/25 07:46 36.6 C 64 16 196/77 H 95 10/05/25 07:15 71 18 96 10/05/25 02:37 36.5 C 60 19 189/68 H 96 10/05/25 02:17 56 L 18 97 O2 Del Method O2 Flow Rate FiO2 10/05/25 11:30 Nasal Cannula 2 10/05/25 11:18 High Flow Nasal Cannula 15 36 10/05/25 07:56 10/05/25 07:46 High Flow Nasal Cannula 30 46 10/05/25 07:15 High Flow Nasal Cannula 30 50 10/05/25 02:37 High Flow Nasal Cannula 10/05/25 02:17 High Flow Nasal Cannula 30 50 Laboratory Results Abnormal Lab Results 10/04/25 10/04/25 10/04/25 12:24 12:34 13:29 WBC 8.78 RBC 3.11 L Hgb 8.7 L POC Hgb 8.8 L Hct 28.4 L POC Hct 26 L MCV 91.3 MCH 28.0 MCHC 30.6 L RDW Std Deviation 51.0 H RDW Coeff of [place] 15.4 H Plt Count 334 MPV 9.8 Immature Gran % (Auto) 0.5 Neut % (Auto) 90.7 Lymph % (Auto) 2.1 [place] % (Auto) 6.7 Eos % (Auto) 0.0 Baso % (Auto) 0.0 Neut # (Auto) 7.97 H Lymph # (Auto) 0.18 L [place] # (Auto) 0.59 Eos # (Auto) 0.00 Baso # (Auto) 0.00 Immature Gran # (Auto) 0.04 PT 12.4 H INR 1.2 H APTT 24 PTT Ratio 0.9 VBG pH 7.30 L VBG pCO2 72 H VBG pO2 36 VBG HCO3 35 VBG O2 Saturation < 60.0 VBG Base Excess 6.4 POC Sodium 144 Sodium 145 POC Potassium 4.4 Potassium 4.4 POC Chloride 101 Chloride 105 Carbon Dioxide 35 H POC Total CO2 31 Anion Gap 5 POC Anion Gap 17.0 POC BUN 33 H BUN 32 H Creatinine 0.58 L POC Creatinine 0.8 Est Cr Clr Drug Dosing 59.7 eGFR 90.86 BUN/Creatinine Ratio 55.2 H Glucose 173 H POC Glucose POC Glucose (other) 164 H Estimat Average Glucose Hemoglobin A1c Calcium 8.3 L POC Ioniz Calcium Jamal 1.06 L Magnesium 2.2 Total Bilirubin 0.4 AST 26 ALT 25 Alkaline Phosphatase 56 Troponin I High Sens 38.4 H B-Natriuretic Peptide 1720 H Total Protein 6.3 Albumin 3.3 L Globulin 3.0 Albumin/Globulin Ratio 1.1 Procalcitonin 0.02 Adenovirus (PCR) Not Detected B. pertussis DNA (PCR) Not Detected B.parapertussis DNA PCR Not Detected C. pneumoniae DNA (PCR) Not Detected Coronavirus OC43 (PCR) Not Detected Coronavirus HKU1 (PCR) Not Detected Coronavirus 229E (PCR) Not Detected SARS-CoV-2 (PCR) Not Detected Coronavirus NL63 (PCR) Not Detected Human Metapneumovir PCR Not Detected Influenza Type A (PCR) Not Detected Influenza Type B (PCR) Not Detected M. pneumoniae (PCR) Not Detected Parainfluenza 1 (PCR) Not Detected Parainfluenza 2 (PCR) Not Detected Parainfluenza 3 (PCR) Not Detected Parainfluenza 4 (PCR) Not Detected RSV (PCR) Not Detected Entero/Rhino (PCR) Not Detected 10/04/25 10/04/25 10/04/25 15:48 17:59 21:25 WBC RBC Hgb POC Hgb Hct POC Hct MCV MCH MCHC RDW Std Deviation RDW Coeff of [place] Plt Count MPV Immature Gran % (Auto) Neut % (Auto) Lymph % (Auto) [place] % (Auto) Eos % (Auto) Baso % (Auto) Neut # (Auto) Lymph # (Auto) [place] # (Auto) Eos # (Auto) Baso # (Auto) Immature Gran # (Auto) PT INR APTT PTT Ratio VBG pH VBG pCO2 VBG pO2 VBG HCO3 VBG O2 Saturation VBG Base Excess POC Sodium Sodium POC Potassium Potassium POC Chloride Chloride Carbon Dioxide POC Total CO2 Anion Gap POC Anion Gap POC BUN BUN Creatinine POC Creatinine Est Cr Clr Drug Dosing eGFR BUN/Creatinine Ratio Glucose POC Glucose 201 H 140 H POC Glucose (other) Estimat Average Glucose Hemoglobin A1c Calcium POC Ioniz Calcium Jamal Magnesium Total Bilirubin AST ALT Alkaline Phosphatase Troponin I High Sens 52.9 H* D B-Natriuretic Peptide Total Protein Albumin Globulin Albumin/Globulin Ratio Procalcitonin Adenovirus (PCR) B. pertussis DNA (PCR) B.parapertussis DNA PCR C. pneumoniae DNA (PCR) Coronavirus OC43 (PCR) Coronavirus HKU1 (PCR) Coronavirus 229E (PCR) SARS-CoV-2 (PCR) Coronavirus NL63 (PCR) Human Metapneumovir PCR Influenza Type A (PCR) Influenza Type B (PCR) M. pneumoniae (PCR) Parainfluenza 1 (PCR) Parainfluenza 2 (PCR) Parainfluenza 3 (PCR) Parainfluenza 4 (PCR) RSV (PCR) Entero/Rhino (PCR) 10/04/25 10/05/25 10/05/25 Unknown 05:56 07:18 WBC 5.84 RBC 3.03 L Hgb 8.3 L POC Hgb Hct 26.6 L POC Hct MCV 87.8 MCH 27.4 MCHC 31.2 L RDW Std Deviation 49.2 H RDW Coeff of [place] 15.4 H Plt Count 268 MPV 9.7 Immature Gran % (Auto) Neut % (Auto) Lymph % (Auto) [place] % (Auto) Eos % (Auto) Baso % (Auto) Neut # (Auto) Lymph # (Auto) [place] # (Auto) Eos # (Auto) Baso # (Auto) Immature Gran # (Auto) PT INR APTT PTT Ratio VBG pH 7.31 L VBG pCO2 67 H VBG pO2 31 VBG HCO3 34 VBG O2 Saturation < 60.0 VBG Base Excess 5.2 POC Sodium Sodium 143 POC Potassium Potassium 4.1 POC Chloride Chloride 98 Carbon Dioxide 38 H POC Total CO2 Anion Gap 7 POC Anion Gap POC BUN BUN 36 H Creatinine 0.61 POC Creatinine Est Cr Clr Drug Dosing 56.3 eGFR 89.76 BUN/Creatinine Ratio 59.0 H Glucose 145 H POC Glucose 156 H POC Glucose (other) Estimat Average Glucose 117 Hemoglobin A1c 5.7 H Calcium 8.2 L POC Ioniz Calcium Jamal Magnesium 2.0 Total Bilirubin AST ALT Alkaline Phosphatase Troponin I High Sens 39.5 H B-Natriuretic Peptide Total Protein Albumin Globulin Albumin/Globulin Ratio Procalcitonin Adenovirus (PCR) B. pertussis DNA (PCR) B.parapertussis DNA PCR C. pneumoniae DNA (PCR) Coronavirus OC43 (PCR) Coronavirus HKU1 (PCR) Coronavirus 229E (PCR) SARS-CoV-2 (PCR) Coronavirus NL63 (PCR) Human Metapneumovir PCR Influenza Type A (PCR) Influenza Type B (PCR) M. pneumoniae (PCR) Parainfluenza 1 (PCR) Parainfluenza 2 (PCR) Parainfluenza 3 (PCR) Parainfluenza 4 (PCR) RSV (PCR) Entero/Rhino (PCR) 10/05/25 11:05 WBC RBC Hgb POC Hgb Hct POC Hct MCV MCH MCHC RDW Std Deviation RDW Coeff of [place] Plt Count MPV Immature Gran % (Auto) Neut % (Auto) Lymph % (Auto) [place] % (Auto) Eos % (Auto) Baso % (Auto) Neut # (Auto) Lymph # (Auto) [place] # (Auto) Eos # (Auto) Baso # (Auto) Immature Gran # (Auto) PT INR APTT PTT Ratio VBG pH VBG pCO2 VBG pO2 VBG HCO3 VBG O2 Saturation VBG Base Excess POC Sodium Sodium POC Potassium Potassium POC Chloride Chloride Carbon Dioxide POC Total CO2 Anion Gap POC Anion Gap POC BUN BUN Creatinine POC Creatinine Est Cr Clr Drug Dosing eGFR BUN/Creatinine Ratio Glucose POC Glucose 141 H POC Glucose (other) Estimat Average Glucose Hemoglobin A1c Calcium POC Ioniz Calcium Jamal Magnesium Total Bilirubin AST ALT Alkaline Phosphatase Troponin I High Sens B-Natriuretic Peptide Total Protein Albumin Globulin Albumin/Globulin Ratio Procalcitonin Adenovirus (PCR) B. pertussis DNA (PCR) B.parapertussis DNA PCR C. pneumoniae DNA (PCR) Coronavirus OC43 (PCR) Coronavirus HKU1 (PCR) Coronavirus 229E (PCR) SARS-CoV-2 (PCR) Coronavirus NL63 (PCR) Human Metapneumovir PCR Influenza Type A (PCR) Influenza Type B (PCR) M. pneumoniae (PCR) Parainfluenza 1 (PCR) Parainfluenza 2 (PCR) Parainfluenza 3 (PCR) Parainfluenza 4 (PCR) RSV (PCR) Entero/Rhino (PCR) Diagnostic Findings Echocardiogram 08/25/2025: Normal LV systolic function with ejection fraction of 50 to 55%. Akinesis of the basal anteroseptum and the basal to mid inferoseptum. Severe left atrial enlargement. Mild to moderate mitral digitation. PG Care Time/CCT Total # of Minutes Spent Total Time Spent with Patient: Total time spent is greater than 50% in coordination of care (as documented) at patient's floor/unit and/or counseling patient: Coding Level of Care Code 00020 INT INP/OBS CARE 3/75MIN Diagnoses (HFpEF) heart failure with preserved ejection fraction I50.30 Primary hypertension I10 Hypertension type: primary hypertension Mitral regurgitation I34.0 Hypertrophic cardiomyopathy I42.2 LBBB (left bundle branch block) I44.7 Coronary artery disease involving [place] coronary artery of [place] heart without angina pectoris I25.10 Associated angina: without angina Coronary Disease-Associated Artery/Lesion type: [place] artery [place] vs. transplanted heart: [place] heart (2) Hypertension Hypertension type: primary hypertension Qualified Code(s): I10 - Essential (primary) hypertension (6) CAD (coronary artery disease) Associated angina: without angina Coronary Disease-Associated Artery/Lesion type: [place] artery [place] vs. transplanted heart: [place] heart Qualified Code(s): I25.10 - Atherosclerotic heart disease of [place] coronary artery without angina pectoris
[2025-10-05] MEDS: FUROSEMIDE INJ 20 MG/2 ML VIAL IV SCH (11:53)
[2025-10-05] MEDS: predniSONE 20 MG TAB PO SCH (11:54)
[2025-10-05] MEDS: AZITHROMYCIN 250 MG TAB PO SCH (11:54)
[2025-10-05] MEDS ORDERED: ALBUT/IPRATROP 3MG/0.5MG NEB 3 ML VIAL NEB PRN (15:37)
--- NOTE | 2025-10-06 08:18 | XRay Report ---
EXAM: XR chest 1V portable CLINICAL HISTORY: Pneumothorax TECHNIQUE: An X-ray image of the chest is obtained in AP projection. COMPARISON: prior 10/05/2025 FINDINGS: Pulmonary Parenchyma: Inhomogenous opacification predominantly of the right lung seen represents infective changes versus pulmonary edema, remains unchanged grossly Stable right mid-zone reticulo nodular opacities Mild to minimal right apical pleural opacity also seen Blunting of the right costophrenic angle seen again due to mild pleural effusion or pleural thickening Left-sided costophrenic angle intact and normal-appearing No pneumothorax. Heart and Mediastinum: Cardiomegaly interval stable No mediastinal widening or masses. No hilar or mediastinal lymphadenopathy. Median sternotomy sutures seen Bony Thorax: Bony thorax appears intact without fractures or deformities. Soft Tissues: Soft tissues overlying the chest wall are unremarkable. IMPRESSION: 1. Interval unchanged earlier seen right lung infection versus pulmonary edema, as described 2. Mild Interval regressive right-sided pleural effusion 3. Cardiomegaly interval stable 4. No X-ray evidence of pneumothorax, if clinical suspicion is high CT is recommended Electronically signed by Jimenez Joiner 10-06-2025 08:18 AM
--- NOTE | 2025-10-06 08:19 | Pulmonology Progress Note ---
Date of Service October 06, 2025 Assessment & Plan (1) COPD with emphysema: (2) Malignant pleural effusion: (3) Acute and chronic respiratory failure with hypercapnia: (4) Metastatic cancer: (5) Pneumothorax: Plan Impression: 80-year-old female with advanced COPD and chronic hypoxemic respiratory failure now with advanced non-small cell lung cancer with malignant pleural effusion admitted with COPD exacerbation, hypercarbia, and hydropneumothorax. She is improved with treatment for COPD. No pneumothorax identified on chest x-rays. Recommendation: 1. Acute exacerbation of COPD: Complete 5 days oral prednisone and azithromycin. Continue Anoro and Flovent (can resume Trelegy at discharge). As needed albuterol. 2. Acute on chronic hypoxemic and hypercarbic respiratory failure: Back to baseline. 3. Malignant pleural effusion: Stable on films. No intervention required currently. Can follow-up in the outpatient setting 4. Pneumothorax: Not evident on chest x-rays from yesterday or today. Should the patient experiencing increasing chest pain or shortness of breath, she should present to the emergency room for follow-up imaging. Would avoid positive airway pressure for now. Patient vies not to fly commercially or participate in any activities associated with significant changes in barometric pressure including scuba diving for the next 4 to 6 weeks. Would avoid PFTs at this point in time as well. Patient appears back to baseline. At this point time I think she can be dismissed home and follow-up in the outpatient setting with her outpatient auditor medical claims. Pulmonary will sign off. Feel free to contact us with questions or concerns Admission and Anticipated Discharge Date Admission Date: October 04, 2025 Subjective Patient seen and examined. EMR reviewed. Patient sitting up eating breakfast. She is been weaned down to her baseline oxygen requirement. No respiratory issues. The patient is quite anxious to be dismissed home. She has no new respiratory concerns today Review of Systems 2 Review of Systems: All systems reviewed & are unremarkable except as noted in Subjective Physical Exam 2 Constitutional: WD/WN, vitals as above Neck: trachea midline, no thyromegaly Respiratory: no respiratory distress, no labored breathing, no cough and not tachypneic Auscultation: + diminished lung sounds; no wheezes Cardiovascular: RRR, no murmur, no edema Gastrointestinal (Abdomen): normal bowel sounds, soft, nontender, no hepatosplenomegaly Musculoskeletal: Extremities: extremities normal to inspection Skin: no rashes, warm and dry Lymphatic: no cervical lymphadenopathy Results & Data Results & Data Vital Signs (Past 12 Hours) Vital Signs Temp Pulse Resp BP BP Pulse Ox O2 Del Method 10/06/25 07:23 36.8 C 57 L 18 176/72 H 192/54 H 93 Nasal Cannula 10/06/25 03:35 36.6 C 71 17 168/62 H 94 Nasal Cannula 10/05/25 23:09 36.7 C 64 17 168/58 H 97 Nasal Cannula 10/05/25 20:45 Nasal Cannula O2 Flow Rate 10/06/25 07:23 2 10/06/25 03:35 2.5 10/05/25 23:09 3 10/05/25 20:45 3 Laboratory Results 10/05/25 05:56 Diagnostic Findings Chest x-ray from this morning was independently reviewed. No obvious pneumothorax. PG Care Time/CCT Total # of Minutes Spent Total Time Spent with Patient: Total time spent is greater than 50% in coordination of care (as documented) at patient's floor/unit and/or counseling patient: Coding Level of Care Code 61190 SUB INP/OBS CARE 235MIN Diagnoses COPD with emphysema J43.9 Malignant pleural effusion J91.0 Acute and chronic respiratory failure with hypercapnia J96.22 Metastatic cancer C79.9 Pneumothorax J93.9
[2025-10-06 08:37] LABS: Anion Gap 7.0 (3-11); Blood Urea Nitrogen 41.0 mg/dl (6-23); Calcium 8.1 mg/dl (8.6-10.3); Carbon Dioxide 42.0 mmol/L (21-32); Chloride 97.0 mmol/L (98-107); Creatinine Clr Calc Pharmacy 61.3 ml/min; Glucose 94.0 mg/dl (70-99(Fasting)); Magnesium 2.0 mg/dl (1.7-2.4); Potassium 3.3 mmol/L (3.5-5.1); Sodium 146.0 mmol/L (136-145)
--- NOTE | 2025-10-06 09:30 | Cardiology Progress Note ---
Date of Service October 06, 2025 Assessment & Plan (1) (HFpEF) heart failure with preserved ejection fraction: (2) Hypertension: (3) Mitral regurgitation: (4) Hypertrophic cardiomyopathy: (5) LBBB (left bundle branch block): (6) CAD (coronary artery disease): Plan 1. Decompensated heart failure with preserved ejection fraction: Unclear precipitant. Possibly related to her hypertension. She responded well to diuresis. She can continue to use Lasix on a as needed basis if necessary. She can monitor her weight at home and take 20 mg as needed for weight gain over 2 pounds in a day or 5 pounds in 2 days. Alternatively, a low-dose of daily Lasix could be entertained. 2. Dyspnea: Likely multifactorial. Diuresis resulted in significant improvement in her oxygenation. However, initial presentation demonstrated some hypercapnia as well which would not be consistent with decompensated heart failure. Perhaps an element of primary lung disease in addition. 3. Coronary disease: Nonobstructive. 4. Mitral regurgitation: Not severe. Not likely to be a clinical concern in the course of her lifetime. 5. Hypertrophic cardiomyopathy: Status post septal myectomy. No obstruction on her recent echocardiogram. 6. Hypertension: Longstanding and severe. Currently on carvedilol, doxazosin and lisinopril. Spironolactone added today. Nitroglycerin transdermal added yesterday. Review of her abdominal CT scan recently suggest significant calcifications throughout the vasculature. It is possible she suffers from renal artery stenosis. Could consider an evaluation of the renal arteries with renal artery duplex. Admission and Anticipated Discharge Date Admission Date: October 04, 2025 Subjective This morning patient claims of feeling much better. She states that she has a more "positive" outlook. She denies any significant breathing trouble. No chest pain. No back pain. Review of Systems Review of Systems: Per HPI Physical Exam Physical Exam: She is alert and oriented x3. Mood affect appear normal. She answered all questions appropriately. On 2 L nasal cannula. HEENT: Sclerae are anicteric. Pupils are equal and reactive to light and accommodation. Extraocular movements were intact. Neuro: Cranial nerves intact Lungs: Occasional crackle at the right base. No expiratory wheezing. Normal respiratory effort. Cardiac: The rhythm was regular. S1 and S2 were normal. There are no murmurs on examination. The PMI was not markedly displaced on palpation. Extremities: Patient has bilateral radial pulses that are equal in intensity. There is no evidence cyanosis or clubbing. Minimal lower extremity edema Skin: There are no rashes noted on examination today. Results & Data Vital Signs (Past 12 Hours) Vital Signs Temp Pulse Resp BP BP Pulse Ox O2 Del Method 10/06/25 07:23 36.8 C 57 L 18 176/72 H 192/54 H 93 Nasal Cannula 10/06/25 03:35 36.6 C 71 17 168/62 H 94 Nasal Cannula 10/05/25 23:09 36.7 C 64 17 168/58 H 97 Nasal Cannula O2 Flow Rate 10/06/25 07:23 2 10/06/25 03:35 2.5 10/05/25 23:09 3 Laboratory Results Abnormal Lab Results 10/05/25 10/05/25 10/05/25 11:05 16:01 20:05 Sodium Potassium Chloride Carbon Dioxide Anion Gap BUN Creatinine Est Cr Clr Drug Dosing eGFR BUN/Creatinine Ratio Glucose POC Glucose 141 H 133 H 275 H Calcium Magnesium 10/06/25 10/06/25 07:08 07:24 Sodium 146 H Potassium 3.3 L Chloride 97 L Carbon Dioxide 42 H* Anion Gap 7 BUN 41 H Creatinine 0.56 L Est Cr Clr Drug Dosing 61.3 eGFR 91.63 BUN/Creatinine Ratio 73.2 H Glucose 94 POC Glucose 109 H Calcium 8.1 L Magnesium 2.0 PG Care Time/CCT Total # of Minutes Spent Total Time Spent with Patient: Total time spent is greater than 50% in coordination of care (as documented) at patient's floor/unit and/or counseling patient: Coding Level of Care Code 60081 SUB INP/OBS CARE 235MIN Diagnoses (HFpEF) heart failure with preserved ejection fraction I50.30 Primary hypertension I10 Hypertension type: primary hypertension Mitral regurgitation I34.0 Hypertrophic cardiomyopathy I42.2 LBBB (left bundle branch block) I44.7 Coronary artery disease involving [place] coronary artery of [place] heart without angina pectoris I25.10 Coronary Disease-Associated Artery/Lesion type: [place] artery [place] vs. transplanted heart: [place] heart Associated angina: without angina (2) Hypertension Hypertension type: primary hypertension Qualified Code(s): I10 - Essential (primary) hypertension (6) CAD (coronary artery disease) Coronary Disease-Associated Artery/Lesion type: [place] artery [place] vs. transplanted heart: [place] heart Associated angina: without angina Qualified Code(s): I25.10 - Atherosclerotic heart disease of [place] coronary artery without angina pectoris
--- NOTE | 2025-10-06 09:31 | Discharge Summary ---
Discharge Summary Date of Service October 06, 2025 Principal Dx & Hospital Course #1 = Principal Diagnosis (1) Pneumothorax after biopsy: -continue supplemental oxygen, - consulted pulmonary, no chest tube at this time -f/u repeat-CXR (2) COPD with emphysema: received IV Solu-Medrol in the ED, no longer wheezing at this moment, continue prednisone 40 mg daily treat with scheduled and as needed bronchodilators, continue her control inhaler over oxygenation, because of her hypercarbia Target O2 sat 88-92% she does have home O2 continuous 2.5 L patient now at baseline respiratory status, pulmonary cleared to d/c home (3) (HFpEF) heart failure with preserved ejection fraction: - lasix 20mg IV BID - continue carvedilol, lisinopril - cardiology consulted (4) Lumbar vertebral fracture, pathologic: pathologic lumbar compression fractures, cancer related pain - continue MS IR 15 mg p.o. q. 3 times daily cautiously, oxycodone as needed for breakthrough pain - naloxone as needed overdose/respiratory depression - high risk situation because she is pain control but also having hypercarbia and PPV contradindicated by pneumothorax (5) Cancer related pain: - recently started keytruda. consider keytruda-related lung toxicity if hypoxia, dyspnea not improving with above measures - follow up with Dr. Singleton (6) Hypertensive urgency: -labetalol prn -con't home BP meds (7) Metastatic cancer: - Metastatic NSCLC - recently started keytruda. consider keytruda-related lung toxicity if hypoxia, dyspnea not improving with above measures - follow up with Dr. Singleton Plan Reanna is an 80-year-old woman with COPD and HFpEF, hypertrophic cardiomyopa thy who is admitted with acute on chronic hypoxic and hypercarbic respiratory failure there are several respiratory abnormalities to explain her dyspnea. I think primarily it is not the pneumothorax which is small. The ED provider was has consulted with Dr. Granda who thinks it is mainly COPD and heart failure exacerbation. Will continue to treat with steroids, bronchodilators, and gentle diuresis. Will monitor the pneumothorax carefully Dr. Granda does not feel the chest tube is indicated at this time Admission HPI Per Admitting Provider Reanna is an 80-year-old woman with metastatic non-small cell lung cancer and COPD who became acutely more short of breath than usual this morning. Her noticed that she was hypoxic on pulse oximeter and brought her into the ED. She had a thoracentesis 5 days ago by pulmonary for symptomatic right pleural effusion. She also recently started Keytruda. In the ED she was severely hypertensive with blood pressure up to 222/78 and respiratory rate of 28 however both of these markedly improved with treatment of pain and anxiety. She has chronic right hip/back pain related to her modest bony metastases and she recently completed a course of palliative radiation for this. She was initially placed on BiPAP and was more comfortable however CT pulmonary angiogram was obtained. There was no pulmonary embolism however she did have a small right pneumothorax so BiPAP was discontinued she was placed back on nasal cannula and continued to have good O2 sats on 4-6 liters oxygen. she did have VBG and pH was 7.3 with CO2 of 67 some of which is chronic. Care was discussed with the chrome plater helper on-call who recommended holding off on any chest tube for now and repeat chest x-ray as needed, treating COPD and heart failure. She was given nebulizers and Solu-Medrol in the ED. For me she is a little bit sleepy after Ativan and morphine her is at the bedside and provides some additional history. Currently she is feeling much better with respect to shortness of breath as compared when she first came to the ED. She is more short of breath than usual. She is not having any chest pain. No palpitations. No nausea vomiting abdominal pain or diarrhea. No suprapubic pain or dysuria. She is having right hip and right low back pain as described. She has noticed increased lower extremity edema recently she has not had any changes in any of her heart related medications. She was seen in palliative care clinic fairly recently and pain control changed to MS IR which she says has been more effective. Discharge Exam GENERAL APPEARANCE NAD, activity normal for age, well developed/ well nourished, no cyanosis, pallor, or diaphoresis. EYES lids/conjunctiva normal. EARS/NOSE/THROAT Mucous membranes moist, nares normal, lips/teeth normal uvula midline without oral pharyngeal erythema, exudate or swelling TMs normal bilaterally. No lymphangitis/lymphedema. HEAD/NECK normocephalic atraumatic, no facial trauma, neck is supple. RESPIRATORY respiratory effort normal, speaks in full sentences, no tripod position, no accessory muscle use. Lungs clear to auscultation without rhonchi, wheezes, rales CARDIAC Regular rate and rhythm, no edema. ABDOMINAL Soft, ND/NT. No evidence of fluid wave. No pulsatile masses on exam, rebound tenderness, Corona sign or pain over Mcburney's point. MUSCLES/EXTREMITIES No abnormal range of motion, no swelling. SKIN Warm, pink and dry. No rashes, dermatoses, petechiae or lesions. NEUROLOGICAL Speech is clear and appropriate. Normal level of consciousness. Gait and coordination are normal. 5/5 strength in all extremities. PSYCH Normal mood and affect. Judgement/competence is appropriate Discharge Plan Discharge Items Patient Disposition: Home - Self-Care Reason For Visit: HYPOXIA Discharge Diagnosis: COPD exacerbation Activity: Resume your previous activity Non-emergency contact: Primary Care Provider Call non-emergency contact if: you have any medication questions Follow-up/Referrals: Jessee Joiner, [Primary Care Provider] - Diet: Regular Addtl Attending Provider Instructions: Follow up with PMD in 2 weeks Pending Studies at Discharge: No Stand-Alone Forms: My [facility] [place] [employer], Smoking Cessation Medications and DC Order Prescriptions: New azithromycin 250 mg Tablet 250 mg PO QAM Qty: 3 0RF spironolactone 25 mg Tablet 30 mg PO QAM Qty: 25 0RF prednisone 10 mg tablet 10 mg PO DIRECTED Qty: 20 0RF Rx Instructions: see taper instructions take 4 tabs daily for 2 days then, take 3 tabs daily for 2 days then, take 2 tabs daily for 2 days then, take 1 tab daily for 2 days Continued doxazosin 4 mg tablet 4 mg PO HS Qty: 90 3RF carvedilol 25 mg tablet 25 mg PO BID Qty: 180 3RF rosuvastatin 10 mg tablet 10 mg PO HS Qty: 90 3RF loratadine 10 mg tablet 10 mg PO DAILY PRN (Reason: runny nose) Qty: 90 3RF furosemide [Lasix] 20 mg tablet 20 mg PO DAILY PRN (Reason: weight gain, edema, shortness of breath) Qty: 30 2RF ondansetron HCl 4 mg tablet 4 mg PO Q8H folic acid 1 mg tablet 1 mg PO DAILY lorazepam 1 mg tablet 1 mg PO HS PRN (Reason: anxiety) Qty: 30 3RF gabapentin 100 mg tablet 100 mg PO TID PRN (Reason: back/leg pain) Qty: 30 0RF acetaminophen 500 mg tablet 1,000 mg PO TID PRN (Reason: pain) Qty: 90 0RF pantoprazole 40 mg Tablet,Delayed Release (Dr/Ec) 40 mg PO BID 30 Days Qty: 60 1RF albuterol sulfate 90 mcg/actuation HFA aerosol inhaler 2 puff inhalation Q4H PRN (Reason: Shortness Of Breath Or Wheezing) lisinopril 40 mg tablet 40 mg PO DAILY Trelegy Ellipta 200-62.5-25 mcg blister with device 1 inh inhalation DAILY morphine 15 mg tablet 15 mg PO Q8H PRN (Reason: Pain) Patient Comments: gets morphine IR 15 mg per dispense hx Discharge Orders: Discharge Order (Routine); Ordered 10/06/25 Ordered By: Rome Cochran Admission Data Admit Date/Time: 10/04/25 15:19 Attending Provider: Rome Cochran Admit Provider: Khushboo Michael Primary Care Provider: Jessee Joiner Other Providers: Khushboo Michael; Riley Granda; Chintan Bello Hospital Stay Data Consultations 10/04/25 14:44 ED Decision to Admit Stat 10/04/25 18:28 Consult Pulmonology Routine 10/05/25 10:17 Consult Cardiology Routine Diagnostic Imagining Performed 10/04/25 12:16 CT angio chest PE protocol Stat Pending Results Patient Have Any Pending Studies at Discharge: No Discharge Instructions Given to Patient (Per Discharging Provider) Follow up with PMD in 2 weeks Total Time Total Time Spent Total Time Spent (In Minutes): 50 Coding Level of Care Code 32220 INP/OBS DISCH >30 MIN Diagnoses Pneumothorax after biopsy J95.811 COPD with emphysema J43.9 (HFpEF) heart failure with preserved ejection fraction I50.30 Lumbar vertebral fracture, pathologic M84.48XA Cancer related pain G89.3 Hypertensive urgency I16.0 Metastatic cancer C79.9
[2025-10-06] MEDS: SPIRONOLACTONE 25 MG TAB PO SCH (09:44)
[2025-10-06] MEDS: POTASSIUM CHLORIDE / WTR 10 MEQ/100 ML PLCT IV SCH (11:00)
--- NOTE | 2025-10-06 11:07 | Ultrasound Report ---
DOPPLER ULTRASOUND OF THE RENAL ARTERIES CLINICAL HISTORY: Hypertension. COMPARISON STUDY: Abdominal CT dated 08/23/2025 TECHNIQUE: Doppler sonography of the renal arteries was performed to assess renal artery stenosis. Im ages are reviewed in the transverse and longitudinal planes. FINDINGS: The kidneys appear normal in size and echotexture. The right kidney measures 10.6 cm in length and th e left kidney measures 11.5 cm in length. Bilateral renal cysts measure up to 1.5 cm. There is no hyd ronephrosis. On the right, intrarenal arterial resistive indices range from 0.60 to 0.74. Intrarenal arterial wave forms show blunted upstroke. The right renal arterial waveform is normal, and velocities within the r ight renal artery measure up to 229 cm/sec. The right renal vein is patent. On the left, intrarenal arterial resistive indices range from 0.78 to 0.89. Intrarenal arterial wave forms show blunted upstroke. The left renal arterial waveform is normal, and velocities within the le ft renal artery measure up to 130 cm/sec. The left renal vein is patent. The abdominal aorta is patent noting advanced atherosclerotic plaque and irregularity. An infrarenal abdominal aortic aneurysm measures 3.7 x 3.6 cm. Velocities within the abdominal aorta measure up to 101 cm/s. IMPRESSION: 1. 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 2. There is no sonographic evidence of renal artery stenosis on the left. 3. There is a 3.7 x 3.6 cm infrarenal abdominal aortic aneurysm. ACT 112: Negative or not required by law. Electronically signed by: Fracisco Graham M.D. 10/06/2025 11:06 AM
[2025-10-06] MEDS: LORazepam 0.5 MG TAB PO PRN (15:32)
[2025-10-07 07:02] LABS: Anion Gap 7.0 (3-11); Blood Urea Nitrogen 42.0 mg/dl (6-23); Calcium 8.0 mg/dl (8.6-10.3); Carbon Dioxide 42.0 mmol/L (21-32); Chloride 96.0 mmol/L (98-107); Creatinine Clr Calc Pharmacy 38.2 ml/min; Glucose 90.0 mg/dl (70-99(Fasting)); Magnesium 2.0 mg/dl (1.7-2.4); Potassium 3.8 mmol/L (3.5-5.1); Sodium 145.0 mmol/L (136-145)
[2025-10-07 08:05] LABS: Hematocrit (blood only) 26.3 % (37.0-47.0); Hemoglobin 8.2 g/dL (12.0-16.0); Mean Corpuscular Hemoglobin 27.5 pg (25.0-34.0); Mean Corpuscular Volume 88.3 fL (80.0-100.0); Platelet Count 225 K/uL (130-400); RDW Standard Deviation 49.7 fL (36.4-46.3); Red Blood Count 2.98 M/uL (4.20-5.40); White Blood Count 5.33 K/ul (4.8-10.8)
--- NOTE | 2025-10-07 08:50 | Hospitalist Progress Note ---
Date of Service October 07, 2025 Assessment & Plan (1) COPD with emphysema: Plan: received IV Solu-Medrol in the ED, no longer wheezing at this moment, continue prednisone 40 mg daily treat with scheduled and as needed bronchodilators, continue her control inhaler over oxygenation, because of her hypercarbia Target O2 sat 88-92% she does have home O2 continuous 2.5 L patient now at baseline respiratory status, pulmonary cleared to d/c home Awaiting for PT evaluation as patient may require possible placement (2) Pneumothorax after biopsy: Plan: -continue supplemental oxygen, - consulted pulmonary, no chest tube at this time -f/u repeat-CXR (3) (HFpEF) heart failure with preserved ejection fraction: Plan: - lasix 20mg IV BID - continue carvedilol, lisinopril - cardiology consulted (4) Lumbar vertebral fracture, pathologic: Plan: pathologic lumbar compression fractures, cancer related pain - continue MS IR 15 mg p.o. q. 3 times daily cautiously, oxycodone as needed for breakthrough pain - naloxone as needed overdose/respiratory depression - high risk situation because she is pain control but also having hypercarbia and PPV contradindicated by pneumothorax (5) Cancer related pain: Plan: - recently started keytruda. consider keytruda-related lung toxicity if hypoxia, dyspnea not improving with above measures - follow up with Dr. Singleton (6) Hypertensive urgency: Plan: -labetalol prn -con't home BP meds (7) Metastatic cancer: Plan: - Metastatic NSCLC - recently started keytruda. consider keytruda-related lung toxicity if hypoxia, dyspnea not improving with above measures - follow up with Dr. Mani Thibodeaux Reanna is an 80-year-old woman with COPD and HFpEF, hypertrophic cardiomyopathy who is admitted with acute on chronic hypoxic and hypercarbic respiratory failure there are several respiratory abnormalities to explain her dyspnea. I think primarily it is not the pneumothorax which is small. The ED provider was has consulted with Dr. Granda who thinks it is mainly COPD and heart failure exacerbation. Will continue to treat with steroids, bronchodilators, and gentle diuresis. Will monitor the pneumothorax carefully Dr. Granda does not feel the chest tube is indicated at this time Admission and Anticipated Discharge Date Admission Date: October 04, 2025 Subjective No events overnight. Pt was too weak to be discharged yesterday. She feels better today, awaiting PT evaluation. Review of Systems Review of Systems: CONST: Negative for fever, body aches and chills. HENT: Negative for neck pain/stiffness, headache, congestion, sore throat, swelling. EYES: Negative for discharge/pain or vision changes. RESP: Negative for cough/hemoptysis and shortness of breath. CV: Negative chest pain, difficulty breathing, palpitations. ABD: Negative pain, nausea, vomiting. : Negative increase frequency, dysuria, blood in urine or stool. MUSC: Negative for muscle aches, edema. SKIN: Negative rash, lesions/sores. NEURO: Negative headache, dizziness, weakness. Physical Exam Physical Exam: GENERAL APPEARANCE NAD, activity normal for age, well developed/ well nourished, no cyanosis, pallor, or diaphoresis. EYES lids/conjunctiva normal. EARS/NOSE/THROAT Mucous membranes moist, nares normal, lips/teeth normal uvula midline without oral pharyngeal erythema, exudate or swelling TMs normal bilaterally. No lymphangitis/lymphedema. HEAD/NECK normocephalic atraumatic, no facial trauma, neck is supple. RESPIRATORY respiratory effort normal, speaks in full sentences, no tripod position, no accessory muscle use. Lungs clear to auscultation without rhonchi, wheezes, rales CARDIAC Regular rate and rhythm, no edema. ABDOMINAL Soft, ND/NT. No evidence of fluid wave. No pulsatile masses on exam, rebound tenderness, Corona sign or pain over Mcburney's point. MUSCLES/EXTREMITIES No abnormal range of motion, no swelling. SKIN Warm, pink and dry. No rashes, dermatoses, petechiae or lesions. NEUROLOGICAL Speech is clear and appropriate. Normal level of consciousness. Gait and coordination are normal. 5/5 strength in all extremities. PSYCH Normal mood and affect. Judgement/competence is appropriate Results & Data Results & Data Vital Signs (Past 12 Hours) Vital Signs Temp Pulse Pulse Resp BP BP Pulse Ox 10/07/25 07:45 61 10/07/25 07:45 10/07/25 07:28 36.7 C 61 20 151/58 H 96 10/07/25 04:01 36.7 C 61 20 114/54 L 90 10/07/25 01:04 65 10/07/25 00:53 10/06/25 22:57 36.9 C 66 20 139/50 L 90 O2 Del Method O2 Flow Rate 10/07/25 07:45 10/07/25 07:45 Nasal Cannula 1 10/07/25 07:28 Nasal Cannula 1 10/07/25 04:01 Nasal Cannula 1 10/07/25 01:04 10/07/25 00:53 Nasal Cannula 1 10/06/25 22:57 Nasal Cannula 1 PG Care Time/CCT Total # of Minutes Spent Total Time Spent with Patient: Total time spent is greater than 50% in coordination of care (as documented) at patient's floor/unit and/or counseling patient: Coding Level of Care Code 45602 SUB INP/OBS CARE 235MIN Diagnoses COPD with emphysema J43.9 Pneumothorax after biopsy J95.811 (HFpEF) heart failure with preserved ejection fraction I50.30 Lumbar vertebral fracture, pathologic M84.48XA Cancer related pain G89.3 Hypertensive urgency I16.0 Metastatic cancer C79.9
[2025-10-07] MEDS ORDERED: Nursing to Pharmacy Communication SCH (15:45)
[2025-10-08 07:24] LABS: Anion Gap 7.0 (3-11); Blood Urea Nitrogen 45.0 mg/dl (6-23); Calcium 8.1 mg/dl (8.6-10.3); Carbon Dioxide 42.0 mmol/L (21-32); Chloride 96.0 mmol/L (98-107); Creatinine Clr Calc Pharmacy 41.7 ml/min; Glucose 94.0 mg/dl (70-99(Fasting)); Potassium 3.6 mmol/L (3.5-5.1); Sodium 145.0 mmol/L (136-145)
--- NOTE | 2025-10-08 09:16 | Hospitalist Progress Note ---
Date of Service October 08, 2025 Assessment & Plan (1) COPD with emphysema: Plan: received IV Solu-Medrol in the ED, no longer wheezing at this moment, continue prednisone 40 mg daily treat with scheduled and as needed bronchodilators, continue her control inhaler over oxygenation, because of her hypercarbia Target O2 sat 88-92% she does have home O2 continuous 2.5 L Patient now at baseline respiratory status, pulmonary cleared to d/c home PT recommending rehab, patient is awaiting placement. (2) Pneumothorax after biopsy: Plan: -continue supplemental oxygen, - consulted pulmonary, no chest tube at this time -f/u repeat-CXR (3) (HFpEF) heart failure with preserved ejection fraction: Plan: - lasix 20mg IV BID - continue carvedilol, lisinopril - cardiology consult appreciated (4) Lumbar vertebral fracture, pathologic: Plan: pathologic lumbar compression fractures, cancer related pain - continue MS IR 15 mg p.o. q. 3 times daily cautiously, oxycodone as needed for breakthrough pain - naloxone as needed overdose/respiratory depression - high risk situation because she is pain control but also having hypercarbia and PPV contradindicated by pneumothorax (5) Cancer related pain: Plan: - recently started keytruda. consider keytruda-related lung toxicity if hypoxia, dyspnea not improving with above measures - follow up with Dr. Singleton (6) Hypertensive urgency: Plan: -labetalol prn -con't home BP meds (7) Metastatic cancer: Plan: - Metastatic NSCLC - recently started keytruda. consider keytruda-related lung toxicity if hypoxia, dyspnea not improving with above measures - follow up with Dr. Singleton Plan Reanna is an 80-year-old woman with COPD and HFpEF, hypertrophic cardiomyopathy who is admitted with acute on chronic hypoxic and hypercarbic respiratory failure there are several respiratory abnormalities to explain her dyspnea. I think primarily it is not the pneumothorax which is small. The ED provider was has consulted with Dr. Granda who thinks it is mainly COPD and heart failure exacerbation. Will continue to treat with steroids, bronchodilators, and gentle diuresis. Will monitor the pneumothorax carefully Dr. Granda does not feel the chest tube is indicated at this time Admission and Anticipated Discharge Date Admission Date: October 04, 2025 Subjective No events overnight. Pt resting comfortably in her chair. Review of Systems Review of Systems: CONST: Negative for fever, body aches and chills. HENT: Negative for neck pain/stiffness, headache, congestion, sore throat, swelling. EYES: Negative for discharge/pain or vision changes. RESP: Negative for cough/hemoptysis and shortness of breath. CV: Negative chest pain, difficulty breathing, palpitations. ABD: Negative pain, nausea, vomiting. : Negative increase frequency, dysuria, blood in urine or stool. MUSC: Negative for muscle aches, edema. SKIN: Negative rash, lesions/sores. NEURO: Negative headache, dizziness, weakness. Physical Exam Physical Exam: GENERAL APPEARANCE NAD, activity normal for age, well developed/ well nourished, no cyanosis, pallor, or diaphoresis. EYES lids/conjunctiva normal. EARS/NOSE/THROAT Mucous membranes moist, nares normal, lips/teeth normal uvula midline without oral pharyngeal erythema, exudate or swelling TMs normal bilaterally. No lymphangitis/lymphedema. HEAD/NECK normocephalic atraumatic, no facial trauma, neck is supple. RESPIRATORY respiratory effort normal, speaks in full sentences, no tripod position, no accessory muscle use. Lungs clear to auscultation without rhonchi, wheezes, rales CARDIAC Regular rate and rhythm, no edema. ABDOMINAL Soft, ND/NT. No evidence of fluid wave. No pulsatile masses on exam, rebound tenderness, Corona sign or pain over Mcburney's point. MUSCLES/EXTREMITIES No abnormal range of motion, no swelling. SKIN Warm, pink and dry. No rashes, dermatoses, petechiae or lesions. NEUROLOGICAL Speech is clear and appropriate. Normal level of consciousness. Gait and coordination are normal. 5/5 strength in all extremities. PSYCH Normal mood and affect. Judgement/competence is appropriate Results & Data Results & Data Vital Signs (Past 12 Hours) Vital Signs Temp Pulse Pulse Resp BP BP Pulse Ox 10/08/25 07:58 10/08/25 07:15 36.7 C 66 17 121/56 L 97 10/08/25 03:05 36.8 C 67 16 149/52 H 96 10/07/25 23:55 66 10/07/25 23:39 37.1 C 74 18 124/55 L 92 10/07/25 23:02 O2 Del Method O2 Flow Rate 10/08/25 07:58 Nasal Cannula 10/08/25 07:15 Nasal Cannula 10/08/25 03:05 Nasal Cannula 1 10/07/25 23:55 10/07/25 23:39 Nasal Cannula 1.0 10/07/25 23:02 Nasal Cannula 1 PG Care Time/CCT Total # of Minutes Spent Total Time Spent with Patient: Total time spent is greater than 50% in coordination of care (as documented) at patient's floor/unit and/or counseling patient: Coding Level of Care Code 30082 SUB INP/OBS CARE 2/35MIN Diagnoses COPD with emphysema J43.9 Pneumothorax after biopsy J95.811 (HFpEF) heart failure with preserved ejection fraction I50.30 Lumbar vertebral fracture, pathologic M84.48XA Cancer related pain G89.3 Hypertensive urgency I16.0 Metastatic cancer C79.9
[2025-10-08] MEDS: POTASSIUM CHLORIDE / WTR 10 MEQ/100 ML PLCT IV SCH (10:34)
[2025-10-09 07:16] VITALS: RESP 18
[2025-10-09 10:14] LABS: Hematocrit (blood only) 28.0 % (37.0-47.0); Hemoglobin 8.7 g/dL (12.0-16.0); Immature Granulocytes # (auto) 0.02 K/uL (0.01-0.20); Immature Granulocytes % (auto) 0.5 %; Mean Corpuscular Hemoglobin 27.7 pg (25.0-34.0); Mean Corpuscular Volume 89.2 fL (80.0-100.0); Platelet Count 162 K/uL (130-400); RDW Standard Deviation 50.7 fL (36.4-46.3); Red Blood Count 3.14 M/uL (4.20-5.40); White Blood Count 4.16 K/ul (4.8-10.8)
[2025-10-09 10:35] LABS: Alanine Aminotransferase 12.0 U/L (7-52); Albumin Globulin Ratio 1.2 (0.9-2); Albumin Level 3.3 gm/dl (3.4-5.0); Alkaline Phosphatase 50.0 U/L (34-104); Anion Gap 4.0 (3-11); Bilirubin,Total 0.5 mg/dl (0.2-1.0); Blood Urea Nitrogen 50.0 mg/dl (6-23); Calcium 8.5 mg/dl (8.6-10.3); Carbon Dioxide 43.0 mmol/L (21-32); Chloride 96.0 mmol/L (98-107); Creatinine Clr Calc Pharmacy 35.1 ml/min; Globulin 2.7 gm/dl (2.5-4.0); Glucose 148.0 mg/dl (70-99(Fasting)); Iron 72.0 mcg/dl (35-150); Magnesium 2.0 mg/dl (1.7-2.4); Potassium 3.7 mmol/L (3.5-5.1); Sodium 143.0 mmol/L (136-145); Total Iron Binding Cap Calc 277.0 mcg/dl (250-450); Total Protein 6.0 gm/dl (6.0-8.3); Transferrin 198.0 mg/dl (200-360); Transferrin (FE) Percent Satur 26.0 % (15-50)
[2025-10-09 10:55] LABS: Ferritin 488.9 ng/ml (8-388); Thyroid Stimulating Hormone 1.862 uIu/ml (0.300-4.500)
[2025-10-09 11:00] VITALS: PULSE 67; TEMP 98.2; O2SAT 98
[2025-10-09 13:10] VITALS: BP 121/56
--- NOTE | 2025-10-09 13:10 | Discharge Summary ---
Discharge Summary Date of Service October 09, 2025 Principal Dx & Hospital Course #1 = Principal Diagnosis (1) COPD with emphysema: received IV Solu-Medrol and then converted to prednisone-completed a taper, no longer wheezing treat with scheduled and as needed bronchodilators, continue her control inhaler Patient now at baseline respiratory status, pulmonary cleared to d/c home PT recommending rehab, patient is awaiting placement (2) Pneumothorax: Presented with shortness of breath secondary to COPD exacerbation, acute on chronic HFpEF, as well as small right-sided pneumothorax after recent thoracentesis This was managed with supplemental O2 and resolved on repeat imaging Follow-up with pulmonology as planned in 2 weeks (3) (HFpEF) heart failure with preserved ejection fraction: With preserved EF on echo from 08/2025, with a history of myomectomy due to hypertrophic cardiomyopathy, with moderate MR. With acute on chronic HFpEF due to hypertensive urgency. Pleural effusion likely due to heart failure and malignant effusion Seen by cardiology Diuresed with lasix 20mg IV BID until developed contraction alkalosis and rising BUN She was much improved and was weaned back to her baseline O2 - continue carvedilol, lisinopril - Started spironolactone and Lasix 20 mg daily on Thursday - cardiology consult appreciated (4) Lumbar vertebral fracture, pathologic: pathologic lumbar compression fractures, cancer related pain -continue MS IR 15 mg p.o. q. 3 times daily cautiously, follow-up with palliative medicine (5) Hypertensive urgency: Improved Added spironolactone and Lasix Thursday Continue home doxazosin, carvedilol, lisinopril Renal artery stenosis 60% in the right renal [id number] as an outpatient (6) Metastatic cancer: - Metastatic NSCLC - recently started keytruda - follow up with Dr. Singleton as planned in 2 weeks for next treatment Plan DVT prophylaxis-Lovenox Disposition-stable for discharge home Notes For Next Care Provider Medication Changes From Visit Added spironolactone 25 mg p.o. daily Added Lasix 20 mg p.o. daily on Thursday Admission HPI Per Admitting Provider Reanna is an 80-year-old woman with metastatic non-small cell lung cancer and COPD who became acutely more short of breath than usual this morning. Her hu sband noticed that she was hypoxic on pulse oximeter and brought her into the ED. She had a thoracentesis 5 days ago by pulmonary for symptomatic right pleural effusion. She also recently started Keytruda. In the ED she was severely hypertensive with blood pressure up to 222/78 and respiratory rate of 28 however both of these markedly improved with treatment of pain and anxiety. She has chronic right hip/back pain related to her modest bony metastases and she recently completed a course of palliative radiation for this. She was initially placed on BiPAP and was more comfortable however CT pulmonary angiogram was obtained. There was no pulmonary embolism however she did have a small right pneumothorax so BiPAP was discontinued she was placed back on nasal cannula and continued to have good O2 sats on 4-6 liters oxygen. she did have VBG and pH was 7.3 with CO2 of 67 some of which is chronic. Care was discussed with the inspector pawnshop detail on-call who recommended holding off on any chest tube for now and repeat chest x-ray as needed, treating COPD and heart failure. She was given nebulizers and Solu-Medrol in the ED. For me she is a little bit sleepy after Ativan and morphine her is at the bedside and provides some additional history. Currently she is feeling much better with respect to shortness of breath as compared when she first came to the ED. She is more short of breath than usual. She is not having any chest pain. No palpitations. No nausea vomiting abdominal pain or diarrhea. No suprapubic pain or dysuria. She is having right hip and right low back pain as described. She has noticed increased lower extremity edema recently she has not had any changes in any of her heart related medications. She was seen in palliative care clinic fairly recently and pain control changed to MS IR which she says has been more effective. Discharge Exam Constitutional WD/WN, vitals as above Respiratory normal respiratory effort Auscultation: + diminished lung sounds (At bases bilaterally); no wheezes Cardiovascular RRR, no murmur, no edema Gastrointestinal (Abdomen) normal bowel sounds, soft, nontender, no hepatosplenomegaly Psychiatric A+Ox3, euthymic affect Discharge Plan Discharge Items Patient Disposition: Home - Home Health Services Reason For Visit: HYPOXIA Discharge Diagnosis: Heart failure with preserved ejection fraction Pleural effusion Pneumothorax Acute on chronic respiratory failure with hypoxemia COPD exacerbation Condition on Discharge: Critical Activity: As commented below Lifting: No more than 5 pounds Bathing: No limitations Exercise/Sports: Gradually increase as tolerated Exercise Comment: With home PT/OT and rolling walker Non-emergency contact: Primary Care Provider, Oncologist and Real Estate Management Specialist Call non-emergency contact if: you have any medication questions and your symptoms worsen Follow-up/Referrals: Jessee Joiner, [Primary Care Provider] - (Follow-up within 1-2 weeks) Jayna Singleton MD [Physician] - 10/23/25 (Follow-up as scheduled on October 23.) Mago Manzo MD [Physician] - 10/24/25 (Follow-up as scheduled on 10/24/2025.) Diet: Regular Addtl Attending Provider Instructions: You are admitted with shortness of breath related to COPD, congestive heart failure, severely elevated blood pressures, and a small pneumothorax (small air leak after your procedure around the lung). All of this improved with treatment with diuretics, adding a blood pressure medicine called spironolactone, and tr eating you with steroids and antibiotics. Please continue on the spironolactone once daily and take Lasix once a day on Wednesdays and Fridays as water pills to keep the fluid off. Please follow-up with your oncologist as planned for ongoing treatment for your cancer. Please follow-up with Dr. Manzo as scheduled in 2 weeks. It was a pleasure taking care of you! If you have any questions about your care before your hospital follow-up visit with your primary care provider, please call [phone] and ask to be transferred to the [facility] Medicine office. Sincerely, Ginger Pyle M.D. Pending Studies at Discharge: No Stand-Alone Forms: [facility], Smoking Cessation Medications and DC Order Prescriptions: New spironolactone 25 mg Tablet 30 mg PO QAM Qty: 25 0RF Continued doxazosin 4 mg tablet 4 mg PO HS Qty: 90 3RF carvedilol 25 mg tablet 25 mg PO BID Qty: 180 3RF rosuvastatin 10 mg tablet 10 mg PO HS Qty: 90 3RF loratadine 10 mg tablet 10 mg PO DAILY PRN (Reason: runny nose) Qty: 90 3RF ondansetron HCl 4 mg tablet 4 mg PO Q8H folic acid 1 mg tablet 1 mg PO DAILY lorazepam 1 mg tablet 1 mg PO HS PRN (Reason: anxiety) Qty: 30 3RF gabapentin 100 mg tablet 100 mg PO TID PRN (Reason: back/leg pain) Qty: 30 0RF acetaminophen 500 mg tablet 1,000 mg PO TID PRN (Reason: pain) Qty: 90 0RF pantoprazole 40 mg Tablet,Delayed Release (Dr/Ec) 40 mg PO BID 30 Days Qty: 60 1RF albuterol sulfate 90 mcg/actuation HFA aerosol inhaler 2 puff inhalation Q4H PRN (Reason: Shortness Of Breath Or Wheezing) lisinopril 40 mg tablet 40 mg PO DAILY Trelegy Ellipta 200-62.5-25 mcg blister with device 1 inh inhalation DAILY morphine 15 mg tablet 15 mg PO Q8H PRN (Reason: Pain) Patient Comments: gets morphine IR 15 mg per dispense hx Changed furosemide [Lasix] 20 mg tablet 20 mg PO 3XWK Qty: 12 0RF Rx Instructions: On Thursday and Thursday Discharge Orders: Discharge Order- CHF (Routine); Ordered 10/09/25 Ordered By: Ginger Pyle Admission Data Admit Date/Time: 10/04/25 15:19 Attending Provider: Ginger Pyle Admit Provider: Khushboo Michael Primary Care Provider: Jessee Joiner Other Providers: Khushboo Michael; Riley Granda; Chintan Bello Hospital Stay Data Consultations 10/04/25 14:44 ED Decision to Admit Stat 10/04/25 18:28 Consult Pulmonology Routine 10/05/25 10:17 Consult Cardiology Routine Diagnostic Imagining Performed 10/04/25 12:16 CT angio chest PE protocol Stat 10/06/25 09:38 US duplex renal art/vein BI Routine Pending Results Patient Have Any Pending Studies at Discharge: No Discharge Instructions Given to Patient (Per Discharging Provider) You are admitted with shortness of breath related to COPD, congestive heart failure, severely elevated blood pressures, and a small pneumothorax (small air leak after your procedure around the lung). All of this improved with treatment with diuretics, adding a blood pressure medicine called spironolactone, and treating you with steroids and antibiotics. Please continue on the spironolactone once daily and take Lasix once a day on Wednesdays and Fridays as water pills to keep the fluid off. Please follow-up with your oncologist as planned for ongoing treatment for your cancer. Please follow-up with Dr. Manzo as scheduled in 2 weeks. It was a pleasure taking care of you! If you have any questions about your care before your hospital follow-up visit with your primary care provider, please call [phone] and ask to be transferred to the [facility] Medicine office. Sincerely, Ginger Pyle M.D. Total Time Total Time Spent Total Time Spent (In Minutes): 35 minutes Coding Level of Care Code 63790 INP/OBS DISCH >30 MIN Diagnoses COPD with emphysema J43.9 Pneumothorax J93.9 (HFpEF) heart failure with preserved ejection fraction I50.30 Lumbar vertebral fracture, pathologic M84.48XA Hypertensive urgency I16.0 Metastatic cancer C79.9
== END 2025-10-09 13:58 | disposition home health service (06) | DRG 291 ==
LOC: ED 12:09 → 2S 15:19 → SUATTDRO 15:19 → 2S 16:50

== ENCOUNTER 2025-10-19 23:28 | Inpatient (IN) ==
--- NOTE | 2025-10-19 23:42 | Emergency Department Note ---
History of Present Illness General Chief complaint: Fever Stated complaint: Fever, Weakness, Lung Cancer Time Seen by Provider: 10/19/25 23:29 History of Present Illness This is an 80-year-old female presenting to the emergency department via EMS from home for evaluation of fever that started earlier today. Patient has a history of metastatic non-small cell lung cancer and is following with Dr. Carol ahn. The patient lives at home with family and report that she was fatigued today and had several episodes of urination which is atypical. According to EMS the patient's temperature at home was 102.8 degrees when family did give Tylenol. This did seem to help patient's symptoms. Secondarily the patient does have COPD and chronic heart failure. The patient feels like she has been eating and drinking as normal. She wears one half of a liter of nasal cannula oxygen at all times. Patient does not have additional complaints and rates her discomfort a 5/10. Home Medications Medication Instructions Recorded Confirmed Type carvedilol 25 mg tablet 25 mg PO BID #180 tabs 01/24/25 10/20/25 Rx rosuvastatin 10 mg tablet 10 mg PO HS #90 tabs 07/11/25 10/20/25 Rx acetaminophen 500 mg tablet 1,000 mg (2 x 500 mg) PO TID PRN 08/24/25 10/20/25 Rx pain #90 tabs pantoprazole 40 mg tablet,delayed 40 mg PO BID 30 days #60 tabs 09/02/25 10/20/25 Rx release folic acid 1 mg tablet 1 mg PO DAILY 09/27/25 10/20/25 History albuterol sulfate 90 mcg/actuation 2 puff inhalation Q4H PRN 10/04/25 10/20/25 History aerosol inhaler Shortness Of Breath Or Wheezing fluticasone fur. 200 mcg-umeclid 1 inh inhalation DAILY 10/04/25 10/20/25 History 62.5 mcg-vilant 25 mcg inhalat.powder (Trelegy Ellipta) lisinopril 40 mg tablet 40 mg PO DAILY 10/04/25 10/20/25 History furosemide 20 mg tablet (Lasix) 20 mg PO 3XWK #12 tabs 10/09/25 10/20/25 Rx spironolactone 25 mg tablet 25 mg PO QAM #30 tabs 10/09/25 10/20/25 Rx dexamethasone 4 mg tablet 4 mg PO BID PRN PER CHEMO 10/11/25 10/20/25 History DIRECTIONS morphine 15 mg immediate release 15 mg PO Q8H PRN Pain 10/11/25 10/20/25 History tablet olanzapine 2.5 mg tablet 2.5 mg PO DAILY PRN PER CHEMO 10/11/25 10/20/25 History DIRECTIONS ondansetron HCl 4 mg tablet See Rx Instructions PO Q8H PRN PER 10/11/25 10/20/25 History CHEMO DIRECTIONS prochlorperazine maleate 10 mg 10 mg PO Q6H PRN NAUSEA/VOMITING 10/11/25 10/20/25 History tablet gabapentin 300 mg capsule 300 mg PO TID PRN Pain 10/12/25 10/20/25 History lorazepam 1 mg tablet 0.5 mg PO HS PRN anxiety 10/20/25 10/20/25 History Allergies Allergy/AdvReac Type Severity Reaction Status Date / Time hydrochlorothiazide Allergy Mild Rash Verified 10/20/25 00:30 nickel Allergy Mild Rash Verified 10/20/25 00:30 Sulfa (Sulfonamide Allergy Mild Rash Verified 10/20/25 00:30 Antibiotics) prednisone AdvReac Intermediate MOOD Verified 10/20/25 00:30 CHANGES Past Med/Surg History Problem List (Updated 10/20/25 @ 05:14 by Miko Hardwick PA-C) Fever of unknown origin (FUO) (Acute) Anemia requiring transfusions (Acute) Renal artery stenosis Anemia of chronic disease (Acute) Pleural effusion (Acute) Metastatic cancer (Acute) Mitral regurgitation Malignant pleural effusion (HFpEF) heart failure with preserved ejection fraction COPD with emphysema Palliative care by specialist Lumbar vertebral fracture, pathologic (Acute ~09/18/25) Largest lesions at the L3 and L4 levels with redemonstration of an L4 pathologic fracture. Hypoxia (Acute) Cancer related pain (Acute) Lung mass Abnormal MRI, lumbar spine Lumbar radiculopathy Back pain (Acute) Left hip pain Cognitive impairment Vitamin B12 deficiency anemia Allergic reaction to sulfonamide Hyperglycemia Dyslipidemia Family history of colon cancer LVH (left ventricular hypertrophy) (Chronic) Diverticulosis (Chronic) Chronic rhinitis Chronic obstructive pulmonary disease Osteoporosis (Chronic) Hypertension Esophageal reflux (Chronic) Anxiety (Chronic) Medical History Abnormal CT of the abdomen Acute dehydration Nausea and vomiting Lumbago Demand ischemia Nausea CAD (coronary artery disease) Nonobstructive Hypochromic anemia Metastatic cancer LBBB (left bundle branch block) since myectomy Hypertrophic cardiomyopathy s/p myectomy with no outflow obstruction or MR on echo after surgery Mitral regurgitation PT STATES RESOLVED AFTER HEART SURGERY Edema Dyspnea on exertion History of anemia Spinal stenosis Hyperlipidemia Borderline diabetic Hx of gastric ulcer Chronic obstructive pulmonary disease History of basal cell carcinoma Surgical History History of anesthesia reaction SLOW TO WAKE UP H/O wrist surgery + CTR (HARDWARE INTACT) History of cholecystectomy History of tooth extraction History of cataract surgery RT/LEFT History of esophagogastroduodenoscopy (EGD) History of colonoscopy (~2015) S/P breast lumpectomy LEFT (BENIGN) S/P tonsillectomy H/O arthroscopic knee surgery RT H/O hernia repair S/P myomectomy 2 YEARS AGO AT [place] Family History Mother Colorectal cancer Father , at 78 years of age from acute MT in the setting of DM. Diabetes Stroke Family history of diabetes mellitus Brother Family history of diabetes mellitus Family/Other Breast cancer niece Mother , at 62 years of age from colon CA. No problems noted. Other No family history of adverse response to anesthesia Denies family history of Ovarian cancer Prostate cancer Social History Smoking Status: Never smoker Tobacco Type: Cigarettes Age Started Using Tobacco: 16; Age Quit Using Tobacco: 72; packs per day: 0.5; Second Hand Exposure: No; Do You Dip or Chew Tobacco: No; Hx Alcohol Use: No Hx Substance Use: No Preferred Language: [place] Communication Ability: Effective Bottom Saw Operator Required: No Beliefs That Will Affect Care: None marital status: marital status details: 63 yrs Current Living Situation: Spouse and Family Current Living Situation Comment: Daughter and Grandaughter current occupational status: retired How many Children do You have: 2 How many Children do You have Comment: 2 sons(53y,,drug O/D;59y,alive/well);1 daughter(53y,alive/well). Feels Safe at Home: Yes Childhood Exposure to Second-Hand Smoke: No Diet: regular caffeine: Yes Dental Care, Regularly: No Physical Activity Frequency: Daily Seatbelt Use: always Sunscreen Use: Yes Assistive Devices: Oxygen - Continuous Review of Systems A total of 10 systems reviewed and were otherwise negative Physical Exam Vital Signs Vital Signs - 24 hr 10/19/25 23:29 10/19/25 23:34 10/20/25 00:09 Temperature 37.7 C H Temperature Source Oral Pulse Rate 87 76 Pulse Rhythm Regular Respiratory Rate 16 18 Respiratory Depth Normal Blood Pressure 124/85 Blood Pressure Mean 98 Pulse Oximetry 90 98 Oxygen Delivery Method Room Air Nasal Cannula Nasal Cannula Oxygen Flow Rate 2 1 Sepsis Recent Fever Within 48 Hours Yes Sepsis New/Unexplained Change in Mental Status No Sepsis Action Taken by Nursing No Action Required VITALS: Vitals are noted on the nurse's note and reviewed by myself. Vital signs stable. GENERAL: Elderly white female who appears ill but not toxic HEAD: Normocephalic atraumatic. NECK: Supple without nuchal rigidity. No lymphadenopathy. No thyromegaly. Cervical spine is nontender. HEART: Regular rate and rhythm without murmurs gallops or rubs. LUNGS: Generally clear throughout ABDOMEN: Positive normal bowel sounds x 4. Soft, nontender, without masses or organomegaly. No guarding or rebound tenderness. MUSCULOSKELETAL: No muscle atrophy, erythema, or edema noted. Full range of motion in all extremities. NEURO: Patient was alert and oriented to person place and time. CN II through XII grossly intact. No focal neurological deficits. GCS 15. Course Administered Medications Magnesium Sulfate/Dextrose (Magnesium Sulfate / D5w) 1 gm in 100 mls @ 50 mls/hr IV Q2H CARLOS Stop: 10/20/25 07:44 Last Admin: 10/20/25 04:20 Dose: 50 mls/hr Documented By: Infusion: 10/20/25 04:14 Dose: Infused Documented By: Admin: 10/20/25 02:14 Dose: 50 mls/hr Documented By: shannon Lactated Ringer's (Lr) 1,000 mls @ 80 mls/hr IV .[id number] STA Stop: 10/20/25 14:23 Last Admin: 10/20/25 02:14 Dose: 80 mls/hr Documented By: shannon Discontinued Medications Acetaminophen (Acetaminophen 325 Mg Tab) 650 mg PO NOW STA Stop: 10/20/25 00:51 Last Admin: 10/20/25 02:56 Dose: 650 mg Documented By: shannon Acetaminophen (Acetaminophen 325 Mg Tab) Confirm Administered Dose 650 mg .ROUTE .STK-MED ONE Stop: 10/20/25 02:56 Last Admin: 10/20/25 03:16 Dose: Not Given Documented By: EDGAR Diphenhydramine HCl (Diphenhydramine 50 Mg/Ml Vial) 25 mg IV NOW STA Stop: 10/20/25 00:51 Last Admin: 10/20/25 02:56 Dose: 25 mg Documented By: shannon Diphenhydramine HCl (Diphenhydramine 50 Mg/Ml Vial) Confirm Administered Dose 50 mg .ROUTE .STK-MED ONE Stop: 10/20/25 02:56 Last Admin: 10/20/25 03:16 Dose: Not Given Documented By: EDGAR Sodium Chloride (Nss) 1,000 mls @ 999 mls/hr IV .Q1H1M ONE Stop: 10/20/25 00:36 Last Infusion: 10/20/25 00:49 Dose: Infused Documented By: shannon Admin: 10/19/25 23:47 Dose: 999 mls/hr Documented By: shannon Critical Care Time I have personally spent greater than 30 minutes of critical care time in the direct management of this patient. This includes bedside care, interpretation of diagnostic studies, and testing, discussion with consultants, patient, and family members, and other required patient management activities. This 30 minutes is in excess of all separately billable procedures. Medical Decision Making Differential Diagnosis Differential diagnosis: Etiologies such as viral syndrome, otitis, pharyngitis, pneumonia, influenza, meningitis, urinary tract infection, septic arthritis, soft tissue infectious process, intra-abdominal process, sepsis, bacteremia, as well as others were entertained. Laboratory Data 10/19/25 23:50 10/19/25 23:50 Lab Results 10/19/25 10/19/25 10/20/25 Range/Units 23:50 Unknown 01:39 WBC 3.10 L (4.8-10.8) K/ul RBC 2.41 L (4.20-5.40) M/uL Hgb 6.5 L* (12.0-16.0) g/dL Hct 20.9 L* (37.0-47.0) % MCV 86.7 (80.0-100.0) fL MCH 27.0 (25.0-34.0) pg MCHC 31.1 L (32.0-36.0) g/dL RDW Std Deviation 50.6 H (36.4-46.3) fL RDW Coeff of [place] 16.1 H (11.5-14.5) % Plt Count 170 (130-400) K/uL MPV 10.6 (9.4-12.4) fL Neutrophils % (Manual) 86 % Lymphocytes % (Manual) 2 % Monocytes % (Manual) 7 % Eosinophils % (Manual) 3 % Basophils % (Manual) 2 % Neutrophils # (Manual) 2.67 (1.40-6.50) K/uL Total Absolute Neuts 2.67 (1.4-6.5) K/uL Lymphocytes # (Manual) 0.06 L (1.2-3.4) K/uL Total Abs Lymphocytes 0.06 L (1.2-3.4) K/uL Monocytes # (Manual) 0.22 (0.11-0.59) K/uL Eosinophils # (Manual) 0.09 (0-0.50) K/uL Basophils # (Manual) 0.06 (0-0.2) K/uL Polychromasia 1+ VBG pH 7.45 H (7.36-7.41) VBG pCO2 43 (38-50) mmHg VBG pO2 61 mmHg VBG HCO3 30 mmol/L VBG O2 Saturation 93.9 % VBG Base Excess 5.2 mEq/L Sodium 140 (136-145) mmol/L Potassium 3.5 (3.5-5.1) mmol/L Chloride 104 (98-107) mmol/L Carbon Dioxide 29 (21-32) mmol/L Anion Gap 7 (3-11) BUN 33 H (6-23) mg/dl Creatinine 0.80 (0.6-1.2) mg/dl Est Cr Clr Drug Dosing 38.5 ml/min eGFR 73.98 BUN/Creatinine Ratio 41.3 H (10-20) Glucose 134 H (70-99(Fasting)) mg/dl Lactate 0.7 (0.4-2.0) mmol/L Calcium 7.9 L (8.6-10.3) mg/dl Magnesium 1.4 L (1.7-2.4) mg/dl Total Bilirubin 0.5 (0.2-1.0) mg/dl Direct Bilirubin 0.1 (0-0.2) mg/dl AST 19 (13-39) U/L ALT 25 (7-52) U/L Alkaline Phosphatase 42 (34-104) U/L Troponin I High Sens 67.8 H* (0-14) pg/ml Total Protein 5.6 L (6.0-8.3) gm/dl Albumin 2.9 L (3.4-5.0) gm/dl Procalcitonin 0.20 (0-0.5) ng/ml Adenovirus (PCR) Not Detected (NotDetected) B. pertussis DNA (PCR) Not Detected (NotDetected) B.parapertussis DNA PCR Not Detected (NotDetected) C. pneumoniae DNA (PCR) Not Detected (NotDetected) Coronavirus OC43 (PCR) Not Detected (NotDetected) Coronavirus HKU1 (PCR) Not Detected (NotDetected) Coronavirus 229E (PCR) Not Detected (NotDetected) SARS-CoV-2 (PCR) Not Detected (NotDetected) Coronavirus NL63 (PCR) Not Detected (NotDetected) Human Metapneumovir PCR Not Detected (NotDetected) Influenza Type A (PCR) Not Detected (NotDetected) Influenza Type B (PCR) Not Detected (NotDetected) M. pneumoniae (PCR) Not Detected (NotDetected) Parainfluenza 1 (PCR) Not Detected (NotDetected) Parainfluenza 2 (PCR) Not Detected (NotDetected) Parainfluenza 3 (PCR) Not Detected (NotDetected) Parainfluenza 4 (PCR) Not Detected (NotDetected) RSV (PCR) Not Detected (NotDetected) Entero/Rhino (PCR) Not Detected (NotDetected) Blood Type O Positive Blood Type Recheck O Positive Antibody Screen NEGATIVE Crossmatch See Detail Imaging Data Radiologist's Impression: Chest X-Ray 10/19/25 23:29 Exam(s): XR CXR 1 VIEW EXAM: XR Chest, 1 View CLINICAL HISTORY: Reason for exam: Sepsis. TECHNIQUE: Frontal view of the chest. COMPARISON: Chest x-ray 10/06/2025. FINDINGS: Lungs/Pleural space: Improved aeration of the lungs in general, though there remains a right upper lobe infiltrate, nonspecific, could reflect residual disease or scarring. Acute pneumonia not excluded. No consolidation, pleural effusion or pneumothorax. Heart: Stable, moderate cardiomegaly. Mediastinum: Stable postop sternotomy. Bones/Soft Tissues: No acute abnormality. IMPRESSION: 1. Mild right upper lobe infiltrate, possible residual disease/scarring. Acute pneumonia not excluded. 2. Lungs are otherwise clear. Electronically signed by: Thuy Doshi M.D. 10/20/25 00:23 AM MDM Narrative Physical exam and history were performed. Nursing notes, EMR, and Medication List were personally reviewed. No social concerns were identified as barriers to patients care. History was provided by the Patient, , and EMS. Patient appears to have fever bringing her to the ER. She has had some weakness as well but no other significant complaints. IV access was established and labs were obtained. Sepsis workup was started and the patient was initially hydrated with 1 L normal saline. Fluid overload was a consideration as the patient does have a history of both CHF and COPD. Blood cultures were gathered and BioFire performed. She was cared for under neutropenic precautions. An order was placed for continuous cardiac monitoring. The monitor shows a rate of 87 with normal sinus rhythm. Patient's blood work is as above and was reviewed. Her white blood cell count is low at 3.1. She is also markedly anemic at 6.5, which appears new from previous hemoglobin that was 8.8. Additionally her hematocrit is concernedly low at 20.9. INR is 1.2. VBG showed pH of 7.45. BUN and creatinine are essentially normal. Glucose 134. Lactic acid was normal. Magnesium was slightly low at 1.4. Troponin is elevated at 65. Type and screen shows blood type O+ with negative antibody screen. BioFire negative. Escalation of care was considered, and felt to be necessary. Case was discussed with my attending who remained involved in care decision making. Patient is markedly anemic, and blood consents were gathered to begin transfusion of leukoreduced irradiated cells. Patient was premedicated prior to transfusion. Overall the patient does not appear well for discharge. The case was discussed with the on-call hospitalist team who agreed to evaluate the patient here in the ER. Please see their dictation for further patient course, plan, disposition. The chart was completed utilizing [employer] Speech Voice Recognition Software. Grammatical errors, random word insertions, pronoun errors, and incomplete sentences are an occasional consequence of this system due to software limitations, ambient noise, and hardware issues. Any formal questions or concerns about the content, text, or information contained within the body of this dictation should be directly addressed to the provider for clarification. Impression & Plan Anemia requiring transfusions, Anemia of chronic disease, Metastatic cancer, Fever of unknown origin (FUO) Discharge Plan Visit Data Chief Complaint: Fever Stated Complaint: Fever, Weakness, Lung Cancer ED Provider: Henrique Haynes ED Midlevel Provider: Miko Hardwick Discharge Problem: Anemia requiring transfusions, Anemia of chronic disease, Metastatic cancer, Fever of unknown origin (FUO) Patient Disposition: Admitted As Inpatient Condition: Fair Discharge Instructions Interventions: ED Discharge Assessment Last Done: 10/20/25 03:46
[2025-10-19] MEDS: SODIUM CHLORIDE 0.9% 1,000 ML IV ONE (23:47)
--- NOTE | 2025-10-20 00:23 | XRay Report ---
Exam(s): XR CXR 1 VIEW EXAM: XR Chest, 1 View CLINICAL HISTORY: Reason for exam: Sepsis. TECHNIQUE: Frontal view of the chest. COMPARISON: Chest x-ray 10/06/2025. FINDINGS: Lungs/Pleural space: Improved aeration of the lungs in general, though there remains a right upper lobe infiltrate, nonspecific, could reflect residual disease or scarring. Acute pneumonia not excluded. No consolidation, pleural effusion or pneumothorax. Heart: Stable, moderate cardiomegaly. Mediastinum: Stable postop sternotomy. Bones/Soft Tissues: No acute abnormality. IMPRESSION: 1. Mild right upper lobe infiltrate, possible residual disease/scarring. Acute pneumonia not excluded. 2. Lungs are otherwise clear. Electronically signed by: Thuy Doshi M.D. 10/20/25 00:23 AM
[2025-10-20 00:27] LABS: Base Excess VBG 5.2 mEq/L; HCO3 VBG 30 mmol/L; Oxygen Saturation VBG 93.9 %; PCO2 VBG 43 mmHg (38-50); PO2 VBG 61 mmHg; pH VBG 7.45 (7.36-7.41)
[2025-10-20 00:31] LABS: Hematocrit (blood only) 20.9 % (37.0-47.0); Hemoglobin 6.5 g/dL (12.0-16.0); Mean Corpuscular Hemoglobin 27.0 pg (25.0-34.0); Mean Corpuscular Volume 86.7 fL (80.0-100.0); Platelet Count 170 K/uL (130-400); RDW Standard Deviation 50.6 fL (36.4-46.3); Red Blood Count 2.41 M/uL (4.20-5.40); White Blood Count 3.10 K/ul (4.8-10.8)
[2025-10-20 00:45] LABS: Alanine Aminotransferase 25.0 U/L (7-52); Albumin Level 2.9 gm/dl (3.4-5.0); Alkaline Phosphatase 42.0 U/L (34-104); Anion Gap 7.0 (3-11); Bilirubin,Total 0.5 mg/dl (0.2-1.0); Blood Urea Nitrogen 33.0 mg/dl (6-23); Calcium 7.9 mg/dl (8.6-10.3); Carbon Dioxide 29.0 mmol/L (21-32); Chloride 104.0 mmol/L (98-107); Creatinine Clr Calc Pharmacy 38.5 ml/min; Glucose 134.0 mg/dl (70-99(Fasting)); Magnesium 1.4 mg/dl (1.7-2.4); Potassium 3.5 mmol/L (3.5-5.1); Sodium 140.0 mmol/L (136-145); Total Protein 5.6 gm/dl (6.0-8.3)
[2025-10-20] MEDS ORDERED: SODIUM CHLORIDE 0.9% 100 ML IV PRN ×2 (00:50→09:55)
[2025-10-20 01:14] LABS: Chlamydia pneumoniae PCR Not Detected (NotDetected); Coronavirus 229E PCR Not Detected (NotDetected); Coronavirus CoV-2 (COVID19)PCR Not Detected (NotDetected); Coronavirus HKU1 PCR Not Detected (NotDetected); Coronavirus NL63 PCR Not Detected (NotDetected); Coronavirus OC43PCR Not Detected (NotDetected); Human Metapneumovirus PCR Not Detected (NotDetected); Parainfluenza Virus 1 PCR Not Detected (NotDetected); Parainfluenza Virus 2 PCR Not Detected (NotDetected); Parainfluenza Virus 3 PCR Not Detected (NotDetected); Parainfluenza Virus 4 PCR Not Detected (NotDetected); Respiratory Syncytial VirusPCR Not Detected (NotDetected); Rhinovirus/Enterovirus PCR Not Detected (NotDetected)
[2025-10-20 01:17] LABS: ALC (manual) 0.06 K/uL (1.2-3.4); ANC (manual) 2.67 K/uL (1.4-6.5)
[2025-10-20 01:38] LABS: Polychromasia 1+
--- NOTE | 2025-10-20 01:51 | History & Physical Report ---
Date of Service October 20, 2025 Assessment & Plan (1) Anemia requiring transfusions: (2) HAP (hospital-acquired pneumonia): (3) Metastatic cancer: (4) Hypomagnesemia: Plan The patient is a 80-year-old female with past medical history including renal artery stenosis, anemia of chronic disease, pleural effusion, metastatic cancer, HFpEF, COPD with emphysema, cancer pain, cognitive impairment, hypertension, esophageal reflux, and lung cancer. She was brought to the emergency department via EMS due to increased weakness, shortness of breath, and fatigue progressive since most recent admission from 10/04-10/09/2025. At admission, she was treated for COPD with emphysema exacerbation, small pneumothorax, and HFpEF. Workup in the emergency department this evening included the following abnormal laboratories, hemoglobin 6.5 compared to most recent of 8.7, glucose 134, albumi n 2.9, magnesium 1.4, calcium 7.9. From the ED patient received the following, normal saline 1 L bolus, Benadryl 25 mg IV, Tylenol 650 mg by mouth, and was ordered 2 units PRBCs. Respiratory BioFire testing negative. Chest x-ray with right upper lobe infiltrate versus scarring. Anemia requiring transfusion/metastatic lung cancer- Patient just finished Keytruda, and is about to start chemotherapy on Thursday and 4 days. Received 2 units irradiated leukoreduced PRBCs from the ED H&H every 4 hours Hemoccult all stools consult. Consult her oncologist Dr. Singleton Right upper lobe pneumonia- MRSA swab Cefepime 2 g IV every 12 hours While you are outside of caution and treat aggressively, as patient is due to start chemotherapy in a few days. Continue routine inhalers DuoNebs every 2 hours as needed Hypomagnesemia- Magnesium 1.4 on admission Give 3 g IV magnesium sulfate IV. Recheck laboratories in the a.m. Hypertension/HFpEF- Continue carvedilol, spironolactone hyperlipidemia- Continue rosuvastatin GERD- Continue pantoprazole History of Present Illness Primary Care Provider: Jessee Joiner DO The patient is a 80-year-old female with past medical history including renal artery stenosis, anemia of chronic disease, pleural effusion, metastatic cancer, HFpEF, COPD with emphysema, cancer pain, cognitive impairment, hypertension, esophageal reflux, and lung cancer. She was brought to the emergency department via EMS due to increased weakness, shortness of breath, and fatigue progressive since most recent admission from 10/04-10/09/2025. At admission, she was treated for COPD with emphysema exacerbation, small pneumothorax, and HFpEF. Workup in the emergency department this evening included the following abnormal laboratories, hemoglobin 6.5 compared to most recent of 8.7, glucose 134, albumin 2.9, magnesium 1.4, calcium 7.9. From the ED patient received the f ollowing, normal saline 1 L bolus, Benadryl 25 mg IV, Tylenol 650 mg by mouth, and was ordered 2 units PRBCs. Respiratory BioFire testing negative. Allergies Allergy/AdvReac Type Severity Reaction Status Date / Time hydrochlorothiazide Allergy Mild Rash Verified 10/20/25 00:30 nickel Allergy Mild Rash Verified 10/20/25 00:30 Sulfa (Sulfonamide Allergy Mild Rash Verified 10/20/25 00:30 Antibiotics) prednisone AdvReac Intermediate MOOD Verified 10/20/25 00:30 CHANGES Home Medications Medication Instructions Recorded Confirmed Type carvedilol 25 mg tablet 25 mg PO BID #180 tabs 01/24/25 10/20/25 Rx rosuvastatin 10 mg tablet 10 mg PO HS #90 tabs 07/11/25 10/20/25 Rx acetaminophen 500 mg tablet 1,000 mg (2 x 500 mg) PO TID PRN 08/24/25 10/20/25 Rx pain #90 tabs pantoprazole 40 mg tablet,delayed 40 mg PO BID 30 days #60 tabs 09/02/25 10/20/25 Rx release folic acid 1 mg tablet 1 mg PO DAILY 09/27/25 10/20/25 History albuterol sulfate 90 mcg/actuation 2 puff inhalation Q4H PRN 10/04/25 10/20/25 History aerosol inhaler Shortness Of Breath Or Wheezing fluticasone fur. 200 mcg-umeclid 1 inh inhalation DAILY 10/04/25 10/20/25 History 62.5 mcg-vilant 25 mcg inhalat.powder (Trelegy Ellipta) lisinopril 40 mg tablet 40 mg PO DAILY 10/04/25 10/20/25 History furosemide 20 mg tablet (Lasix) 20 mg PO 3XWK #12 tabs 10/09/25 10/20/25 Rx spironolactone 25 mg tablet 25 mg PO QAM #30 tabs 10/09/25 10/20/25 Rx dexamethasone 4 mg tablet 4 mg PO BID PRN PER CHEMO 10/11/25 10/20/25 History DIRECTIONS morphine 15 mg immediate release 15 mg PO Q8H PRN Pain 10/11/25 10/20/25 History tablet olanzapine 2.5 mg tablet 2.5 mg PO DAILY PRN PER CHEMO 10/11/25 10/20/25 History DIRECTIONS ondansetron HCl 4 mg tablet See Rx Instructions PO Q8H PRN PER 10/11/25 10/20/25 History CHEMO DIRECTIONS prochlorperazine maleate 10 mg 10 mg PO Q6H PRN NAUSEA/VOMITING 10/11/25 10/20/25 History tablet gabapentin 300 mg capsule 300 mg PO TID PRN Pain 10/12/25 10/20/25 History lorazepam 1 mg tablet 0.5 mg PO HS PRN anxiety 10/20/25 10/20/25 History Past Med/Surg History Problem List (Updated 10/20/25 @ 05:41 by Dilip Steiner MD) Hypomagnesemia HAP (hospital-acquired pneumonia) Fever of unknown origin (FUO) (Acute) Anemia requiring transfusions (Acute) Renal artery stenosis Anemia of chronic disease (Acute) Pleural effusion (Acute) Metastatic cancer (Acute) Mitral regurgitation Malignant pleural effusion (HFpEF) heart failure with preserved ejection fraction COPD with emphysema Palliative care by specialist Lumbar vertebral fracture, pathologic (Acute ~09/18/25) Largest lesions at the L3 and L4 levels with redemonstration of an L4 pathologic fracture. Hypoxia (Acute) Cancer related pain (Acute) Lung mass Abnormal MRI, lumbar spine Lumbar radiculopathy Back pain (Acute) Left hip pain Cognitive impairment Vitamin B12 deficiency anemia Allergic reaction to sulfonamide Hyperglycemia Dyslipidemia Family history of colon cancer LVH (left ventricular hypertrophy) (Chronic) Diverticulosis (Chronic) Chronic rhinitis Chronic obstructive pulmonary disease Osteoporosis (Chronic) Hypertension Esophageal reflux (Chronic) Anxiety (Chronic) Medical History Abnormal CT of the abdomen Acute dehydration Nausea and vomiting Lumbago Demand ischemia Nausea CAD (coronary artery disease) Nonobstructive Hypochromic anemia Metastatic cancer LBBB (left bundle branch block) since myectomy Hypertrophic cardiomyopathy s/p myectomy with no outflow obstruction or MR on echo after surgery Mitral regurgitation PT STATES RESOLVED AFTER HEART SURGERY Edema Dyspnea on exertion History of anemia Spinal stenosis Hyperlipidemia Borderline diabetic Hx of gastric ulcer Chronic obstructive pulmonary disease History of basal cell carcinoma Surgical History History of anesthesia reaction SLOW TO WAKE UP H/O wrist surgery + CTR (HARDWARE INTACT) History of cholecystectomy History of tooth extraction History of cataract surgery RT/LEFT History of esophagogastroduodenoscopy (EGD) History of colonoscopy (~2015) S/P breast lumpectomy LEFT (BENIGN) S/P tonsillectomy H/O arthroscopic knee surgery RT H/O hernia repair S/P myomectomy 2 YEARS AGO AT [facility] Family History Mother Colorectal cancer Father , at 78 years of age from acute [place] in the setting of DM. Diabetes Stroke Family history of diabetes mellitus Brother Family history of diabetes mellitus Family/Other Breast cancer niece Mother , at 62 years of age from colon CA. No problems noted. Other No family history of adverse response to anesthesia Denies family history of Ovarian cancer Prostate cancer Social History Smoking Status: Never smoker Tobacco Type: Cigarettes Age Started Using Tobacco: 16; Age Quit Using Tobacco: 72; packs per day: 0.5; Second Hand Exposure: No; Do You Dip or Chew Tobacco: No; Hx Alcohol Use: No Hx Substance Use: No Preferred Language: Israeli Communication Ability: Effective Rubber Washer Required: No Beliefs That Will Affect Care: None marital status: marital status details: 63 yrs Current Living Situation: Spouse and Family Current Living Situation Comment: Daughter and Grandaughter current occupational status: retired How many Children do You have: 2 How many Children do You have Comment: 2 sons(53y,,drug O/D;59y,alive/well);1 daughter(53y,alive/well). Feels Safe at Home: Yes Childhood Exposure to Second-Hand Smoke: No Diet: regular caffeine: Yes Dental Care, Regularly: No Physical Activity Frequency: Daily Seatbelt Use: always Sunscreen Use: Yes Assistive Devices: Oxygen - Continuous Review of Systems Review of Systems: The patient denies chest pain, palpitations, lower extremity swelling, sore throat, fevers, chills, sweats, nausea, vomiting, diarrhea , constipation, abdominal pain, pelvic pain, blood in urine or stool, dysuria, urinary frequency or urgency, memory loss, loss of consciousness, rash, abnormal bruising or bleeding, focal weakness, numbness or tingling in arms or legs, generalized arthralgias or myalgias, back or neck pain, or night sweats. The review of systems is otherwise negative other than for that already noted above, and at least 10 systems have been reviewed. Physical Exam Physical Exam: The patient is awake, alert and oriented 3, very fatigued, normocephalic and atraumatic, lying in bed and in no acute distress. HEENT--PERRL, EOMI, mucous membranes and oropharynx dry. Neck--supple. No JVD. No bruits. Thyroid normal, trachea midline, no adenopathy. Heart--normal S1 and S2. No murmurs, rubs or gallops. Lungs--clear bilaterally, no respiratory distress, no accessory muscle use. Abdomen--normal bowel sounds and soft. Nontender. Nondistended, no hernias or masses, no organomegaly. Extremities-- No edema. There are good distal pulses b/l. Dermatologic--normal skin turgor, normal color, no abnormal lymph nodes, no rash. Neurologic--cranial nerves II through XII grossly intact. Rheumatologic--normal range of motion. Psychiatric--normal affect. Results & Data Results & Data Vital Signs (Past 12 Hours) Vital Signs Temp Pulse Resp BP Pulse Ox O2 Del Method O2 Flow Rate 10/20/25 00:09 98 Nasal Cannula 1 10/19/25 23:34 37.7 C H 76 18 124/85 90 Nasal Cannula 2 10/19/25 23:29 87 16 Room Air Laboratory Results Laboratory Results WBC 3.10 K/ul (4.8-10.8) L 10/19/25 23:50 RBC 2.41 M/uL (4.20-5.40) L 10/19/25 23:50 Hgb 6.5 g/dL (12.0-16.0) L* 10/19/25 23:50 Hct 20.9 % (37.0-47.0) L* 10/19/25 23:50 MCV 86.7 fL (80.0-100.0) 10/19/25 23:50 MCH 27.0 pg (25.0-34.0) 10/19/25 23:50 MCHC 31.1 g/dL (32.0-36.0) L 10/19/25 23:50 RDW Std Deviation 50.6 fL (36.4-46.3) H 10/19/25 23:50 RDW Coeff of [place] 16.1 % (11.5-14.5) H 10/19/25 23:50 Plt Count 170 K/uL (130-400) 10/19/25 23:50 MPV 10.6 fL (9.4-12.4) 10/19/25 23:50 Neutrophils % (Manual) 86 % 10/19/25 23:50 Lymphocytes % (Manual) 2 % 10/19/25 23:50 Monocytes % (Manual) 7 % 10/19/25 23:50 Eosinophils % (Manual) 3 % 10/19/25 23:50 Basophils % (Manual) 2 % 10/19/25 23:50 Neutrophils # (Manual) 2.67 K/uL (1.40-6.50) 10/19/25 23:50 Total Absolute Neuts 2.67 K/uL (1.4-6.5) 10/19/25 23:50 Lymphocytes # (Manual) 0.06 K/uL (1.2-3.4) L 10/19/25 23:50 Total Abs Lymphocytes 0.06 K/uL (1.2-3.4) L 10/19/25 23:50 Monocytes # (Manual) 0.22 K/uL (0.11-0.59) 10/19/25 23:50 Eosinophils # (Manual) 0.09 K/uL (0-0.50) 10/19/25 23:50 Basophils # (Manual) 0.06 K/uL (0-0.2) 10/19/25 23:50 Polychromasia 1+ 10/19/25 23:50 VBG pH 7.45 (7.36-7.41) H 10/19/25 23:50 VBG pCO2 43 mmHg (38-50) 10/19/25 23:50 VBG pO2 61 mmHg 10/19/25 23:50 VBG HCO3 30 mmol/L 10/19/25 23:50 VBG O2 Saturation 93.9 % 10/19/25 23:50 VBG Base Excess 5.2 mEq/L 10/19/25 23:50 Sodium 140 mmol/L (136-145) 10/19/25 23:50 Potassium 3.5 mmol/L (3.5-5.1) 10/19/25 23:50 Chloride 104 mmol/L (98-107) 10/19/25 23:50 Carbon Dioxide 29 mmol/L (21-32) 10/19/25 23:50 Anion Gap 7 (3-11) 10/19/25 23:50 BUN 33 mg/dl (6-23) H 10/19/25 23:50 Creatinine 0.80 mg/dl (0.6-1.2) 10/19/25 23:50 Est Cr Clr Drug Dosing 38.5 ml/min 10/19/25 23:50 eGFR 73.98 10/19/25 23:50 BUN/Creatinine Ratio 41.3 (10-20) H 10/19/25 23:50 Glucose 134 mg/dl (70-99(Fasting)) H 10/19/25 23:50 Lactate 0.7 mmol/L (0.4-2.0) 10/19/25 23:50 Calcium 7.9 mg/dl (8.6-10.3) L 10/19/25 23:50 Magnesium 1.4 mg/dl (1.7-2.4) L 10/19/25 23:50 Total Bilirubin 0.5 mg/dl (0.2-1.0) 10/19/25 23:50 Direct Bilirubin 0.1 mg/dl (0-0.2) 10/19/25 23:50 AST 19 U/L (13-39) 10/19/25 23:50 ALT 25 U/L (7-52) 10/19/25 23:50 Alkaline Phosphatase 42 U/L (34-104) 10/19/25 23:50 Troponin I High Sens 65.1 pg/ml (0-14) H* 10/20/25 02:09 Total Protein 5.6 gm/dl (6.0-8.3) L 10/19/25 23:50 Albumin 2.9 gm/dl (3.4-5.0) L 10/19/25 23:50 Procalcitonin 0.20 ng/ml (0-0.5) 10/19/25 23:50 Adenovirus (PCR) Not Detected (NotDetected) 10/19/25 Unknown B. pertussis DNA (PCR) Not Detected (NotDetected) 10/19/25 Unknown B.parapertussis DNA PCR Not Detected (NotDetected) 10/19/25 Unknown C. pneumoniae DNA (PCR) Not Detected (NotDetected) 10/19/25 Unknown Coronavirus OC43 (PCR) Not Detected (NotDetected) 10/19/25 Unknown Coronavirus HKU1 (PCR) Not Detected (NotDetected) 10/19/25 Unknown Coronavirus 229E (PCR) Not Detected (NotDetected) 10/19/25 Unknown SARS-CoV-2 (PCR) Not Detected (NotDetected) 10/19/25 Unknown Coronavirus NL63 (PCR) Not Detected (NotDetected) 10/19/25 Unknown Human Metapneumovir PCR Not Detected (NotDetected) 10/19/25 Unknown Influenza Type A (PCR) Not Detected (NotDetected) 10/19/25 Unknown Influenza Type B (PCR) Not Detected (NotDetected) 10/19/25 Unknown M. pneumoniae (PCR) Not Detected (NotDetected) 10/19/25 Unknown Parainfluenza 1 (PCR) Not Detected (NotDetected) 10/19/25 Unknown Parainfluenza 2 (PCR) Not Detected (NotDetected) 10/19/25 Unknown Parainfluenza 3 (PCR) Not Detected (NotDetected) 10/19/25 Unknown Parainfluenza 4 (PCR) Not Detected (NotDetected) 10/19/25 Unknown RSV (PCR) Not Detected (NotDetected) 10/19/25 Unknown Entero/Rhino (PCR) Not Detected (NotDetected) 10/19/25 Unknown Blood Type O Positive 10/19/25 23:50 Blood Type Recheck O Positive 10/20/25 01:39 Antibody Screen NEGATIVE 10/19/25 23:50 Crossmatch See Detail 10/19/25 23:50 Impressions Chest X-Ray 10/19/25 23:29 Exam(s): XR CXR 1 VIEW EXAM: XR Chest, 1 View CLINICAL HISTORY: Reason for exam: Sepsis. TECHNIQUE: Frontal view of the chest. COMPARISON: Chest x-ray 10/06/2025. FINDINGS: Lungs/Pleural space: Improved aeration of the lungs in general, though there remains a right upper lobe infiltrate, nonspecific, could reflect residual disease or scarring. Acute pneumonia not excluded. No consolidation, pleural effusion or pneumothorax. Heart: Stable, moderate cardiomegaly. Mediastinum: Stable postop sternotomy. Bones/Soft Tissues: No acute abnormality. IMPRESSION: 1. Mild right upper lobe infiltrate, possible residual disease/scarring. Acute pneumonia not excluded. 2. Lungs are otherwise clear. Electronically signed by: Thuy Doshi M.D. 10/20/25 00:23 AM - Code Status & VTE Plan Code Status DNR/DNI VTE Prophylaxis Plan VTE Prophylaxis will be ordered: Yes PG Care Time/CCT Total # of Minutes Spent Total Time Spent with Patient: Total time spent is greater than 50% in coordination of care (as documented) at patient's floor/unit and/or counseling patient: Coding Level of Care Code 74009 INT INP/OBS CARE 3/75MIN Diagnoses Anemia requiring transfusions D64.9 HAP (hospital-acquired pneumonia) J18.9; Y95 Metastatic cancer C79.9 Hypomagnesemia E83.42
[2025-10-20] MEDS: LACTATED RINGER'S 1,000 ML IV STA (02:14)
[2025-10-20] MEDS: MAGNESIUM SULFATE / D5W 1 GM/100 ML BAG IV SCH (02:14)
[2025-10-20] MEDS: diphenhydrAMINE 50 MG/ML VIAL IV STA (02:56)
[2025-10-20] MEDS: ACETAMINOPHEN 325 MG TAB PO STA (02:56)
[2025-10-20] MEDS: ACETAMINOPHEN 325 MG TAB ONE (03:16)
[2025-10-20] MEDS: diphenhydrAMINE 50 MG/ML VIAL ONE (03:16)
[2025-10-20] MEDS ORDERED: ALBUTEROL HFA 8 GM INHALER INH PRN (04:08)
[2025-10-20] MEDS ORDERED: LORazepam 0.5 MG TAB PO PRN (04:08)
[2025-10-20] MEDS ORDERED: PROCHLORPERAZINE MALEATE 10 MG TAB PO PRN (04:08)
[2025-10-20] MEDS ORDERED: ALBUT/IPRATROP 3MG/0.5MG NEB 3 ML VIAL NEB PRN (04:08)
[2025-10-20] MEDS ORDERED: ONDANSETRON 4 MG OD TAB PO PRN (04:22)
[2025-10-20] MEDS: CEFEPIME 2000MG 2,000 MG/20 ML SYR IV SCH (05:55)
[2025-10-20 06:44] LABS: Hematocrit (blood only) 23.1 % (37.0-47.0); Hemoglobin 7.3 g/dL (12.0-16.0)
[2025-10-20 07:47] LABS: Appearance Urine Turbid (Clear); Bacteria Urine Automated 4+ (None Seen); Epithelial Cell Urine Auto 0-2 /hpf (0-2); Glucose Urine UA Negative (Negative); RBC Urine Automated 0-2 /hpf (0-2); WBC Urine Automated >50 /hpf (0-5)
[2025-10-20] MEDS: UMECLIDINIUM/VILANTEROL 62.5/25MCG 7 PUFFS/INHALER INH SCH (08:34)
[2025-10-20] MEDS: SPIRONOLACTONE 25 MG TAB PO SCH (08:34)
[2025-10-20] MEDS: FOLIC ACID 1 MG TAB PO SCH (08:34)
[2025-10-20] MEDS: FLUTICASONE FUROATE 200MCG 14 PUFFS/INHALER INH SCH (08:35)
--- NOTE | 2025-10-20 08:59 | Electrocardiogram Report ---
Test Reason : Blood Pressure : */* mmHG Vent. Rate : 78 BPM Atrial Rate : 78 BPM P-R Int : 188 ms QRS Dur : 162 ms QT Int : 460 ms P-R-T Axes : 71 8 157 degrees QTcB Int : 524 ms Sinus rhythm with Premature supraventricular complexes Left bundle branch block Abnormal ECG When compared with ECG of 04-Oct-2025 12:26, Premature supraventricular complexes are now Present Confirmed by Romain Marrufo ([id number]) on 10/20/2025 8:58:38 AM Referred By: REFERRED SELF Confirmed By: Romain Marrufo
[2025-10-20] MEDS ORDERED: NON-FORMULARY MEDICATION (Fluticasone-Umeclidin-Vilanter [Trelegy Ellipta] 200-62.5-25 mcg INH SCH (09:00)
[2025-10-20] MEDS: ONDANSETRON INJ 2 MG/ML 2 ML VIAL IV PRN (09:33)
[2025-10-20] MEDS: ACETAMINOPHEN 325 MG TAB PO PRN (11:43)
--- NOTE | 2025-10-20 12:09 | Oncology Consultation ---
Date of Consultation October 20, 2025 Assessment & Plan (1) HAP (hospital-acquired pneumonia): (2) Metastatic cancer: Plan -Anemia secondary to chemotherapy, renal disease. Improved following transfusion.Also with possible pneumonia/UTI on broad-spectrum antibiotics. -Had discussion with patient and her daughter today. We discussed options including suspending further treatments and switching to hospice or consideration for single agent pembrolizumab/continuing with chemoimmunotherapy with carboplatin, pemetrexed and pembrolizumab. Patient would like to recover fully before making final decision. Follow-up with me outpatient upon discharge. Will start her on low-dose mirtazapine for appetite and to help with her mood. History of Present Illness Reason for Consultation: Lung cancer Attending Physician: Khushboo Michael MD History of Present Illness 80-year-old female with medical history of metastatic/stage IV lung cancer status post 1 cycle of chemoimmunotherapy treatment with carboplatin, pemetrexed and pembrolizumab administered on 10/02/2025. Presented to the ER with generalized weakness, shortness of breath and fever. Labs obtained in ER significant for severe anemia with hemoglobin of 6.5, hematocrit 20.9. She received 3 units of PRBC transfusion and started on broad-spectrum IV antibiotics for possible pneumonia/UTI. Allergies Allergy/AdvReac Type Severity Reaction Status Date / Time hydrochlorothiazide Allergy Mild Rash Verified 10/20/25 14:07 nickel Allergy Mild Rash Verified 10/20/25 14:07 Sulfa (Sulfonamide Allergy Mild Rash Verified 10/20/25 14:07 Antibiotics) prednisone AdvReac Intermediate MOOD Verified 10/20/25 14:07 CHANGES Home Medications Medication Instructions Recorded Confirmed Type carvedilol 25 mg tablet 25 mg PO BID #180 tabs 01/24/25 10/20/25 Rx rosuvastatin 10 mg tablet 10 mg PO HS #90 tabs 07/11/25 10/20/25 Rx acetaminophen 500 mg tablet 1,000 mg (2 x 500 mg) PO TID PRN 08/24/25 10/20/25 R x pain #90 tabs pantoprazole 40 mg tablet,delayed 40 mg PO BID 30 days #60 tabs 09/02/25 10/20/25 Rx release folic acid 1 mg tablet 1 mg PO DAILY 09/27/25 10/20/25 History albuterol sulfate 90 mcg/actuation 2 puff inhalation Q4H PRN 10/04/25 10/20/25 History aerosol inhaler Shortness Of Breath Or Wheezing fluticasone fur. 200 mcg-umeclid 1 inh inhalation DAILY 10/04/25 10/20/25 History 62.5 mcg-vilant 25 mcg inhalat.powder (Trelegy Ellipta) lisinopril 40 mg tablet 40 mg PO DAILY 10/04/25 10/20/25 History furosemide 20 mg tablet (Lasix) 20 mg PO 3XWK #12 tabs 10/09/25 10/20/25 Rx spironolactone 25 mg tablet 25 mg PO QAM #30 tabs 10/09/25 10/20/25 Rx dexamethasone 4 mg tablet 4 mg PO BID PRN PER CHEMO 10/11/25 10/20/25 History DIRECTIONS morphine 15 mg immediate release 15 mg PO Q8H PRN Pain 10/11/25 10/20/25 History tablet olanzapine 2.5 mg tablet 2.5 mg PO DAILY PRN PER CHEMO 10/11/25 10/20/25 History DIRECTIONS ondansetron HCl 4 mg tablet See Rx Instructions PO Q8H PRN PER 10/11/25 10/20/25 History CHEMO DIRECTIONS prochlorperazine maleate 10 mg 10 mg PO Q6H PRN NAUSEA/VOMITING 10/11/25 10/20/25 History tablet gabapentin 300 mg capsule 300 mg PO TID PRN Pain 10/12/25 10/20/25 History lorazepam 1 mg tablet 0.5 mg PO HS PRN anxiety 10/20/25 10/20/25 History Patient History Medical History Abnormal CT of the abdomen Acute dehydration Nausea and vomiting Lumbago Demand ischemia Nausea CAD (coronary artery disease) Nonobstructive Hypochromic anemia Metastatic cancer LBBB (left bundle branch block) since myectomy Hypertrophic cardiomyopathy s/p myectomy with no outflow obstruction or MR on echo after surgery Mitral regurgitation PT STATES RESOLVED AFTER HEART SURGERY Edema Dyspnea on exertion History of anemia Spinal stenosis Hyperlipidemia Borderline diabetic Hx of gastric ulcer Chronic obstructive pulmonary disease History of basal cell carcinoma Surgical History History of anesthesia reaction SLOW TO WAKE UP H/O wrist surgery + CTR (HARDWARE INTACT) History of cholecystectomy History of tooth extraction History of cataract surgery RT/LEFT History of esophagogastroduodenoscopy (EGD) History of colonoscopy (~2015) S/P breast lumpectomy LEFT (BENIGN) S/P tonsillectomy H/O arthroscopic knee surgery RT H/O hernia repair S/P myomectomy 2 YEARS AGO AT [facility] Family History Mother Colorectal cancer Father , at 78 years of age from acute [place] in the setting of DM. Diabetes Stroke Family history of diabetes mellitus Brother Family history of diabetes mellitus Family/Other Breast cancer niece Mother , at 62 years of age from colon CA. No problems noted. Other No family history of adverse response to anesthesia Denies family history of Ovarian cancer Prostate cancer Social History Smoking Status: Former smoker Tobacco Type: Cigarettes Age Started Using Tobacco: 16; Age Quit Using Tobacco: 72; packs per day: 0.5; Second Hand Exposure: No; Do You Dip or Chew Tobacco: No; Tobacco Cessation Education Requested by Patient: No Hx Alcohol Use: No Hx Substance Use: No Preferred Language: Omani Communication Ability: Effective Dragline Mechanic Required: No Beliefs That Will Affect Care: None marital status: marital status details: 63 yrs Current Living Situation: Spouse and Family Current Living Situation Comment: , Daughter, and Granddaughter current occupational status: retired How many Children do You have: 2 How many Children do You have Comment: 2 sons(53y,,drug O/D;59y,alive/well);1 daughter(53y,alive/well). Other Information That Helps Us Care for You: No Feels Safe at Home: Yes Safety Concerns: Feels Safe At This Time Childhood Exposure to Second-Hand Smoke: No Diet: regular caffeine: Yes Dental Care, Regularly: No Physical Activity Frequency: Daily Seatbelt Use: always Sunscreen Use: Yes Assistive Devices: Cane, Glasses, Oxygen - Continuous and Walker Results & Data Vital Signs (Past 12 Hours) Vital Signs Temp Pulse Pulse Resp BP BP Pulse Ox 10/20/25 11:49 36.5 C 78 18 170/51 H 92 10/20/25 11:34 37.8 C H 78 18 161/54 H 94 10/20/25 11:15 37.6 C H 75 18 166/55 H 94 10/20/25 11:15 37.1 C 71 18 140/79 96 10/20/25 08:04 36.8 C 70 18 170/61 H 97 10/20/25 05:52 72 16 154/57 H 97 10/20/25 05:05 36.8 C 69 18 130/65 10/20/25 05:02 36.8 C 69 18 133/65 10/20/25 04:08 74 10/20/25 04:08 37.1 C 74 16 137/70 97 10/20/25 04:08 10/20/25 04:05 37.1 C 74 16 137/70 97 10/20/25 04:00 10/20/25 04:00 37.1 C 74 16 137/70 97 10/20/25 03:46 10/20/25 03:35 37.6 C H 74 20 122/38 L 98 10/20/25 03:20 37.5 C 75 22 118/36 L 98 10/20/25 03:01 37.3 C 79 19 155/59 H 100 10/20/25 00:09 98 Pulse Ox O2 Del Method O2 Del Method O2 Flow Rate O2 Flow Rate 10/20/25 11:49 1 10/20/25 11:34 1 10/20/25 11:15 1 10/20/25 11:15 Nasal Cannula 1 10/20/25 08:04 Nasal Cannula 1 10/20/25 05:52 1 10/20/25 05:05 10/20/25 05:02 10/20/25 04:08 10/20/25 04:08 Nasal Cannula 1 10/20/25 04:08 97 Nasal Cannula 1 10/20/25 04:05 1 10/20/25 04:00 Nasal Cannula 1 10/20/25 04:00 Nasal Cannula 1 10/20/25 03:46 Nasal Cannula 1 10/20/25 03:35 1 10/20/25 03:20 1 10/20/25 03:01 10/20/25 00:09 Nasal Cannula 1
--- NOTE | 2025-10-20 13:05 | Communication Note ---
Date of Service: October 20, 2025 Admitted this AM Shes had urinary frequency and urgency, few incontinence episodes last several days, tongue is sore. Keytruda infusion was 3 weeks ago was due to start chemotherapy this upcoming Thursday Exam- no thrush, prob mucositis no ulcers Lungs with coarse rubbing crackles sound bilaterally especially right posterior Extremities are warm/wp and no edema #sepsis (POA) caused by symptomatic UTI. I do not think she has pneumonia. She lacks acute pulmonary symptoms. Procal was low and nasal MRSA negative. RUL abnormality on her CXR probably related to her lung cancer. #immunosuppression because of lymphopenia - count of 60. Neutrophil count >2500 -continue cefepime, await urine culture and follow blood cultures #severe symptomatic anemia and lymphopenia may be related to immunotherapy with Keytruda. Hg 6.5 on presentation. Lymphocyte count 60. Neutrophils and platelets normal -transfusing 2nd unit of RBC this am. Monitor Hg response with CBC #myocardial demand ischemia caused by severe anemia and infection - HS-Tn with flat trend 67-->65, normal EKG, no evidence of acute coronary syndrome. All previous troponins have also been mildly elevated so there may be component of chronic elevation #metastatic lung cancer - with malignant R pleural effusion, spinal mets. Under treatment with Keytruda and soon to start chemotherapy -consulted oncology #malignant right pleural effusion - no visible effusion on current CXR, I personally reviewed the CXR film #poss mucositis - started BLM mouthwash prn, avoid toothpaste with SLS, monitor for thrush none visible at this time #COPD - stable not in exacerbation #Hypertension/HFpEF- stable Continue carvedilol, spironolactone hyperlipidemia- Continue rosuvastatin #hypomagnesemia - 1.4 in ED, replaced with 3g IV, recheck I updated her family 10/20 - in room and her daughter on speakerphone
[2025-10-20] MEDS ORDERED: FIRST - Mouthwash BLM 5 ML UDP PO PRN (13:45)
--- NOTE | 2025-10-20 16:09 | Electrocardiogram Report ---
Test Reason : Blood Pressure : */* mmHG Vent. Rate : 80 BPM Atrial Rate : 80 BPM P-R Int : 242 ms QRS Dur : 162 ms QT Int : 438 ms P-R-T Axes : * 240 84 degrees QTcB Int : 505 ms Suspect R arm L leg lead reversal Sinus rhythm with 1st degree A-V block with Premature ventricular complexes Left bundle branch block Left ventricular hypertrophy ( Sokolow-Sifuentes , Hansel product ) Abnormal ECG When compared with ECG of 20-Oct-2025 00:05, T wave inversion less evident in Lateral leads Confirmed by Romain Marrufo ([id number]) on 10/20/2025 4:08:36 PM Referred By: REFERRED SELF Confirmed By: Romain Marrufo
[2025-10-20] MEDS: FUROSEMIDE INJ 20 MG/2 ML VIAL IV ONE (17:28)
[2025-10-20] MEDS: POTASSIUM CHLORIDE CRTAB 20 MEQ TABCR PO ONE (17:29)
[2025-10-20] MEDS: MoRPHine SULFATE IR 15 MG TAB (IMMEDIATE RELEASE) PO PRN (17:37)
[2025-10-20] MEDS: ROSUVASTATIN CALCIUM 10 MG TAB PO SCH (19:35)
[2025-10-21 08:37] LABS: Hematocrit (blood only) 31.4 % (37.0-47.0); Hemoglobin 10.0 g/dL (12.0-16.0); Mean Corpuscular Hemoglobin 27.5 pg (25.0-34.0); Mean Corpuscular Volume 86.5 fL (80.0-100.0); Platelet Count 190 K/uL (130-400); RDW Standard Deviation 49.1 fL (36.4-46.3); Red Blood Count 3.63 M/uL (4.20-5.40); White Blood Count 3.32 K/ul (4.8-10.8)
[2025-10-21 08:57] LABS: Anion Gap 7.0 (3-11); Blood Urea Nitrogen 21.0 mg/dl (6-23); Calcium 8.5 mg/dl (8.6-10.3); Carbon Dioxide 31.0 mmol/L (21-32); Chloride 104.0 mmol/L (98-107); Creatinine Clr Calc Pharmacy 44.0 ml/min; Glucose 106.0 mg/dl (70-99(Fasting)); Magnesium 1.7 mg/dl (1.7-2.4); Potassium 4.2 mmol/L (3.5-5.1); Sodium 142.0 mmol/L (136-145)
[2025-10-21 09:25] LABS: A calco-baum cmplx NotReported Not Detected (NotDetected); Bact fragilis Not Reported Not Detected (NotDetected); Blood Culture Id Panel See PCR Comment (NotDetected); C auris Not Reported Not Detected (NotDetected); CTX-M Resistant Gene Not Detected (NotDetected); Calbicans Not Reported Not Detected (NotDetected); Candida glabrata Not Reported Not Detected (NotDetected); Candida krusei Not Reported Not Detected (NotDetected); Cneoformans/gatti Not Reported Not Detected (NotDetected); Cparapsilosis Not Reported Not Detected (NotDetected); Ctropicalis Not Reported Not Detected (NotDetected); E cloacae compx Not Reported Not Detected (NotDetected); Efaecalis Not Reported Not Detected (NotDetected); Efaecium Not Reported Not Detected (NotDetected); Enterobacterales Not Reported DETECTED (NotDetected); Escherichia coli Not Reported DETECTED (NotDetected); H influenzae Not Reported Not Detected (NotDetected); IMP Resistant Gene Not Detected (NotDetected); K aerogenes Not Reported Not Detected (NotDetected); KPC Resistant Gene Not Detected (NotDetected); Koxytoca Not Reported Not Detected (NotDetected); Kpneumoniae grp Not Reported Not Detected (NotDetected); Lmonocyt Not Reported Not Detected (NotDetected); N meningitidis Not Reported Not Detected (NotDetected); NDM Resistant Gene Not Detected (NotDetected); OXA 48 Like Resistant Gene Not Detected (NotDetected); P aeruginosa Not Reported Not Detected (NotDetected); Proteus spp Not Reported Not Detected (NotDetected); Salmonella spp Not Reported Not Detected (NotDetected); Staph lugdunensis Not Reported Not Detected (NotDetected); Staph spp. Not Reported Not Detected (NotDetected); Staphaureus Not Reported Not Detected (NotDetected); Staphepi Not Reported Not Detected (NotDetected); Stenmaltophilia Not Reported Not Detected (NotDetected); Strep agal(GrpB) Not Reported Not Detected (NotDetected); Strep pneum Not Reported Not Detected (NotDetected); Strep pyog (GrpA) Not Reported Not Detected (NotDetected); Strep spp Not Reported Not Detected (NotDetected); VIM Resistant Gene Not Detected (NotDetected); mcr-1 Colistin Resistant Gene Not Detected (NotDetected)
[2025-10-21 09:32] LABS: Enterobacterales DETECTED (NotDetected)
[2025-10-21] MEDS ORDERED: MoRPHine SULFATE IR 15 MG TAB (IMMEDIATE RELEASE) PO PRN ×2 (09:32→09:33)
[2025-10-21] MEDS: KETOROLAC TROMETHAMINE 15 MG/ML VIAL IV PRN (11:06)
[2025-10-21] MEDS: OPTIRAY 320 100ml IV ONE (14:46)
--- NOTE | 2025-10-21 16:03 | CT Scan Report ---
Clinical History: Bacteremia Technique: Axial computed tomography images were obtained of the abdomen and pelvis after the administration of intravenous contrast. Comparison is made to the prior CT dated 08/29/2025. Findings: The liver is overall of normal size, attenuation, and contour with no sign of cirrhosis or significant fatty infiltration. Again seen is a heterogeneous mass in the right hepatic lobe that measures up to 5.8 cm. The portal vein is patent. The gallbladder appears to have been removed. No bile duct dilatation is noted. The spleen is of normal size. No focal splenic lesion is evident. The pancreas appears normal with no sign of acute or chronic pancreatitis and no mass lesion noted. The pancreatic duct is of normal caliber. The adrenal glands appear unremarkable. No definite renal or proximal ureteral calculi are seen on this contrast-enhanced study. There is no hydronephrosis or perinephric stranding. No renal mass lesion is identified. There is a 1.7 cm left renal cyst and there is a 9 mm right renal cyst There is an infrarenal abdominal aortic aneurysm, measuring up to 4.3 cm anteroposterior. No abdominal adenopathy is seen. There is prominence of the gastric wall that could be due to the decompressed state. There is no sign of small bowel obstruction. There is diverticulosis without definite diverticulitis. No free intraperitoneal fluid or air is identified. No distal ureteral or bladder calculi are seen. There is mild prominence of the bladder wall that could be due to incomplete distention. The iliac arteries are of normal caliber. No pelvic adenopathy is noted. There is an unchanged 6 cm right ovarian cyst as well as a 3.2 cm right ovarian cyst. There are multiple uterine leiomyomas There is a new small right pleural effusion and there is a minimal left pleural effusion. There are 2 right lower lobe nodules, measuring 1 cm and 9 mm, above the area imaged previously Lumbar degenerative disc disease is seen. There is unchanged endplate destruction at L3-4 that could be due to infectious discitis and osteomyelitis. There is unchanged anterolisthesis at L4-5 Impression: 1. Possible infectious discitis and osteomyelitis at L3-4. MRI of the lumbar spine with and without contrast could be obtained for further evaluation 2. New small right pleural effusion and minimal left pleural effusion 3. Indeterminate right lung base nodules. Chest CT could be obtained for complete evaluation of the lungs 4. Liver mass that may represent a benign hemangioma but is indeterminate in nature. Metastatic disease cannot be excluded. Liver protocol abdominal CT or MRI with and without contrast could better evaluate 5. Abdominal aortic aneurysm, measuring up to 4.3 cm 6. Unchanged large 6 cm right ovarian cyst, with an adjacent 3.2 cm right ovarian cyst. Cystic ovarian neoplasm must be considered in this postmenopausal patient. A pelvic ultrasound is recommended for further evaluation 7. Multiple uterine leiomyomas 8. Diverticulosis without definite diverticulitis 9. Prominence of the wall of the urinary bladder. This appearance could be due to incomplete distention, though infectious cystitis or other pathology cannot be excluded. Correlation with urinalysis may be useful 10. Bilateral renal cysts ACT 112: Positive. There are findings on this exam that require communication between the performing entity and the patient following Patient Test Result Information Act ([place] ACT 112) guidelines. Electronically signed by Michel Olguin 10-21-2025 4:03 PM
--- NOTE | 2025-10-21 17:13 | Hospitalist Progress Note ---
Date of Service October 21, 2025 Assessment & Plan (1) Urinary tract infection: (2) E coli bacteremia: (3) Anemia requiring transfusions: (4) Metastatic cancer: (5) (HFpEF) heart failure with preserved ejection fraction: (6) COPD with emphysema: Plan 80-year-old woman with metastatic non-small cell lung cancer, primary tumor in right lung with malignant pleural effusion lumbar spinal and hepatic metastases, admitted with sepsis #sepsis (POA) caused by E. coli bacteremia and symptomatic UTI. pneumonia was ruled out, see my note from 10/20 #immunosuppression because of lymphopenia - count of 60. Neutrophil count >2500 -continue cefepime, await sensitivities on E. coli - ordered CT abdomen and pelvis with contrast because of bacteremia to rule out urinary obstruction, abscess or other causes for gram-negative bacteremia. Reviewed CT report there are no unexpected findings and nothing new compared to her known issues Other than some cystitis as expected. The report comments on possible lumbar discitis/osteomyelitis however that is an area of known metasta sis based on her previous recent PET/CT therefore changes are related to malignancy not infection #severe symptomatic anemia and lymphopenia may be related to immunotherapy with Keytruda. Hg 6.5 on presentation. Lymphocyte count 60. Neutrophils and platelets normal - transfused 2 units RBCs hemoglobin improved to 10.0 #myocardial demand ischemia caused by severe anemia and infection - HS-Tn with flat trend 67-->65, normal EKG, no evidence of acute coronary syndrome. All previous troponins have also been mildly elevated so there may be component of chronic elevation #metastatic lung cancer - with malignant R pleural effusion, spinal mets. Under treatment with Keytruda and soon to start chemotherapy -consulted oncology #malignant right pleural effusion - no visible effusion on current CXR, I personally reviewed the CXR film # uncontrolled hypertension - she has been severely hypertensive today partly that is related to anxiety. Continue carvedilol and spironolactone. Added as needed clonidine and increased Ativan to 0.5 mg twice daily as needed anxiety. if BP continues to remain significantly elevated may need to add a second agent probably amlodipine # cancer related pain - her pain especially is lumbar/lumbosacral on the right side related to lumbar metastases she had a increase in pain this morning did not want to take morphine or acetaminophen, a dose of Toradol 15 mg IV was effective in controlling her pain - continue judicious Toradol, added a low-dose of morphine 7.5 mg for milder pain, continue her usual morphine 15 mg p.o. every 8 hours as needed pain #poss mucositis - started BLM mouthwash prn, avoid toothpaste with SLS, monitor for thrush none visible at this time #COPD - stable not in exacerbation #HFpEF- stable Continue carvedilol, spironolactone hyperlipidemia- Continue rosuvastatin #hypomagnesemia - 1.4 in ED, replaced with 3g IV, 1.7 on recheck I updated her family 10/20 - in room and her daughter on speakerphone, 10/21 her and a friend in room Admission and Anticipated Discharge Date Admission Date: October 20, 2025 Subjective 80-year-old woman admitted with urosepsis. Tmax 39.1C at 7 PM yesterday. BP 170s/60s, HR 93, SpO2 95% on 2 L. Reports feeling better today, improved a ppetite, no dysuria. Severe chronic right low back/sacral pain present for the past year, treated with Toradol, improving pain to baseline. Upset about drinking CT contrast, worried about CT findings. Friend and at bedside providing reassurance. Physical Exam Physical Exam: General Appearance: Awake, alert, anxious, sitting upright. Vital signs: Reviewed past 24h vital signs in EMR, unremarkable. HEENT: Within normal limits. Respiratory: Clear to auscultation bilaterally except for scant bibasilar crackles. Cardiovascular: Regular rhythm, no murmurs, rubs, or gallops. Gastrointestinal: Abdomen soft NT/ND, normal active bowel tones. Extremities: No edema, warm, well perfused. Skin: Warm, dry, no rashes. Neurological: AOx4, normal speech and mentation, alvarado x 4. Psychiatric: Normal. Results & Data Results & Data Vital Signs (Past 12 Hours) Vital Signs Temp Pulse Pulse Resp BP BP Pulse Ox 10/21/25 16:02 36.8 C 71 18 191/67 H 99 10/21/25 14:24 70 10/21/25 11:05 36.8 C 65 18 187/64 H 97 10/21/25 09:51 10/21/25 08:06 36.9 C 68 16 177/67 H 95 10/21/25 07:49 79 10/21/25 05:53 Pulse Ox O2 Del Method O2 Del Method O2 Flow Rate O2 Flow Rate 10/21/25 16:02 Nasal Cannula 2 10/21/25 14:24 10/21/25 11:05 Nasal Cannula 2 10/21/25 09:51 Nasal Cannula 2 10/21/25 08:06 Nasal Cannula 2 10/21/25 07:49 10/21/25 05:53 94 Nasal Cannula 2 Laboratory Results - Labs: - WBC: 3 - Hgb: 10 - Cr: 0.7 - M.7 - Blood cultures: Positive for E. coli by molecular assay - Urine culture: 20,000 gram-negative rods PG Care Time/CCT Total # of Minutes Spent Total Time Spent with Patient: Total time spent is greater than 50% in coordination of care (as documented) at patient's floor/unit and/or counseling patient: Coding Level of Care Code 47639 SUB INP/OBS CARE 3/50MIN Diagnoses Urinary tract infection N39.0 E coli bacteremia R78.81; B96.20 Anemia requiring transfusions D64.9 Metastatic cancer C79.9 (HFpEF) heart failure with preserved ejection fraction I50.30 COPD with emphysema J43.9
[2025-10-21] MEDS: LORazepam 0.5 MG TAB PO PRN (17:45)
[2025-10-21] MEDS: MIRTAZAPINE TAB 15 MG TAB PO SCH (20:53)
[2025-10-22] MEDS: POLYETHYLENE (MIRALAX) 17 GM PACK PO PRN (08:55)
[2025-10-22] MEDS ORDERED: SPIRONOLACTONE 25 MG TAB PO SCH (09:00)
[2025-10-22] MEDS: cefTRIAXone SODIUM 2,000 MG/50 ML BAG IV SCH (10:28)
--- NOTE | 2025-10-22 14:48 | Hospitalist Progress Note ---
Date of Service October 22, 2025 Assessment & Plan (1) Urinary tract infection: (2) E coli bacteremia: (3) Anemia requiring transfusions: (4) Metastatic cancer: (5) (HFpEF) heart failure with preserved ejection fraction: (6) COPD with emphysema: Plan 80-year-old woman with metastatic non-small cell lung cancer, primary tumor in right lung with malignant pleural effusion lumbar spinal and hepatic metastases, admitted with sepsis #sepsis (POA) caused by E. coli bacteremia and symptomatic UTI. pneumonia was ruled out, see my note from 10/20 #immunosuppression because of lymphopenia - count of 60. Neutrophil count >2500 - low-grade E. coli bacteremia in 1 bottle and E. coli in urine, virtually pansensitive, changed cefepime to ceftriaxone. Needs 10 days total antibiotics but can change to oral once afebrile - ordered CT abdomen and pelvis with contrast because of bacteremia to rule out urinary obstruction, abscess or other causes for gram-negative bacteremia. Reviewed CT report there are no unexpected findings and nothing new compared to her known issues Other than some cystitis as expected. The report comments on possible lumbar discitis/osteomyelitis however that is an area of known metastasis based on her previous recent PET/CT therefore changes are related to malignancy not infection - discussed UTI prevention today will prescribe vaginal Estrace cream at discharge #severe symptomatic anemia and lymphopenia may be related to immunotherapy with Keytruda. Hg 6.5 on presentation. Lymphocyte count 60. Neutrophils and platelets normal - transfused 2 units RBCs hemoglobin improved to 10.0 #myocardial demand ischemia caused by severe anemia and infection - HS-Tn with flat trend 67-->65, normal EKG, no evidence of acute coronary syndrome. All previous troponins have also been mildly elevated so there may be component of chronic elevation #metastatic lung cancer - with malignant R pleural effusion, spinal mets. Under treatment with Keytruda and soon to start chemotherapy -consulted oncology - at bedtime low-dose mirtazapine recommended by her oncologist, continue 7.5 mg at bedtime #malignant right pleural effusion - no visible effusion on current CXR # uncontrolled hypertension - severely hypertensive 10/21 I think a lot of this was anxiety. Significantly improved blood pressures today continue carvedilol and spironolactone # cancer related pain - her pain especially is lumbar/lumbosacral on the right side related to lumbar metastases she had a increase in pain this morning did not want to take morphine or acetaminophen, a dose of Toradol 15 mg IV was effective in controlling her pain - she reports she had XRT to this area in the past already - continue judicious Toradol, added a low-dose of morphine 7.5 mg for milder pain, continue her usual morphine 15 mg p.o. every 8 hours as needed pain #poss mucositis - started BLM mouthwash prn, avoid toothpaste with SLS, monitor for thrush none visible at this time #COPD - stable not in exacerbation #HFpEF- stable Continue carvedilol, spironolactone hyperlipidemia- Continue rosuvastatin #hypomagnesemia - replaced IV I updated her family: 10/20 - in room and her daughter on speakerphone, 10/21 her and a friend in room, 10/22 her in the room and daughter on speaker phone Admission and Anticipated Discharge Date Admission Date: October 20, 2025 Subjective 80-year-old woman with UTI and sepsis, gram-negative bacteremia. Tmax 39.1 at 7 PM last night. BP normal. Satting 95% on 2 L oxygen. Pansensitive E. coli in urine (20,000 colonies). Gram-negative bacillus in 1 out of 4 admission blood cultures from 10/19, identified as E. coli. CT abdomen/pelvis with cystitis and otherwise unremarkable, just showing known findings related to her malignancy and other chronic issues Feeling better today, appetite back. Fever last night and this morning. No chest pain, shortness of breath, coughing, abdominal pain, nausea, vomiting, or diarrhea. Right lower back pain unchanged, aggravated by hospital beds. Physical Exam Physical Exam: General Appearance: Appears much more well. Vital signs: Reviewed past 24h vital signs in EMR, unremarkable. HEENT: Within normal limits. Respiratory: Clear to auscultation anteriorly. Scattered crackles throughout right lung, unchanged. Left lung clear. Cardiovascular: Regular rate and rhythm, no murmur. Gastrointestinal: Abdomen soft NT/ND, normal active bowel tones. Extremities: Lower extremities warm, well perfused without edema. Skin: Warm, dry without rashes. Neurological: Awake, alert, oriented x4. Psychiatric: Normal. less anxious today Results & Data Results & Data Vital Signs (Past 12 Hours) Vital Signs Temp Pulse Pulse Resp BP Pulse Ox O2 Del Method 10/22/25 14:04 78 10/22/25 11:30 37.1 C 68 16 104/57 L 98 Nasal Cannula 10/22/25 10:17 82 10/22/25 10:11 82 10/22/25 10:11 Nasal Cannula 10/22/25 08:23 38.5 C H 78 16 154/65 H 97 Nasal Cannula 10/22/25 03:05 37.4 C 72 16 162/65 H 95 Nasal Cannula O2 Flow Rate 10/22/25 14:04 10/22/25 11:30 2 10/22/25 10:17 10/22/25 10:11 10/22/25 10:11 2 10/22/25 08:23 2 10/22/25 03:05 2 Diagnostic Findings - Labs: - Urine culture: Pansensitive E. coli with 20,000 colonies - Blood culture: 10/19/2025, Gram-negative bacillus in 1 out of 4 admission blood cultures identified as E. coli by molecular assay - Imaging: - CT abdomen/pelvis with IV contrast: 10/21/2025, Prominent urinary bladder wall, report indicates possible infectious discitis and osteomyelitis at L3/4 - this area is a known metastasis from lung cancer which matches her PET scan this has been radiated in the past according to the patient and her family, not suspicious for an infectious issue PG Care Time/CCT Total # of Minutes Spent Total Time Spent with Patient: Total time spent is greater than 50% in coordination of care (as documented) at patient's floor/unit and/or counseling patient: Coding Level of Care Code 73414 SUB INP/OBS CARE 2/35MIN Diagnoses Urinary tract infection N39.0 E coli bacteremia R78.81; B96.20 Anemia requiring transfusions D64.9 Metastatic cancer C79.9 (HFpEF) heart failure with preserved ejection fraction I50.30 COPD with emphysema J43.9
[2025-10-23 11:09] VITALS: BP 150/56; RESP 18; TEMP 98.7; O2SAT 97
--- NOTE | 2025-10-23 12:11 | Discharge Summary ---
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 coli bacteremia and symptomatic UTI. pneumonia was ruled out, see my note from 10/20 #immunosuppression because of lymphopenia - count of 60. Neutrophil count >2500 - low-grade E. coli bacteremia in 1 bottle and E. coli in urine, virtually pansensitive - ordered CT abdomen and pelvis with contrast because of bacteremia to rule out urinary obstruction, abscess or other causes for gram-negative bacteremia. Reviewed CT report there are no unexpected findings and nothing new compared to her known issues Other than some cystitis as expected. The report comments on possible lumbar discitis/osteomyelitis however that is an area of known metastasis based on her previous recent PET/CT therefore changes are related to malignancy not infection. her symptoms in that area are unchanged from baseline - discussed UTI prevention will prescribe vaginal Estrace cream at discharge - in the hospital treated with cefepime then ceftriaxone, discharging on 6 additional days of ciprofloxacin to complete a total 10-day course for the bacteremia #severe symptomatic anemia and lymphopenia may be related to immunotherapy with Keytruda. Hg 6.5 on presentation. Lymphocyte count 60. Neutrophils and platelets normal - transfused 2 units RBCs hemoglobin improved to 10.0 #myocardial demand ischemia caused by severe anemia and infection - HS-Tn with flat trend 67-->65, normal EKG, no evidence of acute coronary syndrome. All previous troponins have also been mildly elevated so there may be component of chronic elevation #metastatic lung cancer - with malignant R pleural effusion, spinal mets. Under treatment with Keytruda and soon to start chemotherapy -consulted oncology - at bedtime low-dose mirtazapine recommended by her oncologist, she had a good response to this with respect to sleep and appetite, continue 7.5 mg at bedtime #malignant right pleural effusion - no visible effusion on current CXR # uncontrolled hypertension - severely hypertensive 10/21 I think a lot of this was anxiety. Significantly improved blood pressures today continue carvedilol and spironolactone # cancer related pain - her pain especially is lumbar/lumbosacral on the right side related to lumbar metastases - she reports she had XRT to this area in the past already - she follows with palliative care and has a prescription for MS IR 15 mg every 8 hours as needed but she is very hesitant to take this and rarely takes it I told her it is okay to cut it in half and try that - some of the right low back symptoms seem to have a radicular component, made referral to pain clinic to consider ALLAN or radiofrequency ablation if that is effective #COPD - stable not in exacerbation continue albuterol as needed #HFpEF- stable Continue carvedilol, spironolactone hyperlipidemia- Continue rosuvastatin #hypomagnesemia - replaced IV I updated her family: 10/23 her daughter and at bedside I discussed the plan of care with her medical oncologist Notes For Next Care Provider finishing Cipro for total 10 days antibiotics for E. coli UTI and bacteremia vaginal Estrace cream prescribed for UTI prevention mirtazapine at at bedtime added with good effect on sleep and appetite Admission HPI Per Admitting Provider The patient is a 80-year-old female with past medical history including renal artery stenosis, anemia of chronic disease, pleural effusion, metastatic cancer, HFpEF, COPD with emphysema, cancer pain, cognitive impairment, hypertension, esophageal reflux, and lung cancer. She was brought to the emergency department via EMS due to increased weakness, shortness of breath, and fatigue progressive since most recent admission from 10/04-10/09/2025. At admission, she was treated for COPD with emphysema exacerbation, small pneumothorax, and HFpEF. Workup in the emergency department this evening included the following abnormal laboratories, hemoglobin 6.5 compared to most recent of 8.7, glucose 134, albumin 2.9, magnesium 1.4, calcium 7.9. From the ED patient received the following, normal saline 1 L bolus, Benadryl 25 mg IV, Tylenol 650 mg by mouth, and was ordered 2 units PRBCs. Respiratory BioFire testing negative. Discharge Exam General Appearance: sitting up on the bed and looks good today Vital signs: Reviewed past 24h vital signs in EMR, unremarkable. HEENT: Within normal limits. Respiratory: normal work of breathing Cardiovascular: deferred Gastrointestinal: nondistended Extremities: no lower extremity edema Skin: Warm, dry without rashes. Neurological: Awake, alert, oriented x4. Psychiatric: does not appear anxious today Discharge Plan Discharge Items Patient Disposition: Home - Home Health Services Reason For Visit: SYMPTOMATIC ANEMIA, LUNG CA, KEYTRUDA, HYPOMAG Discharge Diagnosis: E. coli UTI and bacteremia, severe anemia, metastatic NSCLC Condition on Discharge: Fair Activity: Resume your previous activity Non-emergency contact: Primary Care Provider and Oncologist Call non-emergency contact if: you have any medication questions, your symptoms worsen and your temperature is above 101 Follow-up/Referrals: Jessee Joiner DO [Primary Care Provider] - 11/06/25 1:00 pm Jayna Singleton MD [Physician] - Diet: Regular Addtl Attending Provider Instructions: You were treated for UTI and bacteria in your blood stream (E. coli) Finish the course of oral antibiotics You can take a probiotic for 2-4 weeks to prevent antibiotic associated diarrhea. These are available over the counter. If you have rash or severe diarrhea after/while taking antibiotics, call your doctor. Diarrhea associated with broad spectrum antibiotics can occur up to six months following antibiotics. If you have significant ongoing diarrhea, especially with abdominal pain or fever, seek medical attention. I prescribed vaginal estrogen cream to help with UTI prevention You were transfused 2 units of blood for anemia Right now you don't have any significant pleural effusions Dr. Singleton recommended starting mirtazapine to improve sleep and appetite, it also helps a bit with mood. You seem to be having a good response so I sent a prescription for this This medication can cause sedation, but you're at the lowest dose right now so that's unlikely I made a referral to pain medicine regarding your right back/hip pain Continue with [facility] for home health PT, OT, RN The oxygen goal is 88-92%. It sounds like a low amount (like 1L) keeps you in the high 90s, but drops quickly when removed - in that case just continue with the low amount of oxygen. Its ok to take off your oxygen when you are up and around if its staying >88% and you feel OK. Sounds like you always need some when you are lying down. Your blood pressure has been variable in the hospital. Its safest right now to continue the carvedilol and spironolactone and keep monitoring it as an outpatient before changing anything. It was a pleasure taking care of you in the hospital, Khushboo Michael MD Pending Studies at Discharge: No Stand-Alone Forms: [facility], Smoking Cessation Medications and DC Order Prescriptions: New mirtazapine 15 mg Tablet 7.5 mg PO HS Qty: 14 0RF ciprofloxacin HCl [Cipro] 500 mg tablet 500 mg PO BID Qty: 12 0RF Rx Instructions: start taking AM of /16 estradiol [Estrace] 0.01 % (0.1 mg/gram) cream See Rx Instructions .ROUTE .COMPLEX Qty: 42.5 1RF Rx Instructions: 2g daily PV for 14 days then decrease to 1g PV three times a week Continued carvedilol 25 mg tablet 25 mg PO BID Qty: 180 3RF rosuvastatin 10 mg tablet 10 mg PO HS Qty: 90 3RF folic acid 1 mg tablet 1 mg PO DAILY dexamethasone 4 mg tablet 4 mg PO BID PRN (Reason: PER CHEMO DIRECTIONS) Rx Instructions: Start 1 days prior, day of tx and day after tx, take BID (chemo tx only) morphine 15 mg tablet 15 mg PO Q8H PRN (Reason: Pain) Rx Instructions: orally every 8 hours PRN; olanzapine 2.5 mg tablet 2.5 mg PO DAILY PRN (Reason: PER CHEMO DIRECTIONS) Rx Instructions: take At day 1 of chemo for 4 days in a row- for nausea ondansetron HCl 4 mg tablet See Rx Instructions PO Q8H PRN (Reason: PER CHEMO DIRECTIONS) Rx Instructions: 4mg to 8 mg (has 4 mg po prior to radiation treatments PRN and 8 mg pretreat PRN w/chemo trio alimta/ paraplatin/ Keyteruda/ prior to treatment) (q 3 weeks for 6 rounds) reported by daughter prochlorperazine maleate 10 mg tablet 10 mg PO Q6H PRN (Reason: NAUSEA/VOMITING) Rx Instructions: ordered by oncology as nausea tx: take Po q6 hours prn nausea, & alternate w/ Zofran when having chemo. gabapentin 300 mg capsule 300 mg PO TID PRN (Reason: Pain) Hold Instructions: not taking Rx Instructions: ORDERED BY PALLIATIVE CARE : Gabapentin 300 mg po q am & q pm x 1 week BID , then take 300 MG TID after, not taking per daughter acetaminophen 500 mg tablet 1,000 mg PO TID PRN (Reason: pain) Qty: 90 0RF lorazepam 1 mg tablet 0.5 mg PO HS PRN (Reason: anxiety) pantoprazole 40 mg Tablet,Delayed Release (Dr/Ec) 40 mg PO BID 30 Days Qty: 60 1RF albuterol sulfate 90 mcg/actuation HFA aerosol inhaler 2 puff inhalation Q4H PRN (Reason: Shortness Of Breath Or Wheezing) lisinopril 40 mg tablet 40 mg PO DAILY Trelegy Ellipta 200-62.5-25 mcg blister with device 1 inh inhalation DAILY furosemide [Lasix] 20 mg tablet 20 mg PO 3XWK Qty: 12 0RF Rx Instructions: On Thursday and Thursday spironolactone 25 mg tablet 25 mg PO QAM Qty: 30 0RF Hold Instructions: hypotension Discharge Orders: Discharge Order (Routine); Ordered 10/23/25 Ordered By: Khushboo Michael Admission Data Admit Date/Time: 10/20/25 01:49 Attending Provider: Khushboo Michael Admit Provider: Dilip Steiner Primary Care Provider: Jessee Joiner Other Providers: Jayna Singleton; Dilip Steiner; [facility] Fax Other Interventions: Discharge Summary Assessment (RN) Last Done: 10/23/25 12:24 Hospital Stay Data Consultations 10/20/25 01:25 ED Decision to Admit Stat 10/20/25 04:08 Consult Hematology Routine Diagnostic Imagining Performed 10/21/25 12:36 CT abd pelvis IV con only Urgent Pending Results Patient Have Any Pending Studies at Discharge: No Discharge Instructions Given to Patient (Per Discharging Provider) You were treated for UTI and bacteria in your blood stream (E. coli) Finish the course of oral antibiotics You can take a probiotic for 2-4 weeks to prevent antibiotic associated diarrhea. These are available over the counter. If you have rash or severe diarrhea after/while taking antibiotics, call your doctor. Diarrhea associated with broad spectrum antibiotics can occur up to six months following antibiotics. If you have significant ongoing diarrhea, especially with abdominal pain or fever, seek medical attention. I prescribed vaginal estrogen cream to help with UTI prevention You were transfused 2 units of blood for anemia Right now you don't have any significant pleural effusions Dr. Singleton recommended starting mirtazapine to improve sleep and appetite, it also helps a bit with mood. You seem to be having a good response so I sent a prescription for this This medication can cause sedation, but you're at the lowest dose right now so that's unlikely I made a referral to pain medicine regarding your right back/hip pain Continue with [facility] for home health PT, OT, RN The oxygen goal is 88-92%. It sounds like a low amount (like 1L) keeps you in the high 90s, but drops quickly when removed - in that case just continue with the low amount of oxygen. Its ok to take off your oxygen when you are up and around if its staying >88% and you feel OK. Sounds like you always need some when you are lying down. Your blood pressure has been variable in the hospital. Its safest right now to continue the carvedilol and spironolactone and keep monitoring it as an outpatient before changing anything. It was a pleasure taking care of you in the hospital, Khushboo Michael MD Total Time Total Time Spent Total Time Spent (In Minutes): I personally spent: 45 minutes today on clinical care activities including: reviewing chart notes and vital signs discussion with market consultant(s) medical oncologist examining and counseling the patient counseling the patient's family writing prescriptions, discharge instructions documentation Coding Level of Care Code 79431 INP/OBS DISCH >30 MIN Diagnoses Urinary tract infection N39.0 E coli bacteremia R78.81; B96.20 Anemia requiring transfusions D64.9 Metastatic cancer C79.9 (HFpEF) heart failure with preserved ejection fraction I50.30 COPD with emphysema J43.9
[2025-10-23 12:26] VITALS: PULSE 79
[2025-10-23] MEDS: PNEUMOCOCCAL VACCINE (PCV20) 20-VAL CONJ-DIP CRM/PF 0.5 ML SYR IM ONE (13:29)
== END 2025-10-23 12:52 | disposition home health service (06) | DRG 872 ==
LOC: ED 23:28 → 2W 10-20 01:49 → SUATTDRO 10-20 01:49 → 2W 10-20 03:46

== ENCOUNTER 2025-11-03 20:05 | Inpatient (IN) ==
--- NOTE | 2025-11-03 20:26 | Emergency Department Note ---
Impression & Plan Fever, Elevated troponin, Hypertension, Metastatic cancer to lung, Chronic hypoxic respiratory failure ED Provider Note NAME: GRACIE LAW AGE: 80 SEX: F : 1945 ARRIVES VIA: Ambulance INFORMANT: Patient, ED PROVIDER(S): Leonard Whalen MD CHIEF COMPLAINT: Fever MEDICAL DECISION MAKING: Patient presents with fever but denies any symptoms other than the fever itself. Known history of metastatic lung cancer. Patient on her chronic 1 L nasal cannula. No complaints of chest pain or shortness of breath. IV was established and blood work was obtained. Patient did receive 500 of IV fluids initially and received empiric IV cefepime 2 g. Patient with a white count of 4.3 with a hemoglobin of 9.2. Virtually normal platelet count 129. Kidney function is unremarkable. Troponin is 61 although appears to be chronic. Last elevated October 20 and was 65 so downward trending. Urinalysis does not show evidence of obvious infection. Numerous epithelial cells of the positive for leukocytes and whites. COVID flu RSV negative and the patient's chest x-ray does not show evidence of obvious consolidative pneumonia. In light of the patient's recent bacteremia and without obvious known source to believe the patient would benefit from admission and treatment. I did speak with the on-call hospital service and the patient was admitted by Dr. Moe. Discussion w/ other healthcare providers: Dr. Moe inpatient medicine service Prior /Outside records reviewed: I reviewed part of a discharge summary from Dr. Wright from October 23. The patient had been admitted for UTI E. coli bacteremia and with a known history of metastatic cancer. Patient was treated with cefepime to Rocephin and then discharged on ciprofloxacin to complete a 10-day course for the bacteremia. Patient on immunotherapy with Keytruda. Patient with known history of metastatic lung cancer. Also history of COPD heart failure with preserved ejection fraction. I did review part of a cardiology visit note from Dr. Massey from October 18. Known history of hypertrophic cardiomyopathy with LVOT obstruction status post myomectomy to me. I reviewed part of an echo report from August 25, 2025. Normal LV size severe concentric LVH. Interventricular septum thinned compared to the remainder of the ventricle. EF of 50 to 55%. Akinesis of the basal anterior septum and basal to mid inferior septum consistent with prior myomectomy. Aortic pulmonic mitral and tricuspid regurgitation noted. Differential diagnosis: Dehydration, UTI, pneumonia, metabolic derangment, electrolyte abnormalities, hypovolemia, anemia, cellulitis among others were considered. Diagnostics, as interpreted by me: ECG: Normal sinus rhythm, rate 71, wide QRS, left bundle branch block pattern Cardiac monitoring: An order was placed for continuous cardiac monitoring. The monitor shows a rate of 75 with sinus rhythm. Patient was placed on pulse oximetry Medical decision rules: None Imaging studies: I informally interpreted the patient's chest x-ray does not show evidence of obvious consolidative pneumonia with formal report to follow. HPI: Patient presents from home due to concern for fever. The patient states that this morning the patient was very tired had chills reportedly had a temp of 102. The patient did take Tylenol about an hour and a half ago. Known history of metastatic cancer. Patient denies any chest pains or shortness of breath. She is on 1 L of oxygen at all times. Goal sats of 88 to 92% per EMS. Patient has stable vital signs and route but was advised to come to the emergency department for evaluation. She reportedly has had 1 chemo treatment and does follow-up with Dr. Singleton. Former smoker. She denies any vomiting or diarrhea. No known sick contacts or travel. She did receive a seasonal flu shot. She denies any headache sore throat congestion or cough. No abdominal pain or dysuria. PAST MEDICAL HISTORY: See Below PAST SURGICAL HISTORY: See Below SOCIAL HISTORY: See Below HOME MEDICATIONS: See Below ALLERGIES: See Below VITALS: See Below PHYSICAL EXAMINATION: GENERAL: NAD, non-toxic. EYE EXAM: Normal conjunctiva. PERRL, no anisocoria and EOM's grossly intact w/o pain. OROPHARYNX: Moist mucus membranes, grossly normal dentition. NECK: Trachea midline, no stridor. LUNGS: Clear to auscultation. Normal chest wall mechanics. HEART: NSR, no MRG. ABDOMEN: Abdomen soft, non-tender, no masses, no rebound or guarding. BACK: No CVA TTP. SKIN: No rashes and no bruising. UPPER EXTREMITIES: Upper extremities are grossly normal. LOWER EXTREMITIES: Grossly normal, no edema. NEURO EXAM: Awake and alert, follows commands, no obvious facial asymmetry, normal speech, moves all 4 extremities. Past Med/Surg History Problem List Elevated troponin Fever Anemia requiring transfusions (Acute) Renal artery stenosis Anemia of chronic disease (Acute) Pleural effusion (Acute) Metastatic cancer (Acute) Mitral regurgitation Malignant pleural effusion (HFpEF) heart failure with preserved ejection fraction COPD with emphysema Palliative care by specialist Lumbar vertebral fracture, pathologic (Acute ~09/18/25) Largest lesions at the L3 and L4 levels with redemonstration of an L4 pathologic fracture. Hypoxia (Acute) Cancer related pain (Acute) Lung mass Abnormal MRI, lumbar spine Lumbar radiculopathy Back pain (Acute) Left hip pain Cognitive impairment Vitamin B12 deficiency anemia Allergic reaction to sulfonamide Hyperglycemia Dyslipidemia Family history of colon cancer LVH (left ventricular hypertrophy) (Chronic) Diverticulosis (Chronic) Chronic rhinitis Chronic obstructive pulmonary disease Osteoporosis (Chronic) Hypertension Esophageal reflux (Chronic) Anxiety (Chronic) Medical History Abnormal CT of the abdomen Acute dehydration Nausea and vomiting Lumbago Demand ischemia Nausea CAD (coronary artery disease) Nonobstructive Hypochromic anemia Metastatic cancer LBBB (left bundle branch block) since myectomy Hypertrophic cardiomyopathy s/p myectomy with no outflow obstruction or MR on echo after surgery Mitral regurgitation PT STATES RESOLVED AFTER HEART SURGERY Edema Dyspnea on exertion History of anemia Spinal stenosis Hyperlipidemia Borderline diabetic Hx of gastric ulcer Chronic obstructive pulmonary disease History of basal cell carcinoma Surgical History History of anesthesia reaction SLOW TO WAKE UP H/O wrist surgery + CTR (HARDWARE INTACT) History of cholecystectomy History of tooth extraction History of cataract surgery RT/LEFT History of esophagogastroduodenoscopy (EGD) History of colonoscopy (~2015) S/P breast lumpectomy LEFT (BENIGN) S/P tonsillectomy H/O arthroscopic knee surgery RT H/O hernia repair S/P myomectomy 2 YEARS AGO [place] [facility] Family History Mother Colorectal cancer Father , at 78 years of age from acute IN in the setting of DM. Diabetes Stroke Family history of diabetes mellitus Brother Family history of diabetes mellitus Family/Other Breast cancer niece Mother , at 62 years of age from colon CA. No problems noted. Other No family history of adverse response to anesthesia Denies family history of Ovarian cancer Prostate cancer Social History Smoking Status: Never smoker Tobacco Type: Cigarettes Age Started Using Tobacco: 16; Age Quit Using Tobacco: 72; packs per day: 0.5; Second Hand Exposure: No; Do You Dip or Chew Tobacco: No; Hx Alcohol Use: No Hx Substance Use: No Preferred Language: Polish Communication Ability: Effective Meter Readers Supervisor Required: No Beliefs That Will Affect Care: None marital status: marital status details: 63 yrs Current Living Situation: Spouse and Family Current Living Situation Comment: , Daughter, and Granddaughter current occupational status: retired How many Children do You have: 2 How many Children do You have Comment: 2 sons(53y,,drug O/D;59y,alive/well);1 daughter(53y,alive/well). Feels Safe at Home: Yes Childhood Exposure to Second-Hand Smoke: No Diet: regular caffeine: Yes Dental Care, Regularly: No Physical Activity Frequency: Daily Seatbelt Use: always Sunscreen Use: Yes Assistive Devices: Cane, Glasses, Oxygen - Continuous and Walker Allergies Allergies Allergy/AdvReac Type Severity Reaction Status Date / Time hydrochlorothiazide Allergy Mild Rash Verified 10/27/25 13:15 nickel Allergy Mild Rash Verified 10/27/25 13:15 Sulfa (Sulfonamide Allergy Mild Rash Verified 10/27/25 13:15 Antibiotics) prednisone AdvReac Intermediate MOOD Verified 10/27/25 13:15 CHANGES Home Meds Home Medications Medication Instructions Recorded Confirmed folic acid 1 mg tablet 1 mg PO QAM 09/27/25 11/03/25 albuterol sulfate 90 mcg/actuation 2 puff inhalation Q4H PRN 10/04/25 11/03/25 aerosol inhaler Shortness Of Breath Or Wheezing fluticasone fur. 200 mcg-umeclid 1 inh inhalation DAILY 10/04/25 11/03/25 62.5 mcg-vilant 25 mcg inhalat.powder (Trelegy Ellipta) lisinopril 40 mg tablet 40 mg PO HS 10/04/25 11/03/25 dexamethasone 4 mg tablet 4 mg PO BID PRN PER CHEMO 10/11/25 11/03/25 DIRECTIONS morphine 15 mg immediate release 15 mg PO Q8H PRN Pain 10/11/25 11/03/25 tablet olanzapine 2.5 mg tablet 2.5 mg PO DAILY PRN PER CHEMO 10/11/25 11/03/25 DIRECTIONS ondansetron HCl 4 mg tablet See Rx Instructions PO Q8H PRN PER 10/11/25 11/03/25 CHEMO DIRECTIONS prochlorperazine maleate 10 mg 10 mg PO Q6H PRN NAUSEA/VOMITING 10/11/25 11/03/25 tablet lorazepam 1 mg tablet 0.5 mg PO HS PRN anxiety 10/20/25 11/03/25 gabapentin 300 mg capsule 300 mg PO UD PRN Pain 11/03/25 11/03/25 Previous Rx's Medication Instructions Recorded carvedilol 25 mg tablet 25 mg PO BID #180 tabs 01/24/25 rosuvastatin 10 mg tablet 10 mg PO HS #90 tabs 07/11/25 acetaminophen 500 mg tablet 1,000 mg (2 x 500 mg) PO TID PRN 08/24/25 pain #90 tabs pantoprazole 40 mg tablet,delayed 40 mg PO BID 30 days #60 tabs 09/02/25 release furosemide 20 mg tablet (Lasix) 20 mg PO 3XWK #12 tabs 10/09/25 spironolactone 25 mg tablet 25 mg PO QAM #30 tabs 10/09/25 estradiol 0.01% (0.1 mg/gram) See Rx Instructions .Route 10/23/25 vaginal cream (Estrace) .COMPLEX UTI prevention #42.5 grams mirtazapine 15 mg tablet 7.5 mg (1/2 x 15 mg) PO HS #14 tabs 10/23/25 cephalexin 500 mg tablet 500 mg PO TID 5 days #15 tabs 11/03/25 Results & Data (ED) Vital Signs Vital Signs - 24 hr 11/03/25 19:55 11/03/25 19:55 11/03/25 20:08 Temperature 37.1 C 37.1 C Temperature Source Oral Oral Pulse Rate 77 73 Pulse Rate from SpO2 Sensor 73 Pulse Rhythm Regular Pulse Strength Normal Respiratory Rate 16 18 22 Respiratory Effort / Characteristics Non-Labored Non-Labored Respiratory Depth Normal Normal Respiratory Pattern Regular Blood Pressure 195/79 H 195/79 H Blood Pressure [Right Arm] 195/79 H Blood Pressure Mean 117 138 Blood Pressure Mean [Right Arm] 117 Blood Pressure Position Lying Blood Pressure Position [Right Arm] Lying Pulse Oximetry 91 91 93 Oxygen Delivery Method Nasal Cannula Nasal Cannula Oxygen Flow Rate 1 1 Sepsis Recent Fever Within 48 Hours Yes Sepsis New/Unexplained Change in Mental Status No Sepsis Action Taken by Nursing No Action Required 11/03/25 20:12 11/03/25 20:16 11/03/25 20:39 Temperature Temperature Source Pulse Rate 77 72 Pulse Rate from SpO2 Sensor Pulse Rhythm Regular Pulse Strength Respiratory Rate 19 Respiratory Effort / Characteristics Respiratory Depth Respiratory Pattern Blood Pressure 212/80 H Blood Pressure [Right Arm] Blood Pressure Mean 128 Blood Pressure Mean [Right Arm] Blood Pressure Position Blood Pressure Position [Right Arm] Pulse Oximetry 98 Oxygen Delivery Method Nasal Cannula Oxygen Flow Rate 1 Sepsis Recent Fever Within 48 Hours Sepsis New/Unexplained Change in Mental Status Sepsis Action Taken by Nursing 11/03/25 20:45 11/03/25 20:50 11/03/25 21:00 Temperature Temperature Source Pulse Rate 68 68 69 Pulse Rate from SpO2 Sensor 68 Pulse Rhythm Pulse Strength Respiratory Rate 22 22 18 Respiratory Effort / Characteristics Respiratory Depth Respiratory Pattern Blood Pressure 202/78 H 204/88 H Blood Pressure [Right Arm] Blood Pressure Mean 142 151 Blood Pressure Mean [Right Arm] Blood Pressure Position Blood Pressure Position [Right Arm] Pulse Oximetry 99 99 99 Oxygen Delivery Method Oxygen Flow Rate Sepsis Recent Fever Within 48 Hours Sepsis New/Unexplained Change in Mental Status Sepsis Action Taken by Nursing 11/03/25 21:15 11/03/25 21:30 11/03/25 21:45 Temperature Temperature Source Pulse Rate 69 68 Pulse Rate from SpO2 Sensor Pulse Rhythm Pulse Strength Respiratory Rate 19 20 Respiratory Effort / Characteristics Respiratory Depth Respiratory Pattern Blood Pressure 189/70 H 175/65 H 181/75 H Blood Pressure [Right Arm] Blood Pressure Mean 155 127 121 Blood Pressure Mean [Right Arm] Blood Pressure Position Blood Pressure Position [Right Arm] Pulse Oximetry 97 97 Oxygen Delivery Method Oxygen Flow Rate Sepsis Recent Fever Within 48 Hours Sepsis New/Unexplained Change in Mental Status Sepsis Action Taken by Nursing 11/03/25 21:45 11/03/25 22:00 Temperature Temperature Source Pulse Rate 77 76 Pulse Rate from SpO2 Sensor Pulse Rhythm Pulse Strength Respiratory Rate 23 17 Respiratory Effort / Characteristics Respiratory Depth Respiratory Pattern Blood Pressure 181/75 H 180/62 H Blood Pressure [Right Arm] Blood Pressure Mean 121 100 Blood Pressure Mean [Right Arm] Blood Pressure Position Blood Pressure Position [Right Arm] Pulse Oximetry 95 96 Oxygen Delivery Method Oxygen Flow Rate Sepsis Recent Fever Within 48 Hours Sepsis New/Unexplained Change in Mental Status Sepsis Action Taken by Detention Medications Current Medication List: was personally reviewed by me Laboratory Data Attestation: I reviewed the patient's lab results. 11/03/25 20:19 11/03/25 20:19 Lab Results 11/03/25 11/03/25 Range/Units 20:19 20:32 WBC 4.38 L (4.8-10.8) K/ul RBC 3.30 L (4.20-5.40) M/uL Hgb 9.2 L (12.0-16.0) g/dL Hct 29.4 L (37.0-47.0) % MCV 89.1 (80.0-100.0) fL MCH 27.9 (25.0-34.0) pg MCHC 31.3 L (32.0-36.0) g/dL RDW Std Deviation 54.5 H (36.4-46.3) fL RDW Coeff of [place] 17.1 H (11.5-14.5) % Plt Count 129 L (130-400) K/uL MPV 10.2 (9.4-12.4) fL Immature Gran % (Auto) 0.7 % Neut % (Auto) 75.6 % Lymph % (Auto) 5.0 % [place] % (Auto) 12.8 % Eos % (Auto) 5.0 % Baso % (Auto) 0.9 % Neut # (Auto) 3.31 (1.40-6.50) K/uL Lymph # (Auto) 0.22 L (1.20-3.40) K/uL [place] # (Auto) 0.56 (0.11-0.59) K/uL Eos # (Auto) 0.22 (0.00-0.50) K/uL Baso # (Auto) 0.04 (0.00-0.20) K/uL Immature Gran # (Auto) 0.03 (0.01-0.20) K/uL Sodium 142 (136-145) mmol/L Potassium 3.8 (3.5-5.1) mmol/L Chloride 104 (98-107) mmol/L Carbon Dioxide 31 (21-32) mmol/L Anion Gap 7 (3-11) BUN 17 (6-23) mg/dl Creatinine 0.62 (0.6-1.2) mg/dl Est Cr Clr Drug Dosing 51.1 ml/min eGFR 89.41 BUN/Creatinine Ratio 27.4 H (10-20) Glucose 121 H (70-99(Fasting)) mg/dl Lactate 0.7 (0.4-2.0) mmol/L Calcium 8.6 (8.6-10.3) mg/dl Magnesium 1.7 (1.7-2.4) mg/dl Total Bilirubin 0.6 (0.2-1.0) mg/dl Direct Bilirubin 0.1 (0-0.2) mg/dl AST 17 (13-39) U/L ALT 8 (7-52) U/L Alkaline Phosphatase 58 (34-104) U/L Troponin I High Sens 61.1 H* (0-14) pg/ml Total Protein 6.1 (6.0-8.3) gm/dl Albumin 3.4 (3.4-5.0) gm/dl Procalcitonin 0.29 (0-0.5) ng/ml Urine Color Yellow Urine Appearance Turbid A (Clear) Urine pH 5.5 (4.5-7.5) Ur Specific [place] 1.018 (1.000-1.030) Urine Protein 1+ H (Negative) Urine Glucose (UA) Negative (Negative) Urine Ketones Negative (Negative) Urine Blood Trace H (Negative) Urine Nitrite Negative (Negative) Urine Bilirubin Negative (Negative) Urine Urobilinogen Negative (Negative) Ur Leukocyte Esterase Trace H (Negative) Urine WBC (Auto) 6-10 H (0-5) /hpf Urine RBC (Auto) 11-20 H (0-2) /hpf U Hyaline Cast (Auto) 3-5 H (0-2) /lpf U Epithel Cells (Auto) >20 H (0-2) /hpf Urine Bacteria (Auto) None Seen (None Seen) Urine Comment SARS-CoV-2 (PCR) NEGATIVE (Negative) Influenza Type A (PCR) Negative (Neg) Influenza Type B (PCR) Negative (Neg) RSV (RT-PCR) Negative (Neg) Administered Medications Discontinued Medications Sodium Chloride (Nss) 1,000 mls @ 999 mls/hr IV .Q1H1M CARLOS Stop: 11/03/25 21:30 Last Infusion: 11/03/25 21:16 Dose: Infused Documented By: shannon Admin: 11/03/25 20:37 Dose: 999 mls/hr Documented By: CHAO Cefepime HCl (Maxipime 2000mg) 2,000 mg in 20 mls @ 5 mls/min IV NOW STA; Protocol Stop: 11/03/25 20:50 Last Admin: 11/03/25 20:54 Dose: 5 mls/min Documented By: shannon Imaging Data Radiologist's Impression: Chest X-Ray 11/03/25 20:16 Exam(s): XR CXR 1 VIEW EXAM: XR Chest, 1 View CLINICAL HISTORY: Reason for exam: Sepsis. TECHNIQUE: Frontal view of the chest. COMPARISON: 10/19/2025 FINDINGS: Lungs: Left lung appears clear. Reticulonodular opacities right suprahilar region, unchanged. Pleural space: No pleural effusion or pneumothorax. Heart: Stable cardiomegaly. Bones/joints: Sternotomy. Vasculature: Calcified thoracic aorta. IMPRESSION: Reticulonodular opacities right suprahilar region, unchanged, favored to represent chronic postinflammatory scarring rather than acute infection. Electronically signed by: Caprice Anthony M.D. 11/03/25 20:48 PM Discharge Plan Visit Data Chief Complaint: Fever Stated Complaint: fever ED Provider: Leonard Whalen Discharge Problem: Fever, Elevated troponin, Hypertension, Metastatic cancer to lung, Chronic hypoxic respiratory failure Patient Disposition: Admitted As Inpatient Condition: Good Forms Stand Alone Forms: My [facility] [place] Prescriptions Prescriptions: No Action carvedilol 25 mg tablet 25 mg PO BID Qty: 180 3RF rosuvastatin 10 mg tablet 10 mg PO HS Qty: 90 3RF cephalexin 500 mg tablet 500 mg PO TID 5 Days Qty: 15 0RF folic acid 1 mg tablet 1 mg PO QAM dexamethasone 4 mg tablet 4 mg PO BID PRN (Reason: PER CHEMO DIRECTIONS) Rx Instructions: Start 1 days prior, day of tx and day after tx, take BID (chemo tx only) morphine 15 mg tablet 15 mg PO Q8H PRN (Reason: Pain) Rx Instructions: orally every 8 hours PRN; olanzapine 2.5 mg tablet 2.5 mg PO DAILY PRN (Reason: PER CHEMO DIRECTIONS) Rx Instructions: take At day 1 of chemo for 4 days in a row- for nausea ondansetron HCl 4 mg tablet See Rx Instructions PO Q8H PRN (Reason: PER CHEMO DIRECTIONS) Rx Instructions: 4mg to 8 mg (has 4 mg po prior to radiation treatments PRN and 8 mg pretreat PRN w/chemo trio alimta/ paraplatin/ Keyteruda/ prior to treatment) (q 3 weeks for 6 rounds) reported by daughter prochlorperazine maleate 10 mg tablet 10 mg PO Q6H PRN (Reason: NAUSEA/VOMITING) Rx Instructions: ordered by oncology as nausea tx: take Po q6 hours prn nausea, & alternate w/ Zofran when having chemo. acetaminophen 500 mg tablet 1,000 mg PO TID PRN (Reason: pain) Qty: 90 0RF lorazepam 1 mg tablet 0.5 mg PO HS PRN (Reason: anxiety) mirtazapine 15 mg Tablet 7.5 mg PO HS Qty: 14 0RF estradiol [Estrace] 0.01 % (0.1 mg/gram) cream See Rx Instructions .ROUTE .COMPLEX Qty: 42.5 1RF Rx Instructions: 2g daily PV for 14 days then decrease to 1g PV three times a week pantoprazole 40 mg Tablet,Delayed Release (Dr/Ec) 40 mg PO BID 30 Days Qty: 60 1RF albuterol sulfate 90 mcg/actuation HFA aerosol inhaler 2 puff inhalation Q4H PRN (Reason: Shortness Of Breath Or Wheezing) lisinopril 40 mg tablet 40 mg PO HS Trelegy Ellipta 200-62.5-25 mcg blister with device 1 inh inhalation DAILY furosemide [Lasix] 20 mg tablet 20 mg PO 3XWK Qty: 12 0RF Rx Instructions: On Thursday and Thursday spironolactone 25 mg tablet 25 mg PO QAM Qty: 30 0RF Hold Instructions: hypotension gabapentin 300 mg capsule 300 mg PO UD PRN (Reason: Pain) Referrals Referrals: Jessee Joiner DO [Primary Care Provider] - Discharge Problem: Fever Qualifiers: Fever type: unspecified Qualified Code(s): R50.9 - Fever, unspecified Hypertension Qualifiers: Hypertension type: unspecified Qualified Code(s): I10 - Essential (primary) hypertension Metastatic cancer to lung Qualifiers: Laterality: unspecified laterality Qualified Code(s): C78.00 - Secondary malignant neoplasm of unspecified lung
[2025-11-03] MEDS: SODIUM CHLORIDE 0.9% 1,000 ML IV SCH (20:35)
[2025-11-03 20:37] LABS: Hematocrit (blood only) 29.4 % (37.0-47.0); Hemoglobin 9.2 g/dL (12.0-16.0); Immature Granulocytes # (auto) 0.03 K/uL (0.01-0.20); Immature Granulocytes % (auto) 0.7 %; Mean Corpuscular Hemoglobin 27.9 pg (25.0-34.0); Mean Corpuscular Volume 89.1 fL (80.0-100.0); Platelet Count 129 K/uL (130-400); RDW Standard Deviation 54.5 fL (36.4-46.3); Red Blood Count 3.30 M/uL (4.20-5.40); White Blood Count 4.38 K/ul (4.8-10.8)
--- NOTE | 2025-11-03 20:49 | XRay Report ---
Exam(s): XR CXR 1 VIEW EXAM: XR Chest, 1 View CLINICAL HISTORY: Reason for exam: Sepsis. TECHNIQUE: Frontal view of the chest. COMPARISON: 10/19/2025 FINDINGS: Lungs: Left lung appears clear. Reticulonodular opacities right suprahilar region, unchanged. Pleural space: No pleural effusion or pneumothorax. Heart: Stable cardiomegaly. Bones/joints: Sternotomy. Vasculature: Calcified thoracic aorta. IMPRESSION: Reticulonodular opacities right suprahilar region, unchanged, favored to represent chronic postinflammatory scarring rather than acute infection. Electronically signed by: Caprice Anthony M.D. 11/03/25 20:48 PM
[2025-11-03 20:52] LABS: Alanine Aminotransferase 8.0 U/L (7-52); Albumin Level 3.4 gm/dl (3.4-5.0); Alkaline Phosphatase 58.0 U/L (34-104); Anion Gap 7.0 (3-11); Bilirubin,Total 0.6 mg/dl (0.2-1.0); Blood Urea Nitrogen 17.0 mg/dl (6-23); Calcium 8.6 mg/dl (8.6-10.3); Carbon Dioxide 31.0 mmol/L (21-32); Chloride 104.0 mmol/L (98-107); Creatinine Clr Calc Pharmacy 51.1 ml/min; Glucose 121.0 mg/dl (70-99(Fasting)); Magnesium 1.7 mg/dl (1.7-2.4); Potassium 3.8 mmol/L (3.5-5.1); Sodium 142.0 mmol/L (136-145); Total Protein 6.1 gm/dl (6.0-8.3)
[2025-11-03] MEDS: CEFEPIME 2000MG 2,000 MG/20 ML SYR IV STA (20:54)
[2025-11-03 21:10] LABS: Appearance Urine Turbid (Clear); Bacteria Urine Automated None Seen (None Seen); Epithelial Cell Urine Auto >20 /hpf (0-2); Glucose Urine UA Negative (Negative)
[2025-11-03 21:17] LABS: Influenza A virus by PCR Negative (Neg); Influenza B virus by PCR Negative (Neg); SARS CoV2 RNA(COVID-19) Ceph NEGATIVE (Negative)
--- NOTE | 2025-11-03 21:55 | History & Physical Report ---
Date of Service November 03, 2025 Assessment & Plan (1) Fever: (2) Elevated troponin: Plan 80-year-old female PMHx renal artery stenosis, anemia of chronic disease, pleural effusion, lung cancer with metastatic cancer, HFpEF, COPD with emphysema, cognitive impairment, HTN, and GERD with most recent hospital admission until 10/23/2025 presenting for fever x 1 day. Evaluation does reveal leukopenia at 4.3 and H&H with 9.2/29.4 and thrombocytopenia 129. Electrolytes grossly unremarkable, troponin is elevated at 61.1, without ischemic changes on EKG. UA is without infection and CXR without infection. Nasal swab negative for infection. Patient with known history of cancer, admission for fever. #Fever History of gram-negative bacteremia with completion of Cipro antibiotics on 11/02/2025; was prescribed Cephalexin day of arrival, did not start. Fever 102 F day of arrival, no additional symptoms. Recent chemo/Keytruda on 10/03/2025, this was first Keytruda treatment. No SOB, LUTS, abdominal pain, vomiting/diarrhea, URI symptoms. ? fever related to Keytruda, however this was over a month ago and this is the first subsequent fever she has had. In setting of recent admission for bacteremia as well as immunosuppressed state, will admit for IV abx, pending blood cultures. Unclear etiology of fever at this time. - CBC leukopenia 4.38, mild thrombocytopenia 129; lactate 0.7; procalcitonin 0.29 - CBC am - COVID/flu/RSV negative - CXR without acute changes - UA without - Blood cultures pending - Zofran prn N/V - Acetaminophen prn fever/pain - Cefepime IV - continue; adjust abx as medically appropriate - pending blood cx - Oncology consult as necessary #Elevated troponin No chest pain, h/o HTN and HFpEF. Hypertensive on arrival. - Trop 61.1, pending repeat - EKG NSR, no ischemic changes - Likely 2/2 demand #HTN/HFpEF- Carvedilol, lisinopril, Lasix (MWF), spironolactone - 1/2 dose of home lisinopril now (20mg) - caution with lowering BP too much in setting of unc lear etiology of fever (? infection) - continue additional meds in morning, held Lasix for now but add back if ongoing stay #Psych- Lorazepam prn, mirtazapine, gabapentin - continue #GERD- Pantoprazole - continue #Metastatic NSCLC/COPD- CXR stable; 2.5L O2 at baseline; Rescue inhaler as needed, Trelegy - continue; follow with oncology outpatient, consider inpatient consult if necessary #HLD- Rosuvastatin - continue #Cancer pain- Morphine prn - hold for now in setting of constipation, add back if severe pain presents Dispo: Admit, med/tele VTE prophylaxis: SCDs This document was dictated utilizing [employer]ASSSU. Please excuse any grammatical errors that may be secondary to use of this software. Admission and Anticipated Discharge Date Admission Date: 11/03/2025 History of Present Illness Chief Complaint: Fever Primary Care Provider: Jessee Joiner DO 80-year-old female PMHx renal artery stenosis, anemia of chronic disease, pleural effusion, lung cancer with metastatic cancer, HFpEF, COPD with emphy sema, cognitive impairment, HTN, and GERD with most recent hospital admission until 10/23/2025 presenting for fever x 1 day. Reports that the day of arrival she was feeling chills and broke out in a sweat, so she decided to take her temperature. Her temp was 102 Fahrenheit at home, and her gave her a Tylenol at that time. She states that her chills resolved quickly and by the time she arrived to the hospital, she felt back to normal. Denies cough, URI symptoms, LUTS, headaches, abdominal pain, diarrhea, or vomiting. She just completed her course of Cipro the day [employer]. Her last dose of chemo and Keytruda were both on October 03, 2025. She has COPD, but again is without cough or SOB. Complaining of some constipation with her most recent BM being 3 days [employer]; normal regimen is every day BMs. She has not been taking opioid medications. She is without additional symptoms. No known sick contacts, but was with family the day [employer] for [place]. Did not take evening medications. ED evaluation reveals CBC with leukopenia 4.38, H&H 9.2/29.4, platelets 129; CMP BUN/creatinine ratio 27.4, glucose 121; lactate 0.7; troponin 61.1, pending repeat; procalcitonin 0.29; UA with LE/WBC, no bacteria, many epithelial cells; COVID/flu/RSV negative; CXR reticulonodular opacities R suprahilar region unchanged (chronic postinflammatory scarring rather than acute infection); EKG NSR, LBBB at 71 bpm.; Provided with 1L NSS and cefepime 2 g IV in ED. Please see Dr. Moe's attestation for adjustments/additions to treatment plan. Allergies Allergy/AdvReac Type Severity Reaction Status Date / Time hydrochlorothiazide Allergy Mild Rash Verified 10/27/25 13:15 nickel Allergy Mild Rash Verified 10/27/25 13:15 Sulfa (Sulfonamide Allergy Mild Rash Verified 10/27/25 13:15 Antibiotics) prednisone AdvReac Intermediate MOOD Verified 10/27/25 13:15 CHANGES Home Medications Medication Instructions Recorded Confirmed Type carvedilol 25 mg tablet 25 mg PO BID #180 tabs 01/24/25 11/03/25 Rx rosuvastatin 10 mg tablet 10 mg PO HS #90 tabs 07/11/25 11/03/25 Rx acetaminophen 500 mg tablet 1,000 mg (2 x 500 mg) PO TID PRN 08/24/25 11/03/25 Rx pain #90 tabs pantoprazole 40 mg tablet,delayed 40 mg PO BID 30 days #60 tabs 09/02/25 11/03/25 Rx release folic acid 1 mg tablet 1 mg PO QAM 09/27/25 11/03/25 History albuterol sulfate 90 mcg/actuation 2 puff inhalation Q4H PRN 10/04/25 11/03/25 History aerosol inhaler Shortness Of Breath Or Wheezing fluticasone fur. 200 mcg-umeclid 1 inh inhalation DAILY 10/04/25 11/03/25 History 62.5 mcg-vilant 25 mcg inhalat.powder (Trelegy Ellipta) lisinopril 40 mg tablet 40 mg PO HS 10/04/25 11/03/25 History furosemide 20 mg tablet (Lasix) 20 mg PO 3XWK #12 tabs 10/09/25 11/03/25 Rx spironolactone 25 mg tablet 25 mg PO QAM #30 tabs 10/09/25 11/03/25 Rx dexamethasone 4 mg tablet 4 mg PO BID PRN PER CHEMO 10/11/25 11/03/25 History DIRECTIONS morphine 15 mg immediate release 15 mg PO Q8H PRN Pain 10/11/25 11/03/25 History tablet olanzapine 2.5 mg tablet 2.5 mg PO DAILY PRN PER CHEMO 10/11/25 11/03/25 History DIRECTIONS ondansetron HCl 4 mg tablet See Rx Instructions PO Q8H PRN PER 10/11/25 11/03/25 History CHEMO DIRECTIONS prochlorperazine maleate 10 mg 10 mg PO Q6H PRN NAUSEA/VOMITING 10/11/25 11/03/25 History tablet lorazepam 1 mg tablet 0.5 mg PO HS PRN anxiety 10/20/25 11/03/25 History estradiol 0.01% (0.1 mg/gram) See Rx Instructions .Route 10/23/25 11/03/25 Rx vaginal cream (Estrace) .COMPLEX UTI prevention #42.5 grams mirtazapine 15 mg tablet 7.5 mg (1/2 x 15 mg) PO HS #14 tabs 10/23/25 11/03/25 Rx cephalexin 500 mg tablet 500 mg PO TID 5 days #15 tabs 11/03/25 11/03/25 Rx gabapentin 300 mg capsule 300 mg PO UD PRN Pain 11/03/25 11/03/25 History Past Med/Surg History Problem List Elevated troponin Fever Anemia requiring transfusions (Acute) Renal artery stenosis Anemia of chronic disease (Acute) Pleural effusion (Acute) Metastatic cancer (Acute) Mitral regurgitation Malignant pleural effusion (HFpEF) heart failure with preserved ejection fraction COPD with emphysema Palliative care by specialist Lumbar vertebral fracture, pathologic (Acute ~09/18/25) Largest lesions at the L3 and L4 levels with redemonstration of an L4 pathologic fracture. Hypoxia (Acute) Cancer related pain (Acute) Lung mass Abnormal MRI, lumbar spine Lumbar radiculopathy Back pain (Acute) Left hip pain Cognitive impairment Vitamin B12 deficiency anemia Allergic reaction to sulfonamide Hyperglycemia Dyslipidemia Family history of colon cancer LVH (left ventricular hypertrophy) (Chronic) Diverticulosis (Chronic) Chronic rhinitis Chronic obstructive pulmonary disease Osteoporosis (Chronic) Hypertension Esophageal reflux (Chronic) Anxiety (Chronic) Medical History Abnormal CT of the abdomen Acute dehydration Nausea and vomiting Lumbago Demand ischemia Nausea CAD (coronary artery disease) Nonobstructive Hypochromic anemia Metastatic cancer LBBB (left bundle branch block) since myectomy Hypertrophic cardiomyopathy s/p myectomy with no outflow obstruction or MR on echo after surgery Mitral regurgitation PT STATES RESOLVED AFTER HEART SURGERY Edema Dyspnea on exertion History of anemia Spinal stenosis Hyperlipidemia Borderline diabetic Hx of gastric ulcer Chronic obstructive pulmonary disease History of basal cell carcinoma Surgical History History of anesthesia reaction SLOW TO WAKE UP H/O wrist surgery + CTR (HARDWARE INTACT) History of cholecystectomy History of tooth extraction History of cataract surgery RT/LEFT History of esophagogastroduodenoscopy (EGD) History of colonoscopy (~2015) S/P breast lumpectomy LEFT (BENIGN) S/P tonsillectomy H/O arthroscopic knee surgery RT H/O hernia repair S/P myomectomy 2 YEARS AGO AT [facility] [place] Family History Mother Colorectal cancer Father , at 78 years of age from acute CO in the setting of DM. Diabetes Stroke Family history of diabetes mellitus Brother Family history of diabetes mellitus Family/Other Breast cancer niece Mother , at 62 years of age from colon CA. No problems noted. Other No family history of adverse response to anesthesia Denies family history of Ovarian cancer Prostate cancer Social History Smoking Status: Never smoker Tobacco Type: Cigarettes Age Started Using Tobacco: 16; Age Quit Using Tobacco: 72; packs per day: 0.5; Second Hand Exposure: No; Do You Dip or Chew Tobacco: No; Hx Alcohol Use: No Hx Substance Use: No Preferred Language: Uzbek Communication Ability: Effective Nursing Executive Required: No Beliefs That Will Affect Care: None marital status: marital status details: 63 yrs Current Living Situation: Spouse and Family Current Living Situation Comment: , Daughter, and Granddaughter current occupational status: retired How many Children do You have: 2 How many Children do You have Comment: 2 sons(53y,,drug O/D;59y,alive/well);1 daughter(53y,alive/well). Feels Safe at Home: Yes Childhood Exposure to Second-Hand Smoke: No Diet: regular caffeine: Yes Dental Care, Regularly: No Physical Activity Frequency: Daily Seatbelt Use: always Sunscreen Use: Yes Assistive Devices: Cane, Glasses, Oxygen - Continuous and Walker Review of Systems Review of Systems: All systems reviewed & are unremarkable except as noted in Subjective Physical Exam Physical Exam: General: No acute distress Skin: Warm and dry Head: Normocephalic, atraumatic Eyes: PERRL, conjunctivae clear, sclera non-icteric ENT: External ear and ear canal without swelling; nose atraumatic; fair dentition, tongue normal appearance, pharynx normal Neck: Supple, no LAD Cardio: RRR, no M/G/R, S1 and S2 normal Resp: No respiratory distress, Lungs CTA in all lobes bilaterally, no wheezes, rales, or rhonchi Abdomen: Soft, symmetric, nontender; No masses or hepatosplenomegaly; Bowel sounds normoactive MSK: No deformities; pulses palpable and equal; no edema. Neuro: Awake, alert; Sensation intact bilaterally; CN grossly intact Psych: Appropriate mood and affect; good judgement and insight. present in room at time of admission. Results & Data Results & Data Vital Signs (Past 12 Hours) Vital Signs Temp Pulse Resp BP BP Pulse Ox O2 Del Method 11/03/25 21:30 68 20 175/65 H 97 11/03/25 21:15 69 19 189/70 H 97 11/03/25 21:00 69 18 204/88 H 99 11/03/25 20:50 68 22 99 11/03/25 20:45 68 22 202/78 H 99 11/03/25 20:39 72 19 212/80 H 98 11/03/25 20:16 Nasal Cannula 11/03/25 20:12 77 11/03/25 20:08 73 22 195/79 H 93 11/03/25 19:55 37.1 C 18 195/79 H 91 Nasal Cannula 11/03/25 19:55 37.1 C 77 16 195/79 H 91 Nasal Cannula O2 Flow Rate 11/03/25 21:30 11/03/25 21:15 11/03/25 21:00 11/03/25 20:50 11/03/25 20:45 11/03/25 20:39 11/03/25 20:16 1 11/03/25 20:12 11/03/25 20:08 11/03/25 19:55 1 11/03/25 19:55 1 Laboratory Results 11/03/25 20:34 Aerobic Blood Culture - Pending Blood Anaerobic Blood Culture - Pending 11/03/25 20:19 Aerobic Blood Culture - Pending Blood Anaerobic Blood Culture - Pending 11/03/25 11/03/25 20:32 20:19 WBC 4.38 L RBC 3.30 L Hgb 9.2 L Hct 29.4 L MCV 89.1 MCH 27.9 MCHC 31.3 L RDW Std Deviation 54.5 H RDW Coeff of [place] 17.1 H Plt Count 129 L MPV 10.2 Immature Gran % (Auto) 0.7 Neut % (Auto) 75.6 Lymph % (Auto) 5.0 [place] % (Auto) 12.8 Eos % (Auto) 5.0 Baso % (Auto) 0.9 Neut # (Auto) 3.31 Lymph # (Auto) 0.22 L [place] # (Auto) 0.56 Eos # (Auto) 0.22 Baso # (Auto) 0.04 Immature Gran # (Auto) 0.03 Sodium 142 Potassium 3.8 Chloride 104 Carbon Dioxide 31 Anion Gap 7 BUN 17 Creatinine 0.62 Est Cr Clr Drug Dosing 51.1 eGFR 89.41 BUN/Creatinine Ratio 27.4 H Glucose 121 H Lactate 0.7 Calcium 8.6 Magnesium 1.7 Total Bilirubin 0.6 Direct Bilirubin 0.1 AST 17 ALT 8 Alkaline Phosphatase 58 Troponin I High Sens 61.1 H* Total Protein 6.1 Albumin 3.4 Procalcitonin 0.29 Urine Color Yellow Urine Appearance Turbid A Urine pH 5.5 Ur Specific [place] 1.018 Urine Protein 1+ H Urine Glucose (UA) Negative Urine Ketones Negative Urine Blood Trace H Urine Nitrite Negative Urine Bilirubin Negative Urine Urobilinogen Negative Ur Leukocyte Esterase Trace H Urine WBC (Auto) 6-10 H Urine RBC (Auto) 11-20 H U Hyaline Cast (Auto) 3-5 H U Epithel Cells (Auto) >20 H Urine Bacteria (Auto) None Seen Urine Comment SARS-CoV-2 (PCR) NEGATIVE Influenza Type A (PCR) Negative Influenza Type B (PCR) Negative RSV (RT-PCR) Negative Diagnostic Findings Chest X-Ray 11/03/25 20:16 Exam(s): XR CXR 1 VIEW EXAM: XR Chest, 1 View CLINICAL HISTORY: Reason for exam: Sepsis. TECHNIQUE: Frontal view of the chest. COMPARISON: 10/19/2025 FINDINGS: Lungs: Left lung appears clear. Reticulonodular opacities right suprahilar region, unchanged. Pleural space: No pleural effusion or pneumothorax. Heart: Stable cardiomegaly. Bones/joints: Sternotomy. Vasculature: Calcified thoracic aorta. IMPRESSION: Reticulonodular opacities right suprahilar region, unchanged, favored to represent chronic postinflammatory scarring rather than acute infection. Electronically signed by: Caprice Anthony M.D. 11/03/25 20:48 PM Medications Administered 1L NSS Cefepime 2 g IV ECG Additional Comments: NSR, LBBB 71 bpm, SD 188, QRS 160, QT/QTc 468/508, PRT 80/90/158 Code Status & VTE Plan Code Status DNR/DNI Supervising Physician Co-Signing Physician Notes Patient seen and examined, chart reviewed, case discussed with YODIT Cazares and I agree with the assessment and plan as above. In brief, patient is an 80yo female with non-small cell lung cancer with metastatic disease to the pleura, lumbar spine and liver on chemotherapy and Keytruda, recent admission secondary to E. coli UTI with bacteremia s/p treatment with Cefepime, Ceftriaxone and ultimately Ciprofloxacin to complete 10 day course. Patient discharged home on 10/23/25. She returns today with fever to 102 at home. She did take Tylenol prior to arrival and is presently afebrile. No focal complaints. On exam she is resting comfortably, NAD Skin without rash HEENT - moist mucus membranes, neck supple Heart - +S1/S2, regular, KIERRA present at apex, no rubs/gallops Lungs - CTA Abd - soft, NT/ND Ext - no edema Labs and images reviewed Pancytopenia. Leukopenia with WBC=4.38 with Lymphopenia. Neutrophils WNL. No immature granulocytes present. Procalcitonin WNL UA without bacteria CXR unchanged Assessment/Plan Fever at home prior to arrival. No obvious source of infection at this time. Recent gram negative bacteremia for which she completed 10 day course of antibiotics. Chemo/Keytruda on 10/03/25 - first treatment. -Follow cultures -Empiric Cefepime -Tylenol PRN -Remainder as above PG Care Time/CCT Total # of Minutes Spent Total Time Spent with Patient: Total time spent is greater than 50% in coordination of care (as documented) at patient's floor/unit and/or counseling patient: Coding Level of Care Code 94420 INT INP/OBS CARE 3/75MIN Diagnoses Fever R50.9 Elevated troponin R79.89
[2025-11-03] MEDS: POLYETHYLENE (MIRALAX) 17 GM PACK PO SCH (22:47)
[2025-11-03] MEDS ORDERED: ONDANSETRON INJ 2 MG/ML 2 ML VIAL IV PRN (23:45)
[2025-11-03] MEDS ORDERED: ALBUTEROL HFA 8 GM INHALER INH PRN (23:45)
[2025-11-03] MEDS ORDERED: MELATONIN 3 MG TAB PO PRN (23:45)
[2025-11-03] MEDS ORDERED: GABAPENTIN 300 MG CAP PO PRN (23:45)
[2025-11-03] MEDS ORDERED: MoRPHine SULFATE IR 15 MG TAB (IMMEDIATE RELEASE) PO PRN (23:45)
[2025-11-03] MEDS: CEFEPIME 2000MG 2,000 MG/20 ML SYR IV SCH (23:59)
[2025-11-04 06:18] LABS: Hematocrit (blood only) 28.6 % (37.0-47.0); Hemoglobin 8.9 g/dL (12.0-16.0); Mean Corpuscular Hemoglobin 27.9 pg (25.0-34.0); Mean Corpuscular Volume 89.7 fL (80.0-100.0); Platelet Count 117 K/uL (130-400); RDW Standard Deviation 54.7 fL (36.4-46.3); Red Blood Count 3.19 M/uL (4.20-5.40); White Blood Count 3.61 K/ul (4.8-10.8)
[2025-11-04] MEDS: ACETAMINOPHEN 500 MG TAB PO PRN (07:27)
[2025-11-04] MEDS ORDERED: NON-FORMULARY MEDICATION (Fluticasone-Umeclidin-Vilanter [Trelegy Ellipta] 200-62.5-25 mcg INH SCH (09:00)
[2025-11-04] MEDS: SPIRONOLACTONE 25 MG TAB PO SCH (10:37)
[2025-11-04] MEDS: UMECLIDINIUM/VILANTEROL 62.5/25MCG 7 PUFFS/INHALER INH SCH (10:39)
[2025-11-04] MEDS: FLUTICASONE FUROATE 200MCG 14 PUFFS/INHALER INH SCH (10:39)
[2025-11-04] MEDS: CEFEPIME 2000MG 2,000 MG/20 ML SYR IV SCH (10:45)
[2025-11-04 12:02] LABS: Chlamydia pneumoniae PCR Not Detected (NotDetected); Coronavirus 229E PCR Not Detected (NotDetected); Coronavirus CoV-2 (COVID19)PCR Not Detected (NotDetected); Coronavirus HKU1 PCR Not Detected (NotDetected); Coronavirus NL63 PCR Not Detected (NotDetected); Coronavirus OC43PCR Not Detected (NotDetected); Human Metapneumovirus PCR Not Detected (NotDetected); Parainfluenza Virus 1 PCR Not Detected (NotDetected); Parainfluenza Virus 2 PCR Not Detected (NotDetected); Parainfluenza Virus 3 PCR Not Detected (NotDetected); Parainfluenza Virus 4 PCR Not Detected (NotDetected); Respiratory Syncytial VirusPCR Not Detected (NotDetected); Rhinovirus/Enterovirus PCR Not Detected (NotDetected)
--- NOTE | 2025-11-04 18:15 | Hospitalist Progress Note ---
Date of Service November 04, 2025 Assessment & Plan (1) Fever: (2) Elevated troponin: Plan 80-year-old female PMHx renal artery stenosis, anemia of chronic disease, pleural effusion, lung cancer with metastatic cancer, HFpEF, COPD with emphysema, cognitive impairment, HTN, and GERD with most recent hospital admission until 10/23/2025 presenting for fever x 1 day. Few days ago completed 14d course of cipro for E. coli UTI and low grade bacteremia. Does not have port/central line. #Fever Unknown cause, no focal symptoms. Potentially viral syndrome. Added full resp [employer] panel which was negative. Fever seems to be resolving -continue cefepime and follow blood cultures -I don't see any evidence of a keytruda reaction -probably home in AM with abx for pneumonia coverage ex cefuroxime for a week #chronically elevated HS-troponin, slight increase from baseline probably mild myocardial demand ischemia No chest pain, h/o HTN and HFpEF. Hypertensive on arrival. Trop downtrending #HTN/HFpEF- Carvedilol, lisinopril, Lasix (MWF), spironolactone. stable #Psych- Lorazepam prn, mirtazapine, gabapentin - continue #GERD- Pantoprazole - continue #Metastatic NSCLC/COPD- CXR stable; 2.5L O2 at baseline; Rescue inhaler as needed, Trelegy - continue; follow with oncology outpatient, planned for Keytruda infusion 11/13 #HLD- Rosuvastatin - continue #Cancer pain- Morphine prn - hold for now in setting of constipation, add back if severe pain presents VTE ppx - enox Updated her daughter and in the room Admission and Anticipated Discharge Date Admission Date: November 03, 2025 Subjective Continues to have sweats but getting less frequent No cough, CP, abd pain, N/V/D, dysuria, skin or joint symptoms Maybe had a sore throat few days ago Chronic Rt low back pain unchanged Daughter reports off home O2 past week at home which was improvement Physical Exam Physical Exam: Last 24h vitals reviewed GEN: no acute distress, sitting on EOB HEENT: pupils equal, sclerae anicteric, moist MM RESP: normal WOB, CTAB CV: reg no mrg ABD: soft/nt/nd +BT : no [place] SKIN: warm and dry, no generalized rashes NEURO: AOx person, place, and situation. Face symmetric, speech normal, moves 4 ext spontaneously and equally Results & Data Results & Data Vital Signs (Past 12 Hours) Vital Signs Temp Pulse Pulse Resp BP BP Pulse Ox 11/04/25 17:33 75 20 95 11/04/25 17:00 68 24 135/42 L 100 11/04/25 16:29 74 24 175/104 H 96 11/04/25 16:21 74 24 99 11/04/25 16:12 70 23 100 11/04/25 16:01 175/104 H 11/04/25 16:01 175/104 H 11/04/25 16:01 175/104 H 11/04/25 16:01 175/104 H 11/04/25 16:01 175/104 H 11/04/25 16:00 77 20 98 11/04/25 15:51 73 23 98 11/04/25 15:42 69 23 98 11/04/25 15:30 76 24 99 11/04/25 15:29 72 11/04/25 15:21 72 26 H 99 11/04/25 15:12 78 20 99 11/04/25 15:00 160/60 H 11/04/25 15:00 160/60 H 11/04/25 15:00 160/60 H 11/04/25 15:00 160/60 H 11/04/25 15:00 160/60 H 11/04/25 15:00 68 25 H 99 11/04/25 14:51 68 22 98 11/04/25 14:42 68 26 H 99 11/04/25 14:30 64 19 99 11/04/25 14:21 65 17 98 11/04/25 14:12 64 20 98 11/04/25 14:00 62 15 100 11/04/25 14:00 146/47 H 11/04/25 14:00 146/47 H 11/04/25 14:00 146/47 H 11/04/25 14:00 146/47 H 11/04/25 14:00 146/47 H 11/04/25 13:51 64 15 99 11/04/25 13:42 65 21 99 11/04/25 13:30 66 18 99 11/04/25 13:21 66 15 99 11/04/25 13:12 68 15 99 11/04/25 13:00 11/04/25 13:00 99/47 L 11/04/25 13:00 99/47 L 11/04/25 13:00 99/47 L 11/04/25 13:00 99/47 L 11/04/25 13:00 99/47 L 11/04/25 13:00 63 19 99 11/04/25 12:51 65 20 100 11/04/25 12:42 64 19 100 11/04/25 12:30 61 18 100 11/04/25 12:21 61 13 100 11/04/25 12:12 67 14 93 11/04/25 12:00 154/55 H 11/04/25 12:00 154/55 H 11/04/25 12:00 154/55 H 11/04/25 12:00 154/55 H 11/04/25 10:55 36.6 C 11/04/25 07:22 79 11/04/25 07:04 37.7 C H 82 18 164/62 H 97 O2 Del Method O2 Flow Rate 11/04/25 17:33 11/04/25 17:00 11/04/25 16:29 Room Air 11/04/25 16:21 11/04/25 16:12 11/04/25 16:01 11/04/25 16:01 11/04/25 16:01 11/04/25 16:01 11/04/25 16:01 11/04/25 16:00 11/04/25 15:51 11/04/25 15:42 11/04/25 15:30 11/04/25 15:29 11/04/25 15:21 11/04/25 15:12 11/04/25 15:00 11/04/25 15:00 11/04/25 15:00 11/04/25 15:00 11/04/25 15:00 11/04/25 15:00 11/04/25 14:51 11/04/25 14:42 11/04/25 14:30 11/04/25 14:21 11/04/25 14:12 11/04/25 14:00 11/04/25 14:00 11/04/25 14:00 11/04/25 14:00 11/04/25 14:00 11/04/25 14:00 11/04/25 13:51 11/04/25 13:42 11/04/25 13:30 11/04/25 13:21 11/04/25 13:12 11/04/25 13:00 Nasal Cannula 2 11/04/25 13:00 11/04/25 13:00 11/04/25 13:00 11/04/25 13:00 11/04/25 13:00 11/04/25 13:00 11/04/25 12:51 11/04/25 12:42 11/04/25 12:30 11/04/25 12:21 11/04/25 12:12 11/04/25 12:00 11/04/25 12:00 11/04/25 12:00 11/04/25 12:00 11/04/25 10:55 11/04/25 07:22 11/04/25 07:04 Nasal Cannula 2 Laboratory Results white blood count 3.6, hemoglobin 8.9, platelets 117 down from 129. She has lymphopenia which is chronic Creatinine 0.62 Troponin went from 61 down to 55 Procalcitonin 0.29 Triple screen was negative for COVID/flu/RSV Personally reviewed chest x-ray there is a nodular right upper lobe opacity which is unchanged from her chronic findings and there are no pleural effusions PG Care Time/CCT Total # of Minutes Spent Total Time Spent with Patient: Total time spent is greater than 50% in coordination of care (as documented) at patient's floor/unit and/or counseling patient: Coding Level of Care Code 36903 SUB INP/OBS CARE 2/35MIN Diagnoses Fever R50.9 Elevated troponin R79.89
[2025-11-04] MEDS: MIRTAZAPINE TAB 15 MG TAB PO SCH (21:14)
[2025-11-04] MEDS: ENOXAPARIN INJ 40 MG/0.4 ML SYR SQ SCH (21:17)
[2025-11-04] MEDS: ROSUVASTATIN CALCIUM 10 MG TAB PO SCH (21:19)
[2025-11-04] MEDS: LORazepam 0.5 MG TAB PO PRN (21:32)
[2025-11-05 04:18] VITALS: RESP 20
[2025-11-05 08:26] VITALS: BP 174/65; PULSE 73; TEMP 98.7; O2SAT 95
--- NOTE | 2025-11-05 09:52 | Discharge Summary ---
Discharge Summary Date of Service November 05, 2025 Principal Dx & Hospital Course #1 = Principal Diagnosis (1) Fever: (2) Elevated troponin: Plan 80-year-old female PMHx renal artery stenosis, anemia of chronic disease, pleural effusion, lung cancer with metastatic cancer, HFpEF, COPD with emphysema, cognitive impairment, HTN, and GERD with most recent hospital admission until 10/23/2025 presenting for fever x 1 day. Few days ago completed 14d course of cipro for E. coli UTI and low grade bacteremia. Does not have port/central line. UA, CXR unrevealing. Hypoxia was at baseline and no cough. No recurrence of pleural effusion. #Fever Unknown cause, no focal symptoms. Potentially viral syndrome. Added full resp [employer] panel which was negative. Treated in hospital with cefepime. Fever and sweats resolved. Complete 5d total course with oral augmentin since she is somewhat immunocompromised from her lung cancer and keytruda infusions. -I don't see any evidence of a keytruda reaction -follow up blood cultures, NGTD #chronically elevated HS-troponin, slight increase from baseline probably mild myocardial demand ischemia No chest pain, h/o HTN and HFpEF. Hypertensive on arrival. Trop downtrending #HTN/HFpEF- Carvedilol, lisinopril, Lasix (MWF), spironolactone. stable #Psych- Lorazepam prn, mirtazapine, gabapentin - continue #GERD- Pantoprazole - continue #Metastatic NSCLC/COPD- CXR stable; 2.5L O2 at baseline; Rescue inhaler as nee ded, Trelegy - continue; follow with oncology outpatient, planned for Keytruda infusion 11/13 #HLD- Rosuvastatin - continue #Cancer pain- Morphine prn Updated her in the room today Notes For Next Care Provider Fever, resolved, no source determined 5 day course of cefepime/augmentin in case of occult pneumonia Blood cultures pending, NGTD Admission HPI Per Admitting Provider 80-year-old female PMHx renal artery stenosis, anemia of chronic disease, pleural effusion, lung cancer with metastatic cancer, HFpEF, COPD with emphysema, cognitive impairment, HTN, and GERD with most recent hospital admission until 10/23/2025 presenting for fever x 1 day. Reports that the day of arrival she was feeling chills and broke out in a sweat, so she decided to take her temperature. Her temp was 102 Fahrenheit at home, and her gave her a Tylenol at that time. She states that her chills resolved quickly and by the time she arrived to the hospital, she felt back to normal. Denies cough, URI symptoms, LUTS, headaches, abdominal pain, diarrhea, or vomiting. She just completed her course of Cipro the day [employer]. Her last dose of chemo and Keytruda were both on October 03, 2025. She has COPD, but again is without cough or SOB. Complaining of some constipation with her most recent BM being 3 days [employer]; normal regimen is every day BMs. She has not been taking opioid medications. She is without additional symptoms. No known sick contacts, but was with family the day [employer] for [place]. Did not take evening medications. ED evaluation reveals CBC with leukopenia 4.38, H&H 9.2/29.4, platelets 129; CMP BUN/creatinine ratio 27.4, glucose 121; lactate 0.7; troponin 61.1, pending repeat; procalcitonin 0.29; UA with LE/WBC, no bacteria, many epithelial cells; COVID/flu/RSV negative; CXR reticulonodular opacities R suprahilar region unchanged (chronic postinflammatory scarring rather than acute infection); EKG NSR, LBBB at 71 bpm.; Provided with 1L NSS and cefepime 2 g IV in ED. Please see Dr. Moe's attestation for adjustments/additions to treatment plan. Discharge Exam Last 24h vitals reviewed GEN: no acute distress, lying in bed HEENT: pupils equal, sclerae anicteric, moist MM RESP: normal WOB, CTAB CV: reg no mrg ABD: soft/nt/nd +BT : no [place] SKIN: warm and dry, no generalized rashes NEURO: AOx person, place, and situation. Face symmetric, speech normal, moves 4 ext spontaneously and equally Discharge Plan Discharge Items Patient Disposition: Home - Home Health Services Reason For Visit: fever Discharge Diagnosis: Fever, possible viral syndrome Condition on Discharge: Good Activity: Resume your previous activity Non-emergency contact: Primary Care Provider and Oncologist Call non-emergency contact if: you have any medication questions, your symptoms worsen and your temperature is above 101 Follow-up/Referrals: Jessee Joiner, [Primary Care Provider] - 11/14/25 1:00 pm Jayna Singleton MD [Physician] - Diet: Regular Addtl Attending Provider Instructions: You were evaluated for fever We did not detect a specific cause, but you have improved. It was probably a viral syndrome. Tests for common respiratory viruses was negative. Because of your lung cancer and some immunocompromise we'll finish a course of antibiotic that covers pneumonia (amoxicillin-clavulanate) - you didn't have any pulmonary symptoms, but an early pneumonia would be the next most likely thing Stop the cephalexin which is redundant to and narrower coverage than the amoxicillin You can take a probiotic for 2-4 weeks to prevent antibiotic associated diarrhea. These are available over the counter. If you have rash or severe diarrhea after/while taking antibiotics, call your doctor. Diarrhea associated with broad spectrum antibiotics can occur up to six months following antibiotics. If you have significant ongoing diarrhea, especially with abdominal pain or fever, seek medical attention. 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 Resume home health PT and OT It was a pleasure taking care of you in the hospital, Khushboo Michael MD Pending Studies at Discharge: Yes (blood cultures - finalize after 5 days) Stand-Alone Forms: [facility], Smoking Cessation Medications and DC Order Prescriptions: New amoxicillin-pot clavulanate 875-125 mg tablet 1 tab PO BID Qty: 8 0RF Rx Instructions: start pm of 11/05 Continued carvedilol 25 mg tablet 25 mg PO BID Qty: 180 3RF rosuvastatin 10 mg tablet 10 mg PO HS Qty: 90 3RF folic acid 1 mg tablet 1 mg PO QAM dexamethasone 4 mg tablet 4 mg PO BID PRN (Reason: PER CHEMO DIRECTIONS) Rx Instructions: Start 1 days prior, day of tx and day after tx, take BID (chemo tx only) morphine 15 mg tablet 15 mg PO Q8H PRN (Reason: Pain) Rx Instructions: orally every 8 hours PRN; olanzapine 2.5 mg tablet 2.5 mg PO DAILY PRN (Reason: PER CHEMO DIRECTIONS) Rx Instructions: take At day 1 of chemo for 4 days in a row- for nausea ondansetron HCl 4 mg tablet See Rx Instructions PO Q8H PRN (Reason: PER CHEMO DIRECTIONS) Rx Instructions: 4mg to 8 mg (has 4 mg po prior to radiation treatments PRN and 8 mg pretreat PRN w/chemo trio alimta/ paraplatin/ Keyteruda/ prior to treatment) (q 3 weeks for 6 rounds) reported by daughter prochlorperazine maleate 10 mg tablet 10 mg PO Q6H PRN (Reason: NAUSEA/VOMITING) Rx Instructions: ordered by oncology as nausea tx: take Po q6 hours prn nausea, & alternate w/ Zofran when having chemo. acetaminophen 500 mg tablet 1,000 mg PO TID PRN (Reason: pain) Qty: 90 0RF lorazepam 1 mg tablet 0.5 mg PO HS PRN (Reason: anxiety) mirtazapine 15 mg Tablet 7.5 mg PO HS Qty: 14 0RF pantoprazole 40 mg Tablet,Delayed Release (Dr/Ec) 40 mg PO BID 30 Days Qty: 60 1RF albuterol sulfate 90 mcg/actuation HFA aerosol inhaler 2 puff inhalation Q4H PRN (Reason: Shortness Of Breath Or Wheezing) lisinopril 40 mg tablet 40 mg PO HS Trelegy Ellipta 200-62.5-25 mcg blister with device 1 inh inhalation DAILY furosemide [Lasix] 20 mg tablet 20 mg PO 3XWK Qty: 12 0RF Rx Instructions: On Thursday and Thursday spironolactone 25 mg tablet 25 mg PO QAM Qty: 30 0RF Hold Instructions: hypotension gabapentin 300 mg capsule 300 mg PO UD PRN (Reason: Pain) Changed estradiol [Estrace] 0.01 % (0.1 mg/gram) cream See Rx Instructions .ROUTE .COMPLEX Qty: 42.5 1RF Rx Instructions: 1g PV three times a week Discontinued cephalexin 500 mg tablet 500 mg PO TID 5 Days Qty: 15 0RF Discharge Orders: Discharge Order (Routine); Ordered 11/05/25 Ordered By: Khushboo Michael Admission Data Admit Date/Time: 11/03/25 22:18 Attending Provider: Khushboo Michael Admit Provider: Zee Moe Primary Care Provider: Jessee Joiner Other Providers: Zee Moe; [facility] Fax Other Interventions: Discharge Summary Assessment (RN) Last Done: 11/05/25 11:50 Hospital Stay Data Consultations 11/03/25 21:36 ED Decision to Admit Stat Pending Results Patient Have Any Pending Studies at Discharge: Yes (blood cultures - finalize after 5 days) Discharge Instructions Given to Patient (Per Discharging Provider) You were evaluated for fever We did not detect a specific cause, but you have improved. It was probably a viral syndrome. Tests for common respiratory viruses was negative. Because of your lung cancer and some immunocompromise we'll finish a course of antibiotic that covers pneumonia (amoxicillin-clavulanate) - you didn't have any pulmonary symptoms, but an early pneumonia would be the next most likely thing Stop the cephalexin which is redundant to and narrower coverage than the amoxicillin You can take a probiotic for 2-4 weeks to prevent antibiotic associated diarrhea. These are available over the counter. If you have rash or severe diarrhea after/while taking antibiotics, call your doctor. Diarrhea associated with broad spectrum antibiotics can occur up to six months following antibiotics. If you have significant ongoing diarrhea, especially with abdominal pain or fever, seek medical attention. 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
--- NOTE | 2025-11-05 20:43 | Electrocardiogram Report ---
Test Reason : Blood Pressure : */* mmHG Vent. Rate : 71 BPM Atrial Rate : 71 BPM P-R Int : 188 ms QRS Dur : 160 ms QT Int : 468 ms P-R-T Axes : 80 9 158 degrees QTcB Int : 508 ms Normal sinus rhythm Left bundle branch block Left ventricular hypertrophy Abnormal ECG When compared with ECG [id number] 09:24, Aberrant conductionis no longerPresent CT intervalhas decreased Criteria forInferior infarctare no longerPresent Limb lead reversal is corrected Confirmed by Iona Garcia (Nickie) on 11/05/2025 8:43:22 PM Referred By: REFERRED SELF Confirmed By: Iona Garcia
== END 2025-11-05 12:15 | disposition home health service (06) | DRG 864 ==
LOC: ED 20:05 → SUATTDRO 22:18 → EDINP 22:18 → 2N 11-04 17:50